=== PATIENT | male | born 1950 | race Caucasian/White ===

== ENCOUNTER 2022-10-09 02:40 | Inpatient (IN) | payer MEDICARE, SELFPAY ==
[2022-10-09] VITALS (10 sets, daily range): BP systolic 117–152; BP diastolic 63–89; PULSE 66–88; RESP 14–18; TEMP 36.7–37.7; O2SAT 91–97; BMI 29.0
--- NOTE | 2022-10-09 | ECHO_ITS ---
Patient Info Name: Andrei Amato Age: 72 years : 1950 Gender: Male Ht: 72 in Wt: 213 lbs BSA: 2.23 m2 HR: 79 bpm BP: 146 / 87 mmHg Heart Rhythm: Sinus Rhythm Technical Quality: Good Exam Date: 10/09/2022 7:55 AM Exam Location: [facility] Patient Status: Outpatient Admit Date: 10/09/2022 Staff Ordering Physician: Alvaro Rojo APRN Senior Oracle Database Administrator: Angi Austin RDCS Attending Provider: Sofia Lucia MD Referring Physician: Darrel CARLSON; Exam Type: CA echo doppler color flow Study Info Indications - pulmonary edema Complete two-dimensional, color flow and Doppler transthoracic echocardiogram is performed. Summary 1. Complete two-dimensional, color flow and Doppler transthoracic echocardiogram is performed. 2. Left ventricular chamber dimension is normal. 3. Left ventricular systolic function is normal, estimated at 60-65%. 4. There is mild concentric increased left ventricular wall thickness. 5. The left ventricular diastolic function is abnormal. 6. E/e' 13 is mildly elevated. 7. Left atrial chamber dimension is moderately enlarged. 8. Right atrial chamber dimension is moderately enlarged. 9. The mitral valve has mildly calcified annulus. 10. There is trace mitral valve regurgitation. 11. There is trace tricuspid valve regurgitation. 12. Mild pulmonary hypertension, estimated pulmonary arterial systolic pressure is 44 mmHg. 13. There is trace pulmonic regurgitation. 14. In proximal ascending aorta there appears to be a echogenic mobile mass 1.8 cm x 1.1 cm but could be artifact. Recommend CTA of aorta for further evaluation. Left Ventricle E/e' 13 is mildly elevated. Left ventricular chamber dimension is normal. Left ventricular systolic function is normal, estimated at 60-65%. There is mild concentric increased left ventricular wall thickness. The left ventricular diastolic function is abnormal. Right Ventricle Right ventricular systolic function is normal and with normal TAPSE 2.3 cm.. Right ventricular chamber dimension is normal. Left Atria Left atrial chamber dimension is moderately enlarged. Right Atria Right atrial chamber dimension is moderately enlarged. Aortic Valve The aortic valve is trileaflet. There is no aortic valve stenosis. There is no aortic valve regurgitation. Pulmonic Valve There is trace pulmonic regurgitation. Mitral Valve The mitral valve has mildly calcified annulus. There is no mitral valve stenosis. There is trace mitral valve regurgitation. Tricuspid Valve There is trace tricuspid valve regurgitation. Mild pulmonary hypertension, estimated pulmonary arterial systolic pressure is 44 mmHg. Pericardium/Pleural There is no pericardial effusion. Inferior Vena Cava Normal inferior vena cava with >50% collapse upon inspiration consistent with normal right atrial pressure, 5 mmHg. Aorta In proximal ascending aorta there appears to be a echogenic mobile mass 1.8 cm x 1.1 cm but could be artifact. Recommend CTA of aorta for further evaluation. The aortic root size at the sinus of Valsalva is normal. Left Ventricular Outflow Tract Name Value Normal LVOT 2D LVOT Diameter 2.2 cm LVOT Doppler LVOT Peak Gradient
--- NOTE | ~2022-10-09 | CT_ITS ---
Non-contrast Head CT History: Altered mental status COMPARISON: 10/08/2016 Technique: Axial non-contrast imaging of the brain was performed. Dose reduction technique was used on this scan by utilizing automated exposure control and iterative reconstruction technique. The dose -length product (DLP) was 681.00 mGy-cm. Findings: There is no evidence of intracranial hemorrhage, mass lesion, or acute infarct. Brain par enchyma appears normal. The ventricles and subarachnoid spaces are normal in size. The calvarium ap pears normal. The visualized paranasal sinuses and mastoid air cells are clear. Impression: No significant abnormality seen. Reviewed, dictated and finalized at location . Impression: No significant abnormality seen.
--- NOTE | ~2022-10-09 | CT_ITS ---
EXAMINATION: CTA chest DATE: 10/09/2022 14:48 INDICATION: Aortic mass. TECHNIQUE: Computed tomographic angiography (CTA) of the chest was performed with 100 mL Omnipaque-35 0 intravenous contrast. Automated exposure control and iterative reconstruction technique were employ ed. The dose-length product was 679.84 mGy-cm. Maximum intensity projection 3D-reconstructions of the aorta and other arteries were constructed by the technologist on a separate workstation. COMPARISON: CT abdomen and pelvis 10/09/2022, chest 2 views 10/08/16 FINDINGS: The lungs demonstrate widespread heterogeneous septal thickening and groundglass opacities. No pleural effusion. Cardiomegaly is noted. No pericardial effusion. Aortic atherosclerosis is noted . There is no pulmonary embolus. There is mild mediastinal and bilateral hilar lymphadenopathy. There is a moderate-sized sliding hiatal hernia. There are changes of anterior fusion procedure in cervica l spine. There is severe upper thoracic spondylosis. IMPRESSION: 1. Diffuse lung disease, likely a combination of pneumonia, pulmonary edema, and chronic lung disease . 2. Mild mediastinal and bilateral hilar lymphadenopathy, likely reactive. 3. Moderate-sized sliding hiatal hernia. 4. Mild aortic atherosclerosis. No abnormal aortic mass. 5. No pulmonary embolus. Reviewed, dictated and finalized at location A. IMPRESSION: 1. Diffuse lung disease, likely a combination of pneumonia, pulmonary edema, an d chronic lung disease. 2. Mild mediastinal and bilateral hilar lymphadenopathy, likely reactive. 3. Moderate-sized sliding hiatal hernia. 4. Mild aortic atherosclerosis. No abnormal aortic mass. 5. No pulmonary embolus.
--- NOTE | ~2022-10-09 | XR_ITS ---
EXAMINATION: XR chest 1V portable INDICATION: Follow-up pneumonia TECHNIQUE: Portable AP chest at 0853 hours COMPARISON: 10/09/2022 FINDINGS: Diffuse lung disease persists but has improved. No pleural effusion or pneumothorax identif ied. Cardiomegaly is noted. IMPRESSION: 1. Diffuse lung disease with interval improvement, likely pneumonia, pulmonary edema, improved chroni c lung disease. Reviewed, dictated and finalized at location B. IMPRESSION: 1. Diffuse lung disease with interval improvement, likely pneumonia, pulmonary edema, improved chronic lung disease.
--- NOTE | ~2022-10-09 | XR_ITS ---
EXAMINATION: XR chest 2V DATE: 10/14/2022 10:36 INDICATION: Pneumonia. Heart failure. TECHNIQUE: Frontal and lateral views of the chest were obtained. COMPARISON: Chest single view 10/12/2022, chest CT 10/09/2022, chest 2 views 10/08/2016 FINDINGS: The lung volumes are normal. There is a diffuse interstitial pattern in the lungs. There ar e airspace opacities in right lower lung zone and left mid and lower lung zones. No pleural effusion or pneumothorax. Cardiomegaly is noted. There is a moderate-sized hiatal hernia. IMPRESSION: 1. Diffuse lung disease with mild improvement in left midlung zone, likely pneumonia and/or pulmonary edema superimposed on chronic lung disease. 2. Moderate-sized hiatal hernia. 3. Cardiomegaly. Reviewed, dictated and finalized at location A. IMPRESSION: 1. Diffuse lung disease with mild improvement in left midlung zone, likely pneu monia and/or pulmonary edema superimposed on chronic lung disease. 2. Moderate-sized hiatal hernia. 3. Cardiomegaly.
--- NOTE | ~2022-10-09 | XR_ITS ---
Clinical Indication: Leukocytosis, cough PA and lateral views of the chest: Comparison: 10/08/2016 Findings: There is extensive groundglass opacity in the lungs. No pleural effusion or pneumothorax.. Cardiomediastinal silhouette is within normal limits. Bones and soft tissues are unremarkable. Impression: Extensive groundglass opacity in the lungs. Correlate for atypical infection versus mild pulmonary ed fei. Reviewed, dictated and finalized at location M. Impression: Extensive groundglass opacity in the lungs. Correlate for atypical infection ve rsus mild pulmonary edema.
--- NOTE | ~2022-10-09 | CT_ITS ---
CT of the Abdomen and Pelvis: Indication: Abdominal pain Technique: 2.5 mm axial scans were obtained through the abdomen and pelvis following intravenous adm inistration of 100 cc of Omnipaque 350. Dose reduction technique was used on this scan by utilizing a utomated exposure control and iterative reconstruction technique. The dose-length product (DLP) was 1 365.46 mGy-cm. Findings: Scans through the lung bases-extensive groundglass opacity throughout the visualized lung bases. Moderate hiatal hernia noted. The liver, spleen, pancreas, gallbladder, and adrenal glands are within normal limits. There is minim al fullness of the bilateral renal collecting systems and ureters. No evidence of aortic aneurysm. N o lymphadenopathy. No bowel obstruction or bowel wall thickening. There is no evidence to suggest acute appendicitis. Images through the pelvis were performed. Urinary bladder unremarkable. Prostate gland is enlarged, a nd indents the bladder base. No ascites. Impression: Extensive groundglass opacity throughout the visualized lung bases. Correlate for pulmonary edema or atypical infection. Minimal fullness of the bilateral renal collecting systems and ureters, probably related to underlyin g BPH. Moderate hiatal hernia. Reviewed, dictated and finalized at location M. Impression: Extensive groundglass opacity throughout the visualized lung bases. Correlate f or pulmonary edema or atypical infection. Minimal fullness of the bilateral renal collecting systems and ureters, probabl y related to underlying BPH. Moderate hiatal hernia.
--- NOTE | 2022-10-09 03:28 | ED.GENADULT ---
HPI - General Adult General Chief complaint: Unspecified Stated complaint: fells off Time Seen by Provider: 10/09/22 02:59 History of Present Illness HPI narrative: Patient is a 72-year-old male presenting with a sensation of feeling off. States that he is concerned that he is dehydrated because he just does not feel like himself. States that he may have felt lightheaded earlier today. He is concerned because the only thing he drinks is water. He denies headache, numbness or weakness, chest pain, shortness of breath, abdominal pain, vomiting, diarrhea, dysuria, leg swelling. Related Data Home Medications Medication Instructions Recorded Confirmed amiodarone 200 mg tablet 200 mg PO DAILY 10/09/22 10/09/22 atorvastatin 10 mg tablet 10 mg PO HS 10/09/22 10/09/22 divalproex 500 mg tablet,extended 500 mg PO DAILY 10/09/22 10/09/22 release 24 hr memantine 10 mg tablet 10 mg PO DAILY 10/09/22 10/09/22 metformin 500 mg tablet 500 mg PO DAILY 10/09/22 10/09/22 rivaroxaban 20 mg tablet (Xarelto) 20 mg PO DAILY 10/09/22 10/09/22 pantoprazole 40 mg tablet,delayed 40 mg PO DAILY 10/12/22 10/12/22 release Allergies Allergy/AdvReac Type Severity Reaction Status Date / Time Yellow Jacket Allergy Unknown Uncoded 10/08/16 09:34 Review of Systems Review of Systems: All systems reviewed & are unremarkable except as noted in HPI and below PMFSH Past Medical History Medical History (Updated 10/12/22 @ 22:13 by Delilah Friedman MD) Atherosclerosis Atrial fibrillation Atrial fibrillation status post cardioversion Borderline diabetes BPH (benign prostatic hyperplasia) Chronic anticoagulation Memory problem Surgical History Surgical History S/P ablation of atrial fibrillation Social History Social History Alcohol intake: current Drinks per week: 1 Substance use: never Substance use type: does not use Lack of Transportation: No Lack of Food: Never True Current Housing: I Have Housing Concerned About Future Housing: No Difficulty Paying Gas/Electric Bills: No Difficulty Paying for Meds: No Currently Unemployed: No Education: Master's Degree or Higher Difficulty w/ Childcare or Family Care: No Spiritual care concerns: No Exam Narrative: GENERAL: Well-appearing, well-nourished, and in no acute distress. HEAD: Normocephalic, atraumatic. EYES: PERRLA and EOMI. ENT: Nares clear, no rhinorrhea or epistaxis. Mucous membranes moist. NECK: Supple. CHEST: crackles bilaterally, no respiratory distress, intermittently tachypneic HEART: Regular rate and rhythm. Normal peripheral pulses. ABDOMEN: Soft, nontender, nondistended EXTREMITIES: Normal range of motion. No edema. SKIN: Warm, dry, no rash. NEURO: No focal deficits. Alert and oriented x3. PSYCH: Somewhat rambling speech but redirectable, normal mood and affect Course Vital Signs Vital signs: Vital Signs Temperature 99.8 F H 10/09/22 02:48 Pulse Rate 79 10/09/22 02:48 Respiratory Rate 14 10/09/22 02:48 Blood Pressure 152/70 H 10/09/22 02:48 Pulse Oximetry 94 10/09/22 02:48 Oxygen Delivery Room Air 10/09/22 02:48 Temperature 98.8 F 10/12/22 21:15 Pulse Rate 69 10/12/22 21:15 Respiratory Rate 16 10/12/22 21:15 Blood Pressure 112/78 10/12/22 21:15 Pulse Oximetry 97 10/12/22 21:15 Oxygen Delivery Room Air 10/12/22 09:31 Oxygen Flow Rate 2 10/11/22 20:00 Fraction of Inspired Oxygen 28 10/11/22 07:32 Medical Decision Making [facility] Narrative Medical decision making narrative: Patient is a 72-year-old male presenting with a sensation of feeling off. Vitals within normal limits. Patient is well-appearing and in no acute distress. Exam is remarkable for the above. Blood work with leukocytosis of 16. Chest x-ray is concerning for pulmonary edema versus atypical pneumo
[2022-10-09 03:29] LABS: Basophils Absolute Auto 0.1 K/mm3 (0.0-0.1); Basophils Percent Auto 0.3 % (0.2-1.2); Eosinophils Absolute Auto 0.1 K/mm3 (0-0.3); Eosinophils Percent Auto 0.8 % (0-4.4); Hemoglobin 12.3 g/dL (14.0-18.0); Immature Granulocyte Absolute 0.07 K/mm3 (0.00-0.031); Immature Granulocyte Percent A 0.4 % (0-0.5); Lymphocytes Absolute Auto 0.98 K/mm3 (0.9-3.2); Lymphocytes Percent Auto 6.1 % (18.3-44.2); Mean Corpuscular HGB Conc 33.2 g/dl (32-36); Mean Corpuscular Hemoglobin 32.9 pg (26-34); Mean Corpuscular Volume 98.9 fl (80-100); Mean Platelet Volume 10.5 fl (7.4-10.4); Monocytes Absolute Auto 1.5 K/mm3 (0.1-0.6); Monocytes Percent Auto 9.3 % (2.6-8.5); Neutrophils Absolute Auto 13.4 K/mm3 (1.3-6.7); Neutrophils Percent Auto 83.1 % (45.5-73.1); Platelet Count Result 198 k/mm3 (150-375); Red Blood Count 3.74 M/mm3 (4.6-6.20); Red Cell Distribution Width 14.1 % (11.5-14.5); White Blood Count 16.2 K/mm3 (4.5-10.0)
[2022-10-09] MEDS: SODIUM CHLORIDE 0.9% IV 1,000 ML 999 ML IV CONT ×2 (03:42→05:21)
[2022-10-09 03:45] LABS: Appearance Urine Clear (Clear); Bilirubin Urine Negative (Negative); Blood Urine Negative (Negative); Color Urine Yellow (Yellow); Glucose Urine UA Negative (Negative); Ketones Urine Negative (Negative); Leukocyte Esterase Ur Negative LEU/UL (Negative); Nitrate Urine Negative (Negative); Protein Urine Negative (Negative); Specific Grav Ur 1.011 (1.001-1.035)
[2022-10-09 03:46] LABS: Add Urine Microscopic? NO
[2022-10-09 04:11] LABS: Alanine Aminotransferase 24 U/L (6-50); Albumin Level 3.8 g/dL (3.5-5.1); Alkaline Phosphatase 56 U/L (38-126); Anion Gap 7 mmol/L (8-16); Aspartate Amino Transferase 42 U/L (17-59); Bilirubin,Total 1.4 mg/dL (0.2-1.3); Blood Urea Nitrogen 11 mg/dL (9-20); Calcium 8.6 mg/dL (8.4-10.2); Carbon Dioxide 23 mmol/L (22-30); Chloride 104 mmol/L (98-107); Estimated CRCL calculation 69 ml/min; Estimated Glomerular Filt Rate > 60; Glucose 119 mg/dL (65-110); Potassium 4.2 mmol/L (3.4-5.0); Sodium 134 mmol/L (137-145)
[2022-10-09] MEDS: AZITHROMYCIN 500 MG/NS 250 ML 500 MG/250 ML BAG 250 MG IVPB (05:48)
[2022-10-09 06:03] LABS: Lactic Acid Reflex 1.5 mmol/L (0.7-2.0)
[2022-10-09 06:05] LABS: Influenza A QL RT-PCR Negative (Negative); Influenza B QL RT-PCR Negative (Negative); SARS-CoV-2 RNA PCR Negative (Negative)
--- NOTE | 2022-10-09 06:45 | ADMGEN ---
This patient, Andrei Amato, was admitted to [facility] Surg Room 302-01. Patient/family oriented to hospital policies and general routines including ID bracelet, bed and alarms, visiting hours, pain management, procedures, bathroom and other care routines, personal items, smoking policy, room service/diet, and visiting hours. Information on how to activate the Rapid Response Team has been discussed. Patient/Family are encouraged to report perceived risks to care and to ask questions if they do not understand what they are told or what they should do.
--- NOTE | 2022-10-09 07:09 | ECG_ITS ---
Measurements Intervals [place] Rate: 71 P: 34 CO: 207 QRS: -28 QRSD: 96 T: 14 QT: 385 QTc: 420 Interpretive Statements SINUS RHYTHM BORDERLINE LEFT AXIS DEVIATION [QRS AXIS < -20] NO PREVIOUS ECG AVAILABLE FOR COMPARISON Electronically Signed On 10-09-2022 14:25:36 CDT by Mayi Rocha M.D.
--- NOTE | 2022-10-09 07:15 | PM.IMHP ---
H&P: HPI History of Present Illness Date/Time: 10/09/22 07:15 Chief Complaint: Dyspnea Narrative: Patient presented to the emergency department feeling off and having difficulty breathing and coughing. Patient denies any fever or chills. white blood cell count was noted to be elevated and chest x-ray showed pulmonary edema versus atypical pneumonia. Patient received 2 L normal saline, blood cultures, COVID flu testing, abdomen pelvis CT scan and was admitted to the floor after receiving IV azithromycin and Rocephin for suspected pneumonia. Patient reports that he has been having difficulty breathing for several days but he is in the process of moving from [place] back to the area and is currently residing in a motel. Last night he stated he had much worsening of his difficulty breathing with cough and he had to call 911 to bring him to the emergency department. Patient reports a past history of atrial fibrillation for which he has undergone 2 cardioversions and ablation in [address] [place] [address]. Patient is unable to remember if this happened at [facility] or at [facility]. Patient reports that he takes care of himself lives independently. He has 2 sons but does not talk with them very often. He is very adamant that his older son's does not visit because he does not like her. Patient having difficulty explaining his past medical history but knows that he is on Xarelto and another pill for preventative for his history of atrial fibrillation. Patient states I take good care of myself because I am here, aren't I? Patient denies chest pain nausea vomiting abdominal pain. He is complaining that he is urinating too often but states that is because the saline they gave him. Review of Systems Review of Systems: All systems reviewed & are unremarkable except as noted in HPI and below [facility] Past Medical History Medical History (Updated 10/09/22 @ 09:38 by Alvaro Rojo APRN) Atrial fibrillation Atrial fibrillation status post cardioversion Borderline diabetes Chronic anticoagulation Memory problem Surgical History Surgical History S/P ablation of atrial fibrillation Social History Social History Alcohol intake: current Drinks per week: 1 Substance use: never Substance use type: does not use Lack of Transportation: No Lack of Food: Never True Current Housing: I Have Housing Concerned About Future Housing: No Difficulty Paying Gas/Electric Bills: No Difficulty Paying for Meds: No Currently Unemployed: No Education: Master's Degree or Higher Difficulty w/ Childcare or Family Care: No Spiritual care concerns: No Meds Home Medications and Allergies Home Medications Medication Instructions Recorded Confirmed Type amiodarone 200 mg tablet 200 mg PO DAILY 10/09/22 10/09/22 History atorvastatin 10 mg tablet 10 mg PO HS 10/09/22 10/09/22 History divalproex 500 mg tablet,extended 500 mg PO DAILY 10/09/22 10/09/22 History release 24 hr memantine 10 mg tablet 10 mg PO DAILY 10/09/22 10/09/22 History metformin 500 mg tablet 500 mg PO DAILY 10/09/22 10/09/22 History rivaroxaban 20 mg tablet (Xarelto) 20 mg PO DAILY 10/09/22 10/09/22 History Allergies Allergy/AdvReac Type Severity Reaction Status Date / Time Yellow Jacket Allergy Unknown Uncoded 10/08/16 09:34 Vital Signs Vital Signs - 24 hr 10/09/22 02:48 10/09/22 04:00 10/09/22 04:00 Temperature 37.7 C H 37.4 C Pulse Rate 79 88 74 Respiratory Rate 14 14 Blood Pressure 152/70 H 117/75 Pulse Oximetry 94 94 Oxygen Delivery Room Air Oxygen Flow Rate 10/09/22 03:00 10/09/22 05:57 10/09/22 06:02 Temperature 36.9 C 37.2 C Pulse Rate 80 79 Respiratory Rate 14 14 Blood Pressure 141/63 H 146/87 H Pulse Oximetry 91 92 95 Oxygen Delivery Nasal Cannula Oxygen Flow Rate 2.0 Exam Narrative:
[2022-10-09 07:38] LABS: NT Pro B Type Natriuretic Pept 698 pg/mL (19.9-100); Troponin I < 0.012 ng/mL (0.000-0.034)
[2022-10-09] MEDS: MEMANTINE 10 MG TABLET PO (08:19)
[2022-10-09] MEDS: metFORMIN HCL 500 MG TABLET PO (08:19)
[2022-10-09] MEDS: DIVALPROEX SODIUM ER 500 MG TAB.24H PO (08:19)
[2022-10-09] MEDS: AMIODARONE HCL 200 MG TABLET PO (08:19)
[2022-10-09 10:29] LABS: Hemoglobin A1C 6.4 % (<5.7)
[2022-10-09] MEDS: FUROSEMIDE INJ 40 MG/4 ML VIAL IV PUSH (16:18)
[2022-10-09] MEDS: RIVAROXABAN 20 MG TABLET PO (16:55)
[2022-10-09 17:17] LABS: Glucose Point of Care 80 mg/dl (65-105)
[2022-10-09] MEDS: ATORVASTATIN 10 MG TABLET PO (20:03)
[2022-10-10] MEDS: guaiFENesin/CODEINE (*CRX) 200/20 MG 10 ML SYRUP PO (01:30)
[2022-10-10 06:00] VITALS: BP 127/71; PULSE 73; RESP 18; TEMP 36.6; O2SAT 94
[2022-10-10 06:05] LABS: Basophils Percent Auto 0.2 % (0.2-1.2); Eosinophils Absolute Auto 0.3 K/mm3 (0-0.3); Eosinophils Percent Auto 1.9 % (0-4.4); Hematocrit 36.5 % (42.0-52.0); Hemoglobin 12.1 g/dL (14.0-18.0); Immature Granulocyte Absolute 0.09 K/mm3 (0.00-0.031); Immature Granulocyte Percent A 0.6 % (0-0.5); Lymphocytes Absolute Auto 1.31 K/mm3 (0.9-3.2); Lymphocytes Percent Auto 9.1 % (18.3-44.2); Mean Corpuscular HGB Conc 33.2 g/dl (32-36); Mean Corpuscular Hemoglobin 32.4 pg (26-34); Mean Corpuscular Volume 97.9 fl (80-100); Mean Platelet Volume 10.8 fl (7.4-10.4); Monocytes Absolute Auto 1.7 K/mm3 (0.1-0.6); Monocytes Percent Auto 11.8 % (2.6-8.5); Neutrophils Percent Auto 76.4 % (45.5-73.1); Platelet Count Result 195 k/mm3 (150-375); Red Blood Count 3.73 M/mm3 (4.6-6.20); White Blood Count 14.4 K/mm3 (4.5-10.0)
[2022-10-10 06:15] LABS: Anion Gap 5 mmol/L (8-16); Blood Urea Nitrogen 16 mg/dL (9-20); Calcium 8.7 mg/dL (8.4-10.2); Carbon Dioxide 26 mmol/L (22-30); Chloride 104 mmol/L (98-107); Estimated CRCL calculation 63 ml/min; Estimated Glomerular Filt Rate > 60; Glucose 149 mg/dL (65-110); Potassium 4.2 mmol/L (3.4-5.0); Sodium 135 mmol/L (137-145)
[2022-10-10 08:00] VITALS: O2SAT 94
[2022-10-10] MEDS: AMIODARONE HCL 200 MG TABLET PO (08:59)
[2022-10-10] MEDS: DIVALPROEX SODIUM ER 500 MG TAB.24H PO (08:59)
[2022-10-10] MEDS: AZITHROMYCIN 250 MG TABLET 500 MG PO (08:59)
[2022-10-10] MEDS: FUROSEMIDE INJ 40 MG/4 ML VIAL IV PUSH ×2 (08:59→16:22)
[2022-10-10] MEDS: VANCOMYCIN 1,250 MG/NS 250 ML 1,250 MG/250 ML BAG 166.67 MG IVPB ×2 (09:00→10:21)
[2022-10-10] MEDS: cefTRIAXone 2 GM/NS 100 ML 2 GM/100 ML BAG IVPB (09:00)
[2022-10-10] MEDS: MEMANTINE 10 MG TABLET PO (09:07)
--- NOTE | 2022-10-10 10:00 | PM.IMPN ---
Progress Note: A&P Assessment and Plan (1) Pneumonia: Code(s): J18.9 - Pneumonia, unspecified organism Status: Acute Assessment and Plan: patchy ground-glass findings diffuse throughout the lung renae. Patient a Zithromax Rocephin and added vancomycin. At Legionella strep pneumoniae, AFB, mycoplasma and chlamydial of pneumonia testing (2) Memory problem: Code(s): R41.3 - Other amnesia Status: Acute Assessment and Plan: Patient is highly educated but suspects sort of dementia issue. He has good memory recall but does seem to understand the connection between 1 thing and another. He of a house in [place] and into [facility] because he wants to get out of [place] because he does not feel like he Geriatric enough to live there. I suspect he is upset that [facility] in [place] admitted him to [facility] for possible accidental overdose of sleeping medication. Patient is staying at [facility] room 218 trying to get back into his old house in [place]. (3) Diastolic congestive heart failure, NYHA class 3: Code(s): I50.30 - Unspecified diastolic (congestive) heart failure Status: Acute Assessment and Plan: Appears newly diagnoses diastolic dysfunction leading to pulmonary edema and some leg edema with mild pulmonary hypertension, negative for PE. Respiratory status improved after diuresis. Will add oral Lasix. (4) Pulmonary edema determined by examination: Code(s): J81.1 - Chronic pulmonary edema Status: Acute Assessment and Plan: See #3. 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 Patient on metformin which is on hold due to IV contrast doses this hospitalization. ACHS fingerstick glucose with low dose corrective insulin ordered. Patient may not approve of this plan and will not fight unless sugars elevate excessively. (7) BPH (benign prostatic hyperplasia): Code(s): N40.0 - Benign prostatic hyperplasia without lower urinary tract symptoms Status: Acute Assessment and Plan: Imaging diagnosed, asymptomatic (8) Atherosclerosis: Code(s): I70.90 - Unspecified atherosclerosis Status: Acute Assessment and Plan: Aortic atherosclerosis on imaging, patient on low dose atorvastatin Time Spent With Patient Time with patient: Greater than 35 minutes (Over 35 minutes spent on prolonged story after I asked patient how he was feeling today) Subjective Date/time seen: 10/10/22 10:00 Interval history: Copied from 10/09/22 H&P note: Chief Complaint: ? Dyspnea Narrative: Patient presented to the emergency department feeling off and having difficulty breathing and coughing.? Patient denies any fever or chills. white blood cell count was noted to be elevated and chest x-ray showed pulmonary edema versus atypical pneumonia.? Patient received 2 L normal saline, blood cultures, COVID flu testing, abdomen pelvis CT scan and was admitted to the floor after receiving IV azithromycin and Rocephin for suspected pneumonia.? Patient reports that he has been having difficulty breathing for several days but he is in the process of moving from [place] back to the area and is currently residing in a motel.? Last night he stated he had much worsening of his difficulty breathing with cough and he had to call 911 to bring him to the emergency department.? Patient reports a past history of atrial fibrillation for which he has undergone 2 cardioversions and ablation in 0'.? Patient is unable to remember if this happened at [place] or at [facility].? Patient reports that he takes care of himself lives independently.?
[2022-10-10 14:00] VITALS: BP 132/71; PULSE 65; RESP 14; TEMP 36.9; O2SAT 98
[2022-10-10] MEDS: ACETAMINOPHEN 325 MG TABLET 650 MG PO ×2 (16:20→20:14)
[2022-10-10] MEDS: RIVAROXABAN 20 MG TABLET PO (16:22)
[2022-10-10 17:09] LABS: Glucose Point of Care 109 mg/dl (65-105)
[2022-10-10] MEDS: ATORVASTATIN 10 MG TABLET PO (20:14)
[2022-10-10 21:33] VITALS: O2SAT 96
[2022-10-10 21:38] VITALS: BP 136/63; PULSE 64; RESP 16; TEMP 36.3; O2SAT 96
[2022-10-10 21:58] LABS: Glucose Point of Care 159 mg/dl (65-105)
[2022-10-11] VITALS (8 sets, daily range): BP systolic 125–133; BP diastolic 66–73; PULSE 61–80; RESP 16–20; TEMP 36.3–37.8; O2SAT 91–100
[2022-10-11] MEDS: ONDANSETRON INJ 4 MG/2 ML VIAL IV PUSH ×2 (03:47→20:09)
[2022-10-11] MEDS: SODIUM CHLOR 3% 15 ML NEB (RESPIRATORY THERAPY) 6 ML INHALATION (05:38)
[2022-10-11 06:58] LABS: Basophils Absolute Auto 0.1 K/mm3 (0.0-0.1); Basophils Percent Auto 0.4 % (0.2-1.2); Eosinophils Absolute Auto 0.5 K/mm3 (0-0.3); Eosinophils Percent Auto 3.6 % (0-4.4); Hematocrit 37.4 % (42.0-52.0); Hemoglobin 12.2 g/dL (14.0-18.0); Immature Granulocyte Absolute 0.08 K/mm3 (0.00-0.031); Immature Granulocyte Percent A 0.6 % (0-0.5); Lymphocytes Absolute Auto 1.41 K/mm3 (0.9-3.2); Lymphocytes Percent Auto 10.1 % (18.3-44.2); Mean Corpuscular HGB Conc 32.6 g/dl (32-36); Mean Corpuscular Hemoglobin 32.6 pg (26-34); Mean Platelet Volume 11.5 fl (7.4-10.4); Monocytes Absolute Auto 1.4 K/mm3 (0.1-0.6); Neutrophils Absolute Auto 10.5 K/mm3 (1.3-6.7); Neutrophils Percent Auto 75.3 % (45.5-73.1); Platelet Count Result 222 k/mm3 (150-375); Red Blood Count 3.74 M/mm3 (4.6-6.20); Red Cell Distribution Width 13.9 % (11.5-14.5)
[2022-10-11 07:11] LABS: Anion Gap 7 mmol/L (8-16); Blood Urea Nitrogen 18 mg/dL (9-20); Calcium 8.4 mg/dL (8.4-10.2); Carbon Dioxide 22 mmol/L (22-30); Chloride 102 mmol/L (98-107); Estimated CRCL calculation 69 ml/min; Estimated Glomerular Filt Rate > 60; Glucose 110 mg/dL (65-110); Potassium 4.1 mmol/L (3.4-5.0); Sodium 131 mmol/L (137-145)
[2022-10-11] MEDS: FUROSEMIDE INJ 40 MG/4 ML VIAL IV PUSH (08:38)
[2022-10-11] MEDS: AZITHROMYCIN 250 MG TABLET 500 MG PO (08:38)
[2022-10-11] MEDS: AMIODARONE HCL 200 MG TABLET PO (08:38)
[2022-10-11] MEDS: DIVALPROEX SODIUM ER 500 MG TAB.24H PO (08:38)
[2022-10-11] MEDS: MEMANTINE 10 MG TABLET PO (08:38)
[2022-10-11] MEDS: cefTRIAXone 2 GM/NS 100 ML 2 GM/100 ML BAG IVPB (08:40)
--- NOTE | 2022-10-11 10:04 | PM.IMPN ---
Progress Note: A&P Assessment and Plan (1) Pneumonia: Code(s): J18.9 - Pneumonia, unspecified organism Status: Acute Assessment and Plan: 10/10: patchy ground-glass findings diffuse throughout the lung renae. Patient on Zithromax Rocephin and added vancomycin. At Legionella strep pneumoniae, AFB, mycoplasma and chlamydial of pneumonia testing 10/11: Patient's lung sounds are improved and he is on room air. White count still remains elevated at 14. Sputum culture in process. Believe patient can probably discharge tomorrow if sodium remains stable and once sputum culture is resulted for proper antibiotic choice. (2) Memory problem: Code(s): R41.3 - Other amnesia Status: Acute Assessment and Plan: 10/10: Patient is highly educated but suspects sort of dementia issue. He has good memory recall but does seem to understand the connection between 1 thing and another. He of a house in [place] and into [facility] because he wants to get out of [place] because he does not feel like he Geriatric enough to live there. I suspect he is upset that [facility] in [place] admitted him to [facility] psych for possible accidental overdose of sleeping medication. Patient is staying at [facility] room 218 trying to get back into his old house in [place]. 10/11: Patient retells the same stories over and over and has been inappropriate with female staff commenting on appearance, bodily features and attractiveness. (3) Diastolic congestive heart failure, NYHA class 3: Code(s): I50.30 - Unspecified diastolic (congestive) heart failure Status: Acute Assessment and Plan: Appears newly diagnosed diastolic dysfunction leading to pulmonary edema and some leg edema with mild pulmonary hypertension, negative for PE. Respiratory status improved after diuresis. Will add oral Lasix. 10/11: Appears improved today lung sounds are more clear fewer crackles. Would discharge patient with Lasix. (4) Hyponatremia: Code(s): E87.1 - Hypo-osmolality and hyponatremia Status: Acute Assessment and Plan: 10/11: Mild hyponatremia, admitted at 134, now 131 after diuresis. Salt tabs for today/tomorrow morning and regular diet. Recheck tomorrow and consider discharge if stable. (5) Pulmonary edema determined by examination: Code(s): J81.1 - Chronic pulmonary edema Status: Acute Assessment and Plan: See #3. (6) Chronic anticoagulation: Code(s): Z79.01 - alf (current) use of anticoagulants Status: Acute Assessment and Plan: On Xarelto due to a-fib history with recent cardioversion then ablation, will continue for VTE prophylaxis (7) Borderline diabetes: Code(s): R73.03 - Prediabetes Status: Acute Assessment and Plan: Hgb A1c is 6.4. Patient on metformin which is on hold due to IV contrast doses this hospitalization. ACHS fingerstick glucose with low dose corrective insulin ordered. Patient may not approve of this plan and will not fight unless sugars elevate excessively. (8) BPH (benign prostatic hyperplasia): Code(s): N40.0 - Benign prostatic hyperplasia without lower urinary tract symptoms Status: Acute Assessment and Plan: Imaging diagnosed, asymptomatic (9) Atherosclerosis: Code(s): I70.90 - Unspecified atherosclerosis Status: Acute Assessment and Plan: Aortic atherosclerosis on imaging, patient on low dose atorvastatin Time Spent With Patient Time with patient: Greater than 35 minutes Subjective Date/time seen: 10/11/22 10:04 Interval history: Copied from 10/09/22 H&P note: Chief Complaint: ? Dyspnea Narrative: Patient presented to the emergency department feeling off and having difficulty breathing and coughing.? Patient denies any fever or chills. white blood cell count was noted to be elevated and chest x-ray showed pulmonary edema versus atypical pneumonia.? Patient received 2 L nor
[2022-10-11 11:43] LABS: Glucose Point of Care 193 mg/dl (65-105)
[2022-10-11] MEDS: RIVAROXABAN 20 MG TABLET PO (17:05)
[2022-10-11] MEDS: SODIUM CHLORIDE 1 GM TABLET PO (17:05)
[2022-10-11 17:10] LABS: Glucose Point of Care 86 mg/dl (65-105)
--- NOTE | 2022-10-11 18:46 | PC.NURSE ---
Tyrone Amato can be contacted per PT [phone]
[2022-10-11] MEDS: ATORVASTATIN 10 MG TABLET PO (20:08)
[2022-10-11 20:10] LABS: Vancomycin Trough 9.3 ug/mL (10.0-20.0)
--- NOTE | 2022-10-11 20:18 | PC.NURSE ---
reported vancomycin trough to pharmacist 9.3
[2022-10-11 20:44] LABS: Glucose Point of Care 156 mg/dl (65-105)
--- NOTE | 2022-10-11 20:45 | PC.NURSE ---
vancomycin trough was low reported to Pharmacist increased to 1750 mg from 1500 mg
[2022-10-11] MEDS: ACETAMINOPHEN 325 MG TABLET 650 MG PO (22:39)
[2022-10-11 23:12] LABS: Glucose Point of Care 160 mg/dl (65-105)
[2022-10-12] VITALS (7 sets, daily range): BP systolic 112–132; BP diastolic 58–78; PULSE 18–72; RESP 16–20; TEMP 36.3–37.1; O2SAT 90–97
[2022-10-12] MEDS: ONDANSETRON INJ 4 MG/2 ML VIAL IV PUSH (00:03)
[2022-10-12] MEDS: SODIUM CHLOR 3% 15 ML NEB (RESPIRATORY THERAPY) 6 ML INHALATION (05:26)
[2022-10-12] MEDS: CALCIUM CARBONATE (TUMS) 500 MG (200 MG ELEMENTAL) PO ×2 (05:37→17:06)
[2022-10-12 06:35] LABS: Basophils Absolute Auto 0.1 K/mm3 (0.0-0.1); Basophils Percent Auto 0.6 % (0.2-1.2); Eosinophils Absolute Auto 0.7 K/mm3 (0-0.3); Eosinophils Percent Auto 5.5 % (0-4.4); Hematocrit 39.5 % (42.0-52.0); Hemoglobin 12.7 g/dL (14.0-18.0); Immature Granulocyte Absolute 0.08 K/mm3 (0.00-0.031); Immature Granulocyte Percent A 0.7 % (0-0.5); Lymphocytes Absolute Auto 1.76 K/mm3 (0.9-3.2); Lymphocytes Percent Auto 14.7 % (18.3-44.2); Mean Corpuscular HGB Conc 32.2 g/dl (32-36); Mean Corpuscular Hemoglobin 32.7 pg (26-34); Mean Corpuscular Volume 101.8 fl (80-100); Monocytes Absolute Auto 1.3 K/mm3 (0.1-0.6); Neutrophils Absolute Auto 8.1 K/mm3 (1.3-6.7); Neutrophils Percent Auto 67.5 % (45.5-73.1); Platelet Count Result 252 k/mm3 (150-375); Red Blood Count 3.88 M/mm3 (4.6-6.20); Red Cell Distribution Width 13.8 % (11.5-14.5)
[2022-10-12 06:49] LABS: Anion Gap 5 mmol/L (8-16); Blood Urea Nitrogen 17 mg/dL (9-20); Calcium 8.8 mg/dL (8.4-10.2); Carbon Dioxide 25 mmol/L (22-30); Chloride 103 mmol/L (98-107); Estimated CRCL calculation 69 ml/min; Estimated Glomerular Filt Rate > 60; Glucose 113 mg/dL (65-110); Potassium 5.2 mmol/L (3.4-5.0); Sodium 133 mmol/L (137-145)
[2022-10-12 07:58] LABS: Glucose Point of Care 104 mg/dl (65-105)
--- NOTE | 2022-10-12 08:33 | PM.IMPN ---
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 No fever chills. WBC count elevated at 16 K. He was also noted to be hypoxic on presentation.chest x-ray with Extensive ground-glass opacity in the lungs. pulmonary edema versus atypical pneumonia. CT head was negative. CT abdomen pelvis with extensive ground-glass opacities throughout the visualized lung bases. Minimal fullness of the bilateral renal collecting systems and ureters. Probably related to underlying BPH. Moderate hiatal hernia. CTA was done on 10/09/2022 which showed diffuse lung disease likely a combination of pneumonia pulmonary edema and chronic lung disease. Mild mediastinal and bilateral hilar lymphadenopathy likely reactive. Moderate-sized sliding hiatal hernia. Mild aortic atherosclerosis. No PE. COVID flu negative. blood cultures were obtained. Started on Rocephin and azithromycin for pneumonia. Past history of atrial fibrillation for which he had underwent to cardioversion and ablation Echocardiogram with concern for mass in the aorta so CT scan was done. No such mass was evident on a CT chest. Hypoxia continues to improve since admission and has been off oxygen. WBC count improving. Mild hyponatremia stable. Underlying type 2 diabetes. A1c at 6.4. On Xarelto for anticoagulation along with amiodarone. Pneumococcal antigen pending mycoplasma and Legionella pending. Blood culture x2 negative. Respiratory culture with yeast isolated from 10/09/2022. Underlying mild cognitive dysfunction echo with EF 60-65% mild pulmonary hypertension. In proximal ascending aorta appears to be a echogenic mobile mass 1.8 cm x 1.1 cm but could be artifact. Recommended CTA diastolic dysfunction started on IV diuresis now switched to oral Lasix. BNP was 690 no prior levels available. Will repeat a chest x-ray today. Needs a walk test if chest x-ray findings are still persistent need to consider amiodarone related lung toxicity however since more of an acute problem diuresis antibiotics and repeat x-ray and outpatient basis. Subjective Date/time seen: 10/12/22 08:33 Interval history: 72-year-old male presented on 10/09/2022 with shortness of breath and coughing. No fever chills. WBC count elevated at 16 K. He was also noted to be hypoxic on presentation.chest x-ray with Extensive ground-glass opacity in the lungs. pulmonary edema versus atypical pneumonia. CT head was negative. CT abdomen pelvis with extensive ground-glass opacities throughout the visualized lung bases. Minimal fullness of the bilateral renal collecting systems and ureters. Probably related to underlying BPH. Moderate hiatal hernia. CTA was done on 10/09/2022 which showed diffuse lung disease likely a combination of pneumonia pulmonary edema and chronic lung disease. Mild mediastinal and bilateral hilar lymphadenopathy likely reactive. Moderate-sized sliding hiatal h
[2022-10-12 09:14] LABS: NT Pro B Type Natriuretic Pept 293 pg/mL (19.9-100)
[2022-10-12] MEDS: DIVALPROEX SODIUM ER 500 MG TAB.24H PO (09:17)
[2022-10-12] MEDS: AZITHROMYCIN 250 MG TABLET 500 MG PO (09:17)
[2022-10-12] MEDS: SODIUM CHLORIDE 1 GM TABLET PO (09:17)
[2022-10-12] MEDS: AMIODARONE HCL 200 MG TABLET PO (09:17)
[2022-10-12] MEDS: FUROSEMIDE 40 MG TABLET PO (09:18)
[2022-10-12] MEDS: cefTRIAXone 2 GM/NS 100 ML 2 GM/100 ML BAG IVPB (09:18)
[2022-10-12] MEDS: MEMANTINE 10 MG TABLET PO (09:18)
[2022-10-12 11:23] LABS: Glucose Point of Care 195 mg/dl (65-105)
[2022-10-12 15:05] LABS: Anion Gap 10 mmol/L (8-16); Blood Urea Nitrogen 17 mg/dL (9-20); Calcium 9.1 mg/dL (8.4-10.2); Carbon Dioxide 30 mmol/L (22-30); Chloride 97 mmol/L (98-107); Estimated CRCL calculation 69 ml/min; Estimated Glomerular Filt Rate > 60; Glucose 114 mg/dL (65-110); Potassium 4.4 mmol/L (3.4-5.0); Sodium 137 mmol/L (137-145)
[2022-10-12 16:43] LABS: Glucose Point of Care 73 mg/dl (65-105)
[2022-10-12] MEDS: RIVAROXABAN 20 MG TABLET PO (17:03)
[2022-10-12 20:03] LABS: Glucose Point of Care 208 mg/dl (65-105)
[2022-10-12] MEDS: ATORVASTATIN 10 MG TABLET PO (21:29)
[2022-10-12] MEDS: guaiFENesin/CODEINE (*CRX) 200/20 MG 10 ML SYRUP PO (23:43)
[2022-10-13] MEDS: guaiFENesin/CODEINE (*CRX) 200/20 MG 10 ML SYRUP PO (03:20)
[2022-10-13] MEDS: SODIUM CHLOR 3% 15 ML NEB (RESPIRATORY THERAPY) 6 ML INHALATION (05:02)
[2022-10-13 05:12] VITALS: BP 115/59; PULSE 61; RESP 16; TEMP 37.3; O2SAT 96
[2022-10-13 08:10] LABS: Glucose Point of Care 126 mg/dl (65-105)
[2022-10-13] MEDS: MEMANTINE 10 MG TABLET PO (09:14)
[2022-10-13] MEDS: AZITHROMYCIN 250 MG TABLET 500 MG PO (09:14)
[2022-10-13] MEDS: cefTRIAXone 2 GM/NS 100 ML 2 GM/100 ML BAG IVPB (09:14)
[2022-10-13 09:15] VITALS: PULSE 68
[2022-10-13] MEDS: metFORMIN HCL 500 MG TABLET PO (09:15)
[2022-10-13] MEDS: DIVALPROEX SODIUM ER 500 MG TAB.24H PO (09:15)
[2022-10-13] MEDS: FUROSEMIDE 40 MG TABLET PO (09:15)
[2022-10-13] MEDS: AMIODARONE HCL 200 MG TABLET PO (09:15)
[2022-10-13 09:21] LABS: Basophils Absolute Auto 0.1 K/mm3 (0.0-0.1); Basophils Percent Auto 0.4 % (0.2-1.2); Eosinophils Absolute Auto 0.5 K/mm3 (0-0.3); Eosinophils Percent Auto 4.6 % (0-4.4); Hematocrit 38.8 % (42.0-52.0); Hemoglobin 12.7 g/dL (14.0-18.0); Immature Granulocyte Absolute 0.05 K/mm3 (0.00-0.031); Immature Granulocyte Percent A 0.4 % (0-0.5); Lymphocytes Absolute Auto 1.53 K/mm3 (0.9-3.2); Lymphocytes Percent Auto 13.3 % (18.3-44.2); Mean Corpuscular HGB Conc 32.7 g/dl (32-36); Mean Corpuscular Hemoglobin 32.6 pg (26-34); Mean Corpuscular Volume 99.7 fl (80-100); Mean Platelet Volume 10.4 fl (7.4-10.4); Monocytes Absolute Auto 1.1 K/mm3 (0.1-0.6); Monocytes Percent Auto 9.9 % (2.6-8.5); Neutrophils Absolute Auto 8.2 K/mm3 (1.3-6.7); Neutrophils Percent Auto 71.4 % (45.5-73.1); Platelet Count Result 287 k/mm3 (150-375); Red Blood Count 3.89 M/mm3 (4.6-6.20); Red Cell Distribution Width 13.6 % (11.5-14.5); White Blood Count 11.5 K/mm3 (4.5-10.0)
[2022-10-13 09:37] LABS: Alanine Aminotransferase 33 U/L (6-50); Albumin Level 3.9 g/dL (3.5-5.1); Alkaline Phosphatase 68 U/L (38-126); Anion Gap 6 mmol/L (8-16); Aspartate Amino Transferase 38 U/L (17-59); Blood Urea Nitrogen 16 mg/dL (9-20); Calcium 8.9 mg/dL (8.4-10.2); Carbon Dioxide 32 mmol/L (22-30); Chloride 99 mmol/L (98-107); Estimated CRCL calculation 69 ml/min; Estimated Glomerular Filt Rate > 60; Glucose 123 mg/dL (65-110); Potassium 4.5 mmol/L (3.4-5.0); Sodium 137 mmol/L (137-145)
[2022-10-13 09:46] LABS: Vancomycin Trough 18.2 ug/mL (10.0-20.0)
[2022-10-13 11:52] LABS: Glucose Point of Care 226 mg/dl (65-105)
[2022-10-13] MEDS: INSULIN ASPART (*BKC) 100 UNITS/ML SUB-Q (12:47)
[2022-10-13 14:00] VITALS: BP 96/65; PULSE 81; RESP 20; TEMP 37.3; O2SAT 99
--- NOTE | 2022-10-13 15:47 | PM.IMPN ---
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 No fever chills. WBC count elevated at 16 K. He was also noted to be hypoxic on presentation.chest x-ray with Extensive ground-glass opacity in the lungs. pulmonary edema versus atypical pneumonia. CT head was negative. CT abdomen pelvis with extensive ground-glass opacities throughout the visualized lung bases. Minimal fullness of the bilateral renal collecting systems and ureters. Probably related to underlying BPH. Moderate hiatal hernia. CTA was done on 10/09/2022 which showed diffuse lung disease likely a combination of pneumonia pulmonary edema and chronic lung disease. Mild mediastinal and bilateral hilar lymphadenopathy likely reactive. Moderate-sized sliding hiatal hernia. Mild aortic atherosclerosis. No PE. COVID flu negative. blood cultures were obtained. Started on Rocephin and azithromycin for pneumonia. Completed azithromycin. Continue ceftriaxone as ordered Past history of atrial fibrillation for which he had underwent to cardioversion and ablation Echocardiogram with concern for mass in the aorta so CT scan was done. No such mass was evident on a CT chest. Hypoxia continues to improve since admission and has been off oxygen. WBC count improving. Mild hyponatremia stable. Underlying type 2 diabetes. A1c at 6.4. On Xarelto for anticoagulation along with amiodarone. Pneumococcal antigen pending mycoplasma and Legionella pending. Blood culture x2 negative. Respiratory culture with yeast isolated from 10/09/2022. Underlying mild cognitive dysfunction echo with EF 60-65% mild pulmonary hypertension. In proximal ascending aorta appears to be a echogenic mobile mass 1.8 cm x 1.1 cm but could be artifact. Recommended CTA diastolic dysfunction started on IV diuresis now switched to oral Lasix. BNP was 690 no prior levels available. Repeat chest x-ray with improved opacities. Continues to have some mild hemoptysis. Will recheck chest x-ray in a.m. will give a dose of Lasix today. No prior chest x-rays available to compare. If chest x-ray findings are still persistent at follow-up, need to consider amiodarone related lung toxicity however since more of an acute problem diuresis antibiotics and repeat x-ray and outpatient basis. Subjective Date/time seen: 10/13/22 15:47 Interval history: 72-year-old male presented on 10/09/2022 with shortness of breath and coughing. No fever chills. WBC count elevated at 16 K. He was also noted to be hypoxic on presentation.chest x-ray with Extensive ground-glass opacity in the lungs. pulmonary edema versus atypical pneumonia. CT head was negative. CT abdomen pelvis with extensive ground-glass opacities throughout the visualized lung bases. Minimal fullness of the bilateral renal collecting systems and ureters. Probably related to underlying BPH. Moderate hiatal hernia. CTA was done on 10/10/19
[2022-10-13 16:56] LABS: Glucose Point of Care 65 mg/dl (65-105)
[2022-10-13] MEDS: RIVAROXABAN 20 MG TABLET PO (17:13)
[2022-10-13] MEDS: ACETAMINOPHEN 325 MG TABLET 650 MG PO ×2 (17:20→22:10)
[2022-10-13 20:23] VITALS: O2SAT 96
[2022-10-13 20:44] LABS: Glucose Point of Care 182 mg/dl (65-105)
[2022-10-13 21:47] VITALS: BP 157/63; PULSE 66; RESP 18; TEMP 36.6; O2SAT 98
[2022-10-13] MEDS: FUROSEMIDE INJ 40 MG/4 ML VIAL 20 MG IV PUSH (22:09)
[2022-10-13] MEDS: ATORVASTATIN 10 MG TABLET PO (22:12)
[2022-10-14 06:00] VITALS: BP 125/65; PULSE 60; RESP 18; TEMP 36.5; O2SAT 96
[2022-10-14 06:17] LABS: Basophils Absolute Auto 0.1 K/mm3 (0.0-0.1); Basophils Percent Auto 0.7 % (0.2-1.2); Eosinophils Absolute Auto 0.7 K/mm3 (0-0.3); Eosinophils Percent Auto 7.7 % (0-4.4); Hematocrit 36.9 % (42.0-52.0); Hemoglobin 12.2 g/dL (14.0-18.0); Immature Granulocyte Absolute 0.05 K/mm3 (0.00-0.031); Immature Granulocyte Percent A 0.6 % (0-0.5); Lymphocytes Absolute Auto 1.04 K/mm3 (0.9-3.2); Lymphocytes Percent Auto 11.5 % (18.3-44.2); Mean Corpuscular HGB Conc 33.1 g/dl (32-36); Mean Corpuscular Hemoglobin 32.9 pg (26-34); Mean Corpuscular Volume 99.5 fl (80-100); Mean Platelet Volume 10.7 fl (7.4-10.4); Monocytes Absolute Auto 1.2 K/mm3 (0.1-0.6); Monocytes Percent Auto 12.9 % (2.6-8.5); Neutrophils Absolute Auto 6.1 K/mm3 (1.3-6.7); Neutrophils Percent Auto 66.6 % (45.5-73.1); Platelet Count Result 259 k/mm3 (150-375); Red Blood Count 3.71 M/mm3 (4.6-6.20); Red Cell Distribution Width 13.4 % (11.5-14.5); White Blood Count 9.1 K/mm3 (4.5-10.0)
[2022-10-14 06:40] LABS: Legionella pneumophila Ag Ur Not Detected (Not Detected)
[2022-10-14 06:45] LABS: Alanine Aminotransferase 27 U/L (6-50); Albumin Level 3.5 g/dL (3.5-5.1); Alkaline Phosphatase 61 U/L (38-126); Anion Gap 5 mmol/L (8-16); Aspartate Amino Transferase 31 U/L (17-59); Bilirubin,Total 0.6 mg/dL (0.2-1.3); Blood Urea Nitrogen 16 mg/dL (9-20); Calcium 8.3 mg/dL (8.4-10.2); Carbon Dioxide 29 mmol/L (22-30); Chloride 98 mmol/L (98-107); Estimated CRCL calculation 77 ml/min; Estimated Glomerular Filt Rate > 60; Glucose 127 mg/dL (65-110); Magnesium 1.9 mg/dL (1.6-2.3); Potassium 3.8 mmol/L (3.4-5.0); Sodium 132 mmol/L (137-145)
[2022-10-14 08:08] LABS: Glucose Point of Care 123 mg/dl (65-105)
--- NOTE | 2022-10-14 08:15 | PM.IMPN ---
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 Multifocal pneumonia no fever chills. WBC count elevated at 16 K. He was also noted to be hypoxic on presentation.chest x-ray with Extensive ground-glass opacity in the lungs. pulmonary edema versus atypical pneumonia. CT head was negative. CT abdomen pelvis with extensive ground-glass opacities throughout the visualized lung bases. Mild mediastinal and bilateral hilar lymphadenopathy likely reactive. Moderate-sized sliding hiatal hernia. Mild aortic atherosclerosis. No PE. COVID flu negative. blood cultures were obtained. Started vancomycin, azithromycin, ceftriaxone. Pneumococcal antigen pending mycoplasma and Legionella pending. Blood culture x2 negative. Respiratory culture with yeast isolated from 10/09/2022. It change to doxycycline and ceftriaxone IV Interstitial lung disease CTA chest and chest x-rays reveals pulmonary interstitial shows change bilaterally, minimal change since admission Consult doughnut machine operator for evaluation treatment Cake Decorator also considers risk of amiodarone induced interstitial changes, recommended to stop amiodarone p.o. Minimal fullness of the bilateral renal collecting systems and ureters. Probably related to underlying BPH. Moderate hiatal hernia. CTA was done on 10/09/2022 which showed diffuse lung disease likely a combination of pneumonia pulmonary edema and chronic lung disease. atrial fibrillation for which he had underwent to cardioversion and ablation Echocardiogram with concern for mass in the aorta so CT scan was done. No such mass was evident on a CT chest. On Xarelto for anticoagulation Discontinue amiodarone per pulmonary's recommendation Consult leadlighter for evaluation and replace amiodarone for rhythm control Acute risk failure with hypoxia Due to pneumonia and heart failure continues to improve since admission and has been off oxygen. WBC count improving. Mild hyponatremia stable. Underlying type 2 diabetes. A1c at 6.4. . Acute on chronic diastolic heart failure underlying mild cognitive dysfunction echo with EF 60-65% mild pulmonary hypertension. In proximal ascending aorta appears to be a echogenic mobile mass 1.8 cm x 1.1 cm but could be artifact. Recommended CTA diastolic dysfunction started on IV diuresis now switched to oral Lasix. BNP was 690 no prior levels available. Subjective Date/time seen: 10/14/22 08:15 Interval history: I saw and examined patient today. Patient still has severe cough with scanty phlegm. Patient denies chest pain, dyspnea is improving. Patient denies palpitation. Exam Narrative: GENERAL: Awake, alert male seated upright in chair. No acute distress noted. HEENT: Pupils are equally round and briskly reactive to light. Extraocular muscles are intact. Oral mucous membranes are moist without lesions. NECK: The p
[2022-10-14] MEDS: cefTRIAXone 2 GM/NS 100 ML 2 GM/100 ML BAG IVPB (09:44)
[2022-10-14 09:45] VITALS: PULSE 72
[2022-10-14] MEDS: AMIODARONE HCL 200 MG TABLET PO (09:45)
[2022-10-14] MEDS: MEMANTINE 10 MG TABLET PO (09:46)
[2022-10-14] MEDS: metFORMIN HCL 500 MG TABLET PO (09:46)
[2022-10-14] MEDS: DIVALPROEX SODIUM ER 500 MG TAB.24H PO (09:46)
[2022-10-14] MEDS: FUROSEMIDE 40 MG TABLET PO (09:49)
--- NOTE | 2022-10-14 11:20 | PCNFU ---
Nutrition Follow-Up Complete: Inadequate oral intake related to loss of appetite as evidenced by 10% intake at lunch Goal:Improve PO intake to 75% meals and supplements Maintain weight during admission Pt current nutrition is Regular, Ensure compact BID. Nutrition recommendation: continue with current plan of care Last recorded weight is 97 kg. Bowel Motility: +BM 10/13 Labs Reviewed: Hgb:12.2, HCT:36.9, NA:132, Glu:127 Meds Noted: lasix, novolog, zofran Skin: no skin issues noted Additional Notes: Pt on a regular diet, intake good at 50-100% most meals. Ensure compact in place. Follow up in 7 days for intakes, weights, labs, plan of care, supplement tolerance
[2022-10-14 11:43] LABS: Glucose Point of Care 180 mg/dl (65-105)
[2022-10-14] MEDS: CALCIUM CARBONATE (TUMS) 500 MG (200 MG ELEMENTAL) 400 MG PO (13:44)
[2022-10-14 14:00] VITALS: BP 136/65; PULSE 66; RESP 18; TEMP 36.9; O2SAT 100
--- NOTE | 2022-10-14 14:18 | PM.CNPUL ---
Assessment and Plan Assessment and plan (1) Abnormal CT scan of lung: Code(s): R91.8 - Other nonspecific abnormal finding of lung field Status: Acute Assessment and Plan: Patient presents to the hospital with shortness of breath, cough, fever, leukocytosis and a CT scan that shows diffuse ground-glass infiltrates with septal thickening and mosaic attenuation without honeycombing, bronchiectasis or pleural disease. Patient also had an elevated BNP and has an echocardiogram with normal LVEF but with diastolic dysfunction. Patient has improved with treatment for bacterial pneumonia with vancomycin, ceftriaxone and azithromycin as well as with treatment for fluid overload with Lasix. He is currently on room air. Etiology of patient's abnormal CT scan includes infection (bacterial, viral), fluid overload, amiodarone toxicity, and/or interstitial lung disease. He is former smoker 60 years ago for 1 pack year and has no occupational exposures. Regarding potential bacterial infection the patient has received 5 days of azithromycin, 6 days of ceftriaxone and 5 days of IV vancomycin. He has been switched to doxycycline 100 mg p.o. b.i.d. and I agree with continuation of this for total of 5 more days. I will send a nasal swab for extended respiratory viral pathogen. Regarding fluid overload agree with aggressive diuresis as tolerated by his cardiac and renal systems per the hospitalist team. I will check daily weights and currently the patient is puffs 3.4 L since admission. 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 The patient tells me that he was supposed to follow-up with his outpatient drill press set up operator in January of 2023 and they would decide about discontinuation of the amiodarone at that time. Regarding interstitial lung disease: In my opinion the CT scan represents a pattern most consistent with a non IPF diagnosis. The predominant mosaic attenuation suggest possible hypersensitivity pneumonitis and/or a bronchiolitis from a possible concurrent infection. I will send serologies looking for an autoimmune disease for connective tissue disease. I will send serologies. I will order a LAURA screen that includes 11 different auto antibodies, an ANCA screen, a rheumatoid factor, anti CCP antibody, hypersensitivity pneumonitis panel, a CPK, an aldolase level, and myomarker 3 plus profile. I will check an overnight oximetry on room air to determine if he requires oxygen at night. Discussed with Dr Thrasher. History of Present Illness History of Present Illness Consult date: 10/14/22 Chief complaint: Multifocal Pneumonia Narrative: 10/14/2022: This is a new pulmonary consult for interstitial lung disease. 72-year-old with a history of atrial fibrillation on Rivaroxaban and amiodarone 400 starting about 6 months and s/p ablation about 3 months ago and then amiodarone decreased to 200 Q day, diabetes presented to the emergency room on 10/09/2022 with shortness of breath, cough and not feeling well. In the emergency department the patient had a fever to 99.8, white blood cell count of 16.2, BNP of 698, creatinine 0.9, influenza and COVID RT PCR studies were negative. Chest x-ray showed diffuse infiltrates and a CT angiogram showed no pulmonary embolism with diffuse ground-glass infiltrates and septal thickening with areas of mosaic attenuation. He required 2 L nasal cannula to maintain saturations in the mid 90s. There were no pleural effusions or focal consolidations. Patient was admitted to the hospital and treated for pneumonia and fluid overload with vancomycin, ceftriaxone and azithromycin. 10/10 the patient improved. On 10/11 the breathing was much improved and he was off his oxygen. He had a fever. On 10/13 and says that he coughed up blood-tinged phlegm but shortness of breath continued to improve. 10/14/2022 I was consulted today. The patient tells me that h
[2022-10-14] MEDS: RIVAROXABAN 20 MG TABLET PO (17:49)
[2022-10-14 18:45] LABS: Glucose Point of Care 119 mg/dl (65-105)
[2022-10-14 20:00] VITALS: PULSE 66; RESP 18; O2SAT 100
[2022-10-14] MEDS: ACETAMINOPHEN 325 MG TABLET 650 MG PO (21:10)
[2022-10-14] MEDS: DOXYCYCLINE HYCLATE 100 MG TABLET PO (21:11)
[2022-10-14] MEDS: ATORVASTATIN 10 MG TABLET PO (21:11)
[2022-10-14 21:23] LABS: Glucose Point of Care 182 mg/dl (65-105)
[2022-10-14 22:00] VITALS: BP 146/72; PULSE 66; RESP 18; TEMP 36.1; O2SAT 96
[2022-10-14 22:25] VITALS: O2SAT 97
--- NOTE | 2022-10-15 00:06 | PC.NURSE ---
pt disconnected sleep apnea machine called respiratory to fix machine.
[2022-10-15] MEDS: CALCIUM CARBONATE (TUMS) 500 MG (200 MG ELEMENTAL) 400 MG PO (04:41)
--- NOTE | 2022-10-15 04:59 | PC.NURSE ---
pt continues to be mean towards staff and continue inappropriate behaviors
--- NOTE | 2022-10-15 05:05 | PC.NURSE ---
To: bizarre behavior and inappropriate statements continue, continues to have negative statement towards staff delusional thinking patterns continue
[2022-10-15 06:00] VITALS: BP 122/63; PULSE 62; RESP 16; TEMP 35.6; O2SAT 94
[2022-10-15 06:28] LABS: Basophils Absolute Auto 0.1 K/mm3 (0.0-0.1); Basophils Percent Auto 0.8 % (0.2-1.2); Eosinophils Absolute Auto 0.6 K/mm3 (0-0.3); Hematocrit 38.9 % (42.0-52.0); Hemoglobin 12.9 g/dL (14.0-18.0); Immature Granulocyte Absolute 0.08 K/mm3 (0.00-0.031); Immature Granulocyte Percent A 0.8 % (0-0.5); Lymphocytes Absolute Auto 1.27 K/mm3 (0.9-3.2); Lymphocytes Percent Auto 12.2 % (18.3-44.2); Mean Corpuscular HGB Conc 33.2 g/dl (32-36); Mean Corpuscular Hemoglobin 32.7 pg (26-34); Mean Corpuscular Volume 98.7 fl (80-100); Mean Platelet Volume 10.5 fl (7.4-10.4); Monocytes Absolute Auto 1.2 K/mm3 (0.1-0.6); Monocytes Percent Auto 11.2 % (2.6-8.5); Neutrophils Absolute Auto 7.2 K/mm3 (1.3-6.7); Platelet Count Result 296 k/mm3 (150-375); Red Blood Count 3.94 M/mm3 (4.6-6.20); Red Cell Distribution Width 13.2 % (11.5-14.5); White Blood Count 10.4 K/mm3 (4.5-10.0)
[2022-10-15 06:48] LABS: NT Pro B Type Natriuretic Pept 186 pg/mL (19.9-100)
[2022-10-15 06:50] LABS: Anion Gap 6 mmol/L (8-16); Blood Urea Nitrogen 16 mg/dL (9-20); Calcium 9.3 mg/dL (8.4-10.2); Carbon Dioxide 28 mmol/L (22-30); Chloride 99 mmol/L (98-107); Estimated CRCL calculation 69 ml/min; Estimated Glomerular Filt Rate > 60; Glucose 124 mg/dL (65-110); Potassium 4.4 mmol/L (3.4-5.0); Sodium 133 mmol/L (137-145)
[2022-10-15 07:55] LABS: Rheumatoid Factor < 12.0 IU/ML (<12)
--- NOTE | 2022-10-15 08:41 | PM.IMPN ---
Progress Note: A&P Assessment and Plan (1) Pneumonia: Code(s): J18.9 - Pneumonia, unspecified organism Status: Acute (2) Memory problem: Code(s): R41.3 - Other amnesia Status: Acute (3) Diastolic congestive heart failure, NYHA class 3: Code(s): I50.30 - Unspecified diastolic (congestive) heart failure Status: Acute (4) Hyponatremia: Code(s): E87.1 - Hypo-osmolality and hyponatremia Status: Acute (5) Pulmonary edema determined by examination: Code(s): J81.1 - Chronic pulmonary edema Status: Acute (6) Chronic anticoagulation: Code(s): Z79.01 - long term acute care registered nurse (current) use of anticoagulants Status: Acute (7) Borderline diabetes: Code(s): R73.03 - Prediabetes Status: Acute (8) BPH (benign prostatic hyperplasia): Code(s): N40.0 - Benign prostatic hyperplasia without lower urinary tract symptoms Status: Acute (9) Atherosclerosis: Code(s): I70.90 - Unspecified atherosclerosis Status: Acute Plan 72-year-old male presented on 10/09/2022 with shortness of breath and coughing. Multifocal pneumonia no fever chills. WBC count elevated at 16 K. He was also noted to be hypoxic on presentation.chest x-ray with Extensive ground-glass opacity in the lungs. pulmonary edema versus atypical pneumonia. CT head was negative. CT abdomen pelvis with extensive ground-glass opacities throughout the visualized lung bases. Mild mediastinal and bilateral hilar lymphadenopathy likely reactive. Moderate-sized sliding hiatal hernia. Mild aortic atherosclerosis. No PE. COVID flu negative. blood cultures were obtained. Started vancomycin, azithromycin, ceftriaxone. Pneumococcal antigen pending mycoplasma and Legionella pending. Blood culture x2 negative. Respiratory culture with yeast isolated from 10/09/2022. It change to doxycycline po for 5 more days Interstitial lung disease CTA chest and chest x-rays reveals pulmonary interstitial shows change bilaterally, minimal change since admission Consult exploration driller for evaluation treatment Nurse Epidemiologist also considers risk of amiodarone induced interstitial changes, recommended to stop amiodarone p.o. Minimal fullness of the bilateral renal collecting systems and ureters. Probably related to underlying BPH. Moderate hiatal hernia. CTA was done on 10/09/2022 which showed diffuse lung disease likely a combination of pneumonia pulmonary edema and chronic lung disease. atrial fibrillation for which he had underwent to cardioversion and ablation Echocardiogram with concern for mass in the aorta so CT scan was done. No such mass was evident on a CT chest. On Xarelto for anticoagulation Discontinue amiodarone per pulmonary's recommendation Consult center administrator for evaluation and replace amiodarone for rhythm control Acute risk failure with hypoxia Due to pneumonia and heart failure continues to improve since admission and has been off oxygen. WBC count improving. Mild hyponatremia stable. Underlying type 2 diabetes. A1c at 6.4. . Acute on chronic diastolic heart failure underlying mild cognitive dysfunction echo with EF 60-65% mild pulmonary hypertension. In proximal ascending aorta appears to be a echogenic mobile mass 1.8 cm x 1.1 cm but could be artifact. Recommended CTA diastolic dysfunction started on IV diuresis now switched to oral Lasix. BNP was 690 no prior levels available. Subjective Date/time seen: 10/15/22 08:41 Interval history: I saw and examined patient today. Patient denies chest pain, dyspnea is improving. Patient denies palpitation. Exam Narrative: GENERAL: Awake, alert male seated upright in chair. No acute distress noted. HEENT: Pupils are equally round and briskly reactive to light. Extraocular muscles are intact. Oral mucous membranes are moist without lesions. NECK: The patient has no noted JVD. No adenopathy is appreciate
[2022-10-15 08:45] LABS: Glucose Point of Care 123 mg/dl (65-105)
[2022-10-15] MEDS: DIVALPROEX SODIUM ER 500 MG TAB.24H PO (08:46)
[2022-10-15] MEDS: DOXYCYCLINE HYCLATE 100 MG TABLET PO (08:47)
[2022-10-15] MEDS: MEMANTINE 10 MG TABLET PO (08:47)
[2022-10-15] MEDS: FUROSEMIDE 40 MG TABLET PO (08:47)
[2022-10-15] MEDS: metFORMIN HCL 500 MG TABLET PO (08:47)
[2022-10-15] MEDS: PANTOPRAZOLE 40 MG TABLET PO (08:47)
--- NOTE | 2022-10-15 09:18 | PM.PNPUL ---
Progress Note: A&P Assessment and Plan (1) Abnormal CT scan of lung: Code(s): R91.8 - Other nonspecific abnormal finding of lung field Status: Acute Assessment and Plan: Patient presents to the hospital with shortness of breath, cough, fever, leukocytosis and a CT scan that shows diffuse ground-glass infiltrates with septal thickening and mosaic attenuation without honeycombing, bronchiectasis or pleural disease. Patient also had an elevated BNP and has an echocardiogram with normal LVEF but with diastolic dysfunction. Patient has improved with treatment for bacterial pneumonia with vancomycin, ceftriaxone and azithromycin as well as with treatment for fluid overload with Lasix. He is currently on room air. Etiology of patient's abnormal CT scan includes infection (bacterial, viral), fluid overload, amiodarone toxicity, and/or interstitial lung disease. He is former smoker 60 years ago for 1 pack year and has no occupational exposures. Regarding potential bacterial infection the patient has received 5 days of azithromycin, 6 days of ceftriaxone and 5 days of IV vancomycin. He has been switched to doxycycline 100 mg p.o. b.i.d. and I agree with continuation of this for total of 5 more days. I will send a nasal swab for extended respiratory viral pathogen. Regarding fluid overload agree with aggressive diuresis as tolerated by his cardiac and renal systems per the hospitalist team. I will check daily weights and currently the patient is puffs 3.4 L since admission. 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 The patient tells me that he was supposed to follow-up with his outpatient tool hardener in January of 2023 and they would decide about discontinuation of the amiodarone at that time. Regarding interstitial lung disease: In my opinion the CT scan represents a pattern most consistent with a non IPF diagnosis. The predominant mosaic attenuation suggest possible hypersensitivity pneumonitis and/or a bronchiolitis from a possible concurrent infection. I will send serologies looking for an autoimmune disease for connective tissue disease. I will send serologies. I will order a LAURA screen that includes 11 different auto antibodies, an ANCA screen, a rheumatoid factor, anti CCP antibody, hypersensitivity pneumonitis panel, a CPK, an aldolase level, and myomarker 3 plus profile. I will check an overnight oximetry on room air to determine if he requires oxygen at night. 10/15 patient tells me he is breathing back to normal, afebrile, minimal cough and phlegm at his baseline, no hemoptysis, no chest pain, room air saturations 95%. Weight is 98.8. BNP is 186. patient had an overnight oximetry on room air with recording time of 6 hours and 24 minutes with an average saturation of 94%. Low saturation 84%. Time with saturation less than or equal to 88% was 1 minute, oxygen desaturation index 10.6. Weight is 98.8 kg. BNP is 186. CPK is 66, BNP 186, rheumatoid factor less than 12 Plan: Etiology of patient's abnormal CT scan includes infection, fluid overload and interstitial lung disease. He is breathing back to normal and stable on room air. From a pulmonary perspective patient is ready to be discharged on these pulmonary medications: Doxycycline 100 mg p.o. b.i.d. x3 days. Oxygen at rest and with ambulation per formal home O2 assessment which I have ordered Patient requires no supplemental oxygen at night Diuretics per hospitalist and tool hardener teams to maintain euvolemia. Follow-up in the Pulmonary Clinic in 4 weeks, I gave him our business card and informed our haul driver. He will need follow-up on his interstitial lung disease serologies, outpatient PFTs and outpatient imaging to follow his abnormal CT scan. The patient will bring and imaging disc of all x-rays and any CT scans from [facility] cardiovascular at [facility] to the clinic.
[2022-10-15 10:30] VITALS: PULSE 89; O2SAT 95
[2022-10-15 10:40] VITALS: PULSE 100; O2SAT 92
[2022-10-15 10:45] VITALS: PULSE 90; O2SAT 95
[2022-10-15 11:02] LABS: Creatine Kinase 56 U/L (55-170)
--- NOTE | 2022-10-15 11:48 | HOMEO2EVAL ---
Evaluation was performed at [facility] Home Oxygen Evaluation RC: Home Oxygen (O2) Evaluation Start: 10/15/22 08:58 Freq: ONCE Status: Active Protocol: RPE Activity Type Activity Date Activity User E-sign Co-sign Detail Recorded Client Recorded Date Recorded By Document 10/15/22 10:30 ARACELY [email or web address] 10/15/22 11:48 ARACELY Document 10/15/22 10:40 ARACELY [email or web address] 10/15/22 11:48 ARACELY Document 10/15/22 10:45 ARACELY [email or web address] 10/15/22 11:48 ARACELY 10/15/22 10/15/22 10/15/22 10:30 10:40 10:45 Home O2 Evaluation [Oxygen] -Test Phase Resting Exercise Resting -Oxygen Delivery Room Air Room Air Room Air [Pulse Oximetry] -Pulse Oximetry (90-100 %) 95 92 95 [Pulse Rate] -Pulse Rate (60-100 beats/min) 89 100 90 [Exercise] -Ambulation Distance (feet) 500 -Ambulation Distance (meters) 152.39 [Comments] -Home Oxygen Evaluation Comments No home o2 needed [Charges] -Treatment Charges O2 Evaluation - Inpatient
--- NOTE | 2022-10-15 11:49 | PCRCNOTE ---
Home O2 eval done, no O2 needed at this time
[2022-10-15 11:52] LABS: Glucose Point of Care 187 mg/dl (65-105)
[2022-10-15 14:00] VITALS: BP 122/67; PULSE 66; RESP 18; TEMP 36.2; O2SAT 98
--- NOTE | 2022-10-15 14:56 | PM.CNCAR ---
Assessment and Plan Assessment and plan (1) S/P ablation of atrial fibrillation: Code(s): Z98.890 - Other specified postprocedural states; Z86.79 - Personal history of other diseases of the circulatory system Status: Acute Plan This is a 72-year-old man with a history of atrial fibrillation dating back about 10 years. Recently he has been under the care of an ict business analyst to about 6 months ago performed an ablation procedure at [facility] and has had him on amiodarone maintenance therapy since then. 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 Systemic anticoagulation with Xarelto is continuing a also which is appropriate. He at this point should not be started on alternative antiarrhythmic agent. He will still have tissue levels of amiodarone for at least 2 or 3 months and I do not believe an alternative agent should be started at this time. I will arrange for follow-up with me in the office for longitudinal management and follow-up of his atrial fib but at this point he is stable enough for discharge. I will attempt to obtain the records from his previous psych sales specialist to get more specific information as to the substrate/pathology of his atrial fib. The etiology of his atrial fib is not entirely clear to be although he does have significant biatrial dilation on echo. He is hemodynamically stable and is oxygenating well so I believe he is stable enough for discharge at this time. Christophe Pillai MD [facility] History of Present Illness History of Present Illness Consult date/time: 10/15/22 14:56 Consult reason: atrial fibrillation Reason For Visit: Multifocal Pneumonia Narrative: This is a 72-year-old man I am seeing at the request of the hospitalist with a history of atrial fibrillation. The reason for consultation is to render an opinion regarding ongoing medical antiarrhythmic therapy. Patient is unknown to me prior to this consultation he provides a reasonably good history for some of his previous management. He reports a history of atrial fibrillation dating back to approximately 8-10 years. He states that at that time he used to be under the care of 1 of my partners, Dr. Hunter. The patient states that he was on anticoagulation for atrial fib but not on any other medication at that time. He apparently came under the care of physicians at a [facility] in the intervening years. He reports to having been treated by an ict business analyst down at [facility] in [place] and recently approximately 6 months ago having had an ablation procedure done and around the same period of time placed on amiodarone treatment. I do not have any of the records of that care available to me for my review at the time of this dictation. He states that he was feeling badly having palpitations and chaotic heart rate prior to that. Following his ablation procedure which was done in April or April of this year he has not had any recurrences of atrial fib. He has been maintained on a dosage of amiodarone 200 mg daily after being on 400 mg daily for a period time shortly after the ablation. He states that his next appointment with though with that physician is in January. He was brought to this hospital last week Wednesday after he called an ambulance to his residence because he was not feeling well. He is very vague and nonspecific about his symptoms he indicated that he felt very weak he is in the process of moving from 1 residence back to a home that he lives [facility] [place] and as he was performing some of this manual activity he felt extremely weak and felt poorly enough to call an ambulance. He was seen in the emergency room and felt to have pneumonia and was admitted to the hospital. 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
--- NOTE | 2022-10-15 16:27 | PM.DS ---
DS: Admitting Diagnosis Discharge Date today Admitting Diagnosis (1) Pneumonia: ?Code(s): J18.9 - Pneumonia, unspecified organism ?Status:?Acute (2) Memory problem: ?Code(s): R41.3 - Other amnesia ?Status:?Acute (3) Diastolic congestive heart failure, NYHA class 3: ?Code(s): I50.30 - Unspecified diastolic (congestive) heart failure ?Status:?Acute (4) Hyponatremia: ?Code(s): E87.1 - Hypo-osmolality and hyponatremia ?Status:?Acute (5) Pulmonary edema determined by examination: ?Code(s): J81.1 - Chronic pulmonary edema ?Status:?Acute (6) Chronic anticoagulation: ?Code(s): Z79.01 - terminal superintendent (current) use of anticoagulants ?Status:?Acute (7) Borderline diabetes: ?Code(s): R73.03 - Prediabetes ?Status:?Acute (8) BPH (benign prostatic hyperplasia): ?Code(s): N40.0 - Benign prostatic hyperplasia without lower urinary tract symptoms ?Status:?Acute (9) Atherosclerosis: ?Code(s): I70.90 - Unspecified atherosclerosis ?Status:?Acute DS: Discharge Diagnosis Discharge Diagnosis (1) Pneumonia: Code(s): J18.9 - Pneumonia, unspecified organism Status: Acute (2) Memory problem: Code(s): R41.3 - Other amnesia Status: Acute (3) Diastolic congestive heart failure, NYHA class 3: Code(s): I50.30 - Unspecified diastolic (congestive) heart failure Status: Acute (4) Hyponatremia: Code(s): E87.1 - Hypo-osmolality and hyponatremia Status: Acute (5) Pulmonary edema determined by examination: Code(s): J81.1 - Chronic pulmonary edema Status: Acute (6) Chronic anticoagulation: Code(s): Z79.01 - senior care (current) use of anticoagulants Status: Acute (7) Borderline diabetes: Code(s): R73.03 - Prediabetes Status: Acute (8) BPH (benign prostatic hyperplasia): Code(s): N40.0 - Benign prostatic hyperplasia without lower urinary tract symptoms Status: Acute (9) Atherosclerosis: Code(s): I70.90 - Unspecified atherosclerosis Status: Acute Plan DS: Summary Hospital Course Reason for hospitalization: Short of breath and cough Hospital Course: 72-year-old male presented on 10/09/2022 with shortness of breath and coughing. The following medication have been addressed in the hospital Multifocal pneumonia no fever chills. WBC count elevated at 16 K. He was also noted to be hypoxic on presentation.chest x-ray with Extensive ground-glass opacity in the lungs. pulmonary edema versus atypical pneumonia. CT head was negative. CT abdomen pelvis with extensive ground-glass opacities throughout the visualized lung bases. Mild mediastinal and bilateral hilar lymphadenopathy likely reactive. Moderate-sized sliding hiatal hernia. Mild aortic atherosclerosis. No PE. COVID flu negative. blood cultures were obtained. Started vancomycin, azithromycin, ceftriaxone. Pneumococcal antigen pending mycoplasma and Legionella pending. Blood culture x2 negative. Respiratory culture with yeast isolated from 10/09/2022. It change to doxycycline po for 5 more days Cartridge Assembling Machine Adjuster recommend continue doxycycline p.o., and pulmonology will see patient in office at scheduled appointment Interstitial lung disease CTA chest and chest x-rays reveals pulmonary interstitial shows change bilaterally, minimal change since admission Consult senior analytic consultant for evaluation treatment Cartridge Assembling Machine Adjuster also considers risk of amiodarone induced interstitial changes, recommended to stop amiodarone p.o. CTA was done on 10/09/2022 which showed diffuse lung disease likely a combination of pneumonia pulmonary edema and chronic lung disease. atrial fibrillation for which he had underwent to cardioversion and ablation Echocardiogram with concern for mass in the aorta so CT scan was done. No such mass was evident on a CT chest. On Xarelto for anticoagulation Discontinue amio
[2022-10-15 22:35] LABS: Pneumococcal Antigen Urine Not Detected (Not Detected)
[2022-10-16 07:45] LABS: Chlamydia pneumoniae by PCR Not Detected
[2022-10-20 10:48] LABS: ANA Cascade Screen Negative (Negative)
[2022-10-20 13:20] LABS: Aldolase 3.3 U/L (<=8.1)
[2022-10-20 13:26] LABS: Anti Cyclic Citrullinated Pept <16 Units (<20)
[2022-10-22 10:58] LABS: ANCA Screen Negative (Negative)
[2022-11-06 13:44] LABS: JO-1 AB <11 SI (<11); MI-2 Alpha Ab <11 SI (<11); MI-2 Beta Ab <11 SI (<11); NXP-2 AB <11 SI (<11); TIF1 Gamma Ab <11 SI (<11)
== END 2022-10-15 17:00 | disposition home or self-care (01) | DRG 193 ==
LOC: ANHED 03:35 → ANH3MEDSUR 06:39
PROVIDERS: Internal Medicine; Internal Medicine Pulmonary Disease; Nurse Practitioner; Admitting Provider Internal Medicine; Emergency Provider Emergency Medicine; PCP Family Medicine; Visit Provider Hospitalist
DX: J18.9 Pneumonia, unspecified organism (principal); I50.33 Acute on chronic diastolic (congestive) heart failure; J96.01 Acute respiratory failure with hypoxia; E87.1 Hypo-osmolality and hyponatremia; I48.20 Chronic atrial fibrillation, unspecified; T46.2X5A Adverse effect of other antidysrhythmic drugs, initial encounter; E11.9 Type 2 diabetes mellitus without complications; N40.0 Benign prostatic hyperplasia without lower urinary tract symptoms; I70.0 Atherosclerosis of aorta; R41.3 Other amnesia; Z20.822 Contact with and (suspected) exposure to COVID-19; Z79.01 Long term (current) use of anticoagulants
CPT/HCPCS: 36415; 70450; 71045; 71046; 71275; 74177; 80048; 80053; 80202; 81003; 82085; 82550; 82948; 83036; 83605; 83735; 83880; 84182; 84484; 85025; 86036; 86038; 86200; 86331; 86430; 86606; 86609; 87015; 87040; 87070; 87081; 87116; 87205; 87206; 87449; 87486; 87581; 87636; 87899; 93005; 93306; 94618; 94640; 94762; 96361; 96365; 96366; 96375; 96376; 99285; A9270; G0378; J0456; J0696; J1815; J1940; J2405; J3370; J7030; Q9967

== ENCOUNTER 2022-12-04 09:10 | Outpatient (CLI) | payer MEDICARE, SELFPAY ==
--- NOTE | ~2022-12-04 | CT_ITS ---
CT Scan of the Chest without Contrast: Clinical Indication: Abnormal finding of lung field, follow-up exam Technique: Contiguous sections were acquired throughout the chest without intravenous contrast. Dose reduction technique was used on this scan by utilizing automated exposure control and iterative recon struction technique. The dose-length product (DLP) was 408.93 mGy-cm. COMPARISON: 10/09/2022 Findings: There is no evidence of any significant mediastinal, hilar or axillary lymphadenopathy. Moderate hiat al hernia is unchanged. No aortic aneurysm. There is no evidence of pleural or pericardial effusion. Extensive chronic interstitial disease is similar to prior exam, with extensive interstitial thickeni ng, subpleural articulations, and patchy areas of minimal ground glass opacity. The extensive degree of groundglass opacity at the lung bases is improved: Overall as compared to prior exam. Findings are probably worst at the right lung base and lingula. Images through the upper abdomen reveal no abnormalities. Impression: Extensive chronic interstitial disease. There has been improvement in groundglass opacity at the lung bases, which could reflect interval improvement in pulmonary edema or infection, or perhaps better i nspiratory effort on the current exam. Stable hiatal hernia. Reviewed, dictated and finalized at location M. Impression: Extensive chronic interstitial disease. There has been improvement in groundgla ss opacity at the lung bases, which could reflect interval improvement in pulmo nary edema or infection, or perhaps better inspiratory effort on the current ex am. Stable hiatal hernia.
--- NOTE | 2022-12-04 15:42 | WPDPFTINT ---
PFT Procedure Performed PFT Procedure Performed Spirometry with Pre/Post Bronchodilator Plethysmography (Lung Vol) Diffusing Cap (DLCO) Flow Vol Loop PFT Interpretation This is a pulmonary function test with pre and post-bronchodilator spirometry, plethysmography and diffusing capacity. The test was performed and results interpreted in accordance with the 2019 and 2005 ATS/ERS Task Force guidelines respectively using the Global Lung Function Initiative-2012 reference equations. Patient demonstrated good effort and cooperation. Reproducibility criteria were met. The quality of the pre bronchodilator spirometry maneuver was Grade A and post bronchodilator spirometry maneuver was Grade B. of note the patient had good effort but still had difficulty with testing despite good coaching with multiple attempts. Findings: Spirometry: The contour the inspiratory and expiratory flow tracing are normal. The pre bronchodilator FVC is 3.16 L, 72% predicted. The pre bronchodilator FEV1 is 2.32 L, 71% predicted. The pre bronchodilator FEV1: FVC ratio 73%. The post bronchodilator FVC is 3.23 L, representing a 2% increase. The post bronchodilator FEV1 is 2.54 L, representing a 10% increase. The post bronchodilator FEV1: FVC ratio 79%. Plethysmography: The total lung capacity is 4.83 L, 65% predicted. The functional residual capacity is 2.08 L, 52% predicted. The residual volume is 1.67 L, 63% predicted. Diffusing capacity: The diffusing capacity unadjusted for hemoglobin and carboxyhemoglobin is 11.8, 45% predicted. The diffusing capacity adjusted for alveolar volume is 3.02, 82% predicted. Impression: There is a mild restrictive ventilatory abnormality with a normal FEV1. The spirometry is normal without evidence of an obstructive abnormality. There is no significant improvement after inhaling a single dose of albuterol. The diffusing capacity unadjusted for hemoglobin and carboxyhemoglobin is moderately decreased and normalizes when adjusted for alveolar volume. There are no prior studies for comparison
== END 2022-12-04 09:11 | disposition home or self-care (01) ==
PROVIDERS: PCP Family Medicine; Visit Provider Internal Medicine Pulmonary Disease
DX: R91.8 Other nonspecific abnormal finding of lung field (principal); J84.9 Interstitial pulmonary disease, unspecified
CPT/HCPCS: 71250; 94060; 94726; 94729

== ENCOUNTER 2023-02-10 17:04 | Emergency (ER) | payer MEDICARE, SELFPAY ==
--- NOTE | ~2023-02-10 | CT_ITS ---
EXAMINATION: CT brain wo con DATE: 02/10/2023 19:03 INDICATION: ALTERED MENTAL STATUS . TECHNIQUE: Computed tomography (CT) of the head was performed without intravenous contrast. The mA wa s adjusted according to patient size. Iterative reconstruction technique was employed. The dose-lengt h product was 681.00 mGy-cm. COMPARISON: 10/09/2022. FINDINGS: No acute intracranial hemorrhage or extra-axial fluid collection. No hydrocephalus, mass, or herniation. No acute ischemic infarct. Unremarkable dural venous sinus attenuation. No acute osseous abnormality. Trace right mastoid fluid, the remaining aerated spaces are clear. Mild atrophy and chronic white matter change. Atherosclerotic intracranial calcification. Bilateral l ens replacements. Posterior fossa arachnoid cyst. IMPRESSION: No acute intracranial process. Reviewed, dictated and finalized at location K. LINE WORKER
--- NOTE | ~2023-02-10 | XR_ITS ---
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 RESULT: Lines, tubes, and devices: Partially visualized ACDF hardware. Lungs and pleura: Moderate diffuse reticular opacities, improved patchy areas of airspace disease. N o focal consolidation, pleural effusion, or pneumothorax. Cardiomediastinal silhouette: Stable. Other: No acute osseous or upper abdominal finding. IMPRESSION: No acute cardiopulmonary process. Chronic interstitial lung disease. Reviewed, dictated and finalized at location K. RO ATTENDANT
[2023-02-10 17:09] VITALS: BP 164/77; PULSE 93; RESP 16; TEMP 36.6; O2SAT 100
[2023-02-10 19:09] VITALS: BP 149/79; PULSE 79; RESP 17; TEMP 36.6; O2SAT 98
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
[2023-02-10 21:05] VITALS: BP 152/80; PULSE 69; PULSE 72; RESP 14; O2SAT 100
== END 2023-02-10 23:20 | disposition home or self-care (01) ==
PROVIDERS: Emergency Provider Emergency Medicine; PCP Family Medicine
DX: S09.90XA Unspecified injury of head, initial encounter (principal); I48.91 Unspecified atrial fibrillation; N40.0 Benign prostatic hyperplasia without lower urinary tract symptoms; R73.03 Prediabetes; I70.90 Unspecified atherosclerosis; Z87.891 Personal history of nicotine dependence; Z79.01 Long term (current) use of anticoagulants; W22.8XXA Striking against or struck by other objects, initial encounter; Z79.84 Long term (current) use of oral hypoglycemic drugs
CPT/HCPCS: 70450; 71045; 99284

== ENCOUNTER 2023-02-15 12:12 | Emergency (ER) | payer MEDICARE, SELFPAY ==
[2023-02-15] VITALS (20 sets, daily range): BP systolic 139–163; BP diastolic 67–87; PULSE 64–88; RESP 15–26; O2SAT 96–100
--- NOTE | ~2023-02-15 | CT_ITS ---
Non-contrast Head CT History: Altered mental status COMPARISON: 02/10/2023 Technique: Axial non-contrast imaging of the brain was performed. Dose reduction technique was used on this scan by utilizing automated exposure control and iterative reconstruction technique. The dose -length product (DLP) was 605.33 mGy-cm. Findings: There is no evidence of intracranial hemorrhage, mass lesion, or acute infarct. Brain par enchyma appears normal. The ventricles and subarachnoid spaces are normal in size. The calvarium ap pears normal. The visualized paranasal sinuses and mastoid air cells are clear. Impression: No significant abnormality seen. Reviewed, dictated and finalized at location . 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
--- NOTE | 2023-02-15 12:15 | ECG_ITS ---
Measurements Intervals [place] Rate: 75 P: 20 MS: 215 QRS: -30 QRSD: 93 T: 13 QT: 367 QTc: 411 Interpretive Statements SINUS RHYTHM WITH FIRST DEGREE AV BLOCK WITH OCCASIONAL VENTRICULAR PREMATURE COMPLEXES BORDERLINE LEFT AXIS DEVIATION [QRS AXIS < -20] BORDERLINE ECG COMPARED TO ECG 10/09/2022 09:19:10 FIRST DEGREE AV BLOCK NOW PRESENT Electronically Signed On 02-15-2023 17:21:42 RAIL EXPRESS CLERK by Moose Berg M.D.
[2023-02-15 12:43] LABS: Basophils Absolute Auto 0.1 K/mm3 (0.0-0.1); Basophils Percent Auto 0.5 % (0.2-1.2); Eosinophils Absolute Auto 0.2 K/mm3 (0-0.3); Eosinophils Percent Auto 2.3 % (0-4.4); Hematocrit 37.4 % (42.0-52.0); Hemoglobin 12.2 g/dL (14.0-18.0); Immature Granulocyte Absolute 0.03 K/mm3 (0.00-0.031); Immature Granulocyte Percent A 0.3 % (0-0.5); Lymphocytes Absolute Auto 0.99 K/mm3 (0.9-3.2); Lymphocytes Percent Auto 10.5 % (18.3-44.2); Mean Corpuscular HGB Conc 32.6 g/dl (32-36); Mean Corpuscular Hemoglobin 32.1 pg (26-34); Mean Corpuscular Volume 98.4 fl (80-100); Mean Platelet Volume 10.6 fl (7.4-10.4); Monocytes Absolute Auto 1.1 K/mm3 (0.1-0.6); Monocytes Percent Auto 11.3 % (2.6-8.5); Neutrophils Absolute Auto 7.1 K/mm3 (1.3-6.7); Neutrophils Percent Auto 75.1 % (45.5-73.1); Platelet Count Result 192 k/mm3 (150-375); Red Cell Distribution Width 13.8 % (11.5-14.5); White Blood Count 9.5 K/mm3 (4.5-10.0)
[2023-02-15 12:44] LABS: Appearance Urine Clear (Clear); Bilirubin Urine Negative (Negative); Blood Urine Negative (Negative); Color Urine Yellow (Yellow); Glucose Urine UA Negative (Negative); Ketones Urine Trace mg/dL (Negative); Leukocyte Esterase Ur Negative LEU/UL (Negative); Nitrate Urine Negative (Negative); Protein Urine Negative (Negative); Specific Grav Ur 1.027 (1.001-1.035)
[2023-02-15 12:46] LABS: Add Urine Microscopic? YES
--- NOTE | 2023-02-15 12:48 | PCRTNOTE ---
Arrived to draw ABG; pt. is not in the room.
[2023-02-15 12:52] LABS: Alanine Aminotransferase 23 U/L (6-50); Albumin Level 3.9 g/dL (3.5-5.1); Alkaline Phosphatase 61 U/L (38-126); Anion Gap 7 mmol/L (8-16); Aspartate Amino Transferase 43 U/L (17-59); Bilirubin,Total 0.7 mg/dL (0.2-1.3); Blood Urea Nitrogen 22 mg/dL (9-20); Calcium 9.5 mg/dL (8.4-10.2); Carbon Dioxide 23 mmol/L (22-30); Chloride 108 mmol/L (98-107); Estimated Glomerular Filt Rate > 60; Glucose 162 mg/dL (65-110); Potassium 4.2 mmol/L (3.4-5.0); Sodium 138 mmol/L (137-145)
[2023-02-15 12:53] LABS: INR 1.3; Partial Thromboplastin Time 28.6 SECONDS (22.3-36.8); Prothrombin Time 16.7 Seconds (11.1-14.7)
[2023-02-15 13:10] LABS: Alveolar/Arterial O2 Gradient 16.9 mmHg; Fractional Inspired Oxygen 21 %; HCO3 ABG 25.3 mEq/l (22.0-26.0); Oxygen Content ABG 16.8 %vol (16.0-22.0); Oxygen Saturation ABG 96.7 % (95.0-100.0); Oxyhemoglobin 94.5 % THb (90.0-100.0); PCO2 ABG 39.2 mmHg (35.0-45.0); PO2 ABG 85.9 mmHg (80.0-100.0); PO2 FiO2 Ratio Arterial Blood 4.09 %; Total Hemoglobin 12.6 g/dL (12.0-18.0); pH ABG 7.427 (7.350-7.450)
[2023-02-15] MEDS: SODIUM CHLORIDE 0.9% IV 1,000 ML 999 ML IV CONT (13:10)
[2023-02-15 13:11] LABS: Device ROOM AIR; Modified Allen's Test Pass; Site Drawn LEFT RADIAL
--- NOTE | 2023-02-15 14:02 | ED.AMS ---
HPI - Altered Mental Status General Chief Complaint: Altered Mental Status Stated Complaint: altered mental status Time Seen by Provider: 02/15/23 12:37 History of Present Illness HPI narrative: patient brought to the emergency department by EMS. Unsure who called EMS on him. He states that he lives alone. However he is acutely confused. Speech clear. When asked who he lives with he states current the frog. He states he is a statue of his girlfriend moved her arm up and down. He told the respiratory therapist that he would like to take her and all the other nurses to a chief's game. He then states that we all sound like checked lungs when we are talking. He is moving all extremities without weakness. He has a history of dementia and hyperglycemia. He is on Xarelto Related Data Home Medications Medication Instructions Recorded Confirmed atorvastatin 10 mg tablet 10 mg PO HS 10/09/22 11/04/22 divalproex 500 mg tablet,extended 500 mg PO DAILY 10/09/22 11/04/22 release 24 hr memantine 10 mg tablet 10 mg PO DAILY 10/09/22 11/04/22 metformin 500 mg tablet 500 mg PO DAILY 10/09/22 11/04/22 rivaroxaban 20 mg tablet (Xarelto) 20 mg PO DAILY 10/09/22 11/04/22 pantoprazole 40 mg tablet,delayed 40 mg PO DAILY 10/12/22 11/04/22 release Allergies Allergy/AdvReac Type Severity Reaction Status Date / Time Yellow Jacket Allergy Severe Anaphylactic Uncoded 02/15/23 15:47 Shock Review of Systems Review of Systems: negative except what is documented in the HPI [facility] Past Medical History Medical History Atherosclerosis Atrial fibrillation status post cardioversion Borderline diabetes BPH (benign prostatic hyperplasia) Chronic anticoagulation Memory problem Surgical History Surgical History S/P ablation of atrial fibrillation Social History Social History Smoking status: Former smoker (quit 1965, 1 Pack year) Alcohol intake: current Drinks per week: 1 Substance use: never Substance use type: unknown Lack of Transportation: No Lack of Food: Never True Current Housing: I Have Housing Concerned About Future Housing: No Difficulty Paying Gas/Electric Bills: No Difficulty Paying for Meds: No Currently Unemployed: No Education: Master's Degree or Higher Difficulty w/ Childcare or Family Care: No Spiritual care concerns: No Exam Narrative: GENERAL: Well-appearing, well-nourished, and in no acute distress. HEAD: Normocephalic, atraumatic. EYES: PERRLA and EOMI. ENT: Nares clear, no rhinorrhea or epistaxis. Mucous membranes moist. NECK: Supple. CHEST: Clear to auscultation. No respiratory distress. HEART: Regular rate and rhythm. ABDOMEN: Soft, nontender, nondistended. EXTREMITIES: Normal range of motion. No edema. SKIN: Warm, dry, no rash. NEURO: No focal deficits. Alert and oriented x3. PSYCH: Normal mood and affect. Course Course Emergency Course: differential diagnosis includes but not limited to infectious etiology, electrolyte abnormality, stroke, worsening of dementia labs and CT scan ordered 1406 urinalysis negative. Labs grossly unremarkable. Head CT normal. Unclear etiology of his confusion. Will discuss with family Vital Signs Vital signs: Vital Signs Pulse Oximetry 96 02/15/23 12:25 Oxygen Delivery Room Air 02/15/23 12:25 Pulse Rate 80 02/15/23 19:40 Respiratory Rate 20 02/15/23 19:40 Blood Pressure 147/69 H 02/15/23 19:40 Pulse Oximetry 98 02/15/23 19:40 Oxygen Delivery Room Air 02/15/23 12:25 MDM - Altered Mental Status MDM Narrative Medical decision making narrative: I had extensive discussion with the son. Patient has a history of bipolar. For the past 5 years he has had multiple episodes of deterioration. Her most
[2023-02-15 14:22] LABS: Lactic Acid Reflex 1.1 mmol/L (0.7-2.0)
--- NOTE | 2023-02-15 14:37 | PC.NURSE ---
Pt found walking towards nurses station mumbling phrases. Pt escorted back into bed, placed back on the monitor. Educated to use the call light if he needs anything. Pt disoriented to time, location, self.
[2023-02-15 14:47] LABS: Influenza A QL RT-PCR Negative (Negative); Influenza B QL RT-PCR Negative (Negative); RSV RNA, RT-PCR Negative (Negative); SARS-CoV-2 RNA PCR Negative (Negative)
[2023-02-15 15:41] LABS: Amphetamine Screen Urine Negative (Negative); Barbiturate Screen Urine Negative (Negative); Benzodiazepines Screen Urine Negative (Negative); Cannabinoid Screen Urine Positive (Negative); Cocaine Screen Urine Negative (Negative); Methadone Screen Urine Negative (Negative); Opiate Screen Urine Negative (Negative); Phencyclidine Screen Urine Negative (Negative)
[2023-02-15 15:42] LABS: Ethanol < 10 mg/dL (<10)
[2023-02-15 15:55] LABS: Troponin I < 0.012 ng/mL (0.000-0.034)
--- NOTE | 2023-02-15 16:05 | ECG_ITS ---
Measurements Intervals [place] Rate: 75 P: 37 ND: 225 QRS: -30 QRSD: 93 T: 18 QT: 397 QTc: 444 Interpretive Statements SINUS RHYTHM WITH FIRST DEGREE AV BLOCK POOR R-WAVE PROGRESSION BORDERLINE ECG COMPARED TO ECG 02/15/2023 12:42:10 NO SIGNIFICANT CHANGE Electronically Signed On 02-15-2023 17:29:13 FARMWORK[employer] by Moose Berg M.D.
--- NOTE | 2023-02-15 16:07 | PC.NURSE ---
Pt belongings including clothes, cell phone, and hearing aid locked away. This RN offered hearing aid to pt and he refused to put it in. Son Fernando requested to be called with any updates
[2023-02-15 16:20] LABS: Acetaminophen < 10 ug/mL (10-30); Salicylate < 1.0 mg/dL (2-20)
[2023-02-15 16:42] LABS: Troponin I < 0.012 ng/mL (0.000-0.034)
--- NOTE | 2023-02-15 16:46 | PC.NURSE ---
Food order placed for pt
[2023-02-15 16:51] LABS: Thyroid Stimulating Hormone < 0.015 uIU/mL (0.465-4.680)
--- NOTE | 2023-02-15 18:10 | PC.NURSE ---
Pt put his hearing aid in
--- NOTE | 2023-02-15 19:16 | PC.NURSE ---
Report given to Sofi CORADO, all questions answered
--- NOTE | 2023-02-15 21:30 | PC.NURSE ---
Faxed over EKG from today and 10/09/22 for comparison to Karla at [facility].
[2023-02-15] MEDS: LORazepam INJ (*CRX) 2 MG/ML VIAL IM (22:03)
[2023-02-15] MEDS: HALOPERIDOL LACTATE 5 MG/ML VIAL IM (22:03)
--- NOTE | 2023-02-15 22:53 | PC.NURSE ---
Spoke with Karla from [facility]. She stated pt will not be accepted to their facility.
--- NOTE | 2023-02-15 23:58 | PC.NURSE ---
[facility] unable to accept pt due to Acquity.
[2023-02-16 07:00] VITALS: BP 145/65; PULSE 80; RESP 20; TEMP 36.6; O2SAT 98
--- NOTE | 2023-02-16 07:20 | PC.NURSE ---
Breakfast tray ordered for pt
--- NOTE | 2023-02-16 10:54 | PC.NURSE ---
Yasmin from [facility] stated the pt was going to be accepted and she would be calling back with more information shortly.
[2023-02-16 11:45] VITALS: BP 141/82; PULSE 79; RESP 19; TEMP 36.7; O2SAT 100
== END 2023-02-16 13:10 ==
PROVIDERS: Emergency Medicine; Emergency Provider Emergency Medicine; PCP Family Medicine
DX: R41.82 Altered mental status, unspecified (principal); F31.9 Bipolar disorder, unspecified; Z87.891 Personal history of nicotine dependence; Z20.822 Contact with and (suspected) exposure to COVID-19; Z79.01 Long term (current) use of anticoagulants; F03.90 Unspecified dementia, unspecified severity, without behavioral disturbance, psychotic disturbance, mood disturbance, and anxiety; I48.91 Unspecified atrial fibrillation
CPT/HCPCS: 36415; 36600; 70450; 80053; 80307; 81001; 82805; 83605; 84443; 84484; 85025; 85610; 85730; 87637; 93005; 96360; 96372; 99285; J1630; J2060; J7030

== ENCOUNTER 2023-07-09 09:46 | Outpatient (CLI) | payer MEDICARE, SELFPAY ==
[2023-07-09 10:24] LABS: Anion Gap 8 mmol/L (4-12); Blood Urea Nitrogen 15 mg/dL (9-20); Carbon Dioxide 26 mmol/L (22-30); Chloride 105 mmol/L (98-107); Estimated Glomerular Filt Rate > 60; Glucose 296 mg/dL (65-110); Potassium 4.4 mmol/L (3.4-5.0); Sodium 139 mmol/L (137-145)
[2023-07-09 10:46] LABS: Valproic Acid 40.9 ug/mL (50-120)
== END 2023-07-09 09:47 | disposition home or self-care (01) ==
LOC: ANHSURGERY 09:51
PROVIDERS: Anesthesiology; PCP Family Medicine; Visit Provider Plastic Surgery
DX: Z01.818 Encounter for other preprocedural examination (principal); E11.9 Type 2 diabetes mellitus without complications; Z79.899 Other long term (current) drug therapy
CPT/HCPCS: 36415; 80048; 80164

== ENCOUNTER 2023-07-16 00:17 | Day surgery (SDC) | payer MEDICARE, SELFPAY ==
[2023-07-06 14:24] VITALS: BMI 27.1
--- NOTE | 2023-07-06 14:32 | PC.NURSE ---
PRE-OP INSTRUCTIONS, PLEASE READ CAREFULLY Report to the Outpatient Waiting Room, entrance under the green pavilion located off [facility], at time _0700_ on date _07/16/23_. Planned Procedure Time: _0900_. Time changes happen often and if your time is changed the preop area will call you the afternoon before. - You and your visitor will be asked to self-screen and do not enter if you have any COVID symptoms. - A mask is optional within the hospital at this time. Patients may have clear liquids (water, carbonated beverages, clear teas, apple juice) until 3 hours prior to surgery (0600 AM) with a maximum of 20 ounces. - No food from midnight until time of surgery Take the following medications with a SIP of water the morning of surgery: _DIVALPROEX (DEPAKOTE), MEMANTINE_ DO NOT STOP ANY OF YOUR OTHER PRESCRIPTION MEDICATIONS PRIOR TO SURGERY ?EXCEPT THE FOLLOWING Medications to discontinue - _XARELTO INSTRUCTED BY DR. DODD, Date to take last dose_CALL DR. DODD'S OFFICE IF NEEDED =[phone]_ Please no make-up, nail turkish, hairspray, perfume, deodorant, or body powder the day of surgery. No jewelry (including any body piercings) or valuables the day of surgery, leave them at home. Please take a shower or bath the night before, or the morning of, surgery with an antibacterial soap. Wear comfortable, loose fitting clothing. - Jewelry must be removed prior to entering the operating room. Rings and piercings that are not removed may be cut off. - The hospital will not accept responsibility for valuables. - Please leave all valuables, including medications, at home the day of surgery. If you are going home after surgery, a licensed tow motor driver must drive you home. - NO public transportation without another adult if you receive anesthesia. - We recommend that an adult stay with you for 24 hours following discharge. - We also recommend that you do not drive, make important decision, drink alcoholic beverages, or take any drugs that were not prescribed by your health care provider for at least 24 hours after your discharge time. Follow any additional instructions given to you from your surgeon. If you or anyone in your household have experienced Covid symptoms in the past week, please notify your surgeon or the nurse liaison at the phone number below for possible testing. Telephone instructions given to _PATIENT_and asked if any additional questions and then verbalized understanding. Patient advised to call surgeon office or pre surgery nurse liaison [phone] if any additional questions.
[2023-07-16 07:34] LABS: Glucose Point of Care 178 mg/dl (65-105)
[2023-07-16 07:52] VITALS: BP 121/50; PULSE 69; RESP 14; TEMP 36.2; O2SAT 94
[2023-07-16] MEDS: LACTATED RINGERS 1,000 ML 30 ML IV CONT (08:00)
--- NOTE | 2023-07-16 08:30 | WPDANESEPPF ---
Anes - Initial Pre Proc Eval Procedure: Operation Date: 07/16/23 09:00 Proposed Procedures p Excision Neoplasm Unspecified Behavior of Right Nasal Ala with Frozen Section, Full Thickness Skin Graft, Excision Neoplasm Unspecified Behavior of Right Cheek, Possible Frozen Section - Alejandro Lundy MD Date/Time: 07/16/23 08:30 Surgeon: Alejandro Lundy MD Pre Op Diagnosis: neoplasm unspecified behavior right nasal Patient Data Age: 72 Gender: M Height: 1.83 m Weight: 105.2 kg Last Vital Signs Temp 97.1 F L 07/16/23 07:52 Pulse 69 07/16/23 07:52 Resp 14 07/16/23 07:52 BP 121/50 L 07/16/23 07:52 Pulse Ox 94 07/16/23 07:52 O2 Del Method Room Air 07/16/23 07:52 Allergies Allergy/AdvReac Type Severity Reaction Status Date / Time Yellow Jacket Allergy Severe Anaphylactic Uncoded 07/16/23 07:55 Shock Home Medications Medication Instructions Recorded Confirmed Type atorvastatin 10 mg tablet 10 mg PO HS 10/09/22 07/06/23 History divalproex 500 mg tablet,extended 1,000 mg PO BID 10/09/22 07/06/23 History release 24 hr memantine 10 mg tablet 10 mg PO BID 10/09/22 07/06/23 History metformin 500 mg tablet 500 mg PO DAILY 10/09/22 07/06/23 History rivaroxaban 20 mg tablet (Xarelto) 20 mg PO DAILY 10/09/22 07/06/23 History pantoprazole 40 mg tablet,delayed 40 mg PO DAILY 10/12/22 07/06/23 History release furosemide 40 mg tablet 40 mg PO DAILY #30 tabs 10/15/22 07/06/23 Rx Laboratory Tests 07/16/23 07:31 POC Capillary Glucose 178 H mg/dl (65-105) Patient hx anesthesia problems: none Family hx anesthesia problems: none Results Review: All pre-operative results and documents have been reviewed as part of the pre-operative evaluation. [facility] Past Medical History Medical History Atherosclerosis Atrial fibrillation status post cardioversion Borderline diabetes BPH (benign prostatic hyperplasia) Chronic anticoagulation Memory problem Surgical History Surgical History S/P ablation of atrial fibrillation Social History Social History Smoking status: Never smoker Second hand tobacco smoke exposure: No Alcohol intake: current Drinks per week: 1 Substance use: never Substance use type: does not use Lack of Transportation: No Lack of Food: Never True Current Housing: I Have Housing Concerned About Future Housing: No Difficulty Paying Gas/Electric Bills: No Difficulty Paying for Meds: No Currently Unemployed: No Education: Master's Degree or Higher Difficulty w/ Childcare or Family Care: No Living arrangements: alone Spiritual care concerns: No Anes - Eval Final PreProcedure Day of Procedure 07/16/23 08:30 Patient weight: obese Heart: regular rate and rhythm Lungs: clear to auscultation Airway: Mallampati scale class III Neurological: alert and oriented Last oral intake: >/= 8 hours ASA classification: III Emergent: no Anesthetic plan: proceed Anesthesia type and monitoring: general GIVS (may use LMA) and standard monitoring Results Review: All pre-operative results and documents have been reviewed as part of the pre-operative evaluation. Informed Consent: The patient's anesthetic plan and its attendant risks and benefits were discussed with the patient/family/POA. Questions were solicited and answers provided to the satisfaction of the patient/family/POA.
--- NOTE | 2023-07-16 09:01 | WPDHPUPDATE1 ---
History and Physical Update Update Date/Time: 07/16/23 09:01 History and Physical has been reviewed, including an updated exam of the patient. There are NO changes in the patient's condition. Risks, benefits, and alternatives have been discussed and questions answered. Patient agrees to proceed with procedure.
--- NOTE | 2023-07-16 10:30 | SUR.OPER ---
Excision of Neoplasm Unspecified Behavior of Right Nasal Ala with Frozen Section Specimen sent to lab at 1008 per PCT Lety from Pathology called at [phone] stating she received the specimen Pathology called at [phone]- stating Basal Cell Margins are clear.
[2023-07-16] MEDS: LIDO 1%/EPINEPHRINE 1:100,000 20 ML VIAL 25 ML INFILTRATE (10:38)
[2023-07-16 11:05] VITALS: BP 112/47; PULSE 63; RESP 14; O2SAT 93
[2023-07-16 11:35] VITALS: BP 113/48; PULSE 59; RESP 16; O2SAT 95
--- NOTE | 2023-07-16 11:37 | W.PM.PROC2 ---
Procedure Note - Detailed Date of Procedure 07/16/23 Pre-op Diagnosis neoplasm unspecified behavior right nasal Post-op Diagnosis Other (Basal cell carcinoma of the right nasal ala rim. Neoplasm unspecified behavior of the right cheek) Procedure Performed 1 cm excision of basal cell carcinoma of the right nasal ala with frozen section and full-thickness skin graft from the upper forehead 0.5 sq cm 1.3 cm excision of neoplasm of unspecified behavior of the right cheek with permanent section and intermediate repair 3.5 cm Surgeon Alejandro Lundy MD Anesthesia MAC Description of Procedure The site on the right nasal ala in the right cheek were marked on the patient with his consent in the holding area. He was taken to the operating room was placed supine on the operating table he was given sedation anesthesia with LMA. The face and neck were prepped and draped usual fashion. Time-out was held and confirmed. The 2 tumor sites were carefully identified and marked for excision and each infiltrated with 1% lidocaine with epinephrine. Adequate anesthesia was obtained The lesion from the right nasal ala rim was taken off with a 15. C blade through full-thickness of skin and sent to pathology. The most superior aspect was marked with a suture designating 12 o'clock. The pathologist revealed basal cell carcinoma confirmed completely removed. In the meantime the lesion was taken from the right cheek this is area with ample skin for closure. The mass was keratotic and appeared to be a proximally 5 mm diameter. We elected not to send this tissue to frozen section. It was not marked for orientation. The skin margins were undermined several mm in all directions to allow coaptation of the skin using intradermal 5 0 Vicryl and a running 5 0 nylon. Standing cones approximately between 1/2 and 1 cm were removed both ends. The nasal defect was repaired with a full-thickness skin graft from the upper forehead. This had been anesthetized with 1% lidocaine with epinephrine. A small elliptical excision was carried out and specimen was lightly and tailored and inset with interrupted 5 0 nylon suture and 5 0 chromic. The donor site was undermined and closed with intradermal 4-0 Vicryl sutures to approximate the margins and a running 5 0 nylon to close the skin. On sites were cleaned up no dressings were applied. The patient discharged with instructions in wound care and follow-up there is also a prescription for doxycycline 100 mg to be taken twice a day for 7 days. The script for hydrocodone 5/325 3. Was also sent. Estimated Blood Loss 3 Drains No Packing No Pathology Yes Complications No immediate complications Condition Stable Disposition PACU
[2023-07-16 12:05] VITALS: BP 109/52; PULSE 62; RESP 16
[2023-07-16 12:35] VITALS: BP 114/51; PULSE 57; RESP 16
[2023-07-16 12:45] VITALS: BP 115/75; PULSE 60; RESP 16
== END 2023-07-16 13:00 | disposition home or self-care (01) ==
PROVIDERS: PCP Family Medicine; Visit Provider Plastic Surgery
PROC: (CPT 11641; principal; 2023-07-16 09:00)
DX: C44.311 Basal cell carcinoma of skin of nose (principal); D04.39 Carcinoma in situ of skin of other parts of face; N40.0 Benign prostatic hyperplasia without lower urinary tract symptoms; R73.03 Prediabetes; E66.9 Obesity, unspecified; Z68.31 Body mass index [BMI] 31.0-31.9, adult; Z79.01 Long term (current) use of anticoagulants; Z79.84 Long term (current) use of oral hypoglycemic drugs
CPT/HCPCS: 11641; 15260; 11642; 12052; 36415; 80048; 80164; 82948; 88305; 88331; A9270; J1100; J2405; J2704; J3010; J7120

== ENCOUNTER 2024-11-30 08:42 | Inpatient (IN) | payer MEDICARE, SELFPAY ==
--- OUTSIDE RECORDS SUMMARY | 2024-11-29 07:25 | XMS_ITS ---
Author Organization [facility] Address [address] [id number] Care Team Providers Care Ballistics Expert Name Role Phone FERNANDO NUÑEZ Primary Care Provider Allergies Allergen (clinical drug ingredient) Drug/Non Drug Allergy documented on EMR Reaction Allergy Type Onset Date Status Latrodectus mactans antivenin Antivenin Latrodectus Mactans Unknown Drug Allergy Active diltiazem dilTIAZem HCl Unknown Drug Allergy Act natalia Iodine Unknown Drug Allergy Active Hymenoptera Venom -Bee, Wasp, Yellow Jacket Stings Unknown Allergy Active REASON FOR VISIT CHART PREP Medications Medication SIG (Take, Route, Frequency, Duration) Notes Start Date End Date Status Tamsulosin HCl 0.4 MG Capsule 2 capsules Orally Once a day Active Pantoprazole Sodium 40 MG Tablet Delayed Release 1 tablet Orally Once a day Active Rivaroxaban 20 MG Tablet 1 tablet with f ood Orally Once a day Active Ipratropium-Albuterol 0.5-2.5 (3) MG/3ML Solution 3 mL as needed Inhalation 4 times a day Active Benzonatate 200 MG Capsule 1 capsule as needed Orally Three times a day 11/01/2024 Active Divalproex Sodium 500 MG Tablet Delayed Release 1 tablet Orally once a day Active Acetaminophen 500 MG Tablet 1 tablet as needed Orally every 6 hrs As needed Active Amiodarone HCl 200 MG Tablet 1 tablet Or ally twice a day Active Albuterol Sulfate 108 (90 Base) MCG/ACT Aerosol Powder Breath Activated 2 puffs Inhalation every 6 hours As needed Active Atorvastatin Calcium 10 MG Tablet 1 tablet Orally Once a day Active Memantine HCl 10 MG Tablet 1 tablet Oral ly twice a day Active Fluticasone Propionate 50 MCG/ACT Suspension 2 sprays each nostrils as needed Nasally Active EPINEPHrine 0.15 MG/0.15ML Solution Auto-injector 0.15 ml Injection once a day Active Methocarbamol 750 MG Tablet 1 tablet Orally every 4 hrs As needed Active metFORMIN HCl 500 MG Tablet 1 tablet wit h a meal Orally Once a day Active Social History Tobacco Use: Social History Observation Description Date Details (start date - stop date) Never Smoker NA - NA Social History Tobacco Use: Social Info Question Answer Notes Tobacco Control (Standard) Tobacco use: Nonsmoker Encounters Encounter Location Date Provider Diagnosis [facility] [address] [place] [id number] 11/29/2024 FERNANDO NUÑEZ Plan Of Treatment No Information Progress Notes * Andrei AMATODOB:1950 ( 74 yo M)Acc No.[id number]:11/29/2024 Patient: Andrei CHOUDHURY :1950 A ge:74 Y S ex:Male Address:[address] [place], [place] [id number] Subjective: * Chief Complaints: * C ALVARADO PREP * Medical History: Non-ST elevation (NSTEMI) myocardial infarction Atherosclerosis of [place] coronary artery of [place] heart without angina pectoris Type 2 diabetes mellitus without complications Heart failure, unspecified Muscle weakness (generalized) Repeated falls Benign prostatic hyperplasia without lower urinary tract symptoms Essential (primary) hypertension Hyperlipidemia, unspecified Bipolar disorder, unspecified Presence of cardiac pacemaker Sick sinus syndrome Permanent atrial fibrillation Repeated falls Dementia in other diseases classified elsewhere, mild, without behavioral disturbance, psychotic disturbance, mood disturbance, and anxiety Gastro-esophageal reflux disease without esophagitis Pain, unspecified Allergic rhinitis, unspecified Wheezing Personal history of anaphylaxis Unspecified abnormalities of gait and mobility Pain in right hand * Surgical History: back surgery refractive surgery Surgical History verified. * Family History: F amily History Verified.. UNKNOWN. * Social History: T obacco Use: T obacco Control (Standard) T obacco use: N onsmoker. Social History Verified. * Medications: T akingIpratropium-Albuterol 0.5-2.5 (3) MG/3ML Solution 3 mL as needed Inhalation 4 times a day Benzonatate 200 MG Capsule 1 capsule as needed Orally Three times a day Rivaroxaban 20 MG Tablet 1 tablet with food Orally Once a day Tamsulosin HCl 0.4 MG Capsule 2 capsules Orally Once a day Pantoprazole Sodium 40 MG Tablet Delayed Release 1 tablet Orally Once a day Methocarbamol 750 MG Tablet 1 tablet Orally every 4 hrs As neededmetFORMIN HCl 500 MG Tablet 1 tablet with a meal Orally Once a day Memantine HCl 10 MG Tablet 1 tablet Orally twice a day Fluticasone Propionate 50 MCG/ACT Suspension 2 sprays each nostrils as needed Nasally EPINEPHrine 0.15 MG/0.15ML Solution Auto-injector 0.15 ml Injection once a day Divalproex Sodium 500 MG Tablet Delayed Release 1 tablet Orally once a day Atorvastatin Calcium 10 MG Tablet 1 tablet Orally Once a day Amiodarone HCl 200 MG Tablet 1 tablet Orally twice a day Albuterol Sulfate 108 (90 Base) MCG/ACT Aerosol Powder Breath Activated 2 puffs Inhalation every 6 hours As neededAcetaminophen 500 MG Tablet 1 tablet as needed Orally every 6 hrs As neededTaking Ipratropium-Albuterol 0.5-2.5 (3) MG/3ML Solution 3 mL as needed Inhalation 4 times a day Taking Benzonatate 200 MG Capsule 1 capsule as needed Orally Three times a day Taking Rivaroxaban 20 MG Tablet 1 tablet with food Orally Once a day Taking Tamsulosin HCl 0.4 MG Capsule 2 capsules Orally Once a day Taking Pantoprazole Sodium 40 MG Tablet Delayed Release 1 tablet Orally Once a day Taking Methocarbamol 750 MG Tablet 1 tablet Orally every 4 hrs As neededTaking metFORMIN HCl 500 MG Tablet 1 tablet with a meal Orally Once a day Taking Memantine HCl 10 MG Tablet 1 tablet Orally twice a day Taking Fluticasone Propionate 50 MCG/ACT Suspension 2 sprays each nostrils as needed Nasally Taking EPINEPHrine 0.15 MG/0.15ML Solution Auto-injector 0.15 ml Injection once a day Taking Divalproex Sodium 500 MG Tablet Delayed Release 1 tablet Orally once a day Taking Atorvastatin Calcium 10 MG Tablet 1 tablet Orally Once a day Taking Amiodarone HCl 200 MG Tablet 1 tablet Orally twice a day Taking Albuterol Sulfate 108 (90 Base) MCG/ACT Aerosol Powder Breath Activated 2 puffs Inhalation every 6 hours As neededTaking Acetaminophen 500 MG Tablet 1 tablet as needed Orally every 6 hrs As needed * Allergies: A ntivenin Latrodectus MactansdilTIAZem HClIodineHymenoptera Venom -Bee, Wasp, Yellow Jacket StingsyesAllergies Verified. * true * Date: Generated for Bharti smith/Nadege/Rogelio on: 09:17 AM CDT
[2024-11-30] VITALS (39 sets, daily range): BP systolic 101–137; BP diastolic 50–81; PULSE 84–125; RESP 18–42; TEMP 36.4–37; O2SAT 84–100; BMI 25.7
--- NOTE | ~2024-11-30 | XR_ITS ---
EXAMINATION: XR chest 1V portable COMPARISON: No comparisons available. HISTORY: shortness of breath FINDINGS: Diffuse bilateral infiltrates. No pneumothorax. Moderate cardiomegaly. Mediastinal and hilar contours are within normal limits. Bony thorax no acute abnormality. Miscellaneous: Left pacemaker. Impression: Bilateral pneumonia Reviewed, dictated and finalized at location P. Impression: Bilateral pneumonia
--- NOTE | ~2024-11-30 | XR_ITS ---
Examination: XR chest 1V portable Clinical History: Shortness of breath Comparison: 1 day prior Technique: Portable AP Findings: Left pacemaker. Cardiomegaly. Persistent diffuse bilateral basilar predominant interstitial disease. Relative sparing left apex. Background interstitial lung disease. No pneumothorax. No acute bony abnormality. IMPRESSION: 1. No significant change from one day prior. 2. Pulmonary edema, pneumonitis, and/or airspace disease. 3. Background interstitial lung disease. Reviewed, dictated and finalized at location R.
--- NOTE | ~2024-11-30 | XR_ITS ---
XR chest 1V portable 12/01/2024 06:10 Indication: CHF. Pneumonia. Procedure: AP portable chest Comparison: Comparison to multiple prior studies sequentially, with oldest reviewed study dated 10/12/2022. Findings: Persistent bilateral airspace disease, most likely pneumonia. There is relative slightly sparing of the upper lobes. Pacemaker lead is stable, tip in the right ventricle. Stable mediastinal silhouette. No pneumothorax. No acute osseous abnormality. Impression: 1: Bilateral airspace disease with sparing of the upper lobes, compatible with pneumonia. Reviewed, dictated and finalized at location B. Impression: 1: Bilateral airspace disease with sparing of the upper lobes, compatible with pneumonia.
--- NOTE | ~2024-11-30 | XR_ITS ---
Examination: XR chest 1V portable Clinical History: SOB Comparison: 02/10/2023 Technique: Portable AP Findings: Left pacemaker. Cardiomegaly. Worsening bibasilar predominant interstitial markings. No sizable effusion or pneumothorax. No acute bony abnormality. IMPRESSION: 1. Interval worsening of chronic interstitial lung disease. 2. However bibasilar edema and/or pneumonitis or airspace disease not excluded. Reviewed, dictated and finalized at location R. IMPRESSION: 1. Interval worsening of chronic interstitial lung disease. 2. However bibasilar edema and/or pneumonitis or airspace disease not excluded .
--- NOTE | ~2024-11-30 | XR_ITS ---
EXAMINATION: XR chest 1V portable DATE: 12/04/2024 05:36 INDICATION: Congestive heart failure, pneumonia and interstitial lung disease. TECHNIQUE: frontal view of the chest was obtained. COMPARISON: Chest radiograph dated 12/03/2024 FINDINGS: Again seen are diffuse interstitial and airspace opacities throughout both lungs with mild progression on the right. No pneumothorax or definitive pleural effusion. Heart size is normal. Single lead cardiac pacemaker with lead tip projecting over the region of the right ventricular outflow tract. IMPRESSION: 1. Slight interval progression in diffuse bilateral interstitial and airspace opacities which could represent moderate pulmonary edema, pneumonia, chronic interstitial lung disease or some combination thereof. Reviewed, dictated and finalized at location A. IMPRESSION: 1. Slight interval progression in diffuse bilateral interstitial and airspace o pacities which could represent moderate pulmonary edema, pneumonia, chronic int erstitial lung disease or some combination thereof.
--- NOTE | ~2024-11-30 | CT_ITS ---
EXAMINATION: CT diagnostic chest w con, 11/30/2024 14:00 CDT HISTORY: sob COMPARISON: No comparisons available. TECHNIQUE: CT scan of the chest was performed with contrast. Isovue 300, 92cc injected IV. One or more of the following dose reduction techniques were used: automated exposure control, adjustment of the mA and/or kV according to patient size, use of iterative reconstruction technique. FINDINGS: No significant coronary calcification is present ([id number]) LUNGS: No tracheomalacia. Basilar bronchiectasis, no mucous plugging. Moderate emphysematous changes. No bullous formation. Moderate pulmonary fibrotic changes with early honeycombing. There are multifocal scattered areas of groundglass attenuation with small simple appearing left pleural effusion. There is a small simple appearing right pleural effusion. There are micronodules which are too small to characterize. HEART AND PERICARDIUM: Mild cardiomegaly. Trace pericardial effusion. AORTA: Normal caliber aorta. ADENOPATHY/MEDIASTINUM: There are enlarged lymph nodes within the mediastinum the largest in the left anterior superior mediastinum 1.8 x 1.6 cm. There are prominent subcarinal and hilar lymph nodes also noted. LIMITED VIEWS OF THE ABDOMEN: Moderate hiatal hernia. OSSEOUS STRUCTURES: No sclerotic or lytic lesions. No acute rib fractures. OVERLYING SOFT TISSUES: Left pacemaker. THYROID: The thyroid is unremarkable. IMPRESSION: 1. Bilateral severe bronchopneumonia superimposed on chronic lung disease with probable reactive mediastinal lymphadenopathy. Follow-up recommended to assess resolution Reviewed, dictated and finalized at location P.
--- NOTE | ~2024-11-30 | XR_ITS ---
EXAMINATION: XR chest 1V portable COMPARISON: No comparisons available. HISTORY: elevated WBC FINDINGS: Large bilateral infiltrates. No pneumothorax. Mild cardiomegaly. Mediastinal and hilar contours are within normal limits. Bony thorax no acute abnormality. Miscellaneous: Left pacemaker. Impression: Bilateral pneumonia Reviewed, dictated and finalized at location P. Impression: Bilateral pneumonia
--- NOTE | ~2024-11-30 | XR_ITS ---
Examination: XR chest 1V portable Clinical History: resp failure Comparison: Respiratory failure Technique: Portable AP Findings: Left pacemaker. Cardiomegaly. Persistent large bilateral airspace disease, left lung worse. Small effusions not excluded. No pneumothorax. No acute bony abnormality. IMPRESSION: 1. No significant change 2. Bilateral airspace disease, left lung worse. Reviewed, dictated and finalized at location R.
--- NOTE | ~2024-11-30 | XR_ITS ---
Examination: XR chest 1V portable Clinical History: Shortness of breath Comparison: 12/02/2024 Technique: Portable AP Findings: Left pacemaker. Cardiomegaly. Persistent diffuse bilateral interstitial disease. No pneumothorax. No acute bony abnormality. IMPRESSION: 1. No significant change 2. Probable pulmonary edema, pneumonitis, and/or airspace disease superimposed upon interstitial lung disease. Reviewed, dictated and finalized at location R.
--- NOTE | ~2024-11-30 | XR_ITS ---
MODIFIED ESOPHAGRAM HISTORY: Dysphagia with choking on coffee and food TECHNIQUE: Modified barium esophagram was performed on 12/07/2024. I administered fluoroscopy and performed the exam with speech pathologist. Patient was seated for lateral fluoroscopic imaging for ingestion of thin liquids, pudding, solids and quantified amounts, followed by thin liquids in uncontrolled amounts. This was recorded on tape. A single fluoroscopic spot image was also recorded. The DAP for this procedure was 1.045 Gycm2. The amount of fluoroscopy time used during this procedure was 1.4 minutes. FINDINGS: Oral stage: Adequate function. Pharyngeal stage: Reduced laryngeal elevation and tongue base retraction. There is vallecular residue. Flash laryngeal penetration without aspiration with thin liquids. Cervical/esophageal stage: Adequate function. IMPRESSION: Mild pharyngeal dysphagia with flash laryngeal penetration without aspiration. Please correlate with speech pathologist findings and specific feeding recommendations. Reviewed, dictated and finalized at location A. IMPRESSION: Mild pharyngeal dysphagia with flash laryngeal penetration without aspiration. Please correlate with speech pathologist findings and specific fee ding recommendations.
--- NOTE | 2024-11-30 08:53 | ECG_ITS ---
Test Date: 2024-11-30 08:53:38 Measurements Intervals [place] Rate: 98 P: 0 NM: 0 QRS: -40 QRSD: 97 T: 161 QT: 335 QTc: 428 Interpretive Statements ATRIAL FIBRILLATION WITH ELECTRONIC VENTRICULAR PACEMAKER COMPLEX LEFT AXIS DEVIATION LOW QRS VOLTAGE IN PRECORDIAL LEADS CONSIDER ANTERIOR INFARCT, AGE INDETERMINATE ST-T WAVE ABNORMALITY IN HIGH LATERAL LEADS- CONSIDER ISCHEMIA BASELINE ARTIFACT- I, II, III, AVR, AVL, AVF, V1-V6 ABNORMAL ECG No previous ECG available for comparison Electronically Signed On 11-30-2024 14:54:12 CDT by Guanaco Up D.O.
--- NOTE | 2024-11-30 09:17 | ED.GENADULT ---
HPI - General Adult General Chief complaint: Weakness Stated complaint: SOB Time Seen by Provider: 11/30/24 08:46 History of Present Illness HPI narrative: 74-year-old male presents to the emergency department for evaluation for worsening generalized weakness and shortness of breath. Patient is not normally have oxygen requirement. Patient states he woke up this morning and is they attempted to get him out of bed he felt increasingly weak. Patient does arrive the emergency department saturating at 93-96% on 4 L of oxygen. Does have tachypnea and increased work of breathing. Patient does have lower extremity edema. Patient does have a prior history of congestive heart failure and AFib. Patient is on Xarelto and amiodarone. Related Data Home Medications ?Medication ?Instructions ?Recorded ?Confirmed ?Last Taken ?Type atorvastatin 10 mg tablet 10 mg PO HS 10/09/22 11/30/24 11/29/24 21:00 History divalproex 500 mg tablet,extended 1,000 mg PO BID 10/09/22 11/30/24 11/30/24 09:00 History release 24 hr memantine 10 mg tablet 10 mg PO BID 10/09/22 11/30/24 11/30/24 09:00 History metformin 500 mg tablet 500 mg PO DAILY 10/09/22 11/30/24 11/30/24 09:00 History rivaroxaban 20 mg tablet (Xarelto) 20 mg PO DAILY 10/09/22 11/30/24 11/29/24 19:00 History pantoprazole 40 mg tablet,delayed 40 mg PO DAILY 10/12/22 11/30/24 11/30/24 09:00 History release albuterol sulfate 90 mcg/actuation 2 puff inhalation Q6H PRN 11/30/24 11/30/24 Unknown History aerosol inhaler shortness of breath or wheezing cholecalciferol (vitamin D3) 125 125 mcg PO DAILY 11/30/24 11/30/24 11/30/24 09:00 History mcg (5,000 unit) capsule fludrocortisone 0.1 mg tablet 0.1 mg PO ONCE 11/30/24 11/30/24 11/30/24 09:00 History insulin glargine 100 unit/mL (3 10 unit subcut QPM 11/30/24 11/30/24 11/29/24 History mL) subcutaneous pen (Lantus Solostar U-100 Insulin) ipratropium 0.5 mg-albuterol 3 mg 3 ml inhalation QID PRN shortness 11/30/24 11/30/24 Unknown History (2.5 mg base)/3 mL nebulization of breath or wheezing soln methocarbamol 750 mg tablet 750 mg PO BID PRN unknown 11/30/24 11/30/24 Unknown History midodrine 10 mg tablet 10 mg PO TID 11/30/24 11/30/24 11/30/24 09:00 History prednisone 10 mg tablet 10 mg PO DAILY 11/30/24 11/30/24 11/30/24 09:00 History tamsulosin 0.4 mg capsule 0.8 mg PO DAILY 11/30/24 11/30/24 11/29/24 21:00 History Allergies Allergy/AdvReac Type Severity Reaction Status Date / Time iodine Allergy Mild Hives Verified 11/30/24 14:56 diltiazem Allergy Unknown shortness Verified 11/30/24 14:56 of breath antivenin latrodectus mactans Allergy Severe Anaphylaxis Uncoded 11/30/24 14:56 [place] Allergy Severe Anaphylactic Uncoded 07/16/23 07:55 Shock Review of Systems Review of Systems: All systems reviewed & are unremarkable except as noted in HPI and below PMFSH Past Medical History Medical History (Updated 11/30/24 @ 15:55 by Adri Lott APRN) Chronic hypotension History of skin cancer GERD (gastroesophageal reflux disease) TIA (transient ischemic attack) Dementia DM2 (diabetes mellitus, type 2) Atherosclerosis HLD (hyperlipidemia) Atrial fibrillation s/p cardioversion and ablation BPH (benign prostatic hyperplasia) Chronic anticoagulation Memory problem Surgical History Surgical History History of local excision of skin lesion neoplasm right nasal, left eyebrow History of cataract extraction S/P ablation of atrial fibrillation Social History Social History Smoking status: Never smoker Second hand tobacco smoke exposure: No Alcohol intake: current Drinks per week: 1 Substance use: never Substance use type: does not use Lack of Transportation: No Lack of Food: Never True Current Housing: I Have Housing Concerned About Future Housing: No Difficulty Paying Gas/Electric Bills: No Difficulty Paying for Meds: No Currently Unemployed: No Education: Decline to Answer Difficulty w/ Childcare or Family Care: No Living arrangements: alone Spiritual care concerns: No Exam Narrative: APPEARANCE: Ill-appearing HEAD: normocephalic, atraumatic. EYES: PERRLA/EOMI, conjunctivae clear. NOSE: Normal no drainage EARS:TMS clear with good light reflex. THROAT: Pharynx clear, no exudate. NECK: Supple. No adenopathy, no masses. RESPIRATORY: Consult sounds bilaterally, tachypneic increased work of breathing CARDIOVASCULAR: Tachycardia ABDOMINAL: Soft, nontender, nondistended, normal bowel sounds MUSCULOSKELETAL: Moves all extremities. Strength/ROM intact, No edema, No calf tenderness. NEURO: Alert. Cranial nerves II through XII intact. Good gait. Good coordination SKIN: Warm, dry. Normal Color Course Vital Signs Vital signs: Vital Signs Temperature 97.6 F 11/30/24 08:46 Pulse Rate 107 H 11/30/24 08:46 Respiratory Rate 30 H 11/30/24 08:46 Blood Pressure 128/73 11/30/24 08:46 Pulse Oximetry 96 11/30/24 08:46 Oxygen Delivery Room Air 11/30/24 08:46 Temperature 98.6 F 11/30/24 16:13 Pulse Rate 89 11/30/24 17:12 Respiratory Rate 31 H 11/30/24 16:13 Blood Pressure 107/55 L 11/30/24 16:13 Pulse Oximetry 100 11/30/24 16:26 Oxygen Delivery BiPAP 11/30/24 16:26 Oxygen Flow Rate 4 11/30/24 09:05 Medical Decision Making [facility] Narrative Medical decision making narrative: 74-year-old male presents to the emergency department for evaluation for increased workup breathing. Patient arrived by EMS on 4 L of oxygen patient does not usually have an oxygen requirement. Patient was afebrile but does have a leukocytosis of 18.3 hemoglobin of 11.3. INR of 2.2. Patient does have an elevated lactic acid of 3.6 and elevated Pro BNP of 3540. Patient does have lower extremity edema and congested lung sounds. Patient is negative for influenza RSV and for COVID. Chest x-ray does show bilateral basal or edema versus pneumonia. With the leukocytosis patient is started on antibiotics, he was started Rocephin azithromycin with blood cultures ordered. Due to his work of breathing patient was placed on BiPAP and this did help with his oxygenation. Discussed case with Dr. Mckeon and he did not want to start the patient on steroids at this point. He did recommend ordering an MRSA swab and ordering as CT of the chest for better loose sedation of whether this is fluid overload versus an infectious etiology. Case was discussed with hospitalist patient was accepted for admission. Patient was updated the results of his workup and plan for admission. All questions concerns were addressed patient was well-appearing at time of admission. Differential Diagnosis Differential Diagnosis: Pneumonia, fluid overload interstitial disease, pulmonary edema, pulmonary embolism Vital Signs Vital Signs: Vital Signs Temperature 97.6 F 11/30/24 08:46 Pulse Rate 107 H 11/30/24 08:46 Respiratory Rate 30 H 11/30/24 08:46 Blood Pressure 128/73 11/30/24 08:46 Pulse Oximetry 96 11/30/24 08:46 Oxygen Delivery Room Air 11/30/24 08:46 Temperature 98.6 F 11/30/24 16:13 Pulse Rate 89 11/30/24 17:12 Respiratory Rate 31 H 11/30/24 16:13 Blood Pressure 107/55 L 11/30/24 16:13 Pulse Oximetry 100 11/30/24 16:26 Oxygen Delivery BiPAP 11/30/24 16:26 Oxygen Flow Rate 4 11/30/24 09:05 Lab Data Lab results reviewed: Yes I reviewed the patient's lab results. 11/30/24 09:19 11/30/24 09:19 Labs: Lab Results 11/30/24 11/30/24 11/30/24 Range/Units 09:14 09:19 10:11 WBC 18.3 H (4.5-10.0) K/mm3 RBC 3.34 L (4.6-6.20) M/mm3 Hgb 11.3 L (14.0-18.0) g/dL Hct 35.8 L (42.0-52.0) % MCV 107.2 H (80-100) fl MCH 33.8 (26-34) pg MCHC 31.6 L (32-36) g/dl RDW 16.7 H (11.5-14.5) % Plt Count 182 (150-375) k/mm3 MPV 10.6 H (7.4-10.4) fl Immature Gran % (Auto) 2.5 H (0-0.5) % Neut % (Auto) 80.8 H (45.5-73.1) % Lymph % (Auto) 7.8 L (18.3-44.2) % [place] % (Auto) 8.2 (2.6-8.5) % Eos % (Auto) 0.5 (0-4.4) % Baso % (Auto) 0.2 (0.2-1.2) % Lymph # (Auto) 1.42 (0.9-3.2) K/mm3 [place] # (Auto) 1.5 H (0.1-0.6) K/mm3 Eos # (Auto) 0.1 (0-0.3) K/mm3 Baso # (Auto) 0.0 (0.0-0.1) K/mm3 Abs Immat Gran (auto) 0.45 H (0.00-0.031) K/mm3 Absolute Neuts (auto) 14.8 H (1.3-6.7) K/mm3 Absolute Nucleated RBC 0.080 H (0.0-0.012) K/mm3 Band Neutrophils % Not Reportable Nucleated RBC % 0.4 H (0.0-0.2) % Platelet Estimate Adequate (Adequate) Macrocytosis 1+ (NORMAL) [place] Cells 1+ Schistocytes None seen PT 23.7 H (11.1-14.7) Seconds INR 2.2 APTT 25.3 (22.3-36.8) Seconds Methemoglobin 0.3 (0-1.5) %THb Expiratory Pressure 7 CMH2O Inspiratory Pressure 14 CMH2O Sodium 134 L (137-145) mmol/L Potassium 4.8 (3.4-5.0) mmol/L Chloride 101 (98-107) mmol/L Carbon Dioxide 28 (22-30) mmol/L Anion Gap 5 (4-12) mmol/L BUN 20 (9-20) mg/dL Creatinine 0.78 (0.7-1.3) mg/dL Estim Creat Clear Calc 79 ml/min Estimated GFR > 60 (59 - ) Glucose 189 H (65-110) mg/dL Lactic Acid 3.6 H (0.7-2.0) mmol/L Calcium 8.0 L (8.4-10.2) mg/dL Total Bilirubin 1.1 (0.2-1.3) mg/dL AST 41 (17-59) U/L ALT 18 (6-50) U/L Alkaline Phosphatase 60 (38-126) U/L C-Reactive Protein 4.9 H (<1.0) mg/dL NT-Pro-B Natriuret Pep 3540 H (19.9-100) pg/mL Total Protein 6.4 (6.3-8.2) g/dL Albumin 3.0 L (3.5-5.1) g/dL Procalcitonin 0.1 ng/mL Urine Color Yellow (Yellow) Urine Appearance Clear (Clear) Urine pH 6.5 (5.0-9.0) Ur Specific [place] 1.026 (1.001-1.035) Urine Protein Trace (Negative) mg/dL Urine Glucose (UA) Trace H (Negative) mg/dL Urine Ketones Trace H (Negative) mg/dL Ur Blood (Man) 1+ H (Negative) Urine Nitrate Negative (Negative) Urine Bilirubin Negative (Negative) Urine Urobilinogen 1.0 (<2.0) mg/dL Leukocyte Esterase Rfl Trace H (Negative) RADHA/UL Urine RBC 6-10 H (0-2) /hpf Urine WBC 0-5 (0-3) /hpf Ur Squamous Epith Cells None seen (Few) /hpf Urine Bacteria None seen /hpf Urine Casts 0-2 Influenza A (RT-PCR) Negative (Negative) Influenza B (RT-PCR) Negative (Negative) RSV (RT-PCR) Negative (Negative) SARS-CoV-2 RNA (RT-PCR) Negative (Negative) 11/30/24 Range/Units 11:57 WBC (4.5-10.0) K/mm3 RBC (4.6-6.20) M/mm3 Hgb (14.0-18.0) g/dL Hct (42.0-52.0) % MCV (80-100) fl MCH (26-34) pg MCHC (32-36) g/dl RDW (11.5-14.5) % Plt Count (150-375) k/mm3 MPV (7.4-10.4) fl Immature Gran % (Auto) (0-0.5) % Neut % (Auto) (45.5-73.1) % Lymph % (Auto) (18.3-44.2) % [place] % (Auto) (2.6-8.5) % Eos % (Auto) (0-4.4) % Baso % (Auto) (0.2-1.2) % Lymph # (Auto) (0.9-3.2) K/mm3 [place] # (Auto) (0.1-0.6) K/mm3 Eos # (Auto) (0-0.3) K/mm3 Baso # (Auto) (0.0-0.1) K/mm3 Abs Immat Gran (auto) (0.00-0.031) K/mm3 Absolute Neuts (auto) (1.3-6.7) K/mm3 Absolute Nucleated RBC (0.0-0.012) K/mm3 Band Neutrophils % Nucleated RBC % (0.0-0.2) % Platelet Estimate (Adequate) Macrocytosis (NORMAL) [place] Cells Schistocytes PT (11.1-14.7) Seconds INR APTT (22.3-36.8) Seconds Methemoglobin (0-1.5) %THb Expiratory Pressure CMH2O Inspiratory Pressure CMH2O Sodium (137-145) mmol/L Potassium (3.4-5.0) mmol/L Chloride (98-107) mmol/L Carbon Dioxide (22-30) mmol/L Anion Gap (4-12) mmol/L BUN (9-20) mg/dL Creatinine (0.7-1.3) mg/dL Estim Creat Clear Calc ml/min Estimated GFR (59 - ) Glucose (65-110) mg/dL Lactic Acid 3.4 H (0.7-2.0) mmol/L Calcium (8.4-10.2) mg/dL Total Bilirubin (0.2-1.3) mg/dL AST (17-59) U/L ALT (6-50) U/L Alkaline Phosphatase (38-126) U/L C-Reactive Protein (<1.0) mg/dL NT-Pro-B Natriuret Pep (19.9-100) pg/mL Total Protein (6.3-8.2) g/dL Albumin (3.5-5.1) g/dL Procalcitonin ng/mL Urine Color (Yellow) Urine Appearance (Clear) Urine pH (5.0-9.0) Ur Specific [place] (1.001-1.035) Urine Protein (Negative) mg/dL Urine Glucose (UA) (Negative) mg/dL Urine Ketones (Negative) mg/dL Ur Blood (Man) (Negative) Urine Nitrate (Negative) Urine Bilirubin (Negative) Urine Urobilinogen (<2.0) mg/dL Leukocyte Esterase Rfl (Negative) RADHA/UL Urine RBC (0-2) /hpf Urine WBC (0-3) /hpf Ur Squamous Epith Cells (Few) /hpf Urine Bacteria /hpf Urine Casts Influenza A (RT-PCR) (Negative) Influenza B (RT-PCR) (Negative) RSV (RT-PCR) (Negative) SARS-CoV-2 RNA (RT-PCR) (Negative) ABG Data ABG results: 11/30/24 09:14 Puncture Site Right radial ABG pH 7.422 ABG pCO2 40.3 ABG pO2 69.3 L ABG PO2/FiO2 Ratio 1.39 ABG HCO3 25.7 ABG O2 Saturation 94.3 L ABG O2 Content 14.9 L ABG Base Excess 1.2 A-a Gradient 324.4 Oxyhemoglobin 91.0 Carboxyhemoglobin 1.0 Reduced Hemoglobin 7.7 H Total Hemoglobin 11.6 L O2 Delivery Device Non-invasive vent O2 Liters/Min 0.0 Vent Rate 16 FiO2 50 Imaging Data Radiologist's impression: Impressions Chest X-Ray 11/30/24 11:05 IMPRESSION: 1. Interval worsening of chronic interstitial lung disease. 2. However bibasilar edema and/or pneumonitis or airspace disease not excluded. Discharge Plan Discharge Clinical Impression: Acute respiratory distress Pneumonia Qualifiers: Pneumonia type: due to unspecified organism Laterality: bilateral Lung location: unspecified part of lung Qualified Code(s): J18.9 - Pneumonia, unspecified organism Patient Disposition: Still a Patient Condition: Serious
--- OUTSIDE RECORDS SUMMARY | 2024-11-30 09:17 | XMS_ITS | Patient Health Record ---
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 Role Phone FERNANDO NUÑEZ Primary Care Provider [phone] Frida Vicente Unavailable [phone] Allergies Allergen (clinical drug ingredient) Drug/Non Drug Allergy documented on EMR Reaction Allergy Type Onset Date Status Latrodectus mactans antivenin Antivenin Latrodectus Mactans Unknown Drug Allergy Active diltiazem dilTIAZem HCl Unknown Drug Allergy Act natalia Iodine Unknown Drug Allergy Active Hymenoptera Venom -Bee, Wasp, Yellow Jacket Stings Unknown Allergy Active Reason For Referral Reason SOB and decreased O2 with activity Diagnosis 1 Shortness of breath (R06.02) Referral Organization [facility] Referring Provider First Name FERNANDO Referring Provider Last Name JOAQUIN Referring Provider Speciality Internal M edicine Referred Provider Specialty Pulmonology Referral Priority Routine Medications Medication SIG (Take, Route, Frequency, Duration) Notes Start Date End Date Status Ipratropium-Albuterol 0.5-2.5 (3) MG/3ML Solution 3 mL as needed Inhalation 4 times a day Active Atorvastatin Calcium 10 MG Tablet 1 tablet Orally Once a day Active Benzonatate 200 MG Capsule 1 capsule as needed Orally Three times a day 11/01/2024 Active Memantine HCl 10 MG Tablet 1 tablet Oral ly twice a day Active Fluticasone Propionate 50 MCG/ACT Suspension 2 sprays each nostrils as needed Nasally Active EPINEPHrine 0.15 MG/0.15ML Solution Auto-injector 0.15 ml Injection once a day Active Divalproex Sodium 500 MG Tablet Delayed Release 1 tablet Orally once a day Active Tamsulosin HCl 0.4 MG Capsule 2 capsules Orally Once a day Active Acetaminophen 500 MG Tablet 1 tablet as needed Orally every 6 hrs As needed Active Pantoprazole Sodium 40 MG Tablet Delayed Release 1 tablet Orally Once a day Active Methocarbamol 750 MG Tablet 1 tablet Orally every 4 hrs As needed Active metFORMIN HCl 500 MG Tablet 1 tablet wit h a meal Orally Once a day Active Amiodarone HCl 200 MG Tablet 1 tablet Or ally twice a day Active Rivaroxaban 20 MG Tablet 1 tablet with f ood Orally Once a day Active Albuterol Sulfate 108 (90 Base) MCG/ACT Aerosol Powder Breath Activated 2 puffs Inhalation every 6 hours As needed Active Social History Tobacco Use: Social History Observation Description Date Details (start date - stop date) Never Smoker NA - NA Social History Drug/Alcohol: Social Info Question Answer Notes Drugs Have you used drugs other than those for medical reasons in the past 12 months? No AUDIT-C (Standard) Did you have a drink containing alcohol in the past year? No Points 0 Interpretation Negative Tobacco Use: Social Info Question Answer Notes Tobacco Control (Standard) Tobacco use: Nonsmoker Problems Problem Type SNOMED Code ICD Code Onset Dates Problem Status W/U Status Risk Notes Problem Type II diabetes mellitus without complication (013261826) Type 2 diabetes mellitus without complications (E11.9) Active confirmed Problem Hyperlipidemia (96933221) Hyperlipidemia, unspecified (E78.5) Active confirmed Problem Bipolar disorder (02871636) Bipolar disorder, unspecified (F31.9) Active confirmed Problem Essential hypertension (75228727) Essential (primary) hypertension (I10) Active confirmed Problem Acute non-ST segment elevation myocardial infarction (841937596) Non-ST elevation (NSTEMI) myocardial infarction (I21.4) Active confirmed Problem Sick sinus syndrome (70173512) Sick sinus syndrome (I49.5) Active confirmed Problem Heart failure (74221493) Heart failure, unspecified (I50.9) Active confirmed Problem Allergic rhinitis (30550245) Allergic rhinitis, unspecified (J30.9) Active confirmed Problem Gastro-esophageal reflux disease without esophagitis (231922253) Gastro-esophageal reflux disease without esophagitis (K21.9) Active confirmed Problem Abnormal gait (92917256) Unspecified abnormalities of gait and mobility (R26.9) Active confirmed Problem Recurrent falls (865703025) Repeated falls (R29.6) Active confirmed Problem Cardiac pacemaker in situ (080247347) Presence of cardiac pacemaker (Z95.0) Active confirmed Problem Benign prostatic hypertrophy without outflow obstruction (310811234) Benign prostatic hyperplasia without lower urinary tract symptoms (N40.0) Active confirmed Problem Permanent atrial fibrillation (847972550) Permanent atrial fibrillation (I48.21) Active confirmed Problem 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, mild, without behavioral disturbance, psychotic disturbance, mood disturbance, and anxiety (F02.A0) Active confirmed Problem Atherosclerosis of coronary artery without angina pectoris (837787625212349) Atherosclerosis of [place] coronary artery of [place] heart without angina pectoris (I25.10) Active confirmed Vital Signs Heart Rate 84 /min 11/07/2024 SPO2 95% on 2 l iters Temperature 97.9 degrees Fahrenheit 11/07/2024 SPO2 95% on 2 liters Respiratory Rate 18 /min 11/07/2024 SPO2 95% on 2 liters Oximetry 95 % 11/07/2024 SPO2 95% on 2 l iters Blood pressure diastolic 72 mm Hg 11/07/2024 SPO 2 95% on 2 liters Weight-kg 89.9 kg 10/27/2024 Blood pressure systolic 121 mm Hg 11/07/2024 SPO2 95% on 2 liters Weight 198.2 lbs 10/27/2024 Encounters Encounter Location Date Provider Diagnosis [facility] [address] [place] [address] 10/27/2024 FERNANDO NUÑEZ [facility] [address] [place] [address] 11/01/2024 Frida Vicente Physical decondition ing R53.81 ; Non-ST elevation (NSTEMI) myocardial infarction I21.4 ; Essential (primary) hypertension I10 ; Permanent atrial fibrillation I48.21 ; Dementia in other diseases classified elsewhere, mild, without behavioral disturbance, psychotic disturbance, mood disturbance, and anxiety F02.A0 ; Dizziness R42 and Acute pneumonia J18.9 [facility] [address] [facility] [address] [place] [address] 11/03/2024 Frida Vicente Physical decondition ing R53.81 ; Non-ST elevation (NSTEMI) myocardial infarction I21.4 ; Essential (primary) hypertension I10 ; Permanent atrial fibrillation I48.21 ; Dementia in other diseases classified elsewhere, mild, without behavioral disturbance, psychotic disturbance, mood disturbance, and anxiety F02.A0 ; Dizziness R42 and Acute pneumonia J18.9 [place] [address] [place] [address] 11/07/2024 Frida Jules Physical decondition ing R53.81 ; Non-ST elevation (NSTEMI) myocardial infarction I21.4 ; Essential (primary) hypertension I10 ; Permanent atrial fibrillation I48.21 ; Dementia in other diseases classified elsewhere, mild, without behavioral disturbance, psychotic disturbance, mood disturbance, and anxiety F02.A0 ; Dizziness R42 and Acute pneumonia J18.9 [place] [address] [place] [address] 10/23/[address] [address] 10/24/2024 FERNANDO NUÑEZ [address] [address] 11/01/2024 FERNANDO NUÑEZ [address] [address] 11/02/2024 FERNANDO NUÑEZ [address] [address] 11/06/2024 FERNANDO NUÑEZ [address] [address] 11/08/[address] [address] 11/09/2024 FERNANDO NUÑEZ [address] [address] 11/14/2024 FERNANDO NUÑEZ [address] [address] 11/14/[address] [address] 11/20/2024 FERNANDO NUÑEZ [address] [address] 11/29/2024 FERNANDO NUÑEZ [address] [address] 11/30/2024 FERNANDO NUÑEZ Assessments Encounter Date Diagnosis (ICD Code) Assessment Notes Treatment Notes Treatment Clinical Notes Section Notes 11/07/2024 Physical deconditioning (ICD-10 - R53.81) Patient is working with PT and OT for strengthening and mobility. He reports the therapy is going okay. He utilizes a wheelchair for ambulation. 11/01/2024 Non-ST elevation (NSTEMI) myocardial infarction (ICD-10 - I21.4) Patient was diagnosed with a non-STEMI in the hospital and had a pacemaker placed on 10/12/2024. Orders were given related to the pacemaker that for the next six weeks, do not lift his left upper arm above shoulder level. Do not put left upper arm behind his back. No lifting more than 10 pounds. Can push self up, but no lifting or pulling with the left arm and use a sling. 11/03/2024 Physical deconditioning (ICD-10 - R53.81) Patient is working with PT and OT for strengthening and mobility. He reports the therapy is going okay. He utilizes a wheelchair for ambulation. 11/01/2024 Physical deconditioning (ICD-10 - R53.81) Patient is working with PT and OT for strengthening and mobility. He reports the therapy is going okay. He utilizes a wheelchair for ambulation. 11/01/2024 Essential (primary) hypertension (ICD-10 - I10) Blood pressure is stable. Managed while on current medications. Continue current treatment plan and monitoring. 11/03/2024 Non-ST elevation (NSTEMI) myocardial infarction (ICD-10 - I21.4) Patient was diagnosed with a non-STEMI in the hospital and had a pacemaker placed on 10/12/2024. Orders were given related to the pacemaker that for the next six weeks, do not lift his left upper arm above shoulder level. Do not put left upper arm behind his back. No lifting more than 10 pounds. Can push self up, but no lifting or pulling with the left arm and use a sling. 11/07/2024 Non-ST elevation (NSTEMI) myocardial infarction (ICD-10 - I21.4) Patient was diagnosed with a non-STEMI in the hospital and had a pacemaker placed on 10/12/2024. Orders were given related to the pacemaker that for the next six weeks, do not lift his left upper arm above shoulder level. Do not put left upper arm behind his back. No lifting more than 10 pounds. Can push self up, but no lifting or pulling with the left arm and use a sling. 11/07/2024 Essential (primary) hypertension (ICD-10 - I10) Blood pressure is stable. Managed while on current medications. Continue current treatment plan and monitoring. 11/03/2024 Essential (primary) hypertension (ICD-10 - I10) Blood pressure is stable. Managed while on current medications. Continue current treatment plan and monitoring. 11/01/2024 Permanent atrial fibrillation (ICD-10 - I48.21) Rate is controlled. Managed while on current medications. Continue current treatment plan and monitoring. 11/01/2024 Dementia in other diseases classified elsewhere, mild, without behavioral disturbance, psychotic disturbance, mood disturbance, and anxiety (ICD-10 - F02.A0) Alert and oriented x2, able to make needs known. No outbursts or behaviors reported by staff. Not currently on any dementia medications, but he is on Depakote for behaviors. Continue to monitor and update with any changes. 11/03/2024 Permanent atrial fibrillation (ICD-10 - I48.21) Rate is controlled. Managed while on current medications. Continue current treatment plan and monitoring. 11/07/2024 Permanent atrial fibrillation (ICD-10 - I48.21) Rate is controlled. Managed while on current medications. Continue current treatment plan and monitoring. 11/07/2024 Dementia in other diseases classified elsewhere, mild, without behavioral disturbance, psychotic disturbance, mood disturbance, and anxiety (ICD-10 - F02.A0) Alert and oriented x2, able to make needs known. No outbursts or behaviors reported by staff. Not currently on any dementia medications, but he is on Depakote for behaviors. Continue to monitor and update with any changes. 11/03/2024 Dementia in other diseases classified elsewhere, mild, without behavioral disturbance, psychotic disturbance, mood disturbance, and anxiety (ICD-10 - F02.A0) Alert and oriented x2, able to make needs known. No outbursts or behaviors reported by staff. Not currently on any dementia medications, but he is on Depakote for behaviors. Continue to monitor and update with any changes. 11/01/2024 Dizziness (ICD-10 - R42) Patient reports having dizziness when standing up. No other symptoms. They have tried getting orthostatic blood pressures but have not reported those to provider at this time. Awaiting callback from cardiology. 11/03/2024 Dizziness (ICD-10 - R42) Patient reports having dizziness when standing up. No other symptoms. They have tried getting orthostatic blood pressures but have not reported those to provider at this time. Cardiology suggested that patient sees director of acquisitions due to dizziness and pneumonia. Awaiting appointment for director of acquisitions. 11/07/2024 Dizziness (ICD-10 - R42) Patient reports having dizziness when standing up. No other symptoms. They have tried getting orthostatic blood pressures but have not reported those to provider at this time. Cardiology suggested that patient sees director of acquisitions due to dizziness and pneumonia. Awaiting appointment for director of acquisitions. 11/01/2024 Acute pneumonia (ICD-10 - J18.9) Chest x-ray on 10/27/2024 shows infiltrate secondary to infection. Order was given on 10/28/2024 to start doxycycline for 10 days. Patient denies having any cough at this time. Utilizing O2 at 3 liters. 11/03/2024 Acute pneumonia (ICD-10 - J18.9) Chest x-ray on 10/27/2024 shows infiltrate secondary to infection. Order was given on 10/28/2024 to start doxycycline for 10 days. Patient denies having any cough at this time. Utilizing O2 at 3 liters. We awaiting on director of acquisitions appointment due to the dropping of the O2 sats when patient stands up. 11/07/2024 Acute pneumonia (ICD-10 - J18.9) Chest x-ray on 10/27/2024 shows infiltrate secondary to infection. Order was given on 10/28/2024 to start doxycycline for 10 days. Patient and staff reports having a cough at this time. Utilizing O2 at 2 liters with rest, 3 liters with activity. We awaiting on director of acquisitions appointment due to the dropping of the O2 sats when patient stands up. Order given today to change benzonatate to scheduled t.i.d. x5 days and then back to p.r.n. 11/01/2024 Other Continue curren t treatment plan.Staff to continue to monitor and report any changes.Patient education provided and questions/concern s addressed.Follow up in one week unless necessary sooner. 11/03/2024 Other Continue curren t treatment plan.Staff to continue to monitor and report any changes.Patient education provided and questions/concern s addressed.Follow up in one week unless necessary sooner. 11/07/2024 Other Continue curren t treatment plan.Staff to continue to monitor and report any changes.Patient education provided and questions/concern s addressed.Follow up in one week unless necessary sooner. Plan Of Treatment No Information Insurance Providers Payer Name Payer Address Payer Phone Subscriber Number Group Number Insured Name Patient Relationship to Insured Coverage Start Date Coverage End Date Neelam GRIGGS [address] [place] [phone] [id number] Andrei Amato Self - patient is the insured Medical (General) History Medical History History ICD Code Non-ST elevation (NSTEMI) myocardial inf arction I21.4 Atherosclerosis of [place] co ronary artery of [place] heart without angina pectoris I25.10 Type 2 diabetes mellitus without complic ations E11.9 Heart failure, unspecified I50.9 Muscle weakness (generalized) M62.81 Repeated falls R29.6 Benign prostatic hyperplasia without low er urinary tract symptoms N40.0 Essential (primary) hypertension I10 Hyperlipidemia, unspecified E78.5 Bipolar disorder, unspecified F31.9 Presence of cardiac pacemaker Z95.0 Sick sinus syndrome I49.5 Permanent atrial fibrillation I48.21 Repeated falls R29.6 Dementia in other diseases c lassified elsewhere, mild, without behavioral disturbance, psychotic disturbance, mood disturbance, and anxiety F02.A0 Gastro-esophageal reflux disease without esophagitis K21.9 Pain, unspecified R52 Allergic rhinitis, unspecified J30.9 Wheezing R06.2 Personal history of anaphylaxis Z87.892 Unspecified abnormalities of gait and mo bility R26.9 Pain in right hand M79.641 Surgical History Surgery Date(Month/Year) back surgery refractive surgery
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
--- OUTSIDE RECORDS SUMMARY | 2024-11-30 09:17 | XMS_ITS | Clinical Summary ---
Author Organization [facility] Address [address] [place] [address] Care Team Providers Care Plate Maker Name Role Phone Alejandro Martinez MD Primary Care Provider [phone] Source Comments [facility],non-owned Affiliates and Associated Physician Practices is amultiple site organization consisting of ambulatory clinics and hospital sitesin [place], [place] and [place]. This disclosure is being madepursuant to the Care Everywhere program and may not contain all information available regarding this patient. Last updated 17.[facility] Allergies Active Allergy Reactions Criticality Noted Date Comments Antivenin Latrodectus Mactans Anaphylaxis High 01/06 Bee Venom Swelling 09/21/2022 Diltiazem Shortness of Breath High 09/21/2022 Iodine Anaphylaxis High 09/29/2022 Contrast-Iodinated Agents Fo r Ct/Other Itching 09/21/2022 Medications * This document contains information received from the source organization and may not represent a complete record from that organization. * Be aware that medications may not be up to date on this document. Alwaysverify current medications with the patient. albuterol HFA (Proventil; Ventolin; Proair) 108 (90 Base) MCG/ACT inhalerIndications: Asthma Inhale 2 (two) puffs by mouth every 6 hours as needed for Shortness of Breath or Wheezing Active amiodarone (Pacerone) 100 MG tabletIndications:A trial Fibrillation Take 1 (one) tablet by mouth once daily Reasons: Atrial Fibrillation Active atorvastatin (Lipitor) 10 MG tabletIndications:H yperlipidemia Take 1 (one) tablet by mouth at bedtime Activ e EPINEPHrine (Epi Pen Jr) 0.15 MG/0.3ML auto-injector penIndications:Anap hylaxis Inject 0.15 mg into muscle as needed for Anaphylaxis Reasons: Life-Threatening Hypersensitivity Reaction Active fluticasone propionate (Flonase) 50 MCG/ACT nasal sprayIndications:Al lergic Rhinitis [place] 2 (two) sprays into each nostril once daily as needed (allergy) Reasons: Allergic Rhinitis Active metFORMIN (Glucophage) 500 MG tabletIndications:T ype 2 Diabetes Mellitus Take 1 (one) tablet by mouth 2 times daily with morning and evening meal Active pantoprazole EC (Protonix) 40 MG tabletIndications:G astroesophageal Reflux Disease Take 1 (one) tablet by mouth once daily Reasons: Gastroesophageal Reflux Disease Active rivaroxaban (Xarelto) 20 MG tabletIndications:C oronary Arteriosclerosis Take 1 (one) tablet by mouth daily with dinner Active tamsulosin (Flomax) 0.4 MG capsuleIndications: Bladder Dysfunction Take 2 (two) capsules by mouth at bedtime At the same time every day after a meal. Active divalproex ER 24hr (Depakote ER) 500 MG tabletIndications:M ixed Bipolar Affective Disorder Take 2 (two) tablets by mouth once daily Reasons: MIXED BIPOLAR AFFECTIVE DISORDER 60 tablet 023 Active QUEtiapine (SEROquel) 50 MG tabletIndications:B ipolar Mood Disorder Take 1 (one) tablet by mouth at bedtime Reasons: Manic-Depression 30 tablet 023 Active Active Problems Problem Noted Date Diagnosed Date Delusional disorder 09/21/2022 Acute psychosis 09/21/2022 Social History Tobacco Use Types Packs/Day Years Used Date Smoking Tobacco: Never Smokeless Tobacco: Never Tobacco Cessation:Counseling Given: Not Answered Alcohol Use Standard Drinks/Week Comments Not Currently 0 (1 standard drink = 0.6 oz pur e alcohol) AUDIT-C Answer Date Recorded Q1: How often do you have a drink containing alcohol? Never 09/21/2022 Q2: How many drinks containi ng alcohol do you have on a typical day when you are drinking? Patient does not drink Q3: How often do you have si x or more drinks on one occasion? Never 09/21/2022 Overall Financial Resource Strain (CARDIA) Answe r Date Recorded How hard is it for you to pa y for the very basics like food, housing, medical care, and heating? Patient declined 09/21/2022 [facility] - Occupational Stress Questionnaire Answer Date Recorded Do you feel stress - tense, restless, nervous, or anxious, or unable to sleep at night because your mind is troubled all the time - these days? Patient declined 09/21/2022 Hunger Vital Sign Answer Date Recorded Within the past 12 months, y ou worried that your food would run out before you got the money to buy more. Patient declined Within the past 12 months, t he food you bought just didn't last and you didn't have money to get more. Patient declined PRAPARE - Transportation Answer Date Re corded In the past 12 months, has l ack of transportation kept you from medical appointments or from getting medications? Patient declined 09/21/2022 In the past 12 months, has l ack of transportation kept you from meetings, work, or from getting things needed for daily living? Patient declined 09/21/2022 Housing Stability Vital Sign Answer Chemo e Recorded In the last 12 months, was t here a time when you were not able to pay the mortgage or rent on time? Patient refused 09/22/19 23 In the last 12 months, how many places have you lived? 1 09/21/2022 In the last 12 months, was t here a time when you did not have a steady place to sleep or slept in a usp (including now)? Patient refused 09/21/2022 Sex and Gender Information Value Date Recorded Sex Assigned at Not on file Legal Sex Male 1:44 AM CDT Gender Identity Not on file Sexual Orientation Not on file Last Filed Vital Signs Vital Sign Reading Time Taken Comments Blood Pressure 125/68 10/02/2022 7:42 AM CDT Pulse 66 10/02/2022 7:42 AM CDT Temperature 36.5 C (97.7 F) 10/02/2022 7:42 AM CDT Respiratory Rate 16 10/02/2022 7:42 AM CDT Oxygen Saturation 96% 10/02/2022 7:42 AM CDT Inhaled Oxygen Concentration - - Weight 97.5 kg (214 lb 15.2 oz) 023 10:55 AM CDT Height 190 cm (6' 2.8) 09/21/2022 10:5 5 AM CDT Body Mass Index 27.01 09/21/2022 10:55 AM CDT Plan of Treatment Health Maintenance Due Date Last Done Comments HEPATITIS C SCREENING 10/05/1966 DTAP/TDAP/TD VACCINES (1 - Tdap) 10/10/1967 PNEUMOCOCCAL VACCINE 50+ (1 of 1 - PCV) 1998 ZOSTER VACCINE (1 of 2) 1998 Respiratory Syncytial Virus (RSV) Vaccine Pt: or over 60 yrs (1 - 1-dose 75+ series) 10/10/2023 DEPRESSION SCREENING 03/01/2024 MEDICARE AWV CALENDAR YEAR 2024 COVID-19 VACCINE (4 - 2024-2 6 season) 2024 07/16/2021, 07/17/2020, 06/19/2020 INFLUENZA VACCINE (#1) 2024 9, 03/04/2018 HEPATITIS B VACCINE Aged Out No longe r eligible based on patient's age to complete this topic HIB VACCINE Aged Out No longer eligi ble based on patient's age to complete this topic HPV VACCINE Aged Out No longer eligi ble based on patient's age to complete this topic MENINGOCOCCAL (Group B) VACCINE SHARED DECISION-MAKING Aged Out No longer eligible based on patient's age to complete this topic MENINGOCOCCAL GROUPS A/C/Y/W VACCINE Aged Out No longer eligible b ased on patient's age to complete this topic Insurance * Guarantor: SAE AMATO Account Type Relation to Patient Date of Phone Billing Address Personal/Family [address] [place] [id number] [employer] SEL[employer] PAY NO INSURANCE Member Subscriber Plan / Payer (Ef fective for All Dates) Name:Lima Sae Member ID:Not on file Relation to Subscriber:Not on file Name:LIMASAE Subscriber ID:Not on file Address: [address] [place] [address] Payer ID:Not on file Group ID:Not on file Type:Self Pay Address: [place], [place] * Guarantor: SAE AMATO Account Type Relation to Patient Date of Phone Billing Address Personal/Family [address] [place] [address] [employer] SELF PA[employer] NO INSURANCE Member Subscriber Plan / Payer (Ef fective for All Dates) Name:Sae Amato Member ID:Not on file Relation to Subscriber:Not on file Name:SAE AMATO Subscriber ID:Not on file Address: [address] [place] [address] Payer ID:Not on file Group ID:Not on file Type:Self Pay Address: [place], [place] * Guarantor: SAE AMATO Account Type Relation to Patient Date of Phone Billing Address Personal/Family [address] [place] [address] [employer] PA[employer] NO INSURANCE Member Subscriber Plan / Payer (Ef fective for All Dates) Name:Sae Amato Member ID:Not on file Relation to Subscriber:Not on file Name:SAE AMATO Subscriber ID:Not on file Address: [address] [place] [address] Payer ID:Not on file Group ID:Not on file Type:Self Pay Address: [place], [place] MEDICARE A[employer] MEDICARE ADV Advance Directives * Full Code (Latest Code Status on File) Date Activated Date Inactivated Comments 09/21/2022 12:29 PM 10/02/2022 12:50 PM * Full Code Date Activated Date Inactivated Comments 09/21/2022 4:19 AM 09/21/2022 4:20 AM Care Teams Plate Maker Relationship Specialty Start [place] [address] [place] [address] PCP - General Family Medicine 09/21/22
[2024-11-30 09:26] LABS: Hematocrit 35.8 % (42.0-52.0); Hemoglobin 11.3 g/dL (14.0-18.0); Immature Granulocyte Percent A 2.5 % (0-0.5); Lymphocytes Absolute Auto 1.42 K/mm3 (0.9-3.2); Mean Corpuscular HGB Conc 31.6 g/dl (32-36); Mean Corpuscular Hemoglobin 33.8 pg (26-34); Mean Corpuscular Volume 107.2 fl (80-100); Nucleated Red Blood Cells Absolute Auto 0.080 K/mm3 (0.0-0.012); Nucleated Red Blood Cells Perc 0.4 % (0.0-0.2); Platelet Count Result 182 k/mm3 (150-375); Red Blood Count 3.34 M/mm3 (4.6-6.20); White Blood Count 18.3 K/mm3 (4.5-10.0)
[2024-11-30] MEDS: ALBUTEROL SULFATE NEB 2.5 MG/3 ML INH INHALATION (09:28)
[2024-11-30 09:39] LABS: INR 2.2; Partial Thromboplastin Time 25.3 Seconds (22.3-36.8); Prothrombin Time 23.7 Seconds (11.1-14.7)
[2024-11-30 09:44] LABS: Alveolar/Arterial O2 Gradient 324.4 mmHg; Carboxyhemoglobin 1.0 % THb (0-2.0); Fractional Inspired Oxygen 50 %; HCO3 ABG 25.7 mEq/l (22.0-26.0); Liters per Minute 0.0 LPM; Methemoglobin ABG 0.3 %THb (0-1.5); Modified Allen's Test Pass; Oxygen Content ABG 14.9 %vol (16.0-22.0); Oxygen Saturation ABG 94.3 % (95.0-100.0); PCO2 ABG 40.3 mmHg (35.0-45.0); PO2 ABG 69.3 mmHg (80.0-100.0); PO2 FiO2 Ratio Arterial Blood 1.39 %; Reduced Hemoglobin 7.7 %THb (0-5.0); Site Drawn RIGHT RADIAL
[2024-11-30 09:46] LABS: Non-Invasive Expiratory Pressure 7 CMH2O; Non-Invasive Inspiratory Pressure 14 CMH2O; Non-Invasive Vent Rate 16 /MIN
[2024-11-30 09:51] LABS: Burr Cells 1+; Macrocytosis 1+ (NORMAL); Schistocytes None Seen
[2024-11-30] MEDS: FUROSEMIDE INJ 40 MG/4 ML VIAL IV PUSH (09:54)
[2024-11-30 09:55] LABS: Alanine Aminotransferase 18 U/L (6-50); Anion Gap 5 mmol/L (4-12); Bilirubin,Total 1.1 mg/dL (0.2-1.3); Blood Urea Nitrogen 20 mg/dL (9-20); Calcium 8.0 mg/dL (8.4-10.2); Carbon Dioxide 28 mmol/L (22-30); Chloride 101 mmol/L (98-107); Estimated CRCL calculation 79 ml/min; Estimated Glomerular Filt Rate > 60; Glucose 189 mg/dL (65-110); Sodium 134 mmol/L (137-145)
[2024-11-30 10:03] LABS: Albumin Level 3.0 g/dL (3.5-5.1); Alkaline Phosphatase 60 U/L (38-126); Aspartate Amino Transferase 41 U/L (17-59); Influenza A QL RT-PCR Negative (Negative); Influenza B QL RT-PCR Negative (Negative); Potassium 4.8 mmol/L (3.4-5.0); RSV RNA, RT-PCR Negative (Negative); SARS-CoV-2 RNA PCR Negative (Negative); Total Protein 6.4 g/dL (6.3-8.2)
[2024-11-30 10:23] LABS: Add Urine Microscopic? YES; Appearance Urine Clear (Clear); Glucose Urine UA Trace mg/dL (Negative); Leukocyte Esterase Ur Trace LEU/UL (Negative); Nitrate Urine Negative (Negative); Non Pathogenic Casts 0-2; Specific Grav Ur 1.026 (1.001-1.035)
[2024-11-30 11:00] LABS: NT Pro B Type Natriuretic Pept 3540 pg/mL (19.9-100)
[2024-11-30] MEDS: cefTRIAXone 1 GM in SODIUM CHLORIDE 0.9% IV 50 ML 100 ML IVPB (12:10)
[2024-11-30] MEDS: AZITHROMYCIN IV 500 MG in SODIUM CHLORIDE 0.9% IV 250 ML IVPB (12:50)
[2024-11-30 13:02] LABS: Procalcitonin 0.1 ng/mL
[2024-11-30 13:30] LABS: CRP 4.9 mg/dL (<1.0)
--- NOTE | 2024-11-30 13:45 | PC.NURSE ---
Pt cleaned up, clean depends and sheets applied to bed. Pt to go to CT scan prior to going to admission room, RT to assist.
[2024-11-30 13:54] LABS: MRSA (PCR) NOT DETECTED (NOT DETECTE)
[2024-11-30 14:24] LABS: MRSA (PCR) NOT DETECTED (NOT DETECTE)
--- NOTE | 2024-11-30 14:38 | ADMGEN ---
This patient, Andrei Amato, was admitted to IMU Room 201-01. Patient/family oriented to hospital policies and general routines including ID bracelet, bed and alarms, visiting hours, pain management, procedures, bathroom and other care routines, personal items, smoking policy, room service/diet, and visiting hours. Information on how to activate the Rapid Response Team has been discussed. Patient/Family are encouraged to report perceived risks to care and to ask questions if they do not understand what they are told or what they should do.
--- NOTE | 2024-11-30 14:57 | PM.IMHP ---
H&P: HPI History of Present Illness Date/Time: 11/30/24 18:30 Chief Complaint: Weakness, Hypoxia Narrative: 74 y/o M with PMH of Afib s/p cardioversion and ablation, BPH, interstitial lung disease, HTN, HLD, DM, skin cancer s/p excision presents here with weakness and hypoxia. The patient presents here from [facility] on 11/30 via EMS for further evaluation of generalized weakness and hypoxia. Per EMS report, the patient was found to be hypoxic in the 70s on room air. He does not normally have a supplemental O2 requirement. He reports this morning he woke up and felt generally weak, was unable to get out of bed. He reports dry cough, nausea without vomiting (brief this morning), shortness of breath. Denies fever, chills, body aches, diarrhea, chest pain, abdominal pain. He additionally reports a recent admission at [facility] for pneumonia and underwent a heart work-up at that time. He was discharged back to [facility] yesterday, 11/29, with antibiotics (unsure what). Was placed on BiPAP in the ED, currently reporting mild improvement. Initial VS at presentation: 97.6%, HR 107, R 30, 128/73, and 96% on RA. Dropped to 84% on room air. Now on BiPAP. ED workup showed: WBC 18.3, hemoglobin 11.3, INR 2.2, initial ABG showed an O2 sat of 94.3% on BiPAP, lactic 3.6, glucose 189, CRP 4.9, BNP 3540, procalcitonin 0.1. UA showed trace glucose, trace ketones, 1+ blood, trace leuk esterase, 6-10 RBC. MRSA negative and viral PCR negative. CXR showed interval worsening of chronic interstitial lung disease and bibasilar edema and/or pneumonitis or airspace disease not excluded. Chest CT showed bilateral severe bronchopneumonia superimposed on chronic lung disease with probable reactive mediastinal lymphadenopathy. Review of Systems Review of Systems: All systems reviewed & are unremarkable except as noted in HPI and below FOR[facility]LY [facility] Past Medical History Medical History (Updated 11/30/24 @ 15:55 by Adri Lott, [employer]) Chronic hypotension History of skin cancer GERD (gastroesophageal reflux disease) TIA (transient ischemic attack) Dementia DM2 (diabetes mellitus, type 2) Atherosclerosis HLD (hyperlipidemia) Atrial fibrillation s/p cardioversion and ablation BPH (benign prostatic hyperplasia) Chronic anticoagulation Memory problem Surgical History Surgical History History of local excision of skin lesion neoplasm right nasal, left eyebrow History of cataract extraction S/P ablation of atrial fibrillation Social History Social History Smoking status: Never smoker Second hand tobacco smoke exposure: No Alcohol intake: current Drinks per week: 1 Substance use: never Substance use type: does not use Lack of Transportation: No Lack of Food: Never True Current Housing: I Have Housing Concerned About Future Housing: No Difficulty Paying Gas/Electric Bills: No Difficulty Paying for Meds: No Currently Unemployed: No Education: Decline to Answer Difficulty w/ Childcare or Family Care: No Living arrangements: alone Spiritual care concerns: No Meds Home Medications and Allergies Home Medications ?Medication ?Instructions ?Recorded ?Confirmed ?Type atorvastatin 10 mg tablet 10 mg PO HS 10/09/22 11/30/24 History divalproex 500 mg tablet,extended 1,000 mg PO BID 10/09/22 11/30/24 History release 24 hr memantine 10 mg tablet 10 mg PO BID 10/09/22 11/30/24 History metformin 500 mg tablet 500 mg PO DAILY 10/09/22 11/30/24 History rivaroxaban 20 mg tablet (Xarelto) 20 mg PO DAILY 10/09/22 11/30/24 History pantoprazole 40 mg tablet,delayed 40 mg PO DAILY 10/12/22 11/30/24 History release albuterol sulfate 90 mcg/actuation 2 puff inhalation Q6H PRN 11/30/24 11/30/24 History aerosol inhaler shortness of breath or wheezing cholecalciferol (vitamin D3) 125 125 mcg PO DAILY 11/30/24 11/30/24 History mcg (5,000 unit) capsule fludrocortisone 0.1 mg tablet 0.1 mg PO ONCE 11/30/24 11/30/24 History insulin glargine 100 unit/mL (3 10 unit subcut QPM 11/30/24 11/30/24 History mL) subcutaneous pen (Lantus Solostar U-100 Insulin) ipratropium 0.5 mg-albuterol 3 mg 3 ml inhalation QID PRN shortness 11/30/24 11/30/24 History (2.5 mg base)/3 mL nebulization of breath or wheezing soln methocarbamol 750 mg tablet 750 mg PO BID PRN unknown 11/30/24 11/30/24 History midodrine 10 mg tablet 10 mg PO TID 11/30/24 11/30/24 History prednisone 10 mg tablet 10 mg PO DAILY 11/30/24 11/30/24 History tamsulosin 0.4 mg capsule 0.8 mg PO DAILY 11/30/24 11/30/24 History Allergies Allergy/AdvReac Type Severity Reaction Status Date / Time iodine Allergy Mild Hives Verified 11/30/24 14:56 diltiazem Allergy Unknown shortness Verified 11/30/24 14:56 of breath antivenin latrodectus mactans Allergy Severe Anaphylaxis Uncoded 11/30/24 14:56 [place] Allergy Severe Anaphylactic Uncoded 07/16/23 07:55 Shock Vital Signs Vital Signs - 24 hr 11/30/24 08:46 11/30/24 08:50 11/30/24 09:04 Temperature 97.6 F Pulse Rate 107 H 101 H Respiratory Rate 30 H 26 H Blood Pressure 128/73 Pulse Oximetry 96 93 84 L Oxygen Delivery Room Air Room Air Oxygen Flow Rate 11/30/24 09:05 11/30/24 09:24 11/30/24 09:29 Temperature Pulse Rate 106 H 104 H Respiratory Rate 27 H 42 H Blood Pressure Pulse Oximetry 93 100 Oxygen Delivery Nasal Cannula BiPAP Oxygen Flow Rate 4 11/30/24 09:44 11/30/24 09:45 11/30/24 10:00 Temperature Pulse Rate 114 H 125 H 111 H Respiratory Rate 40 H 32 H 30 H Blood Pressure 130/79 Pulse Oximetry 95 95 97 Oxygen Delivery Oxygen Flow Rate 11/30/24 10:01 11/30/24 10:15 11/30/24 10:35 Temperature Pulse Rate 114 H 123 H 114 H Respiratory Rate 36 H 32 H 33 H Blood Pressure Pulse Oximetry 97 92 97 Oxygen Delivery Oxygen Flow Rate 11/30/24 10:45 11/30/24 11:00 11/30/24 11:01 Temperature Pulse Rate 115 H 113 H 104 H Respiratory Rate 34 H 35 H 32 H Blood Pressure 111/67 Pulse Oximetry Oxygen Delivery Oxygen Flow Rate 11/30/24 11:15 11/30/24 11:40 11/30/24 11:48 Temperature Pulse Rate 117 H 111 H 112 H Respiratory Rate 28 H 24 H 35 H Blood Pressure Pulse Oximetry Oxygen Delivery Oxygen Flow Rate 11/30/24 12:00 11/30/24 12:00 11/30/24 12:01 Temperature Pulse Rate 115 H 115 H 105 H Respiratory Rate 32 H 31 H 28 H Blood Pressure 137/71 Pulse Oximetry 91 Oxygen Delivery BiPAP Oxygen Flow Rate 11/30/24 12:22 11/30/24 12:32 11/30/24 12:46 Temperature Pulse Rate 115 H 102 H 90 Respiratory Rate 37 H 31 H 32 H Blood Pressure Pulse Oximetry 98 99 99 Oxygen Delivery Oxygen Flow Rate 11/30/24 13:00 11/30/24 13:01 11/30/24 13:20 Temperature Pulse Rate 97 96 89 Respiratory Rate 34 H 32 H 32 H Blood Pressure 101/81 Pulse Oximetry 99 Oxygen Delivery Oxygen Flow Rate 11/30/24 13:31 11/30/24 14:40 Temperature 98.1 F Pulse Rate 92 86 Respiratory Rate 26 H 39 H Blood Pressure 116/50 L Pulse Oximetry 100 Oxygen Delivery Oxygen Flow Rate Exam Const: General: comfortable Other: , male, elderly, ill-appearing, mild respiratory distress HENMT: Face/Nose/Sinus: Normal nares present Mouth: Yes dry mucous membranes (on BiPAP) Eyes: General: appearance normal, both eyes and all related structures Sclera: sclerae normal Pupils: Equal, round and reactive pupils present EOM: EOMs intact bilaterally Resp: Other: Tachypneic without accessory muscle use, bibasilar crackles, no wheezing. Cardio: Rate: regular rate Rhythm: regular rhythm Other: S1-S2 present without murmur, rub, ectopy GI: Other: Abdomen soft, nondistended, nontender. Normoactive bowel sounds in all quadrants. Skin: General skin exam: normal color and no rashes or lesions noted Wounds: no wounds Neuro: Speech: normal speech Motor exam (neuro): 5/5 motor strength present throughout Sensory Exam: normal sensation Other: A/Ox4 Extrem: Other: Trace pitting edema to bilateral ankles, symmetric Psych: Mental Status: mental status grossly normal Affect: normal affect Other: Good insight and judgment, pleasant H&P: Results Labs Labs: Short CBC 11/30/24 Range/Units 09:19 WBC 18.3 H (4.5-10.0) K/mm3 Hgb 11.3 L (14.0-18.0) g/dL Hct 35.8 L (42.0-52.0) % Plt Count 182 (150-375) k/mm3 BMP 11/30/24 09:19 Sodium 134 L Potassium 4.8 Chloride 101 Carbon Dioxide 28 BUN 20 Creatinine 0.78 Glucose 189 H Calcium 8.0 L Liver Function 11/30/24 Range/Units 09:19 Total Bilirubin 1.1 (0.2-1.3) mg/dL AST 41 (17-59) U/L ALT 18 (6-50) U/L Alkaline Phosphatase 60 (38-126) U/L Albumin 3.0 L (3.5-5.1) g/dL Urine 11/30/24 Range/Units 10:11 Urine Color Yellow (Yellow) Urine Appearance Clear (Clear) Urine pH 6.5 (5.0-9.0) Ur Specific [place] 1.026 (1.001-1.035) Urine Protein Trace (Negative) mg/dL Urine Glucose (UA) Trace H (Negative) mg/dL Assessment and Plan Assessment and plan (1) Acute hypoxic respiratory failure: Code(s): J96.01 - Acute respiratory failure with hypoxia Status: Acute Assessment and Plan: Patient arrived to the emergency department 96% on room air. Initial concern patient was hypoxic in the 70s prior to arrival. Patient did become hypoxic in the emergency department on 11/30, dropped to 84% on room air. Subsequently placed on BiPAP. Imaging showed bilateral severe bronchopneumonia superimposed on chronic lung disease. Initial ABG showed no significant hypoxia, hypercapnia, acidosis, or alkalosis on BiPAP. - continue BiPAP for work of breathing/respiratory distress - started on hospital-acquired pneumonia treatment as he was recently admitted to [facility], patient additionally met criteria for sepsis and lactic was elevated - pulmonology consulted Will treat patient aggressively for fluid overload with Lasix IV as tolerated by his cardiac and renal system.and infection and follow him clinically and radiographically to determine if he response to this treatment. I will send respiratory pathogen panel, sputum for Gram stain and culture, urine for Legionella, urine for pneumococcal and serum for mycoplasma IgM. I will send repeat serologies compare them to previous values on 10/15/2022. I will order a LAURA screen that includes 11 different auto antibodies, an ANCA screen, a rheumatoid factor, anti CCP antibody, hypersensitivity pneumonitis panel, a CPK, an aldolase level, and myomarker 3 plus profile. I repeat a chest x-ray on 12/01/2024. I will follow his procalcitonin. - BNP was elevated, however no evidence of hypervolemia. Most recent echo in 2022 which showed diastolic dysfunction and mild pulmonary hypertension, will update. (2) Sepsis: Qualifiers: Acute respiratory failure type: with hypoxia Sepsis acute organ dysfunction status: with acute organ dysfunction Sepsis type: sepsis due to unspecified organism Severe sepsis acute organ dysfunction type: acute respiratory failure Severe sepsis shock status: without septic shock Qualified Code(s): A41.9 - Sepsis, unspecified organism; R65.20 - Severe sepsis without septic shock; J96.01 - Acute respiratory failure with hypoxia Code(s): A41.9 - Sepsis, unspecified organism Status: Acute Assessment and Plan: Patient met SIRS criteria: HR greater than 100, RR greater than 20, WBC greater than 12. +hypoxia, -hypotension. Initial lactic 3.6 -> 3.4. CRP 4.98 and procalcitonin 0.1. - blood cultures obtained on 11/30, follow. - trend lactic down - 30 mL/kg = 2.5, will give 2L at 200 mL/hr due to elevation in BNP/hx of diastolic dysfunction. monitor toleration. - suspected source: HAP - started on ceftriaxone and azithromycin, exchanged to cefepime and azithromycin on 11/30 - monitor I&Os - admit to IMU for close monitoring (3) Pneumonia: Qualifiers: Laterality: bilateral Lung location: unspecified part of lung Pneumonia type: due to unspecified organism Qualified Code(s): J18.9 - Pneumonia, unspecified organism Code(s): J18.9 - Pneumonia, unspecified organism Status: Acute Assessment and Plan: - CXR: 1. Interval worsening of chronic interstitial lung disease. 2. However bibasilar edema and/or pneumonitis or airspace disease not excluded. - Chest CT: Bilateral severe bronchopneumonia superimposed on chronic lung disease with probable reactive mediastinal lymphadenopathy. Follow-up recommended to assess resolution - risk/complicating factors: acute respiratory failure, interstitial lung disease, recent hospitalization - started on ceftriaxone and azithromycin in the ED, exchanged to cefepime and azithromycin on 11/30. No current indication for vancomycin as the patient's MRSA PCR was negative upon admission. - supportive care: Mucinex, Tylenol, DuoNebs, Tessalon Perles - sputum culture - currently requiring BiPAP for WOB, +hypoxia (4) ILD (interstitial lung disease): Code(s): J84.9 - Interstitial pulmonary disease, unspecified Status: Chronic Assessment and Plan: - worsening on imaging - pulmonology consulted, see recs above (5) Diastolic congestive heart failure, NYHA class 3: Qualifiers: Congestive heart failure chronicity: unspecified Qualified Code(s): I50.30 - Unspecified diastolic (congestive) heart failure Code(s): I50.30 - Unspecified diastolic (congestive) heart failure Status: Chronic Assessment and Plan: BNP elevated at 3540. No evidence of pulmonary edema on CXR. Reviewed chart, most recent echo in 2022 showed diastolic dysfunction, normal systolic function with an estimated EF of 60 65%, valvular disease, and mild pulmonary hypertension. - update echo - receiving IV fluids due to sepsis at slower rate, monitor toleration - monitor I&Os - daily weights (6) DM2 (diabetes mellitus, type 2): Qualifiers: Diabetes mellitus complication status: without complication Diabetes mellitus mcc insulin use: with mcc use Qualified Code(s): E11.9 - Type 2 diabetes mellitus without complications; Z79.4 - exterminator termite (current) use of insulin Code(s): E11.9 - Type 2 diabetes mellitus without complications Status: Chronic Assessment and Plan: - hypoglycemia protocol - POC blood glucose ACHS - home medication: Hold metformin in case of need for contrast. Continue Lantus 10 units HS. - correct regimen ordered - low dose TIDWM and HS, based off BMI - A1C 6.4% in 2022, update (7) Chronic anticoagulation: Code(s): Z79.01 - assisted (current) use of anticoagulants Status: Chronic Assessment and Plan: - continue Xarelto (8) Chronic hypotension: Code(s): I95.89 - Other hypotension Status: Acute Assessment and Plan: - chronic, currently 116/50, stable. - continue home medications: Midodrine - monitor Plan Diet: Heart healthy GI Prophylaxis: N/a DVT Prophylaxis: Xarelto IV fluids: 200 mL/hour x2 L Lines/Tubes: Peripheral IV Code Status: Full code Quality VTE Prophylaxis VTE prophylaxis: pharmacologic ordered Hospitalist MIPS Advance Care Plan I have confirmed that the patient's Advanced Care Plan is present, code status is documented, or surrogate decision maker is listed in patient medical record.: Yes Medication Reconciliation I have utilized all available resources to obtain, update and review the patients current medications (includes all prescriptions, OTC, herbals, cannabis, and nutritional supplements).: Yes
--- NOTE | 2024-11-30 15:38 | PM.CNPUL ---
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 Oxygen Flow Rate 11/30/24 13:31 11/30/24 14:40 11/30/24 15:14 Temperature 36.7 C Pulse Rate 92 86 Respiratory Rate 26 H 39 H Blood Pressure 116/50 L Pulse Oximetry 100 Oxygen Delivery BiPAP Oxygen Flow Rate 11/30/24 15:30 Temperature Pulse Rate Respiratory Rate 26 H Blood Pressure Pulse Oximetry 98 Oxygen Delivery BiPAP Oxygen Flow Rate Exam Narrative: on BiPAP and difficult to take a history. Const: General: cooperative, healthy appearing and comfortable HENMT: Head: normal to inspection Ears: hearing grossly normal bilaterally Eyes: General: appearance normal, both eyes and all related structures Neck: Neck: normal visual inspection Chest: Chest palpation & inspection: normal inspection of the chest Resp: Effort & Inspection: normal respiratory effort and able to speak in complete sentences Auscultation: crackles, no rales, no rhonchi, no wheezes and lung sounds not diminished Other: Diffuse inspiratory expiratory crackles worse at the bases. No wheezing. Cardio: Jugular venous distension: no JVD Other: AFib. GI: Inspection: normal to inspection GI Palp: No abdominal tenderness Skin: General skin exam: normal color Neuro: General: oriented to person, oriented to place and oriented to time Extrem: General: normal to inspection Other: Bilateral lower extremity edema. Psych: Appearance: grossly normal Results Laboratory Findings 11/30/24 09:19 11/30/24 09:19 ABG, PT/INR, D-dimer: ABG ABG pH 7.422 (7.350-7.450) 11/30/24 09:14 ABG pCO2 40.3 mmHg (35.0-45.0) 11/30/24 09:14 ABG pO2 69.3 mmHg (80.0-100.0) L 11/30/24 09:14 ABG O2 Saturation 94.3 % (95.0-100.0) L 11/30/24 09:14 PT/INR, D-dimer PT 23.7 Seconds (11.1-14.7) H 11/30/24 09:19 INR 2.2 11/30/24 09:19 Abnormal lab findings: Abnormal Labs 11/30/24 11/30/24 11/30/24 09:14 09:19 10:11 WBC 18.3 H RBC 3.34 L Hgb 11.3 L Hct 35.8 L MCV 107.2 H MCHC 31.6 L RDW 16.7 H MPV 10.6 H Immature Gran % (Auto) 2.5 H Neut % (Auto) 80.8 H Lymph % (Auto) 7.8 L [place] # (Auto) 1.5 H Abs Immat Gran (auto) 0.45 H Absolute Neuts (auto) 14.8 H Absolute Nucleated RBC 0.080 H Nucleated RBC % 0.4 H PT 23.7 H ABG pO2 69.3 L ABG O2 Saturation 94.3 L ABG O2 Content 14.9 L Reduced Hemoglobin 7.7 H Total Hemoglobin 11.6 L Sodium 134 L Glucose 189 H Lactic Acid 3.6 H Calcium 8.0 L C-Reactive Protein 4.9 H NT-Pro-B Natriuret Pep 3540 H Albumin 3.0 L Urine Glucose (UA) Trace H Urine Ketones Trace H Ur Blood (Man) 1+ H Leukocyte Esterase Rfl Trace H Urine RBC 6-10 H 11/30/24 11:57 WBC RBC Hgb Hct MCV MCHC RDW MPV Immature Gran % (Auto) Neut % (Auto) Lymph % (Auto) [place] # (Auto) Abs Immat Gran (auto) Absolute Neuts (auto) Absolute Nucleated RBC Nucleated RBC % PT ABG pO2 ABG O2 Saturation ABG O2 Content Reduced Hemoglobin Total Hemoglobin Sodium Glucose Lactic Acid 3.4 H Calcium C-Reactive Protein NT-Pro-B Natriuret Pep Albumin Urine Glucose (UA) Urine Ketones Ur Blood (Man) Leukocyte Esterase Rfl Urine RBC Diagnostic Findings Additional studies: ITS Impressions Chest X-Ray 11/30/24 11:05 IMPRESSION: 1. Interval worsening of chronic interstitial lung disease. 2. However bibasilar edema and/or pneumonitis or airspace disease not excluded. Chest CT 11/30/24 14:20
[2024-11-30] MEDS: MIDODRINE HCL 10 MG TABLET PO (16:57)
[2024-11-30] MEDS: LACTATED RINGERS 1,000 ML 200 ML IV CONT ×2 (16:57→21:19)
[2024-11-30] MEDS: MEMANTINE 10 MG TABLET PO (16:57)
[2024-11-30] MEDS: IPRATROPIUM 0.5 MG/ALBUTEROL SULFATE 2.5 MG (BASE) AMPUL.NEB 3 ML INHALATION (20:28)
[2024-11-30] MEDS: INSULIN GLARGINE (*BKC) 100 UNITS/ML 10 UNITS SUB-Q (21:17)
[2024-11-30] MEDS: DIVALPROEX SODIUM ER 500 MG TAB.24H PO (21:18)
[2024-11-30] MEDS: CEFEPIME 2 GM in SODIUM CHLORIDE 0.9% IV 50 ML 100 ML IVPB (21:18)
[2024-11-30] MEDS: ATORVASTATIN 10 MG TABLET PO (21:18)
[2024-12-01] VITALS (28 sets, daily range): BP systolic 109–139; BP diastolic 52–89; PULSE 84–117; RESP 20–35; TEMP 36.4–37.2; O2SAT 89–100; BMI 25.9; BMI 10.0
--- NOTE | 2024-12-01 | ECHO_ITS ---
Patient Info Name: Andrei Amato Age: 74 years : 1950 Gender: Male Ht: 73 in Wt: 196 lbs BSA: 2.15 m2 HR: 91 bpm BP: 131 / 73 mmHg Technical Quality: Good Exam Date: 12/01/2024 1:07 PM Patient Status: I Admit Date: 12/01/2024 Exam Type: CA echo doppler color flow Complete two-dimensional, color flow and Doppler transthoracic echocardiogram is performed. Staff Referring Physician: Christophe Virk Apparatus Operator: Alvaro Farr III Attending Provider: Maria Luisa Gonzalez Summary 1. Complete two-dimensional, color flow and Doppler transthoracic echocardiogram is performed. 2. Left ventricular chamber dimension is normal. 3. Left ventricular systolic function is normal, estimated at 60-65. 4. The left ventricular diastolic function is abnormal. 5. E/e' 14 is mildly elevated. 6. Left atrial chamber dimension is moderately enlarged. 7. Right atrial chamber dimension is severely enlarged. 8. The mitral valve has a mildly calcified annulus. 9. There is moderate mitral valve regurgitation. 10. There is moderate tricuspid valve regurgitation. 11. Severe pulmonary hypertension, estimated pulmonary arterial systolic pressure is 71 mmHg. Left Ventricle E/e' 14 is mildly elevated. Left ventricular chamber dimension is normal. Left ventricular systolic function is normal, estimated at 60-65. The left ventricular diastolic function is abnormal. Right Ventricle Right ventricular chamber dimension is normal. Right ventricular systolic function is normal and with normal TAPSE 1.9 cm. Left Atria Left atrial chamber dimension is moderately enlarged. Right Atria Right atrial chamber dimension is severely enlarged. Aortic Valve The aortic valve is trileaflet. There is no aortic valve stenosis. There is no aortic valve regurgitation. Pulmonic Valve There is no pulmonic regurgitation. Mitral Valve The mitral valve has a mildly calcified annulus. There is no mitral valve stenosis. There is moderate mitral valve regurgitation. Tricuspid Valve There is moderate tricuspid valve regurgitation. Severe pulmonary hypertension, estimated pulmonary arterial systolic pressure is 71 mmHg. Pericardium/Pleural There is no pericardial effusion. Inferior Vena Cava Normal inferior vena cava with >50% collapse upon inspiration consistent with normal right atrial pressure, 5 mmHg. Aorta The aortic root size at the sinus of Valsalva is normal. Left Ventricular Outflow Tract Name Value Normal LVOT 2D LVOT Diameter 2.5 cm LVOT Doppler LVOT Peak Velocity 89 cm/s LVOT Peak Gradient 3 mmHg LVOT Mean Gradient 2 mmHg LVOT VTI 14 cm LVOT VTI/AV VTI Ratio 0.9 LVOT Stroke Volume 67 ml LVOT CO 8.0 l/min LVOT CI 3.7 l/min/m2 Pulmonic Valve Name Value Normal PV Doppler PV Peak Velocity 111 cm/s PV Peak Gradient 5 mmHg PV Mean Gradient 2 mmHg Mitral Valve Name Value Normal MV Doppler MV Peak Gradient 18 mmHg MV Mean Gradient 10 mmHg MV Area (Cont Eq VTI) 3.1 cm2 MV Regurgitation Doppler MR Peak Gradient 100 mmHg MV Diastolic Function MV E Peak Velocity 154 cm/s MV Decel Time (PW) 142 ms MV Annular TDI MV E/e' (Septal) 16.5 MV E/e' (Lateral) 12.4 MV E/e' (Average) 14.5 Tricuspid Valve Name Value Normal TV Regurgitation Doppler TR Peak Velocity 407 cm/s TR Peak Gradient 42 mmHg Estimated PAP/RSVP RA Pressure 5 mmHg <=5 PA Systolic Pressure 71 mmHg <36 RV Systolic Pressure 71 mmHg <36 TV Annular TDI TV Lateral Sarah Beth s' Velocity 15.3 cm/s >=9.5 Aortic Valve Name Value Normal AV Doppler AV Peak Velocity 107 cm/s AV Peak Gradient 5 mmHg AV Mean Gradient 3 mmHg AV VTI 15 cm AV Area (Cont Eq VTI) 4.5 cm2 >=3.0 AV Area (Cont Eq [place]) 4.1 cm2 AV DI ([place]) 0.83 AV Regurgitation 2D LVOT Area 4.9 cm2 Ventricles Name Value Normal LV Dimensions 2D/MM IVS Diastolic Thickness (2D) 0.9 cm 0.6-1.0 LVID Diastole (2D) 4.3 cm 4.2-5.8 LVIW Diastolic Thickness (2D) 0.8 cm 0.6-1.0 LVID Systole (2D) 2.7 cm 2.5-4.0 LVOT Diameter 2.5 cm LV Mass (2D Cubed) 111.33 g 88.00-224.00 LV Mass Index (2D Cubed) 52 g/m2 49-115 Relative Wall Thickness (2D) 0.35 <=0.42 LV Fractional Shortening/Ejection Fraction 2D/MM LV Fractional Shortening (2D) 37 % 25-43 LV EF (2D Te[place]z) 68 % LV Diastolic Volume (4C MOD) 73 ml LV EF (4C MOD) 56 % LV Diastolic Volume (2C MOD) 89 ml LV EF (2C MOD) 66 % LV Diastolic Volume (BP MOD) 81 ml 62-150 LV Diastolic Volume Index (BP MOD) 38 ml/m2 34-74 LV Systolic Volume (BP MOD) 32 ml 21-61 LV Systolic Volume Index (BP MOD) 15 ml/m2 11-31 LV EF (BP MOD) 61 % 52-72 LV Diastolic Length (4C) 7.1 cm LV Systolic Length (4C) 6.1 cm LV Stroke Volume (4C MOD) 40 ml Atria Name Value Normal LA Dimensions LA Volume (4C A-L) 110 ml LA Volume (BP A-L) 96 ml RA Dimensions RA Systolic Major [place] Length (4C) 8.6 cm 2.1-2.7 RA Area (4C) 43.2 cm2 <=18.0 Report Signatures
[2024-12-01] MEDS: IPRATROPIUM 0.5 MG/ALBUTEROL SULFATE 2.5 MG (BASE) AMPUL.NEB 3 ML INHALATION ×4 (02:03→20:08)
[2024-12-01] MEDS: CEFEPIME 2 GM in SODIUM CHLORIDE 0.9% IV 50 ML 100 ML IVPB ×3 (05:02→21:19)
[2024-12-01 05:04] LABS: Alveolar/Arterial O2 Gradient 160.4 mmHg; Fractional Inspired Oxygen 40 %; HCO3 ABG 29.2 mEq/l (22.0-26.0); Oxygen Content ABG 14.2 %vol (16.0-22.0); Oxygen Saturation ABG 96.4 % (95.0-100.0); PCO2 ABG 40.1 mmHg (35.0-45.0); PO2 ABG 78.7 mmHg (80.0-100.0); PO2 FiO2 Ratio Arterial Blood 1.97 %
[2024-12-01 05:07] LABS: Modified Allen's Test Pass; Site Drawn RIGHT RADIAL
[2024-12-01 06:16] LABS: Hematocrit 30.4 % (42.0-52.0); Hemoglobin 9.6 g/dL (14.0-18.0); Immature Granulocyte Percent A 0.9 % (0-0.5); Lymphocytes Absolute Auto 1.10 K/mm3 (0.9-3.2); Mean Corpuscular HGB Conc 31.6 g/dl (32-36); Mean Corpuscular Hemoglobin 33.7 pg (26-34); Mean Corpuscular Volume 106.7 fl (80-100); Nucleated Red Blood Cells Absolute Auto 0.000 K/mm3 (0.0-0.012); Nucleated Red Blood Cells Perc 0.0 % (0.0-0.2); Platelet Count Result 159 k/mm3 (150-375); Red Blood Count 2.85 M/mm3 (4.6-6.20); White Blood Count 16.3 K/mm3 (4.5-10.0)
[2024-12-01 06:37] LABS: Hemoglobin A1C 5.5 % (<5.7)
[2024-12-01 07:03] LABS: Anisocytosis 1+; Hypochromasia 1+; Ovalocytes Occasional; Schistocytes None Seen; Target Cells Occasional
[2024-12-01 07:40] LABS: NT Pro B Type Natriuretic Pept 1930 pg/mL (19.9-100)
[2024-12-01 07:44] LABS: Alanine Aminotransferase 16 U/L (6-50); Albumin Level 2.5 g/dL (3.5-5.1); Alkaline Phosphatase 62 U/L (38-126); Anion Gap 3 mmol/L (4-12); Aspartate Amino Transferase 44 U/L (17-59); Bilirubin,Total 0.7 mg/dL (0.2-1.3); Blood Urea Nitrogen 17 mg/dL (9-20); CRP 8.5 mg/dL (<1.0); Calcium 7.9 mg/dL (8.4-10.2); Carbon Dioxide 32 mmol/L (22-30); Chloride 102 mmol/L (98-107); Creatine Kinase 362 U/L (55-170); Estimated CRCL calculation 80 ml/min; Estimated Glomerular Filt Rate > 60; Glucose 121 mg/dL (65-110); Potassium 4.0 mmol/L (3.4-5.0); Sodium 137 mmol/L (137-145); Total Protein 5.7 g/dL (6.3-8.2)
[2024-12-01 08:52] LABS: Procalcitonin 0.2 ng/mL
[2024-12-01] MEDS: AZITHROMYCIN IV 500 MG in SODIUM CHLORIDE 0.9% IV 250 ML IVPB (10:17)
[2024-12-01] MEDS: PANTOPRAZOLE 40 MG TABLET PO (10:17)
[2024-12-01] MEDS: CHOLECALCIFEROL (VITAMIN D3) 125 MCG (5,000 UNITS) TABLET PO (10:18)
[2024-12-01] MEDS: MEMANTINE 10 MG TABLET PO ×2 (10:18→17:54)
[2024-12-01] MEDS: TAMSULOSIN HCL 0.4 MG CAPSULE 0.8 MG PO (10:18)
[2024-12-01] MEDS: MIDODRINE HCL 10 MG TABLET PO ×3 (10:18→17:54)
[2024-12-01] MEDS: RIVAROXABAN 20 MG TABLET PO (10:19)
[2024-12-01] MEDS: DIVALPROEX SODIUM ER 500 MG TAB.24H 1000 MG PO (10:21)
--- NOTE | 2024-12-01 10:45 | P.PNPL_ITS ---
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 there appears to be a echogenic mobile mass ??1.8 cm x 1.1 cm but could be artifact. Recommend CTA of aorta for further ??evaluation. ??Right Ventricle ??? Right ventricular systolic function is normal and with normal TAPSE 2.3 cm.. ??? Right ventricular chamber dimension is normal. ??Right Atria ??? Right atrial chamber dimension is moderately enlarged. 10/08/2016: EXAMINATION: CHEST-TWO VIEW INDICATION: Cough and weakness. TECHNIQUE: Frontal and lateral views of the chest were obtained. COMPARISON: None. FINDINGS: There is mild scarring at left lung apex. No pleural effusion or pneumothorax. Cardiomegaly is noted. There is mild thoracic spondylosis. There are changes of anterior fusion procedure in cervical spine. IMPRESSION: 1. Mild scarring at left lung apex. 2. Cardiomegaly. Review of Systems Constitutional: Constitutional: Reports no additional constitutional complaints Eyes: Eyes: Reports no additional eye complaints ENT: Reports system reviewed and no additional complaints, except as documented Cardiovascular: Cardiovascular: Reports no additional cardiovascular complaints Respiratory: Respiratory: Reports no additional respiratory complaints Gastrointestinal: Gastrointestinal: Reports no additional gastrointestinal complaints Musculoskeletal: Musculoskeletal: Reports no additional musculoskeletal complaints Neurologic: Reports system reviewed and no additional complaints, except as documented Psychiatric: Psychiatric: Reports no additional psychiatric complaints Endocrine: Endocrine: Reports no additional endocrine complaints Hematologic/Lymphatic: Hematologic/Lymphatic: Reports no additional hematologic/lymphatic complaints Allergic/Immunologic: Allergic/Immunologic: Reports no additional allergic/immunologic complaints Exam Const: General: cooperative, healthy appearing and comfortable Orientation/consciousness: oriented to person, oriented to place and oriented to time HENMT: Head: normal to inspection Ears: hearing grossly normal bilaterally Eyes: General: appearance normal, both eyes and all related structures Neck: Neck: normal visual inspection Chest: Chest palpation & inspection: normal inspection of the chest Resp: Effort & Inspection: normal respiratory effort and able to speak in complete sentences Auscultation: crackles, no rales, no rhonchi, no wheezes and lung sounds not diminished Other: Diffuse inspiratory expiratory crackles worse at the bases. No wheezing. Cardio: Jugular venous distension: no JVD Other: AFib. GI: Inspection: normal to inspection Skin: General skin exam: normal color Neuro: General: oriented to person, oriented to place and oriented to time Extrem: General: normal to inspection Other: Bilateral lower extremity edema. Psych: Appearance: grossly normal Objective Data Vital Signs Vital Signs: Vital Signs - 24 hr 11/30/24 11:00 11/30/24 11:01 11/30/24 11:15 Temperature Pulse Rate 113 H 104 H 117 H Respiratory Rate 35 H 32 H 28 H Blood Pressure 111/67 Pulse Oximetry Oxygen Delivery Oxygen Flow Rate 11/30/24 11:40 11/30/24 11:48 11/30/24 12:00 Temperature Pulse Rate 111 H 112 H 115 H Respiratory Rate 24 H 35 H 32 H Blood Pressure Pulse Oximetry 91 Oxygen Delivery BiPAP Oxygen Flow Rate 11/30/24 12:00 11/30/24 12:01 11/30/24 12:22 Temperature Pulse Rate 115 H 105 H 115 H Respiratory Rate 31 H 28 H 37 H Blood Pressure 137/71 Pulse Oximetry 98 Oxygen Delivery Oxygen Flow Rate 11/30/24 12:32 11/30/24 12:46 11/30/24 13:00 Temperature Pulse Rate 102 H 90 97 Respiratory Rate 31 H 32 H 34 H Blood Pressure 101/81 Pulse Oximetry 99 99 99 Oxygen Delivery Oxygen Flow Rate 11/30/24 13:01 11/30/24 13:20 11/30/24 13:31 Temperature Pulse Rate 96 89 92 Respiratory Rate 32 H 32 H 26 H Blood Pressure Pulse Oximetry Oxygen Delivery Oxygen Flow Rate 11/30/24 14:40 11/30/24 15:14 11/30/24 15:30 Temperature 36.7 C Pulse Rate 86 Respiratory Rate 39 H 26 H Blood Pressure 116/50 L Pulse Oximetry 100 98 Oxygen Delivery BiPAP BiPAP Oxygen Flow Rate 11/30/24 16:00 11/30/24 16:13 11/30/24 16:26 Temperature 37.0 C Pulse Rate 93 87 93 Respiratory Rate 31 H Blood Pressure 107/55 L Pulse Oximetry 100 100 Oxygen Delivery BiPAP Oxygen Flow Rate 11/30/24 17:12 11/30/24 19:54 11/30/24 20:00 Temperature 36.7 C Pulse Rate 89 85 93 Respiratory Rate 28 H Blood Pressure 135/60 Pulse Oximetry 100 Oxygen Delivery Oxygen Flow Rate 11/30/24 20:28 11/30/24 20:28 11/30/24 22:00 Temperature Pulse Rate 84 84 95 Respiratory Rate 24 H 24 H Blood Pressure Pulse Oximetry 97 Oxygen Delivery BiPAP Oxygen Flow Rate 11/30/24 22:25 11/30/24 23:00 12/01/24 00:00 Temperature 37.0 C Pulse Rate 95 106 H 95 Respiratory Rate 18 22 H Blood Pressure 134/62 Pulse Oximetry 98 90 Oxygen Delivery BiPAP Oxygen Flow Rate 12/01/24 02:00 12/01/24 02:03 12/01/24 02:03 Temperature Pulse Rate 91 92 84 Respiratory Rate 23 H 23 H Blood Pressure Pulse Oximetry 97 Oxygen Delivery BiPAP Oxygen Flow Rate 12/01/24 04:00 12/01/24 04:47 12/01/24 05:08 Temperature 36.8 C Pulse Rate 98 93 95 Respiratory Rate 22 H 35 H Blood Pressure 131/73 Pulse Oximetry 98 97 Oxygen Delivery BiPAP Oxygen Flow Rate 12/01/24 06:00 12/01/24 07:20 12/01/24 07:21 Temperature Pulse Rate 91 94 Respiratory Rate 21 H Blood Pressure Pulse Oximetry 94 Oxygen Delivery Nasal Cannula Oxygen Flow Rate 3 12/01/24 07:26 12/01/24 08:13 12/01/24 08:28 Temperature 36.4 C Pulse Rate 93 111 H Respiratory Rate 20 20 Blood Pressure 109/89 Pulse Oximetry 95 93 Oxygen Delivery High Flow Nasal Cannula Oxygen Flow Rate 6 Intake/Output Intake/Output: Intake & Output 11/28/24 11/29/24 11/30/24 12/01/24 23:59 23:59 23:59 23:59 Intake Total 973.3 790 Output Total 1100 300 Balance -126.7 490 Meds/Results Medications: Active Medications Generic Name Dose Route Start Last Admin Trade Name Freq PRN Reason Stop Dose Admin Acetaminophen 650 mg 11/30/24 15:47 Acetaminophen 325 Mg Tablet PO Q6H PRN Mild Pain (1-3) or Fever Albuterol/Ipratropium 3 ml 11/30/24 20:00 12/01/24 07:18 Ipratropium 0.5 Mg/Albuterol Sulfate 2.5 Mg (Base) Ampul.Neb 3 Ml INHALATION 3 ml Q6HRT SPEEDY Administration Atorvastatin Calcium 10 mg 11/30/24 21:00 11/30/24 21:18 Atorvastatin 10 Mg Tablet PO 10 mg HS SPEEDY Administration Benzonatate 100 mg 11/30/24 15:44 Benzonatate 100 Mg Capsule PO TID PRN Cough Dextrose 12.5 gm 11/30/24 15:49 Dextrose 50% 25 Gm/50 Ml Syringe IV PUSH PRN PRN Hypoglycemia Protocol Divalproex Sodium 1,000 mg 12/01/24 08:00 12/01/24 10:21 Divalproex Sodium Er 500 Mg Tab.24h PO 1,000 mg DAILY@0800 SPEEDY Administration Divalproex Sodium 500 mg 11/30/24 21:00 11/30/24 21:18 Divalproex Sodium Er 500 Mg Tab.24h PO 500 mg HS SPEEDY Administration Glucagon 1 mg 11/30/24 15:49 Glucagon For Inj 1 Mg Vial IM PRN PRN Hypoglycemia Protocol Glucose 15 gm 11/30/24 15:49 Glucose Oral Gel 15 Gm Of Glucse In 37.5 Gm Tube PO PRN PRN Hypoglycemia Protocol Guaifenesin 12 mg 11/30/24 21:00 11/30/24 21:31 Guaifenesin 12 Hr 600 Mg Tabcr PO Not Given Q12HR SPEEDY Azithromycin 500 mg/ Sodium 250 mls @ 250 mls/hr 12/01/24 09:00 12/01/24 10:17 Chloride IVPB 12/04/24 09:59 250 mls/hr Q24H SPEEDY Administration Cefepime HCl 2 gm/ Sodium 50 mls @ 100 mls/hr 11/30/24 22:00 12/01/24 05:02 Chloride IVPB 100 mls/hr Q8HR SPEEDY Administration Dextrose 1,000 mls @ 100 mls/hr 11/30/24 15:49 Dextrose 5% 1,000 Ml IVPB PRN PRN Hypoglycemia Protocol Insulin Aspart 2 - 5 units 11/30/24 17:00 12/01/24 10:19 Insulin Aspart (*Bkc) 100 Units/Ml SUB-Q Not Given TIDWM SPEEDY Protocol Insulin Aspart 1 - 2 units 11/30/24 21:00 11/30/24 21:12 Insulin Aspart (*Bkc) 100 Units/Ml SUB-Q Not Given HS SPEEDY Protocol Insulin Glargine 10 units 11/30/24 21:00 11/30/24 21:17 Insulin Glargine (*Bkc) 100 Units/Ml SUB-Q 10 units HS SPEEDY Administration Memantine 10 mg 11/30/24 17:00 12/01/24 10:18 Memantine 10 Mg Tablet PO 10 mg BID SPEEDY Administration Methocarbamol 750 mg 11/30/24 15:51 Methocarbamol 750 Mg Tablet PO BID PRN unknown Midodrine 10 mg 11/30/24 17:00 12/01/24 10:18 Midodrine Hcl 10 Mg Tablet PO 10 mg TID SPEEDY Administration Miscellaneous Information 0 each 11/30/24 00:01 12/01/24 10:20 Divalproex Clarify Dosing External Med Record Shows Pt Takes 2qam 1qpm XX 12/30/24 00:00 Not Given CLARIFY SPEEDY Miscellaneous Information 0 each 11/30/24 00:01 Methocarbamol Need Prn Indication XX 12/30/24 00:00 CLARIFY SPEEDY Pantoprazole Sodium 40 mg 12/01/24 09:00 12/01/24 10:17 Pantoprazole 40 Mg Tablet PO 40 mg DAILY SPEEDY Administration Perflutren Lipid Microsphere 0 ml 11/30/24 15:41 Perflutren Lipid Microspheres 1.5 Ml Vial Diluted To 10 Ml Total Volume IV PUSH 12/03/24 15:41 ONCE PRN adequate visualization Protocol Rivaroxaban 20 mg 12/01/24 09:00 12/01/24 10:19 Rivaroxaban 20 Mg Tablet PO 20 mg DAILY SPEEDY Administration Tamsulosin HCl 0.8 mg 12/01/24 09:00 12/01/24 10:18 Tamsulosin Hcl 0.4 Mg Capsule PO 0.8 mg DAILY SPEEDY Administration Vitamin D 125 mcg 12/01/24 09:00 12/01/24 10:18 Cholecalciferol (Vitamin D3) 125 Mcg (5,000 Units) Tablet PO 125 mcg DAILY SPEEDY Administration Radiology Results: ITS Impressions Chest CT 11/30/24 14:20 IMPRESSION: 1. Bilateral severe bronchopneumonia superimposed on chronic lung disease with probable reactive mediastinal lymphadenopathy. Follow-up recommended to assess resolution Chest X-Ray 12/01/24 07:31 Impression: 1: Bilateral airspace disease with sparing of the upper lobes, compatible with pneumonia. Labs Labs: Laboratory Results - last 24 hr 11/30/24 11/30/24 11/30/24 09:19 11:57 12:40 WBC RBC Hgb Hct MCV MCH MCHC RDW Plt Count MPV Immature Gran % (Auto) Neut % (Auto) Lymph % (Auto) [place] % (Auto) Eos % (Auto) Baso % (Auto) Lymph # (Auto) [place] # (Auto) Eos # (Auto) Baso # (Auto) Abs Immat Gran (auto) Absolute Neuts (auto) Absolute Nucleated RBC Band Neutrophils % Nucleated RBC % Platelet Estimate Hypochromasia Anisocytosis Target Cells Ovalocytes Schistocytes Puncture Site ABG pH ABG pCO2 ABG pO2 ABG PO2/FiO2 Ratio ABG HCO3 ABG O2 Saturation ABG O2 Content ABG Base Excess A-a Gradient Oxyhemoglobin Total Hemoglobin O2 Delivery Device O2 Liters/Min FiO2 Sodium Potassium Chloride Carbon Dioxide Anion Gap BUN Creatinine Estim Creat Clear Calc Estimated GFR Glucose POC Capillary Glucose Hemoglobin A1c Lactic Acid 3.4 H Calcium Total Bilirubin AST ALT Alkaline Phosphatase Total Creatine Kinase C-Reactive Protein 4.9 H NT-Pro-B Natriuret Pep 3540 H Total Protein Albumin Procalcitonin 0.1 Nasal MRSA (PCR) Not detected Rheumatoid Factor Rheumatoid Factor Scrn Rheumatoid Factor Titer Anti-Cycl Citrul Peptide Anti-Proteinase 3 FEIA c/o 1.9 Anti-Myeloperoxidase 11/30/24 11/30/24 11/30/24 13:09 16:54 17:23 WBC RBC Hgb Hct MCV MCH MCHC RDW Plt Count MPV Immature Gran % (Auto) Neut % (Auto) Lymph % (Auto) [place] % (Auto) Eos % (Auto) Baso % (Auto) Lymph # (Auto) [place] # (Auto) Eos # (Auto) Baso # (Auto) Abs Immat Gran (auto) Absolute Neuts (auto) Absolute Nucleated RBC Band Neutrophils % Nucleated RBC % Platelet Estimate Hypochromasia Anisocytosis Target Cells Ovalocytes Schistocytes Puncture Site ABG pH ABG pCO2 ABG pO2 ABG PO2/FiO2 Ratio ABG HCO3 ABG O2 Saturation ABG O2 Content ABG Base Excess A-a Gradient Oxyhemoglobin Total Hemoglobin O2 Delivery Device O2 Liters/Min FiO2 Sodium Potassium Chloride Carbon Dioxide Anion Gap BUN Creatinine Estim Creat Clear Calc Estimated GFR Glucose POC Capillary Glucose 151 H 167 H Hemoglobin A1c Lactic Acid Calcium Total Bilirubin AST ALT Alkaline Phosphatase Total Creatine Kinase C-Reactive Protein NT-Pro-B Natriuret Pep Total Protein Albumin Procalcitonin Nasal MRSA (PCR) Not detected Rheumatoid Factor Rheumatoid Factor Scrn Rheumatoid Factor Titer Anti-Cycl Citrul Peptide Anti-Proteinase 3 FEIA c/o 1.9 Anti-Myeloperoxidase 11/30/24 12/01/24 12/01/24 21:09 05:00 06:03 WBC 16.3 H RBC 2.85 L Hgb 9.6 L Hct 30.4 L MCV 106.7 H MCH 33.7 MCHC 31.6 L RDW 17.2 H Plt Count 159 MPV 10.9 H Immature Gran % (Auto) 0.9 H Neut % (Auto) 78.3 H Lymph % (Auto) 6.8 L Hodgeman % (Auto) 9.6 H Eos % (Auto) 4.3 Baso % (Auto) 0.1 L Lymph # (Auto) 1.10 Hodgeman # (Auto) 1.6 H Eos # (Auto) 0.7 H Baso # (Auto) 0.0 Abs Immat Gran (auto) 0.14 H Absolute Neuts (auto) 12.8 H Absolute Nucleated RBC 0.000 Band Neutrophils % Not Reportable Nucleated RBC % 0.0 Platelet Estimate Adequate Hypochromasia 1+ Anisocytosis 1+ Target Cells Occasional Ovalocytes Occasional Schistocytes None seen Puncture Site Right radial ABG pH 7.480 H ABG pCO2 40.1 ABG pO2 78.7 L ABG PO2/FiO2 Ratio 1.97 ABG HCO3 29.2 H ABG O2 Saturation 96.4 ABG O2 Content 14.2 L ABG Base Excess 5.3 A-a Gradient 160.4 Oxyhemoglobin 94.6 Total Hemoglobin 10.6 L O2 Delivery Device Other device O2 Liters/Min FiO2 40 Sodium 137 Potassium 4.0 Chloride 102 Carbon Dioxide 32 H Anion Gap 3 L BUN 17 Creatinine 0.77 Estim Creat Clear Calc 80 Estimated GFR > 60 Glucose 121 H POC Capillary Glucose 129 H Hemoglobin A1c 5.5 Lactic Acid 1.2 Calcium 7.9 L Total Bilirubin 0.7 AST 44 ALT 16 Alkaline Phosphatase 62 Total Creatine Kinase 362 H C-Reactive Protein 8.5 H NT-Pro-B Natriuret Pep 1930 H Total Protein 5.7 L Albumin 2.5 L Procalcitonin 0.2 Nasal MRSA (PCR) Rheumatoid Factor < 12.0 Rheumatoid Factor Scrn Cancelled Rheumatoid Factor Titer Cancelled Anti-Cycl Citrul Peptide Cancelled Anti-Proteinase 3 FEIA c/o 1.9 Cancelled Anti-Myeloperoxidase Cancelled 12/01/24 07:40 WBC RBC Hgb Hct MCV MCH MCHC RDW Plt Count MPV Immature Gran % (Auto) Neut % (Auto) Lymph % (Auto) [place] % (Auto) Eos % (Auto) Baso % (Auto) Lymph # (Auto) [place] # (Auto) Eos # (Auto) Baso # (Auto) Abs Immat Gran (auto) Absolute Neuts (auto) Absolute Nucleated RBC Band Neutrophils % Nucleated RBC % Platelet Estimate Hypochromasia Anisocytosis Target Cells Ovalocytes Schistocytes Puncture Site ABG pH ABG pCO2 ABG pO2 ABG PO2/FiO2 Ratio ABG HCO3 ABG O2 Saturation ABG O2 Content ABG Base Excess A-a Gradient Oxyhemoglobin Total Hemoglobin O2 Delivery Device O2 Liters/Min FiO2 Sodium Potassium Chloride Carbon Dioxide Anion Gap BUN Creatinine Estim Creat Clear Calc Estimated GFR Glucose POC Capillary Glucose 109 H Hemoglobin A1c Lactic Acid Calcium Total Bilirubin AST ALT Alkaline Phosphatase Total Creatine Kinase C-Reactive Protein NT-Pro-B Natriuret Pep Total Protein Albumin Procalcitonin Nasal MRSA (PCR) Rheumatoid Factor Rheumatoid Factor Scrn Rheumatoid Factor Titer Anti-Cycl Citrul Peptide Anti-Proteinase 3 FEIA c/o 1.9 Anti-Myeloperoxidase
--- NOTE | 2024-12-01 12:40 | PC.NURSE ---
This RN called the Lab and requested a Respiratory Pathogen Panel to be sent for this patient per physician orders. Lab states that they will send it up to me.
--- NOTE | 2024-12-01 13:29 | P.PNIM_ITS ---
Progress Note: A&P Assessment and Plan (1) Acute hypoxic respiratory failure: Code(s): J96.01 - Acute respiratory failure with hypoxia Status: Acute Assessment and Plan: Patient arrived to the emergency department 96% on room air. Initial concern patient was hypoxic in the 70s prior to arrival. Patient did become hypoxic in the emergency department on 11/30, dropped to 84% on room air. Subsequently placed on BiPAP. Imaging showed bilateral severe bronchopneumonia superimposed on chronic lung disease. Initial ABG showed no significant hypoxia, hypercapnia, acidosis, or alkalosis on BiPAP. - continue BiPAP for work of breathing/respiratory distress p.r.n. - started on hospital-acquired pneumonia treatment as he was recently admitted to [facility], [place], patient additionally met criteria for sepsis and lactic was elevated - pulmonology consulted Gentle diuresis as BNP elevated Respiratory pathogen panel Urine antigens I LD workup as ordered by Pulmonary (2) Sepsis: Qualifiers: Sepsis type: sepsis due to unspecified organism Sepsis acute organ dysfunction status: with acute organ dysfunction Severe sepsis acute organ dysfunction type: acute respiratory failure Acute respiratory failure type: with hypoxia Severe sepsis shock status: without septic shock Qualified Code(s): A41.9 - Sepsis, unspecified organism; R65.20 - Severe sepsis without septic shock; J96.01 - Acute respiratory failure with hypoxia Code(s): A41.9 - Sepsis, unspecified organism Status: Acute Assessment and Plan: Patient met SIRS criteria: HR greater than 100, RR greater than 20, WBC greater than 12. +hypoxia, -hypotension. Initial lactic 3.6 -> 3.4. CRP 4.98 and procalcitonin 0.1. - blood cultures obtained on 11/30, follow. - trend lactic down - 30 mL/kg = 2.5, will give 2L at 200 mL/hr due to elevation in BNP/hx of diastolic dysfunction. monitor toleration. - suspected source: HAP - started on ceftriaxone and azithromycin, exchanged to cefepime and azithromycin on 11/30 - monitor I&Os (3) Pneumonia: Qualifiers: Laterality: bilateral Lung location: unspecified part of lung Pneumoni a type: due to unspecified organism Qualified Code(s): J18.9 - Pneumonia, unspecified organism Code(s): J18.9 - Pneumonia, unspecified organism Status: Acute Assessment and Plan: - CXR: 1. Interval worsening of chronic interstitial lung disease. 2. However bibasilar edema and/or pneumonitis or airspace disease not excluded. - Chest CT: Bilateral severe bronchopneumonia superimposed on chronic lung disease with probable reactive mediastinal lymphadenopathy. Follow-up recommended to assess resolution - risk/complicating factors: acute respiratory failure, interstitial lung disease, recent hospitalization - started on ceftriaxone and azithromycin in the ED, exchanged to cefepime and azithromycin on 11/30. No current indication for vancomycin as the patient's MRSA PCR was negative upon admission. - supportive care: Mucinex, Tylenol, DuoNebs, Tessalon Perles - sputum culture - currently requiring BiPAP for WOB, +hypoxia (4) ILD (interstitial lung disease): Code(s): J84.9 - Interstitial pulmonary disease, unspecified Status: Chronic Assessment and Plan: - worsening on imaging - pulmonology consulted, see recs above (5) Diastolic congestive heart failure, NYHA class 3: Qualifiers: Congestive heart failure chronicity: unspecified Qualified Code(s): I50.30 - Unspecified diastolic (congestive) heart failure Code(s): I50.30 - Unspecified diastolic (congestive) heart failure Status: Chronic Assessment and Plan: BNP elevated at 3540. No evidence of pulmonary edema on CXR. Reviewed chart, most recent echo in 2022 showed diastolic dysfunction, normal systolic function with an estimated EF of 60 65%, valvular disease, and mild pulmonary hypertension. - update echo - receiving IV fluids due to sepsis at slower rate, monitor toleration which will be stopped and start diuresis as tolerated - monitor I&Os - daily weights Received a dose of Lasix 40 mg x 1 11/30 Will start diuresis 40 mg IV b.i.d.. (6) DM2 (diabetes mellitus, type 2): Code(s): E11.9 - Type 2 diabetes mellitus without complications Status: Chronic Assessment and Plan: - hypoglycemia protocol - POC blood glucose ACHS - home medication: Hold metformin in case of need for contrast. Continue Lantus 10 units HS. - correct regimen ordered - low dose TIDWM and HS, based off BMI - A1C 6.4% in 2022, update (7) Chronic anticoagulation: Code(s): Z79.01 - halfway (current) use of anticoagulants Status: Chronic Assessment and Plan: - continue Xarelto (8) Chronic hypotension: Code(s): I95.89 - Other hypotension Status: Acute Assessment and Plan: - continue home medications: Midodrine - monitor Plan Diet: Heart healthy GI Prophylaxis: N/a DVT Prophylaxis: Xarelto Lines/Tubes: Peripheral IV Code Status: Full code Subjective Date/time seen: 12/01/24 13:29 Interval history: No overnight events. Feels a little better today. Minimal cough. Shortness of breath with exertion. Generalized weakness. Review of Systems Review of Systems: All systems reviewed & are unremarkable except as noted in HPI and below Exam Narrative: APPEARANCE: Ill-appearing not in acute distress HEAD: normocephalic, atraumatic. EYES: PERRLA/EOMI, conjunctivae clear. NECK: Supple. No adenopathy, no masses. RESPIRATORY: Coarse breath sounds bilaterally, mildly tachypneic CARDIOVASCULAR: Mildly tachycardic S1-S2 ABDOMINAL: Soft, nontender, nondistended, normal bowel sounds MUSCULOSKELETAL: Moves all extremities. Strength/ROM intact, trace edema, No calf tenderness. NEURO: Alert. Cranial nerves II through XII intact. SKIN: Warm, dry. Normal Color Objective Data Vital Signs Vital Signs: Vital Signs - 24 hr 11/30/24 13:31 11/30/24 14:40 11/30/24 15:14 Temperature 98.1 F Pulse Rate 92 86 Respiratory Rate 26 H 39 H Blood Pressure 116/50 L Pulse Oximetry 100 Oxygen Delivery BiPAP Oxygen Flow Rate 11/30/24 15:30 11/30/24 16:00 11/30/24 16:13 Temperature 98.6 F Pulse Rate 93 87 Respiratory Rate 26 H 31 H Blood Pressure 107/55 L Pulse Oximetry 98 100 Oxygen Delivery BiPAP Oxygen Flow Rate 11/30/24 16:26 11/30/24 17:12 11/30/24 19:54 Temperature 98.1 F Pulse Rate 93 89 85 Respiratory Rate 28 H Blood Pressure 135/60 Pulse Oximetry 100 100 Oxygen Delivery BiPAP Oxygen Flow Rate 11/30/24 20:00 11/30/24 20:28 11/30/24 20:28 Temperature Pulse Rate 93 84 84 Respiratory Rate 24 H 24 H Blood Pressure Pulse Oximetry 97 Oxygen Delivery BiPAP Oxygen Flow Rate 11/30/24 22:00 11/30/24 22:25 11/30/24 23:00 Temperature 98.6 F Pulse Rate 95 95 106 H Respiratory Rate 18 22 H Blood Pressure 134/62 Pulse Oximetry 98 90 Oxygen Delivery BiPAP Oxygen Flow Rate 12/01/24 00:00 12/01/24 02:00 12/01/24 02:03 Temperature Pulse Rate 95 91 92 Respiratory Rate 23 H Blood Pressure Pulse Oximetry 97 Oxygen Delivery BiPAP Oxygen Flow Rate 12/01/24 02:03 12/01/24 04:00 12/01/24 04:47 Temperature Pulse Rate 84 98 93 Respiratory Rate 23 H 22 H Blood Pressure Pulse Oximetry 98 Oxygen Delivery BiPAP Oxygen Flow Rate 12/01/24 05:08 12/01/24 06:00 12/01/24 07:20 Temperature 98.3 F Pulse Rate 95 91 94 Respiratory Rate 35 H 21 H Blood Pressure 131/73 Pulse Oximetry 97 Oxygen Delivery Oxygen Flow Rate 12/01/24 07:21 12/01/24 07:26 12/01/24 08:00 Temperature Pulse Rate 93 112 H Respiratory Rate 20 20 Blood Pressure Pulse Oximetry 94 93 Oxygen Delivery Nasal Cannula Nasal Cannula Oxygen Flow Rate 3 4 12/01/24 08:00 12/01/24 08:13 12/01/24 08:28 Temperature 97.6 F Pulse Rate 112 H 111 H Respiratory Rate 20 Blood Pressure 109/89 Pulse Oximetry 95 93 Oxygen Delivery High Flow Nasal Cannula Oxygen Flow Rate 6 12/01/24 10:00 12/01/24 11:48 12/01/24 12:00 Temperature 97.6 F Pulse Rate 101 H 102 H 110 H Respiratory Rate 20 20 Blood Pressure 116/71 Pulse Oximetry 91 91 Oxygen Delivery High Flow Nasal Cannula Oxygen Flow Rate 4 12/01/24 12:00 Temperature Pulse Rate 110 H Respiratory Rate Blood Pressure Pulse Oximetry Oxygen Delivery Oxygen Flow Rate Intake/Output Intake/Output: Intake & Output 11/28/24 11/29/24 11/30/24 12/01/24 23:59 23:59 23:59 23:59 Intake Total 973.3 1030 Output Total 1100 300 Balance -126.7 730 Meds/Results Medications: Active Medications Generic Name Dose Route Start Last Admin Trade Name Freq PRN Reason Stop Dose Admin Acetaminophen 650 mg 11/30/24 15:47 Acetaminophen 325 Mg Tablet PO Q6H PRN Mild Pain (1-3) or Fever Albuterol/Ipratropium 3 ml 11/30/24 20:00 12/01/24 07:18 Ipratropium 0.5 Mg/Albuterol Sulfate 2.5 Mg (Base) Ampul.Neb 3 Ml INHALATION 3 ml Q6HRT SPEEDY Administration Atorvastatin Calcium 10 mg 11/30/24 21:00 11/30/24 21:18 Atorvastatin 10 Mg Tablet PO 10 mg HS SPEEDY Administration Benzonatate 100 mg 11/30/24 15:44 Benzonatate 100 Mg Capsule PO TID PRN Cough Dextrose 12.5 gm 11/30/24 15:49 Dextrose 50% 25 Gm/50 Ml Syringe IV PUSH PRN PRN Hypoglycemia Protocol Divalproex Sodium 1,000 mg 12/01/24 08:00 12/01/24 10:21 Divalproex Sodium Er 500 Mg Tab.24h PO 1,000 mg DAILY@0800 SPEEDY Administration Divalproex Sodium 500 mg 11/30/24 21:00 11/30/24 21:18 Divalproex Sodium Er 500 Mg Tab.24h PO 500 mg HS SPEEDY Administration Glucagon 1 mg 11/30/24 15:49 Glucagon For Inj 1 Mg Vial IM PRN PRN Hypoglycemia Protocol Glucose 15 gm 11/30/24 15:49 Glucose Oral Gel 15 Gm Of Glucse In 37.5 Gm Tube PO PRN PRN Hypoglycemia Protocol Guaifenesin 12 mg 11/30/24 21:00 11/30/24 21:31 Guaifenesin 12 Hr 600 Mg Tabcr PO Not Given Q12HR SPEEDY Azithromycin 500 mg/ Sodium 250 mls @ 250 mls/hr 12/01/24 09:00 12/01/24 10:17 Chloride IVPB 12/04/24 09:59 250 mls/hr Q24H SPEEDY Administration Cefepime HCl 2 gm/ Sodium 50 mls @ 100 mls/hr 11/30/24 22:00 12/01/24 05:02 Chloride IVPB 100 mls/hr Q8HR SPEEDY Administration Dextrose 1,000 mls @ 100 mls/hr 11/30/24 15:49 Dextrose 5% 1,000 Ml IVPB PRN PRN Hypoglycemia Protocol Insulin Aspart 2 - 5 units 11/30/24 17:00 12/01/24 10:19 Insulin Aspart (*Bkc) 100 Units/Ml SUB-Q Not Given TIDWM SPEEDY Protocol Insulin Aspart 1 - 2 units 11/30/24 21:00 11/30/24 21:12 Insulin Aspart (*Bkc) 100 Units/Ml SUB-Q Not Given HS [facility] Protocol Insulin Glargine 10 units 11/30/24 21:00 11/30/24 21:17 Insulin Glargine (*Bkc) 100 Units/Ml SUB-Q 10 units HS SPEEDY Administration Memantine 10 mg 11/30/24 17:00 12/01/24 10:18 Memantine 10 Mg Tablet PO 10 mg BID SPEEDY Administration Methocarbamol 750 mg 11/30/24 15:51 Methocarbamol 750 Mg Tablet PO BID PRN unknown Midodrine 10 mg 11/30/24 17:00 12/01/24 10:18 Midodrine Hcl 10 Mg Tablet PO 10 mg TID SPEEDY Administration Miscellaneous Information 0 each 11/30/24 00:01 12/01/24 10:20 Divalproex Clarify Dosing External Med Record Shows Pt Takes 2qam 1qpm XX 12/30/24 00:00 Not Given CLARIFY [facility] Miscellaneous Information 0 each 11/30/24 00:01 Methocarbamol Need Prn Indication XX 12/30/24 00:00 CLARIFY SPEEDY Pantoprazole Sodium 40 mg 12/01/24 09:00 12/01/24 10:17 Pantoprazole 40 Mg Tablet PO 40 mg DAILY SPEEDY Administration Perflutren Lipid Microsphere 0 ml 11/30/24 15:41 Perflutren Lipid Microspheres 1.5 Ml Vial Diluted To 10 Ml Total Volume IV PUSH 12/03/24 15:41 ONCE PRN adequate visualization Protocol Rivaroxaban 20 mg 12/01/24 09:00 12/01/24 10:19 Rivaroxaban 20 Mg Tablet PO 20 mg DAILY SPEEDY Administration Tamsulosin HCl 0.8 mg 12/01/24 09:00 12/01/24 10:18 Tamsulosin Hcl 0.4 Mg Capsule PO 0.8 mg DAILY SPEEDY Administration Vitamin D 125 mcg 12/01/24 09:00 12/01/24 10:18 Cholecalciferol (Vitamin D3) 125 Mcg (5,000 Units) Tablet PO 125 mcg DAILY SPEEDY Administration Radiology Results: ITS Impressions Chest CT 11/30/24 14:20 IMPRESSION: 1. Bilateral severe bronchopneumonia superimposed on chronic lung disease with probable reactive mediastinal lymphadenopathy. Follow-up recommended to assess resolution Chest X-Ray 12/01/24 07:31 Impression: 1: Bilateral airspace disease with sparing of the upper lobes, compatible with pneumonia. Labs Labs: Laboratory Results - last 24 hr 11/30/24 11/30/24 11/30/24 09:19 12:40 13:09 WBC RBC Hgb Hct MCV MCH MCHC RDW Plt Count MPV Immature Gran % (Auto) Neut % (Auto) Lymph % (Auto) [place] % (Auto) Eos % (Auto) Baso % (Auto) Lymph # (Auto) [place] # (Auto) Eos # (Auto) Baso # (Auto) Abs Immat Gran (auto) Absolute Neuts (auto) Absolute Nucleated RBC Band Neutrophils % Nucleated RBC % Platelet Estimate Hypochromasia Anisocytosis Target Cells Ovalocytes Schistocytes Puncture Site ABG pH ABG pCO2 ABG pO2 ABG PO2/FiO2 Ratio ABG HCO3 ABG O2 Saturation ABG O2 Content ABG Base Excess A-a Gradient Oxyhemoglobin Total Hemoglobin O2 Delivery Device O2 Liters/Min FiO2 Sodium Potassium Chloride Carbon Dioxide Anion Gap BUN Creatinine Estim Creat Clear Calc Estimated GFR Glucose POC Capillary Glucose Hemoglobin A1c Lactic Acid Calcium Total Bilirubin AST ALT Alkaline Phosphatase Total Creatine Kinase C-Reactive Protein 4.9 H NT-Pro-B Natriuret Pep Total Protein Albumin Procalcitonin Nasal MRSA (PCR) Not detected Not detected Rheumatoid Factor Rheumatoid Factor Scrn Rheumatoid Factor Titer Anti-Cycl Citrul Peptide Anti-Proteinase 3 FEIA c/o 1.9 Anti-Myeloperoxidase 11/30/24 11/30/24 11/30/24 16:54 17:23 21:09 WBC RBC Hgb Hct MCV MCH MCHC RDW Plt Count MPV Immature Gran % (Auto) Neut % (Auto) Lymph % (Auto) [place] % (Auto) Eos % (Auto) Baso % (Auto) Lymph # (Auto) [place] # (Auto) Eos # (Auto) Baso # (Auto) Abs Immat Gran (auto) Absolute Neuts (auto) Absolute Nucleated RBC Band Neutrophils % Nucleated RBC % Platelet Estimate Hypochromasia Anisocytosis Target Cells Ovalocytes Schistocytes Puncture Site ABG pH ABG pCO2 ABG pO2 ABG PO2/FiO2 Ratio ABG HCO3 ABG O2 Saturation ABG O2 Content ABG Base Excess A-a Gradient Oxyhemoglobin Total Hemoglobin O2 Delivery Device O2 Liters/Min FiO2 Sodium Potassium Chloride Carbon Dioxide Anion Gap BUN Creatinine Estim Creat Clear Calc Estimated GFR Glucose POC Capillary Glucose 151 H 167 H 129 H Hemoglobin A1c Lactic Acid Calcium Total Bilirubin AST ALT Alkaline Phosphatase Total Creatine Kinase C-Reactive Protein NT-Pro-B Natriuret Pep Total Protein Albumin Procalcitonin Nasal MRSA (PCR) Rheumatoid Factor Rheumatoid Factor Scrn Rheumatoid Factor Titer Anti-Cycl Citrul Peptide Anti-Proteinase 3 FEIA c/o 1.9 Anti-Myeloperoxidase 12/01/24 12/01/24 12/01/24 05:00 06:03 07:40 WBC 16.3 H RBC 2.85 L Hgb 9.6 L Hct 30.4 L MCV 106.7 H MCH 33.7 MCHC 31.6 L RDW 17.2 H Plt Count 159 MPV 10.9 H Immature Gran % (Auto) 0.9 H Neut % (Auto) 78.3 H Lymph % (Auto) 6.8 L [place] % (Auto) 9.6 H Eos % (Auto) 4.3 Baso % (Auto) 0.1 L Lymph # (Auto) 1.10 [place] # (Auto) 1.6 H Eos # (Auto) 0.7 H Baso # (Auto) 0.0 Abs Immat Gran (auto) 0.14 H Absolute Neuts (auto) 12.8 H Absolute Nucleated RBC 0.000 Band Neutrophils % Not Reportable Nucleated RBC % 0.0 Platelet Estimate Adequate Hypochromasia 1+ Anisocytosis 1+ Target Cells Occasional Ovalocytes Occasional Schistocytes None seen Puncture Site Right radial ABG pH 7.480 H ABG pCO2 40.1 ABG pO2 78.7 L ABG PO2/FiO2 Ratio 1.97 ABG HCO3 29.2 H ABG O2 Saturation 96.4 ABG O2 Content 14.2 L ABG Base Excess 5.3 A-a Gradient 160.4 Oxyhemoglobin 94.6 Total Hemoglobin 10.6 L O2 Delivery Device Other device O2 Liters/Min FiO2 40 Sodium 137 Potassium 4.0 Chloride 102 Carbon Dioxide 32 H Anion Gap 3 L BUN 17 Creatinine 0.77 Estim Creat Clear Calc 80 Estimated GFR > 60 Glucose 121 H POC Capillary Glucose 109 H Hemoglobin A1c 5.5 Lactic Acid 1.2 Calcium 7.9 L Total Bilirubin 0.7 AST 44 ALT 16 Alkaline Phosphatase 62 Total Creatine Kinase 362 H C-Reactive Protein 8.5 H NT-Pro-B Natriuret Pep 1930 H Total Protein 5.7 L Albumin 2.5 L Procalcitonin 0.2 Nasal MRSA (PCR) Rheumatoid Factor < 12.0 Rheumatoid Factor Scrn Cancelled Rheumatoid Factor Titer Cancelled Anti-Cycl Citrul Peptide Cancelled Anti-Proteinase 3 FEIA c/o 1.9 Cancelled Anti-Myeloperoxidase Cancelled 12/01/24 11:17 WBC RBC Hgb Hct MCV MCH MCHC RDW Plt Count MPV Immature Gran % (Auto) Neut % (Auto) Lymph % (Auto) [place] % (Auto) Eos % (Auto) Baso % (Auto) Lymph # (Auto) [place] # (Auto) Eos # (Auto) Baso # (Auto) Abs Immat Gran (auto) Absolute Neuts (auto) Absolute Nucleated RBC Band Neutrophils % Nucleated RBC % Platelet Estimate Hypochromasia Anisocytosis Target Cells Ovalocytes Schistocytes Puncture Site ABG pH ABG pCO2 ABG pO2 ABG PO2/FiO2 Ratio ABG HCO3 ABG O2 Saturation ABG O2 Content ABG Base Excess A-a Gradient Oxyhemoglobin Total Hemoglobin O2 Delivery Device O2 Liters/Min FiO2 Sodium Potassium Chloride Carbon Dioxide Anion Gap BUN Creatinine Estim Creat Clear Calc Estimated GFR Glucose POC Capillary Glucose 159 H Hemoglobin A1c Lactic Acid Calcium Total Bilirubin AST ALT Alkaline Phosphatase Total Creatine Kinase C-Reactive Protein NT-Pro-B Natriuret Pep Total Protein Albumin Procalcitonin Nasal MRSA (PCR) Rheumatoid Factor Rheumatoid Factor Scrn Rheumatoid Factor Titer Anti-Cycl Citrul Peptide Anti-Proteinase 3 FEIA c/o 1.9 Anti-Myeloperoxidase
[2024-12-01] MEDS: FUROSEMIDE INJ 40 MG/4 ML VIAL IV PUSH ×2 (14:35→17:54)
--- NOTE | 2024-12-01 15:15 | ECG_ITS ---
Test Date: 2024-12-01 15:38:19 Measurements Intervals [place] Rate: 122 P: 0 W[place]: 0 QRS: -38 QRSD: 101 T: 166 QT: 406 QTc: 580 Interpretive Statements ATRIAL FIBRILLATION WITH RAPID VENTRICULAR RESPONSE LEFT AXIS DEVIATION LOW QRS VOLTAGE IN PRECORDIAL LEADS BORDERLINE ST-T WAVE ABNORMALITY- ANTEROLAT/HIGH LAT LEADS BASELINE ARTIFACT- I, II, AVR, AVL, AVF, V1-V6 ABNORMAL ECG Compared to ECG 11/30/2024 08:53:38 HEART RATE HAS INCREASED Electronically Signed On 12-01-2024 15:40:38 CDT by Guanaco Up D.O.
[2024-12-01 15:39] LABS: Alveolar/Arterial O2 Gradient 460.0 mmHg; Fractional Inspired Oxygen 80 %; HCO3 ABG 25.7 mEq/l (22.0-26.0); Oxygen Content ABG 15.0 %vol (16.0-22.0); Oxygen Saturation ABG 96.3 % (95.0-100.0); PCO2 ABG 33.3 mmHg (35.0-45.0); PO2 ABG 75.4 mmHg (80.0-100.0); PO2 FiO2 Ratio Arterial Blood 0.94 %
[2024-12-01 15:48] LABS: Modified Allen's Test Pass; Site Drawn RIGHT RADIAL
[2024-12-01 15:49] LABS: Liters per Minute 60.0 LPM
[2024-12-01] MEDS: INSULIN ASPART (*BKC) 100 UNITS/ML SUB-Q (21:16)
[2024-12-01] MEDS: INSULIN GLARGINE (*BKC) 100 UNITS/ML 10 UNITS SUB-Q (21:17)
[2024-12-01] MEDS: DIVALPROEX SODIUM ER 500 MG TAB.24H PO (21:18)
[2024-12-01] MEDS: ATORVASTATIN 10 MG TABLET PO (21:19)
[2024-12-01] MEDS: guaiFENesin 12 HR 600 MG TABCR 1200 MG PO (21:19)
[2024-12-02] VITALS (34 sets, daily range): BP systolic 96–135; BP diastolic 52–74; PULSE 88–118; RESP 18–36; TEMP 36.1–36.8; O2SAT 92–98
[2024-12-02 04:32] LABS: Hematocrit 30.3 % (42.0-52.0); Hemoglobin 9.7 g/dL (14.0-18.0); Immature Granulocyte Percent A 1.0 % (0-0.5); Lymphocytes Absolute Auto 1.49 K/mm3 (0.9-3.2); Mean Corpuscular HGB Conc 32.0 g/dl (32-36); Mean Corpuscular Hemoglobin 33.4 pg (26-34); Mean Corpuscular Volume 104.5 fl (80-100); Nucleated Red Blood Cells Absolute Auto 0.000 K/mm3 (0.0-0.012); Nucleated Red Blood Cells Perc 0.0 % (0.0-0.2); Platelet Count Result 148 k/mm3 (150-375); Red Blood Count 2.90 M/mm3 (4.6-6.20); White Blood Count 15.2 K/mm3 (4.5-10.0)
[2024-12-02 04:54] LABS: Magnesium 1.7 mg/dL (1.6-2.3)
[2024-12-02] MEDS: CEFEPIME 2 GM in SODIUM CHLORIDE 0.9% IV 50 ML 100 ML IVPB ×3 (06:03→21:20)
[2024-12-02] MEDS: IPRATROPIUM 0.5 MG/ALBUTEROL SULFATE 2.5 MG (BASE) AMPUL.NEB 3 ML INHALATION ×3 (07:40→19:53)
[2024-12-02] MEDS: PANTOPRAZOLE 40 MG TABLET PO (08:44)
[2024-12-02] MEDS: RIVAROXABAN 20 MG TABLET PO (08:45)
[2024-12-02] MEDS: DIVALPROEX SODIUM ER 500 MG TAB.24H 1000 MG PO (08:45)
[2024-12-02] MEDS: guaiFENesin 12 HR 600 MG TABCR 1200 MG PO ×2 (08:45→21:20)
[2024-12-02] MEDS: MIDODRINE HCL 10 MG TABLET PO ×3 (08:45→16:59)
[2024-12-02] MEDS: CHOLECALCIFEROL (VITAMIN D3) 125 MCG (5,000 UNITS) TABLET PO (08:45)
[2024-12-02] MEDS: TAMSULOSIN HCL 0.4 MG CAPSULE 0.8 MG PO (08:45)
[2024-12-02] MEDS: MEMANTINE 10 MG TABLET PO ×2 (08:45→16:59)
[2024-12-02] MEDS: FUROSEMIDE INJ 40 MG/4 ML VIAL IV PUSH ×2 (08:46→18:14)
[2024-12-02] MEDS: AZITHROMYCIN IV 500 MG in SODIUM CHLORIDE 0.9% IV 250 ML IVPB (08:46)
[2024-12-02 09:33] LABS: Alanine Aminotransferase 25 U/L (6-50); Albumin Level 2.7 g/dL (3.5-5.1); Alkaline Phosphatase 61 U/L (38-126); Anion Gap 4 mmol/L (4-12); Aspartate Amino Transferase 71 U/L (17-59); Bilirubin,Total 0.9 mg/dL (0.2-1.3); Blood Urea Nitrogen 23 mg/dL (9-20); Calcium 8.1 mg/dL (8.4-10.2); Carbon Dioxide 31 mmol/L (22-30); Chloride 98 mmol/L (98-107); Estimated CRCL calculation 90 ml/min; Estimated Glomerular Filt Rate > 60; Glucose 69 mg/dL (65-110); Potassium 3.7 mmol/L (3.4-5.0); Sodium 133 mmol/L (137-145); Total Protein 5.8 g/dL (6.3-8.2)
[2024-12-02 12:08] LABS: Anti-CCP Ab, IgG/IgA 10 units (0-19)
[2024-12-02] MEDS: INSULIN ASPART (*BKC) 100 UNITS/ML SUB-Q (12:10)
--- NOTE | 2024-12-02 12:34 | P.PNIM_ITS ---
Progress Note: A&P Assessment and Plan (1) Acute hypoxic respiratory failure: Code(s): J96.01 - Acute respiratory failure with hypoxia Status: Acute Assessment and Plan: Patient arrived to the emergency department 96% on room air. Initial concern patient was hypoxic in the 70s prior to arrival. Patient did become hypoxic in the emergency department on 11/30, dropped to 84% on room air. Subsequently placed on BiPAP. Imaging showed bilateral severe bronchopneumonia superimposed on chronic lung disease. Initial ABG showed no significant hypoxia, hypercapnia, acidosis, or alkalosis on BiPAP. - continue BiPAP for work of breathing/respiratory distress p.r.n. - started on hospital-acquired pneumonia treatment as he was recently admitted to [facility], patient additionally met criteria for sepsis and lactic was elevated - pulmonology consulted Gentle diuresis as BNP elevated Respiratory pathogen panel Urine antigens I LD workup as ordered by Pulmonary (2) Sepsis: Qualifiers: Sepsis type: sepsis due to unspecified organism Sepsis acute organ dysfunction status: with acute organ dysfunction Severe sepsis acute organ dysfunction type: acute respiratory failure Acute respiratory failure type: with hypoxia Severe sepsis shock status: without septic shock Qualified Code(s): A41.9 - Sepsis, unspecified organism; R65.20 - Severe sepsis without septic shock; J96.01 - Acute respiratory failure with hypoxia Code(s): A41.9 - Sepsis, unspecified organism Status: Acute Assessment and Plan: Patient met SIRS criteria: HR greater than 100, RR greater than 20, WBC greater than 12. +hypoxia, -hypotension. Initial lactic 3.6 -> 3.4. CRP 4.98 and procalcitonin 0.1. - blood cultures obtained on 11/30, follow. - trend lactic down - 30 mL/kg = 2.5, will give 2L at 200 mL/hr due to elevation in BNP/hx of diastolic dysfunction. monitor toleration. - suspected source: HAP - started on ceftriaxone and azithromycin, exchanged to cefepime and azithromycin on 11/30 - monitor I&Os (3) Pneumonia: Qualifiers: Laterality: bilateral Lung location: unspecified part of lung Pneumoni a type: due to unspecified organism Qualified Code(s): J18.9 - Pneumonia, unspecified organism Code(s): J18.9 - Pneumonia, unspecified organism Status: Acute Assessment and Plan: - CXR: 1. Interval worsening of chronic interstitial lung disease. 2. However bibasilar edema and/or pneumonitis or airspace disease not excluded. - Chest CT: Bilateral severe bronchopneumonia superimposed on chronic lung disease with probable reactive mediastinal lymphadenopathy. Follow-up recommended to assess resolution - risk/complicating factors: acute respiratory failure, interstitial lung disease, recent hospitalization - started on ceftriaxone and azithromycin in the ED, exchanged to cefepime and azithromycin on 11/30. No current indication for vancomycin as the patient's MRSA PCR was negative upon admission. - supportive care: Mucinex, Tylenol, DuoNebs, Tessalon Perles - sputum culture - currently requiring BiPAP for WOB, +hypoxia Still requiring high level of oxygen. Continue diuresis Chest x-ray reviewed (4) ILD (interstitial lung disease): Code(s): J84.9 - Interstitial pulmonary disease, unspecified Status: Chronic Assessment and Plan: - worsening on imaging - pulmonology consulted, see recs above (5) Diastolic congestive heart failure, NYHA class 3: Qualifiers: Congestive heart failure chronicity: unspecified Qualified Code(s): I50.30 - Unspecified diastolic (congestive) heart failure Code(s): I50.30 - Unspecified diastolic (congestive) heart failure Status: Chronic Assessment and Plan: BNP elevated at 3540. No evidence of pulmonary edema on CXR. Reviewed chart, most recent echo in 2022 showed diastolic dysfunction, normal systolic function with an estimated EF of 60 65%, valvular disease, and mild pulmonary hypertension. - update echo - receiving IV fluids due to sepsis at slower rate, monitor toleration which will be stopped and start diuresis as tolerated - monitor I&Os - daily weights Received a dose of Lasix 40 mg x 1 11/30 Will start diuresis 40 mg IV b.i.d.. With good diuresis (6) DM2 (diabetes mellitus, type 2): Code(s): E11.9 - Type 2 diabetes mellitus without complications Status: Chronic Assessment and Plan: - hypoglycemia protocol - POC blood glucose ACHS - home medication: Hold metformin in case of need for contrast. Continue Lantus 10 units HS. - correct regimen ordered - low dose TIDWM and HS, based off BMI - A1C 6.4% in 2022, update (7) Chronic anticoagulation: Code(s): Z79.01 - jail (current) use of anticoagulants Status: Chronic Assessment and Plan: - continue Xarelto (8) Chronic hypotension: Code(s): I95.89 - Other hypotension Status: Acute Assessment and Plan: - continue home medications: Midodrine - monitor Plan Diet: Heart healthy GI Prophylaxis: N/a DVT Prophylaxis: Xarelto Lines/Tubes: Peripheral IV Code Status: Full code discussed with the patient and family Subjective Date/time seen: 12/02/24 12:34 Interval history: No overnight events. Patient was hypoxic on Airvo requiring high oxygen. Needed to be placed on BiPAP for oxygenation. Review of Systems Review of Systems: All systems reviewed & are unremarkable except as noted in HPI and below Exam Narrative: APPEARANCE: Ill-appearing not in acute distress HEAD: normocephalic, atraumatic. EYES: PERRLA/EOMI, conjunctivae clear. NECK: Supple. No adenopathy, no masses. RESPIRATORY: Coarse breath sounds bilaterally, mildly tachypneic CARDIOVASCULAR: Mildly tachycardic S1-S2 ABDOMINAL: Soft, nontender, nondistended, normal bowel sounds MUSCULOSKELETAL: Moves all extremities. Strength/ROM intact, trace edema, No calf tenderness. NEURO: Alert. Cranial nerves II through XII intact. SKIN: Warm, dry. Normal Color Objective Data Vital Signs Vital Signs: Vital Signs - 24 hr 12/01/24 14:00 12/01/24 14:17 12/01/24 14:30 Temperature Pulse Rate 108 H 108 H Respiratory Rate 30 H 20 Blood Pressure Pulse Oximetry 98 Oxygen Delivery BiPAP BiPAP Oxygen Flow Rate 4 Fraction of Inspired Oxygen 12/01/24 14:41 12/01/24 15:05 12/01/24 15:15 Temperature Pulse Rate Respiratory Rate Blood Pressure Pulse Oximetry 89 L 94 Oxygen Delivery BiPAP High Flow Nasal Cannula High Flow Therapy with Na Oxygen Flow Rate 4 15 60 Fraction of Inspired Oxygen 80 12/01/24 16:00 12/01/24 16:00 12/01/24 16:00 Temperature 99 F Pulse Rate 114 H 114 H 107 H Respiratory Rate 20 28 H Blood Pressure 110/52 L Pulse Oximetry 94 98 Oxygen Delivery High Flow Therapy with Na Oxygen Flow Rate 60 Fraction of Inspired Oxygen 80 12/01/24 18:00 12/01/24 20:00 12/01/24 20:01 Temperature 99.0 F Pulse Rate 117 H 98 96 Respiratory Rate 21 H Blood Pressure 118/58 L Pulse Oximetry 100 Oxygen Delivery Oxygen Flow Rate Fraction of Inspired Oxygen 12/01/24 20:08 12/01/24 20:14 12/01/24 22:00 Temperature Pulse Rate 94 94 93 Respiratory Rate 32 H 32 H Blood Pressure Pulse Oximetry 99 Oxygen Delivery High Flow Therapy with Na Oxygen Flow Rate 60 Fraction of Inspired Oxygen 70 12/01/24 23:49 12/02/24 00:00 12/02/24 02:00 Temperature 98.0 F Pulse Rate 94 94 94 Respiratory Rate 20 Blood Pressure 139/77 Pulse Oximetry 100 Oxygen Delivery Oxygen Flow Rate Fraction of Inspired Oxygen 12/02/24 03:16 12/02/24 03:26 12/02/24 03:58 Temperature 97.9 F Pulse Rate 98 100 Respiratory Rate 24 H 20 Blood Pressure 135/73 Pulse Oximetry 96 96 96 Oxygen Delivery High Flow Therapy with Na High Flow Therapy with Na Oxygen Flow Rate 50 40 Fraction of Inspired Oxygen 50 50 12/02/24 04:00 12/02/24 06:00 12/02/24 07:25 Temperature 97.7 F Pulse Rate 92 98 102 H Respiratory Rate 20 Blood Pressure 121/71 Pulse Oximetry 94 Oxygen Delivery Oxygen Flow Rate Fraction of Inspired Oxygen 12/02/24 07:42 12/02/24 07:44 12/02/24 07:47 Temperature Pulse Rate 116 H 116 H 110 H Respiratory Rate 18 20 22 H Blood Pressure Pulse Oximetry 94 Oxygen Delivery High Flow Therapy with Na Oxygen Flow Rate 40 Fraction of Inspired Oxygen 50 12/02/24 09:30 12/02/24 09:42 12/02/24 10:33 Temperature 98.2 F Pulse Rate 111 H 112 H 88 Respiratory Rate 26 H 36 H 28 H Blood Pressure 110/60 Pulse Oximetry 97 95 96 Oxygen Delivery BiPAP BiPAP Oxygen Flow Rate Fraction of Inspired Oxygen 12/02/24 10:35 12/02/24 10:45 12/02/24 11:33 Temperature 98.0 F Pulse Rate 96 96 93 Respiratory Rate 25 H 27 H 21 H Blood Pressure 100/52 L Pulse Oximetry 96 98 98 Oxygen Delivery BiPAP High Flow Therapy with Na Oxygen Flow Rate 60 Fraction of Inspired Oxygen 80 Intake/Output Intake/Output: Intake & Output 11/29/24 11/30/24 12/01/24 12/02/24 23:59 23:59 23:59 23:59 Intake Total 973.3 1670 1252 Output Total 1100 3350 1400 Balance -126.7 -1680 -148 Meds/Results Medications: Active Medications Generic Name Dose Route Start Last Admin Trade Name Freq PRN Reason Stop Dose Admin Acetaminophen 650 mg 11/30/24 15:47 Acetaminophen 325 Mg Tablet PO Q6H PRN Mild Pain (1-3) or Fever Albuterol/Ipratropium 3 ml 11/30/24 20:00 12/02/24 07:40 Ipratropium 0.5 Mg/Albuterol Sulfate 2.5 Mg (Base) Ampul.Neb 3 Ml INHALATION 3 ml Q6HRT SPEEDY Administration Atorvastatin Calcium 10 mg 11/30/24 21:00 12/01/24 21:19 Atorvastatin 10 Mg Tablet PO 10 mg HS SPEEDY Administration Benzonatate 100 mg 11/30/24 15:44 Benzonatate 100 Mg Capsule PO TID PRN Cough Dextrose 12.5 gm 11/30/24 15:49 Dextrose 50% 25 Gm/50 Ml Syringe IV PUSH PRN PRN Hypoglycemia Protocol Divalproex Sodium 1,000 mg 12/01/24 08:00 12/02/24 08:45 Divalproex Sodium Er 500 Mg Tab.24h PO 1,000 mg DAILY@0800 SPEEDY Administration Divalproex Sodium 500 mg 11/30/24 21:00 12/01/24 21:18 Divalproex Sodium Er 500 Mg Tab.24h PO 500 mg HS SPEEDY Administration Furosemide 40 mg 12/01/24 13:45 12/02/24 08:46 Furosemide Inj 40 Mg/4 Ml Vial IV PUSH 40 mg BID SPEEDY Administration Glucagon 1 mg 11/30/24 15:49 Glucagon For Inj 1 Mg Vial IM PRN PRN Hypoglycemia Protocol Glucose 15 gm 11/30/24 15:49 Glucose Oral Gel 15 Gm Of Glucse In 37.5 Gm Tube PO PRN PRN Hypoglycemia Protocol Guaifenesin 1,200 mg 12/01/24 21:00 12/02/24 08:45 Guaifenesin 12 Hr 600 Mg Tabcr PO 1,200 mg Q12HR SPEEDY Administration Azithromycin 500 mg/ Sodium 250 mls @ 250 mls/hr 12/01/24 09:00 12/02/24 08:46 Chloride IVPB 12/04/24 09:59 250 mls/hr Q24H SPEEDY Administration Cefepime HCl 2 gm/ Sodium 50 mls @ 100 mls/hr 11/30/24 22:00 12/02/24 06:03 Chloride IVPB 100 mls/hr Q8HR SPEEDY Administration Dextrose 1,000 mls @ 100 mls/hr 11/30/24 15:49 Dextrose 5% 1,000 Ml IVPB PRN PRN Hypoglycemia Protocol Insulin Aspart 2 - 5 units 11/30/24 17:00 12/02/24 12:10 Insulin Aspart (*Bkc) 100 Units/Ml SUB-Q 3 units TIDWM SPEEDY Administration Protocol Insulin Aspart 1 - 2 units 11/30/24 21:00 12/01/24 21:16 Insulin Aspart (*Bkc) 100 Units/Ml SUB-Q 1 units HS SPEEDY Administration Protocol Insulin Glargine 10 units 11/30/24 21:00 12/01/24 21:17 Insulin Glargine (*Bkc) 100 Units/Ml SUB-Q 10 units HS SPEEDY Administration Memantine 10 mg 11/30/24 17:00 12/02/24 08:45 Memantine 10 Mg Tablet PO 10 mg BID SPEEDY Administration Methocarbamol 750 mg 11/30/24 15:51 Methocarbamol 750 Mg Tablet PO BID PRN unknown Midodrine 10 mg 11/30/24 17:00 12/02/24 12:11 Midodrine Hcl 10 Mg Tablet PO 10 mg TID SPEEDY Administration Miscellaneous Information 0 each 11/30/24 00:01 12/01/24 10:20 Divalproex Clarify Dosing External Med Record Shows Pt Takes 2qam 1qpm XX 12/30/24 00:00 Not Given [facility] Miscellaneous Information 0 each 11/30/24 00:01 Methocarbamol Need Prn Indication XX 12/30/24 00:00 CLARIFY SPEEDY Pantoprazole Sodium 40 mg 12/01/24 09:00 12/02/24 08:44 Pantoprazole 40 Mg Tablet PO 40 mg DAILY SPEEDY Administration Perflutren Lipid Microsphere 0 ml 11/30/24 15:41 Perflutren Lipid Microspheres 1.5 Ml Vial Diluted To 10 Ml Total Volume IV PUSH 12/03/24 15:41 ONCE PRN adequate visualization Protocol Rivaroxaban 20 mg 12/01/24 09:00 12/02/24 08:45 Rivaroxaban 20 Mg Tablet PO 20 mg DAILY SPEEDY Administration Tamsulosin HCl 0.8 mg 12/01/24 09:00 12/02/24 08:45 Tamsulosin Hcl 0.4 Mg Capsule PO 0.8 mg DAILY SPEEDY Administration Vitamin D 125 mcg 12/01/24 09:00 12/02/24 08:45 Cholecalciferol (Vitamin D3) 125 Mcg (5,000 Units) Tablet PO 125 mcg DAILY SPEEDY Administration Radiology Results: ITS Impressions Chest CT 11/30/24 14:20 IMPRESSION: 1. Bilateral severe bronchopneumonia superimposed on chronic lung disease with probable reactive mediastinal lymphadenopathy. Follow-up recommended to assess resolution Chest X-Ray 12/02/24 11:27 IMPRESSION: 1. No significant change from one day prior. 2. Pulmonary edema, pneumonitis, and/or airspace disease. 3. Background interstitial lung disease. Labs Labs: Laboratory Results - last 24 hr 12/01/24 12/01/24 12/01/24 06:03 15:36 17:17 WBC RBC Hgb Hct MCV MCH MCHC RDW Plt Count MPV Immature Gran % (Auto) Neut % (Auto) Lymph % (Auto) [place] % (Auto) Eos % (Auto) Baso % (Auto) Lymph # (Auto) [place] # (Auto) Eos # (Auto) Baso # (Auto) Abs Immat Gran (auto) Absolute Neuts (auto) Absolute Nucleated RBC Nucleated RBC % Puncture Site Right radial ABG pH 7.505 H* ABG pCO2 33.3 L ABG pO2 75.4 L ABG PO2/FiO2 Ratio 0.94 ABG HCO3 25.7 ABG O2 Saturation 96.3 ABG O2 Content 15.0 L ABG Base Excess 2.8 A-a Gradient 460.0 Oxyhemoglobin 94.1 Total Hemoglobin 11.3 L O2 Delivery Device High flow therapy O2 Liters/Min 60.0 FiO2 80 Sodium Potassium Chloride Carbon Dioxide Anion Gap BUN Creatinine Estim Creat Clear Calc Estimated GFR Glucose POC Capillary Glucose 169 H Calcium Magnesium Total Bilirubin AST ALT Alkaline Phosphatase Total Protein Albumin CCP IgG/IgA Ab 10 12/01/24 12/02/24 12/02/24 21:13 00:24 03:56 WBC 15.2 H RBC 2.90 L Hgb 9.7 L Hct 30.3 L MCV 104.5 H MCH 33.4 MCHC 32.0 RDW 16.7 H Plt Count 148 L MPV 11.2 H Immature Gran % (Auto) 1.0 H Neut % (Auto) 71.5 Lymph % (Auto) 9.8 L [place] % (Auto) 9.3 H Eos % (Auto) 8.3 H Baso % (Auto) 0.1 L Lymph # (Auto) 1.49 [place] # (Auto) 1.4 H Eos # (Auto) 1.3 H Baso # (Auto) 0.0 Abs Immat Gran (auto) 0.15 H Absolute Neuts (auto) 10.9 H Absolute Nucleated RBC 0.000 Nucleated RBC % 0.0 Puncture Site ABG pH ABG pCO2 ABG pO2 ABG PO2/FiO2 Ratio ABG HCO3 ABG O2 Saturation ABG O2 Content ABG Base Excess A-a Gradient Oxyhemoglobin Total Hemoglobin O2 Delivery Device O2 Liters/Min FiO2 Sodium 133 L Potassium Chloride Carbon Dioxide Anion Gap BUN Creatinine Estim Creat Clear Calc Estimated GFR Glucose POC Capillary Glucose 223 H 103 Calcium Magnesium Total Bilirubin AST ALT Alkaline Phosphatase Total Protein Albumin CCP IgG/IgA Ab 12/02/24 12/02/24 12/02/24 03:56 03:56 03:56 WBC RBC Hgb Hct MCV MCH MCHC RDW Plt Count MPV Immature Gran % (Auto) Neut % (Auto) Lymph % (Auto) [place] % (Auto) Eos % (Auto) Baso % (Auto) Lymph # (Auto) [place] # (Auto) Eos # (Auto) Baso # (Auto) Abs Immat Gran (auto) Absolute Neuts (auto) Absolute Nucleated RBC Nucleated RBC % Puncture Site ABG pH ABG pCO2 ABG pO2 ABG PO2/FiO2 Ratio ABG HCO3 ABG O2 Saturation ABG O2 Content ABG Base Excess A-a Gradient Oxyhemoglobin Total Hemoglobin O2 Delivery Device O2 Liters/Min FiO2 Sodium Cancelled Potassium 3.7 Cancelled Chloride 98 Cancelled Carbon Dioxide 31 H Anion Gap BUN Creatinine Estim Creat Clear Calc Estimated GFR Glucose POC Capillary Glucose Calcium Magnesium Total Bilirubin AST ALT Alkaline Phosphatase Total Protein Albumin CCP IgG/IgA Ab 12/02/24 12/02/24 12/02/24 03:56 03:56 03:56 WBC RBC Hgb Hct MCV MCH MCHC RDW Plt Count MPV Immature Gran % (Auto) Neut % (Auto) Lymph % (Auto) [place] % (Auto) Eos % (Auto) Baso % (Auto) Lymph # (Auto) [place] # (Auto) Eos # (Auto) Baso # (Auto) Abs Immat Gran (auto) Absolute Neuts (auto) Absolute Nucleated RBC Nucleated RBC % Puncture Site ABG pH ABG pCO2 ABG pO2 ABG PO2/FiO2 Ratio ABG HCO3 ABG O2 Saturation ABG O2 Content ABG Base Excess A-a Gradient Oxyhemoglobin Total Hemoglobin O2 Delivery Device O2 Liters/Min FiO2 Sodium Potassium Chloride Carbon Dioxide Cancelled Anion Gap 4 Cancelled BUN 23 H Cancelled Creatinine 0.68 L Estim Creat Clear Calc Estimated GFR Glucose POC Capillary Glucose Calcium Magnesium Total Bilirubin AST ALT Alkaline Phosphatase Total Protein Albumin CCP IgG/IgA Ab 12/02/24 12/02/24 12/02/24 03:56 03:56 03:56 WBC RBC Hgb Hct MCV MCH MCHC RDW Plt Count MPV Immature Gran % (Auto) Neut % (Auto) Lymph % (Auto) [place] % (Auto) Eos % (Auto) Baso % (Auto) Lymph # (Auto) [place] # (Auto) Eos # (Auto) Baso # (Auto) Abs Immat Gran (auto) Absolute Neuts (auto) Absolute Nucleated RBC Nucleated RBC % Puncture Site ABG pH ABG pCO2 ABG pO2 ABG PO2/FiO2 Ratio ABG HCO3 ABG O2 Saturation ABG O2 Content ABG Base Excess A-a Gradient Oxyhemoglobin Total Hemoglobin O2 Delivery Device O2 Liters/Min FiO2 Sodium Potassium Chloride Carbon Dioxide Anion Gap BUN Creatinine Cancelled Estim Creat Clear Calc 90 Cancelled Estimated GFR > 60 Cancelled Glucose 69 POC Capillary Glucose Calcium Magnesium Total Bilirubin AST ALT Alkaline Phosphatase Total Protein Albumin CCP IgG/IgA Ab 12/02/24 12/02/24 12/02/24 03:56 03:56 03:56 WBC RBC Hgb Hct MCV MCH MCHC RDW Plt Count MPV Immature Gran % (Auto) Neut % (Auto) Lymph % (Auto) [place] % (Auto) Eos % (Auto) Baso % (Auto) Lymph # (Auto) [place] # (Auto) Eos # (Auto) Baso # (Auto) Abs Immat Gran (auto) Absolute Neuts (auto) Absolute Nucleated RBC Nucleated RBC % Puncture Site ABG pH ABG pCO2 ABG pO2 ABG PO2/FiO2 Ratio ABG HCO3 ABG O2 Saturation ABG O2 Content ABG Base Excess A-a Gradient Oxyhemoglobin Total Hemoglobin O2 Delivery Device O2 Liters/Min FiO2 Sodium Potassium Chloride Carbon Dioxide Anion Gap BUN Creatinine Estim Creat Clear Calc Estimated GFR Glucose Cancelled POC Capillary Glucose Calcium 8.1 L Cancelled Magnesium 1.7 Total Bilirubin 0.9 Cancelled AST 71 H ALT Alkaline Phosphatase Total Protein Albumin CCP IgG/IgA Ab 12/02/24 12/02/24 12/02/24 03:56 03:56 03:56 WBC RBC Hgb Hct MCV MCH MCHC RDW Plt Count MPV Immature Gran % (Auto) Neut % (Auto) Lymph % (Auto) [place] % (Auto) Eos % (Auto) Baso % (Auto) Lymph # (Auto) [place] # (Auto) Eos # (Auto) Baso # (Auto) Abs Immat Gran (auto) Absolute Neuts (auto) Absolute Nucleated RBC Nucleated RBC % Puncture Site ABG pH ABG pCO2 ABG pO2 ABG PO2/FiO2 Ratio ABG HCO3 ABG O2 Saturation ABG O2 Content ABG Base Excess A-a Gradient Oxyhemoglobin Total Hemoglobin O2 Delivery Device O2 Liters/Min FiO2 Sodium Potassium Chloride Carbon Dioxide Anion Gap BUN Creatinine Estim Creat Clear Calc Estimated GFR Glucose POC Capillary Glucose Calcium Magnesium Total Bilirubin AST Cancelled ALT 25 Cancelled Alkaline Phosphatase 61 Cancelled Total Protein 5.8 L Albumin CCP IgG/IgA Ab 12/02/24 12/02/24 12/02/24 03:56 03:56 07:22 WBC RBC Hgb Hct MCV MCH MCHC RDW Plt Count MPV Immature Gran % (Auto) Neut % (Auto) Lymph % (Auto) [place] % (Auto) Eos % (Auto) Baso % (Auto) Lymph # (Auto) [place] # (Auto) Eos # (Auto) Baso # (Auto) Abs Immat Gran (auto) Absolute Neuts (auto) Absolute Nucleated RBC Nucleated RBC % Puncture Site ABG pH ABG pCO2 ABG pO2 ABG PO2/FiO2 Ratio ABG HCO3 ABG O2 Saturation ABG O2 Content ABG Base Excess A-a Gradient Oxyhemoglobin Total Hemoglobin O2 Delivery Device O2 Liters/Min FiO2 Sodium Potassium Chloride Carbon Dioxide Anion Gap BUN Creatinine Estim Creat Clear Calc Estimated GFR Glucose POC Capillary Glucose 115 H Calcium Magnesium Total Bilirubin AST ALT Alkaline Phosphatase Total Protein Cancelled Albumin 2.7 L Cancelled CCP IgG/IgA Ab 12/02/24 10:57 WBC RBC Hgb Hct MCV MCH MCHC RDW Plt Count MPV Immature Gran % (Auto) Neut % (Auto) Lymph % (Auto) [place] % (Auto) Eos % (Auto) Baso % (Auto) Lymph # (Auto) [place] # (Auto) Eos # (Auto) Baso # (Auto) Abs Immat Gran (auto) Absolute Neuts (auto) Absolute Nucleated RBC Nucleated RBC % Puncture Site ABG pH ABG pCO2 ABG pO2 ABG PO2/FiO2 Ratio ABG HCO3 ABG O2 Saturation ABG O2 Content ABG Base Excess A-a Gradient Oxyhemoglobin Total Hemoglobin O2 Delivery Device O2 Liters/Min FiO2 Sodium Potassium Chloride Carbon Dioxide Anion Gap BUN Creatinine Estim Creat Clear Calc Estimated GFR Glucose POC Capillary Glucose 257 H Calcium Magnesium Total Bilirubin AST ALT Alkaline Phosphatase Total Protein Albumin CCP IgG/IgA Ab
--- NOTE | 2024-12-02 16:35 | PC.NURSE ---
On 12/02/24, the student, Vicky Fontenot, provided care and completed [facility] documentation on this patient. I have reviewed the student's documentation and agree with the findings. Kuldeep, MSN, RN
[2024-12-02] MEDS: INSULIN GLARGINE (*BKC) 100 UNITS/ML 10 UNITS SUB-Q (21:19)
[2024-12-02] MEDS: DIVALPROEX SODIUM ER 500 MG TAB.24H PO (21:20)
[2024-12-02] MEDS: ATORVASTATIN 10 MG TABLET PO (21:20)
[2024-12-03] VITALS (24 sets, daily range): BP systolic 100–126; BP diastolic 57–79; PULSE 60–123; RESP 15–20; TEMP 36.4–36.8; O2SAT 94–100
[2024-12-03] MEDS: IPRATROPIUM 0.5 MG/ALBUTEROL SULFATE 2.5 MG (BASE) AMPUL.NEB 3 ML INHALATION ×4 (01:28→19:48)
[2024-12-03 04:36] LABS: Hematocrit 30.0 % (42.0-52.0); Hemoglobin 9.5 g/dL (14.0-18.0); Immature Granulocyte Percent A 1.2 % (0-0.5); Lymphocytes Absolute Auto 1.23 K/mm3 (0.9-3.2); Mean Corpuscular HGB Conc 31.7 g/dl (32-36); Mean Corpuscular Hemoglobin 33.3 pg (26-34); Mean Corpuscular Volume 105.3 fl (80-100); Nucleated Red Blood Cells Absolute Auto 0.000 K/mm3 (0.0-0.012); Nucleated Red Blood Cells Perc 0.0 % (0.0-0.2); Platelet Count Result 160 k/mm3 (150-375); Red Blood Count 2.85 M/mm3 (4.6-6.20); White Blood Count 13.8 K/mm3 (4.5-10.0)
[2024-12-03 05:21] LABS: Albumin Level 2.5 g/dL (3.5-5.1); Alkaline Phosphatase 68 U/L (38-126); Anion Gap 6 mmol/L (4-12); Bilirubin,Total 0.7 mg/dL (0.2-1.3); Blood Urea Nitrogen 27 mg/dL (9-20); Calcium 8.3 mg/dL (8.4-10.2); Carbon Dioxide 33 mmol/L (22-30); Chloride 93 mmol/L (98-107); Estimated CRCL calculation 80 ml/min; Estimated Glomerular Filt Rate > 60; Glucose 119 mg/dL (65-110); Potassium 3.7 mmol/L (3.4-5.0); Sodium 132 mmol/L (137-145); Total Protein 5.8 g/dL (6.3-8.2)
[2024-12-03 06:03] LABS: Alanine Aminotransferase 23 U/L (6-50); Aspartate Amino Transferase 51 U/L (17-59)
[2024-12-03] MEDS: CEFEPIME 2 GM in SODIUM CHLORIDE 0.9% IV 50 ML 100 ML IVPB ×3 (06:10→21:27)
[2024-12-03 06:56] LABS: Magnesium 1.7 mg/dL (1.6-2.3)
[2024-12-03] MEDS: FUROSEMIDE INJ 40 MG/4 ML VIAL IV PUSH ×2 (09:19→18:08)
[2024-12-03] MEDS: AZITHROMYCIN IV 500 MG in SODIUM CHLORIDE 0.9% IV 250 ML IVPB (09:19)
[2024-12-03] MEDS: MEMANTINE 10 MG TABLET PO ×2 (09:20→18:09)
[2024-12-03] MEDS: DIVALPROEX SODIUM ER 500 MG TAB.24H 1000 MG PO (09:20)
[2024-12-03] MEDS: TAMSULOSIN HCL 0.4 MG CAPSULE 0.8 MG PO (09:20)
[2024-12-03] MEDS: CHOLECALCIFEROL (VITAMIN D3) 125 MCG (5,000 UNITS) TABLET PO (09:20)
[2024-12-03] MEDS: RIVAROXABAN 20 MG TABLET PO (09:20)
[2024-12-03] MEDS: PANTOPRAZOLE 40 MG TABLET PO (09:20)
[2024-12-03] MEDS: MIDODRINE HCL 10 MG TABLET PO ×3 (09:20→18:09)
[2024-12-03] MEDS: guaiFENesin 12 HR 600 MG TABCR 1200 MG PO ×2 (09:20→21:27)
[2024-12-03] MEDS: INSULIN ASPART (*BKC) 100 UNITS/ML SUB-Q ×2 (12:11→21:28)
--- NOTE | 2024-12-03 13:10 | P.PNIM_ITS ---
Progress Note: A&P Assessment and Plan (1) Acute hypoxic respiratory failure: Code(s): J96.01 - Acute respiratory failure with hypoxia Status: Acute Assessment and Plan: Patient arrived to the emergency department 96% on room air. Initial concern patient was hypoxic in the 70s prior to arrival. Patient did become hypoxic in the emergency department on 11/30, dropped to 84% on room air. Subsequently placed on BiPAP. Imaging showed bilateral severe bronchopneumonia superimposed on chronic lung disease. Initial ABG showed no significant hypoxia, hypercapnia, acidosis, or alkalosis on BiPAP. - continue BiPAP for work of breathing/respiratory distress p.r.n. - started on hospital-acquired pneumonia treatment as he was recently admitted to [facility], patient additionally met criteria for sepsis and lactic was elevated - pulmonology consulted Gentle diuresis as BNP elevated Which he is tolerating. Respiratory pathogen panel Urine antigens I LD workup as ordered by Pulmonary continue Airvo (2) Sepsis: Qualifiers: Sepsis type: sepsis due to unspecified organism Sepsis acute organ dysfunction status: with acute organ dysfunction Severe sepsis acute organ dysfunction type: acute respiratory failure Acute respiratory failure type: with hypoxia Severe sepsis shock status: without septic shock Qualified Code(s): A41.9 - Sepsis, unspecified organism; R65.20 - Severe sepsis without septic shock; J96.01 - Acute respiratory failure with hypoxia Code(s): A41.9 - Sepsis, unspecified organism Status: Acute Assessment and Plan: Patient met SIRS criteria: HR greater than 100, RR greater than 20, WBC greater than 12. +hypoxia, -hypotension. Initial lactic 3.6 -> 3.4. CRP 4.98 and procalcitonin 0.1. - blood cultures obtained on 11/30, follow. - trend lactic down - 30 mL/kg = 2.5, will give 2L at 200 mL/hr due to elevation in BNP/hx of diastolic dysfunction. monitor toleration. - suspected source: HAP - started on ceftriaxone and azithromycin, exchanged to cefepime and azithromycin on 11/30 - monitor I&Os (3) Pneumonia: Qualifiers: Laterality: bilateral Lung location: unspecified part of lung Pneumonia type: due to unspecified organism Qualified Code(s): J18.9 - Pneumonia, unspecified organism Code(s): J18.9 - Pneumonia, unspecified organism Status: Acute Assessment and Plan: - CXR: 1. Interval worsening of chronic interstitial lung disease. 2. However bibasilar edema and/or pneumonitis or airspace disease not excluded. - Chest CT: Bilateral severe bronchopneumonia superimposed on chronic lung disease with probable reactive mediastinal lymphadenopathy. Follow-up recommended to assess resolution - risk/complicating factors: acute respiratory failure, interstitial lung disease, recent hospitalization - started on ceftriaxone and azithromycin in the ED, exchanged to cefepime and azithromycin on 11/30. No current indication for vancomycin as the patient's MRSA PCR was negative upon admission. - supportive care: Mucinex, Tylenol, DuoNebs, Tessalon Perles - sputum culture - currently requiring BiPAP for WOB, +hypoxia Still requiring high level of oxygen. Continue diuresis Chest x-ray reviewed Leukocytosis improving (4) ILD (interstitial lung disease): Code(s): J84.9 - Interstitial pulmonary disease, unspecified Status: Chronic Assessment and Plan: - worsening on imaging - pulmonology consulted, see recs above (5) Diastolic congestive heart failure, NYHA class 3: Qualifiers: Congestive heart failure chronicity: unspecified Qualified Code(s): I50.30 - Unspecified diastolic (congestive) heart failure Code(s): I50.30 - Unspecified diastolic (congestive) heart failure Status: Chronic Assessment and Plan: BNP elevated at 3540. No evidence of pulmonary edema on CXR. Reviewed chart, most recent echo in 2022 showed diastolic dysfunction, normal systolic function with an estimated EF of 60 65%, valvular disease, and mild pulmonary hy pertension. - update echo - receiving IV fluids due to sepsis at slower rate, monitor toleration which will be stopped and start diuresis as tolerated - monitor I&Os - daily weights Received a dose of Lasix 40 mg x 1 11/30 started on diuresis 40 mg IV b.i.d.. With good diuresis (6) DM2 (diabetes mellitus, type 2): Code(s): E11.9 - Type 2 diabetes mellitus without complications Status: Chronic Assessment and Plan: - hypoglycemia protocol - POC blood glucose ACHS - home medication: Hold metformin in case of need for contrast. Continue Lantus 10 units HS. 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 patient remains on Airvo. States diuresing. Denies any chest pain minimal cough. Review of Systems Review of Systems: All systems reviewed & are unremarkable except as noted in HPI and below Exam Narrative: APPEARANCE: Ill-appearing not in acute distress HEAD: normocephalic, atraumatic. EYES: PERRLA/EOMI, conjunctivae clear. NECK: Supple. No adenopathy, no masses. RESPIRATORY: Coarse breath sounds bilaterally, mildly tachypneic CARDIOVASCULAR: Mildly tachycardic S1-S2 ABDOMINAL: Soft, nontender, nondistended, normal bowel sounds MUSCULOSKELETAL: Moves all extremities. Strength/ROM intact, trace edema, No calf tenderness. NEURO: Alert. Cranial nerves II through XII intact. SKIN: Warm, dry. Normal Color Objective Data Vital Signs Vital Signs: Vital Signs - 24 hr 12/02/24 13:18 12/02/24 13:25 12/02/24 14:00 Temperature Pulse Rate 101 H 104 H 94 Respiratory Rate 25 H 22 H Blood Pressure Pulse Oximetry Oxygen Delivery Oxygen Flow Rate Fraction of Inspired Oxygen 12/02/24 16:00 12/02/24 16:25 12/02/24 17:53 Temperature 97.0 F L Pulse Rate 98 105 H 96 Respiratory Rate 20 Blood Pressure 96/53 L Pulse Oximetry 97 Oxygen Delivery Oxygen Flow Rate Fraction of Inspired Oxygen 12/02/24 18:10 12/02/24 19:30 12/02/24 19:53 Temperature 98.0 F Pulse Rate 112 H 104 H 105 H Respiratory Rate 20 18 Blood Pressure 111/74 103/58 L Pulse Oximetry 96 93 Oxygen Delivery Oxygen Flow Rate Fraction of Inspired Oxygen 12/02/24 19:56 12/02/24 20:00 12/02/24 20:02 Temperature Pulse Rate 92 118 H 105 H Respiratory Rate 22 H 18 Blood Pressure Pulse Oximetry 92 Oxygen Delivery High Flow Therapy with Na Oxygen Flow Rate 60 Fraction of Inspired Oxygen 80 12/02/24 22:00 12/03/24 00:00 12/03/24 00:00 Temperature 98.1 F Pulse Rate 101 H 108 H 103 H Respiratory Rate 20 Blood Pressure 110/59 L Pulse Oximetry 96 Oxygen Delivery Oxygen Flow Rate Fraction of Inspired Oxygen 12/03/24 01:29 12/03/24 01:34 12/03/24 02:00 Temperature Pulse Rate 100 99 92 Respiratory Rate 18 18 Blood Pressure Pulse Oximetry Oxygen Delivery Oxygen Flow Rate Fraction of Inspired Oxygen 12/03/24 04:00 12/03/24 04:00 12/03/24 06:00 Temperature 97.5 F L Pulse Rate 90 90 91 Respiratory Rate 20 Blood Pressure 105/61 Pulse Oximetry 100 Oxygen Delivery Oxygen Flow Rate Fraction of Inspired Oxygen 12/03/24 07:24 12/03/24 07:43 12/03/24 07:53 Temperature 97.8 F Pulse Rate 60 102 H 108 H Respiratory Rate 18 20 20 Blood Pressure 123/65 Pulse Oximetry 99 94 Oxygen Delivery High Flow Therapy with Na Oxygen Flow Rate 60 Fraction of Inspired Oxygen 50 12/03/24 08:00 12/03/24 10:00 12/03/24 12:00 Temperature 98.2 F Pulse Rate 107 H 98 93 Respiratory Rate 18 Blood Pressure 121/70 Pulse Oximetry 96 Oxygen Delivery Oxygen Flow Rate Fraction of Inspired Oxygen 12/03/24 12:00 Temperature Pulse Rate 112 H Respiratory Rate Blood Pressure Pulse Oximetry Oxygen Delivery Oxygen Flow Rate Fraction of Inspired Oxygen Intake/Output Intake/Output: Intake & Output 11/30/24 12/01/24 12/02/24 12/03/24 23:59 23:59 23:59 23:59 Intake Total 973.3 1670 2132 680 Output Total 1100 3350 1750 1700 Balance -126.7 -1680 382 -1020 Meds/Results Medications: Active Medications Generic Name Dose Route Start Last Admin Trade Name Freq PRN Reason Stop Dose Admin Acetaminophen 650 mg 11/30/24 15:47 Acetaminophen 325 Mg Tablet PO Q6H PRN Mild Pain (1-3) or Fever Albuterol/Ipratropium 3 ml 11/30/24 20:00 12/03/24 07:42 Ipratropium 0.5 Mg/Albuterol Sulfate 2.5 Mg (Base) Ampul.Neb 3 Ml INHALATION 3 ml Q6HRT SPEEDY Administration Atorvastatin Calcium 10 mg 11/30/24 21:00 12/02/24 21:20 Atorvastatin 10 Mg Tablet PO 10 mg HS SPEEDY Administration Benzonatate 100 mg 11/30/24 15:44 Benzonatate 100 Mg Capsule PO TID PRN Cough Dextrose 12.5 gm 11/30/24 15:49 Dextrose 50% 25 Gm/50 Ml Syringe IV PUSH PRN PRN Hypoglycemia Protocol Divalproex Sodium 1,000 mg 12/01/24 08:00 12/03/24 09:20 Divalproex Sodium Er 500 Mg Tab.24h PO 1,000 mg DAILY@0800 SPEEDY Administration Divalproex Sodium 500 mg 11/30/24 21:00 12/02/24 21:20 Divalproex Sodium Er 500 Mg Tab.24h PO 500 mg HS SPEEDY Administration Furosemide 40 mg 12/01/24 13:45 12/03/24 09:19 Furosemide Inj 40 Mg/4 Ml Vial IV PUSH 40 mg BID SPEEDY Administration Glucagon 1 mg 11/30/24 15:49 Glucagon For Inj 1 Mg Vial IM PRN PRN Hypoglycemia Protocol Glucose 15 gm 11/30/24 15:49 Glucose Oral Gel 15 Gm Of Glucse In 37.5 Gm Tube PO PRN PRN Hypoglycemia Protocol Guaifenesin 1,200 mg 12/01/24 21:00 12/03/24 09:20 Guaifenesin 12 Hr 600 Mg Tabcr PO 1,200 mg Q12HR SPEEDY Administration Azithromycin 500 mg/ Sodium 250 mls @ 250 mls/hr 12/01/24 09:00 12/03/24 09 :19 Chloride IVPB 12/04/24 09:59 250 mls/hr Q24H SPEEDY Administration Cefepime HCl 2 gm/ Sodium 50 mls @ 100 mls/hr 11/30/24 22:00 12/03/24 06:10 Chloride IVPB 100 mls/hr Q8HR SPEEDY Administration Dextrose 1,000 mls @ 100 mls/hr 11/30/24 15:49 Dextrose 5% 1,000 Ml IVPB PRN PRN Hypoglycemia Protocol Insulin Aspart 2 - 5 units 11/30/24 17:00 12/03/24 12:11 Insulin Aspart (*Bkc) 100 Units/Ml SUB-Q 2 units TIDWM SPEEDY Administration Protocol Insulin Aspart 1 - 2 units 11/30/24 21:00 12/02/24 20:59 Insulin Aspart (*Bkc) 100 Units/Ml SUB-Q Not Given HS SPEEDY Protocol Insulin Glargine 10 units 11/30/24 21:00 12/02/24 21:19 Insulin Glargine (*Bkc) 100 Units/Ml SUB-Q 10 units HS SPEEDY Administration Memantine 10 mg 11/30/24 17:00 12/03/24 09:20 Memantine 10 Mg Tablet PO 10 mg BID SPEEDY Administration Methocarbamol 750 mg 11/30/24 15:51 Methocarbamol 750 Mg Tablet PO BID PRN unknown Midodrine 10 mg 11/30/24 17:00 12/03/24 09:20 Midodrine Hcl 10 Mg Tablet PO 10 mg TID SPEEDY Administration Miscellaneous Information 0 each 11/30/24 00:01 12/03/24 09:24 Methocarbamol Need Prn Indication XX 12/30/24 00:00 Not Given CLARIFY SPEEDY Pantoprazole Sodium 40 mg 12/01/24 09:00 12/03/24 09:20 Pantoprazole 40 Mg Tablet PO 40 mg DAILY SPEEDY Administration Perflutren Lipid Microsphere 0 ml 11/30/24 15:41 Perflutren Lipid Microspheres 1.5 Ml Vial Diluted To 10 Ml Total Volume IV PUSH 12/03/24 15:41 ONCE PRN adequate visualization Protocol Rivaroxaban 20 mg 12/01/24 09:00 12/03/24 09:20 Rivaroxaban 20 Mg Tablet PO 20 mg DAILY SPEEDY Administration Tamsulosin HCl 0.8 mg 12/01/24 09:00 12/03/24 09:20 Tamsulosin Hcl 0.4 Mg Capsule PO 0.8 mg DAILY SPEEDY Administration Vitamin D 125 mcg 12/01/24 09:00 12/03/24 09:20 Cholecalciferol (Vitamin D3) 125 Mcg (5,000 Units) Tablet PO 125 mcg DAILY SPEEDY Administration Radiology Results: ITS Impressions Chest CT 11/30/24 14:20 IMPRESSION: 1. Bilateral severe bronchopneumonia superimposed on chronic lung disease with probable reactive mediastinal lymphadenopathy. Follow-up recommended to assess resolution Chest X-Ray 12/03/24 11:37 IMPRESSION: 1. No significant change 2. Probable pulmonary edema, pneumonitis, and/or airspace disease superimposed upon interstitial lung disease. Labs Labs: Laboratory Results - last 24 hr 12/02/24 12/02/24 12/02/24 16:04 19:32 23:55 WBC RBC Hgb Hct MCV MCH MCHC RDW Plt Count MPV Immature Gran % (Auto) Neut % (Auto) Lymph % (Auto) [place] % (Auto) Eos % (Auto) Baso % (Auto) Lymph # (Auto) [place] # (Auto) Eos # (Auto) Baso # (Auto) Abs Immat Gran (auto) Absolute Neuts (auto) Absolute Nucleated RBC Nucleated RBC % Sodium Potassium Chloride Carbon Dioxide Anion Gap BUN Creatinine Estim Creat Clear Calc Estimated GFR Glucose POC Capillary Glucose 85 172 H 164 H Calcium Magnesium Total Bilirubin AST ALT Alkaline Phosphatase Total Protein Albumin 12/03/24 12/03/24 12/03/24 04:01 06:51 11:47 WBC 13.8 H RBC 2.85 L Hgb 9.5 L Hct 30.0 L MCV 105.3 H MCH 33.3 MCHC 31.7 L RDW 16.0 H Plt Count 160 MPV 11.2 H Immature Gran % (Auto) 1.2 H Neut % (Auto) 68.5 Lymph % (Auto) 8.9 L [place] % (Auto) 8.9 H Eos % (Auto) 12.3 H Baso % (Auto) 0.2 Lymph # (Auto) 1.23 [place] # (Auto) 1.2 H Eos # (Auto) 1.7 H Baso # (Auto) 0.0 Abs Immat Gran (auto) 0.17 H Absolute Neuts (auto) 9.4 H Absolute Nucleated RBC 0.000 Nucleated RBC % 0.0 Sodium 132 L Potassium 3.7 Chloride 93 L Carbon Dioxide 33 H Anion Gap 6 BUN 27 H Creatinine 0.77 Estim Creat Clear Calc 80 Estimated GFR > 60 Glucose 119 H POC Capillary Glucose 99 241 H Calcium 8.3 L Magnesium 1.7 Total Bilirubin 0.7 AST 51 ALT 23 Alkaline Phosphatase 68 Total Protein 5.8 L Albumin 2.5 L
[2024-12-03] MEDS: ATORVASTATIN 10 MG TABLET PO (21:25)
[2024-12-03] MEDS: DIVALPROEX SODIUM ER 500 MG TAB.24H PO (21:25)
[2024-12-03] MEDS: INSULIN GLARGINE (*BKC) 100 UNITS/ML 10 UNITS SUB-Q (21:28)
[2024-12-04] VITALS (33 sets, daily range): BP systolic 104–130; BP diastolic 54–87; PULSE 79–107; RESP 15–20; TEMP 36.4–36.6; O2SAT 70–100
[2024-12-04] MEDS: IPRATROPIUM 0.5 MG/ALBUTEROL SULFATE 2.5 MG (BASE) AMPUL.NEB 3 ML INHALATION ×4 (01:06→20:45)
[2024-12-04 04:44] LABS: Hematocrit 29.5 % (42.0-52.0); Hemoglobin 9.6 g/dL (14.0-18.0); Immature Granulocyte Percent A 1.4 % (0-0.5); Lymphocytes Absolute Auto 1.18 K/mm3 (0.9-3.2); Mean Corpuscular HGB Conc 32.5 g/dl (32-36); Mean Corpuscular Hemoglobin 33.3 pg (26-34); Mean Corpuscular Volume 102.4 fl (80-100); Nucleated Red Blood Cells Absolute Auto 0.000 K/mm3 (0.0-0.012); Nucleated Red Blood Cells Perc 0.0 % (0.0-0.2); Platelet Count Result 163 k/mm3 (150-375); Red Blood Count 2.88 M/mm3 (4.6-6.20); White Blood Count 12.4 K/mm3 (4.5-10.0)
[2024-12-04 05:03] LABS: Alanine Aminotransferase 26 U/L (6-50); Albumin Level 2.6 g/dL (3.5-5.1); Alkaline Phosphatase 66 U/L (38-126); Anion Gap 4 mmol/L (4-12); Aspartate Amino Transferase 43 U/L (17-59); Bilirubin,Total 0.6 mg/dL (0.2-1.3); Blood Urea Nitrogen 26 mg/dL (9-20); Calcium 8.3 mg/dL (8.4-10.2); Carbon Dioxide 36 mmol/L (22-30); Chloride 93 mmol/L (98-107); Estimated CRCL calculation 85 ml/min; Estimated Glomerular Filt Rate > 60; Glucose 89 mg/dL (65-110); Magnesium 1.7 mg/dL (1.6-2.3); Potassium 3.4 mmol/L (3.4-5.0); Sodium 133 mmol/L (137-145); Total Protein 5.9 g/dL (6.3-8.2)
[2024-12-04] MEDS: CEFEPIME 2 GM in SODIUM CHLORIDE 0.9% IV 50 ML 100 ML IVPB ×2 (05:17→21:35)
[2024-12-04 07:48] LABS: CRP 4.2 mg/dL (<1.0)
[2024-12-04 07:54] LABS: NT Pro B Type Natriuretic Pept 1080 pg/mL (19.9-100)
[2024-12-04 08:37] LABS: Procalcitonin 0.1 ng/mL
--- NOTE | 2024-12-04 08:46 | PM.PNPUL ---
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 and cooperation. Reproducibility criteria were met. The quality of the pre bronchodilator spirometry maneuver was Grade A and post bronchodilator spirometry maneuver was Grade B. of note the patient had good effort but still had difficulty with testing despite good coaching with multiple attempts. ?Findings: ?Spirometry:? The contour the inspiratory and expiratory flow tracing are normal.? The pre bronchodilator FVC is 3.16 L, 72% predicted.? The pre bronchodilator FEV1 is 2.32 L, 71% predicted.? The pre bronchodilator FEV1: FVC ratio 73%.? The post bronchodilator FVC is 3.23 L, representing a 2% increase.? The post bronchodilator FEV1 is 2.54 L, representing a 10% increase.? The post bronchodilator FEV1: FVC ratio 79%.? ?Plethysmography:? The total lung capacity is 4.83 L, 65% predicted.? The functional residual capacity is 2.08 L, 52% predicted.? The residual volume is 1.67 L, 63% predicted.? ?Diffusing capacity:? The diffusing capacity unadjusted for hemoglobin and carboxyhemoglobin is 11.8, 45% predicted.? The diffusing capacity adjusted for alveolar volume is 3.02, 82% predicted. ?Impression: There is a mild restrictive ventilatory abnormality with a normal FEV1. The spirometry is normal without evidence of an obstructive abnormality. There is no significant improvement after inhaling a single dose of albuterol. The diffusing capacity unadjusted for hemoglobin and carboxyhemoglobin is moderately decreased and normalizes when adjusted for alveolar volume. ?There are no prior studies for comparison ? ?12/04/2022: CT Scan of the Chest without Contrast: ?Clinical Indication: Abnormal finding of lung field, follow-up exam ?COMPARISON: 10/09/2022 ?Findings: ?There is no evidence of any significant mediastinal, hilar or axillary lymphadenopathy. Moderate hiatal hernia is unchanged. No aortic aneurysm. ?There is no evidence of pleural or pericardial effusion. ?Extensive chronic interstitial disease is similar to prior exam, with extensive interstitial thickening, subpleural articulations, and patchy areas of minimal ground glass opacity. The extensive degree of groundglass opacity at the lung bases is improved: Overall as compared to prior exam. Findings are probably worst at the right lung base and lingula. ?Images through the upper abdomen reveal no abnormalities. ?Impression: ?Extensive chronic interstitial disease. There has been improvement in groundglass opacity at the lung bases, which could reflect interval improvement in pulmonary edema or infection, or perhaps better inspiratory effort on the current exam. ?Stable hiatal hernia. 10/15/2022: Serologies negative: Rheumatoid factor less than 12, negative. anti CCP antibody negative, LAURA panel negative, aldolase 3.3, CPK 66, Anca screen negative, hypersensitivity pneumonitis panel negative, myositis panel negative.? ?10/15/2022: Home O2 assessment:? Rest room air saturation 95%.? Exercise room air saturation 92%.? Patient requires no supplemental oxygen at rest or with ambulation. ? 10/14/22? overnight oximetry on room air with recording time of 6 hours and 24 minutes with? an average saturation of 94%.? Low saturation 84%.? Time with saturation less than or equal to 88% was 1 minute, oxygen desaturation index 10.6. ?10/09/22 EXAMINATION: CTA chest ??INDICATION: Aortic mass. ??COMPARISON: CT abdomen and pelvis 10/09/2022, chest 2 views 10/08/16 ??FINDINGS: The lungs demonstrate widespread heterogeneous septal thickening and groundglass opacities. No pleural effusion. Cardiomegaly is noted. No pericardial effusion. Aortic atherosclerosis is noted. There is no pulmonary embolus. There is mild mediastinal and bilateral hilar lymphadenopathy. There is a moderate-sized sliding hiatal hernia. There are changes of anterior fusion procedure in cervical spine. There is severe upper thoracic spondylosis. ??IMPRESSION: ??1. Diffuse lung disease, likely a combination of pneumonia, pulmonary edema, and chronic lung disease. ??2. Mild mediastinal and bilateral hilar lymphadenopathy, likely reactive. ??3. Moderate-sized sliding hiatal hernia. ??4. Mild aortic atherosclerosis. No abnormal aortic mass. ??5. No pulmonary embolus. ?10/09/22: Echo Summary ??? 1. Complete two-dimensional, color flow and Doppler transthoracic ??echocardiogram is performed. ??? 2. Left ventricular chamber dimension is normal. ??? 3. Left ventricular systolic function is normal, estimated at 60-65%. ??? 4. There is mild concentric increased left ventricular wall thickness. ??? 5. The left ventricular diastolic function is abnormal. ??? 6. E/e' 13 is? mildly elevated. ??? 7. Left atrial chamber dimension is moderately enlarged. ??? 8. Right atrial chamber dimension is moderately enlarged. ??? 9. The mitral valve has mildly calcified annulus. ?? 10. There is trace mitral valve regurgitation. ??? 11. There is trace tricuspid valve regurgitation. ??? 12. Mild pulmonary hypertension, estimated pulmonary arterial systolic ??pressure is 44 mmHg. ??? 13. There is trace pulmonic regurgitation. ??? 14. In proximal ascending aorta there appears to be a echogenic mobile mass ??1.8 cm x 1.1 cm but could be artifact. Recommend CTA of aorta for further ??evaluation. ??Right Ventricle ??? Right ventricular systolic function is normal and with normal TAPSE 2.3 cm.. ??? Right ventricular chamber dimension is normal. ??Right Atria ??? Right atrial chamber dimension is moderately enlarged. 10/08/2016: EXAMINATION: CHEST-TWO VIEW INDICATION: Cough and weakness. TECHNIQUE: Frontal and lateral views of the chest were obtained. COMPARISON: None. FINDINGS: There is mild scarring at left lung apex. No pleural effusion or pneumothorax. Cardiomegaly is noted. There is mild thoracic spondylosis. There are changes of anterior fusion procedure in cervical spine. IMPRESSION: 1. Mild scarring at left lung apex. 2. Cardiomegaly. Review of Systems Constitutional: Constitutional: Reports no additional constitutional complaints Eyes: Eyes: Reports no additional eye complaints ENT: Reports system reviewed and no additional complaints, except as documented Cardiovascular: Cardiovascular: Reports no additional cardiovascular complaints Respiratory: Respiratory: Reports no additional respiratory complaints Gastrointestinal: Gastrointestinal: Reports no additional gastrointestinal complaints Musculoskeletal: Musculoskeletal: Reports no additional musculoskeletal complaints Neurologic: Reports system reviewed and no additional complaints, except as documented Psychiatric: Psychiatric: Reports no additional psychiatric complaints Endocrine: Endocrine: Reports no additional endocrine complaints Hematologic/Lymphatic: Hematologic/Lymphatic: Reports no additional hematologic/lymphatic complaints Allergic/Immunologic: Allergic/Immunologic: Reports no additional allergic/immunologic complaints Exam Narrative: on BiPAP and difficult to take a history. Const: General: cooperative, healthy appearing and comfortable Orientation/consciousness: oriented to person, oriented to place and oriented to time HENMT: Head: normal to inspection Ears: hearing grossly normal bilaterally Eyes: General: appearance normal, both eyes and all related structures Neck: Neck: normal visual inspection Chest: Chest palpation & inspection: normal inspection of the chest Resp: Effort & Inspection: normal respiratory effort and able to speak in complete sentences Auscultation: crackles, no rales, no rhonchi, no wheezes and lung sounds not diminished Other: Diffuse inspiratory crackles worse at the bases. No wheezing. Cardio: Jugular venous distension: no JVD Other: AFib. GI: Inspection: normal to inspection Skin: General skin exam: normal color Neuro: General: oriented to person, oriented to place and oriented to time Extrem: General: normal to inspection Other: Bilateral lower extremity edema. Psych: Appearance: grossly normal Objective Data Vital Signs Vital Signs: Vital Signs - 24 hr 12/03/24 10:00 12/03/24 12:00 12/03/24 12:00 Temperature 36.8 C Pulse Rate 98 93 112 H Respiratory Rate 18 Blood Pressure 121/70 Pulse Oximetry 96 Oxygen Delivery Oxygen Flow Rate Fraction of Inspired Oxygen 12/03/24 13:12 12/03/24 13:15 12/03/24 14:00 Temperature Pulse Rate 92 92 123 H Respiratory Rate 20 18 Blood Pressure Pulse Oximetry 96 Oxygen Delivery High Flow Therapy with Na Oxygen Flow Rate 50 Fraction of Inspired Oxygen 46 12/03/24 16:00 12/03/24 16:00 12/03/24 18:00 Temperature 36.6 C Pulse Rate 101 H 99 119 H Respiratory Rate 18 Blood Pressure 126/70 Pulse Oximetry 99 Oxygen Delivery Oxygen Flow Rate Fraction of Inspired Oxygen 12/03/24 19:37 12/03/24 19:48 12/03/24 19:49 Temperature 36.7 C Pulse Rate 102 H 102 H 100 Respiratory Rate 19 20 20 Blood Pressure 100/57 L Pulse Oximetry 95 97 Oxygen Delivery High Flow Therapy with Na Oxygen Flow Rate 50 Fraction of Inspired Oxygen 45 12/03/24 20:00 12/03/24 20:00 12/03/24 20:07 Temperature Pulse Rate 90 90 101 H Respiratory Rate 20 20 Blood Pressure Pulse Oximetry 97 Oxygen Delivery High Flow Therapy with Na Oxygen Flow Rate 50 Fraction of Inspired Oxygen 45 12/03/24 22:00 12/03/24 23:27 12/04/24 00:00 Temperature 36.7 C Pulse Rate 92 96 96 Respiratory Rate 15 15 Blood Pressure 119/79 Pulse Oximetry 95 95 Oxygen Delivery High Flow Therapy with Na Oxygen Flow Rate 50 Fraction of Inspired Oxygen 45 12/04/24 00:00 12/04/24 01:06 12/04/24 01:08 Temperature Pulse Rate 92 96 95 Respiratory Rate 20 20 Blood Pressure Pulse Oximetry 97 Oxygen Delivery High Flow Therapy with Na Oxygen Flow Rate 50 Fraction of Inspired Oxygen 45 12/04/24 01:18 12/04/24 01:21 12/04/24 02:00 Temperature Pulse Rate 95 97 94 Respiratory Rate 20 20 Blood Pressure Pulse Oximetry 98 Oxygen Delivery High Flow Therapy with Na Oxygen Flow Rate 40 Fraction of Inspired Oxygen 40 12/04/24 03:01 12/04/24 03:01 12/04/24 03:34 Temperature 36.6 C Pulse Rate 92 92 90 Respiratory Rate 20 19 Blood Pressure 104/64 Pulse Oximetry 95 96 Oxygen Delivery High Flow Therapy with Na Oxygen Flow Rate 40 Fraction of Inspired Oxygen 40 12/04/24 04:20 12/04/24 05:44 12/04/24 07:47 Temperature 36.5 C Pulse Rate 101 H 96 86 Respiratory Rate 20 18 Blood Pressure 107/60 Pulse Oximetry 96 95 Oxygen Delivery High Flow Therapy with Na Oxygen Flow Rate 35 Fraction of Inspired Oxygen 40 Intake/Output Intake/Output: Intake & Output 12/01/24 12/02/24 12/03/24 12/04/24 23:59 23:59 23:59 23:59 Intake Total 1670 2132 1070 660 Output Total 3350 1750 2300 540 Balance -1680 382 -1230 120 Meds/Results Medications: Active Medications Generic Name Dose Route Start Last Admin Trade Name Freq PRN Reason Stop Dose Admin Acetaminophen 650 mg 11/30/24 15:47 Acetaminophen 325 Mg Tablet PO Q6H PRN Mild Pain (1-3) or Fever Albuterol/Ipratropium 3 ml 11/30/24 20:00 12/04/24 01:06 Ipratropium 0.5 Mg/Albuterol Sulfate 2.5 Mg (Base) Ampul.Neb 3 Ml INHALATION 3 ml Q6HRT SPEEDY Administration Atorvastatin Calcium 10 mg 11/30/24 21:00 12/03/24 21:25 Atorvastatin 10 Mg Tablet PO 10 mg HS SPEEDY Administration Benzonatate 100 mg 11/30/24 15:44 Benzonatate 100 Mg Capsule PO TID PRN Cough Dextrose 12.5 gm 11/30/24 15:49 Dextrose 50% 25 Gm/50 Ml Syringe IV PUSH PRN PRN Hypoglycemia Protocol Divalproex Sodium 1,000 mg 12/01/24 08:00 12/03/24 09:20 Divalproex Sodium Er 500 Mg Tab.24h PO 1,000 mg DAILY@0800 SPEEDY Administration Divalproex Sodium 500 mg 11/30/24 21:00 12/03/24 21:25 Divalproex Sodium Er 500 Mg Tab.24h PO 500 mg HS SPEEDY Administration Furosemide 40 mg 12/01/24 13:45 12/03/24 18:08 Furosemide Inj 40 Mg/4 Ml Vial IV PUSH 40 mg BID SPEEDY Administration Glucagon 1 mg 11/30/24 15:49 Glucagon For Inj 1 Mg Vial IM PRN PRN Hypoglycemia Protocol Glucose 15 gm 11/30/24 15:49 Glucose Oral Gel 15 Gm Of Glucse In 37.5 Gm Tube PO PRN PRN Hypoglycemia Protocol Guaifenesin 1,200 mg 12/01/24 21:00 12/03/24 21:27 Guaifenesin 12 Hr 600 Mg Tabcr PO 1,200 mg Q12HR SPEEDY Administration Azithromycin 500 mg/ Sodium 250 mls @ 250 mls/hr 12/01/24 09:00 12/03/24 09:19 Chloride IVPB 12/04/24 09:59 250 mls/hr Q24H SPEEDY Administration Cefepime HCl 2 gm/ Sodium 50 mls @ 100 mls/hr 11/30/24 22:00 12/04/24 05:45 Chloride IVPB Infused Q8HR SPEEDY Infusion Dextrose 1,000 mls @ 100 mls/hr 11/30/24 15:49 Dextrose 5% 1,000 Ml IVPB PRN PRN Hypoglycemia Protocol Insulin Aspart 2 - 5 units 11/30/24 17:00 12/03/24 18:08 Insulin Aspart (*Bkc) 100 Units/Ml SUB-Q Not Given TIDWM SPEEDY Protocol Insulin Aspart 1 - 2 units 11/30/24 21:00 12/03/24 21:28 Insulin Aspart (*Bkc) 100 Units/Ml SUB-Q 1 units HS SPEEDY Administration Protocol Insulin Glargine 10 units 11/30/24 21:00 12/03/24 21:28 Insulin Glargine (*Bkc) 100 Units/Ml SUB-Q 10 units HS SPEEDY Administration Memantine 10 mg 11/30/24 17:00 12/03/24 18:09 Memantine 10 Mg Tablet PO 10 mg BID SPEEDY Administration Methocarbamol 750 mg 11/30/24 15:51 Methocarbamol 750 Mg Tablet PO BID PRN unknown Midodrine 10 mg 11/30/24 17:00 12/03/24 18:09 Midodrine Hcl 10 Mg Tablet PO 10 mg TID SPEEDY Administration Miscellaneous Information 0 each 11/30/24 00:01 12/03/24 09:24 Methocarbamol Need Prn Indication XX 12/30/24 00:00 Not Given CLARIFY SPEEDY Pantoprazole Sodium 40 mg 12/01/24 09:00 12/03/24 09:20 Pantoprazole 40 Mg Tablet PO 40 mg DAILY SPEEDY Administration Rivaroxaban 20 mg 12/01/24 09:00 12/03/24 09:20 Rivaroxaban 20 Mg Tablet PO 20 mg DAILY SPEEDY Administration Tamsulosin HCl 0.8 mg 12/01/24 09:00 12/03/24 09:20 Tamsulosin Hcl 0.4 Mg Capsule PO 0.8 mg DAILY SPEEDY Administration Vitamin D 125 mcg 12/01/24 09:00 12/03/24 09:20 Cholecalciferol (Vitamin D3) 125 Mcg (5,000 Units) Tablet PO 125 mcg DAILY SPEEDY Administration Radiology Results: ITS Impressions Chest CT 11/30/24 14:20 IMPRESSION: 1. Bilateral severe bronchopneumonia superimposed on chronic lung disease with probable reactive mediastinal lymphadenopathy. Follow-up recommended to assess resolution Labs Labs: Laboratory Results - last 24 hr 12/03/24 12/03/24 12/03/24 11:47 16:49 19:39 WBC RBC Hgb Hct MCV MCH MCHC RDW Plt Count MPV Immature Gran % (Auto) Neut % (Auto) Lymph % (Auto) [place] % (Auto) Eos % (Auto) Baso % (Auto) Lymph # (Auto) [place] # (Auto) Eos # (Auto) Baso # (Auto) Abs Immat Gran (auto) Absolute Neuts (auto) Absolute Nucleated RBC Nucleated RBC % Sodium Potassium Chloride Carbon Dioxide Anion Gap BUN Creatinine Estim Creat Clear Calc Estimated GFR Glucose POC Capillary Glucose 241 H 103 206 H Calcium Magnesium Total Bilirubin AST ALT Alkaline Phosphatase C-Reactive Protein NT-Pro-B Natriuret Pep Total Protein Albumin Procalcitonin 12/04/24 12/04/24 04:08 07:18 WBC 12.4 H RBC 2.88 L Hgb 9.6 L Hct 29.5 L MCV 102.4 H MCH 33.3 MCHC 32.5 RDW 15.7 H Plt Count 163 MPV 11.1 H Immature Gran % (Auto) 1.4 H Neut % (Auto) 65.1 Lymph % (Auto) 9.6 L [place] % (Auto) 11.0 H Eos % (Auto) 12.6 H Baso % (Auto) 0.3 Lymph # (Auto) 1.18 [place] # (Auto) 1.4 H Eos # (Auto) 1.6 H Baso # (Auto) 0.0 Abs Immat Gran (auto) 0.17 H Absolute Neuts (auto) 8.0 H Absolute Nucleated RBC 0.000 Nucleated RBC % 0.0 Sodium 133 L Potassium 3.4 Chloride 93 L Carbon Dioxide 36 H Anion Gap 4 BUN 26 H Creatinine 0.72 Estim Creat Clear Calc 85 Estimated GFR > 60 Glucose 89 POC Capillary Glucose 92 Calcium 8.3 L Magnesium 1.7 Total Bilirubin 0.6 AST 43 ALT 26 Alkaline Phosphatase 66 C-Reactive Protein 4.2 H NT-Pro-B Natriuret Pep 1080 H Total Protein 5.9 L Albumin 2.6 L Procalcitonin 0.1
[2024-12-04] MEDS: FUROSEMIDE INJ 40 MG/4 ML VIAL IV PUSH ×2 (09:51→16:52)
[2024-12-04] MEDS: PANTOPRAZOLE 40 MG TABLET PO (09:52)
[2024-12-04] MEDS: TAMSULOSIN HCL 0.4 MG CAPSULE 0.8 MG PO (09:52)
[2024-12-04] MEDS: DIVALPROEX SODIUM ER 500 MG TAB.24H 1000 MG PO (09:52)
[2024-12-04] MEDS: RIVAROXABAN 20 MG TABLET PO (09:52)
[2024-12-04] MEDS: guaiFENesin 12 HR 600 MG TABCR 1200 MG PO ×2 (09:52→21:33)
[2024-12-04] MEDS: MEMANTINE 10 MG TABLET PO ×2 (09:52→16:51)
[2024-12-04] MEDS: MIDODRINE HCL 10 MG TABLET PO ×3 (09:52→16:51)
[2024-12-04] MEDS: CHOLECALCIFEROL (VITAMIN D3) 125 MCG (5,000 UNITS) TABLET PO (09:52)
[2024-12-04] MEDS: AZITHROMYCIN IV 500 MG in SODIUM CHLORIDE 0.9% IV 250 ML IVPB (09:54)
--- NOTE | 2024-12-04 11:15 | PCOTNOTE ---
Per RN patient is now requiring more 02 and is not appropriate for OT at this time. Will hold therapy today.
[2024-12-04] MEDS: INSULIN ASPART (*BKC) 100 UNITS/ML SUB-Q ×2 (13:23→21:34)
[2024-12-04] MEDS: CEFEPIME 2 GM in SODIUM CHLORIDE 0.9% IV 50 ML IVPB (13:24)
--- NOTE | 2024-12-04 14:29 | P.PNIM_ITS ---
Progress Note: A&P Assessment and Plan (1) Acute hypoxic respiratory failure: Code(s): J96.01 - Acute respiratory failure with hypoxia Status: Acute Assessment and Plan: Patient arrived to the emergency department 96% on room air. Initial concern patient was hypoxic in the 70s prior to arrival. Patient did become hypoxic in the emergency department on 11/30, dropped to 84% on room air. Subsequently placed on BiPAP. Imaging showed bilateral severe bronchopneumonia superimposed on chronic lung disease. Initial ABG showed no significant hypoxia, hypercapnia, acidosis, or alkalosis on BiPAP. - continue BiPAP for work of breathing/respiratory distress p.r.n. - started on hospital-acquired pneumonia treatment as he was recently admitted to [facility], patient additionally met criteria for sepsis and lactic was elevated - pulmonology consulted Gentle diuresis as BNP elevated Which he is tolerating. Respiratory pathogen panel Urine antigens I LD workup as ordered by Pulmonary continue Airvo (2) Sepsis: Qualifiers: Sepsis type: sepsis due to unspecified organism Sepsis acute organ dysfunction status: with acute organ dysfunction Severe sepsis acute organ dysfunction type: acute respiratory failure Acute respiratory failure type: with hypoxia Severe sepsis shock status: without septic shock Qualified Code(s): A41.9 - Sepsis, unspecified organism; R65.20 - Severe sepsis without septic shock; J96.01 - Acute respiratory failure with hypoxia Code(s): A41.9 - Sepsis, unspecified organism Status: Acute Assessment and Plan: Patient met SIRS criteria: HR greater than 100, RR greater than 20, WBC greater than 12. +hypoxia, -hypotension. Initial lactic 3.6 -> 3.4. CRP 4.98 and procalcitonin 0.1. - blood cultures obtained on 11/30, follow. - trend lactic down - 30 mL/kg = 2.5, will give 2L at 200 mL/hr due to elevation in BNP/hx of diastolic dysfunction. monitor toleration. - suspected source: HAP - started on ceftriaxone and azithromycin, exchanged to cefepime and azithromycin on 11/30 - monitor I&Os (3) Pneumonia: Qualifiers: Laterality: bilateral Lung location: unspecified part of lung Pneumonia type: due to unspecified organism Qualified Code(s): J18.9 - Pneumonia, unspecified organism Code(s): J18.9 - Pneumonia, unspecified organism Status: Acute Assessment and Plan: - CXR: 1. Interval worsening of chronic interstitial lung disease. 2. However bibasilar edema and/or pneumonitis or airspace disease not excluded. - Chest CT: Bilateral severe bronchopneumonia superimposed on chronic lung disease with probable reactive mediastinal lymphadenopathy. Follow-up recommended to assess resolution - risk/complicating factors: acute respiratory failure, interstitial lung disease, recent hospitalization - started on ceftriaxone and azithromycin in the ED, exchanged to cefepime and azithromycin on 11/30. No current indication for vancomycin as the patient's MRSA PCR was negative upon admission. - supportive care: Mucinex, Tylenol, DuoNebs, Tessalon Perles - sputum culture - currently requiring BiPAP for WOB, +hypoxia Still requiring high level of oxygen. Continue diuresis Chest x-ray reviewed Leukocytosis improving (4) ILD (interstitial lung disease): Code(s): J84.9 - Interstitial pulmonary disease, unspecified Status: Chronic Assessment and Plan: - worsening on imaging - pulmonology consulted, see recs above (5) Diastolic congestive heart failure, NYHA class 3: Qualifiers: Congestive heart failure chronicity: unspecified Qualified Code(s): I50.30 - Unspecified diastolic (congestive) heart failure Code(s): I50.30 - Unspecified diastolic (congestive) heart failure Status: Chronic Assessment and Plan: BNP elevated at 3540. No evidence of pulmonary edema on CXR. Reviewed chart, most recent echo in 2022 showed diastolic dysfunction, normal systolic function with an estimated EF of 60 65%, valvular disease, and mild pulmonary hy pertension. - update echo - receiving IV fluids due to sepsis at slower rate, monitor toleration which will be stopped and start diuresis as tolerated - monitor I&Os - daily weights Received a dose of Lasix 40 mg x 1 11/30 started on diuresis 40 mg IV b.i.d.. With good diuresis (6) DM2 (diabetes mellitus, type 2): Code(s): E11.9 - Type 2 diabetes mellitus without complications Status: Chronic Assessment and Plan: - hypoglycemia protocol - POC blood glucose ACHS - home medication: Hold metformin in case of need for contrast. Continue Lantus 10 units HS. - correct regimen ordered - low dose TIDWM and HS, based off BMI - A1C 6.4% in 2022, update (7) Chronic anticoagulation: Code(s): Z79.01 - emt intermediate (current) use of anticoagulants Status: Chronic Assessment and Plan: - continue Xarelto (8) Chronic hypotension: Code(s): I95.89 - Other hypotension Status: Acute Assessment and Plan: - continue home medications: Midodrine - monitor Plan Diet: Heart healthy GI Prophylaxis: N/a DVT Prophylaxis: Xarelto Lines/Tubes: Peripheral IV Code Status: Full code discussed with the patient and family and now switched to do not resuscitate Subjective Date/time seen: 12/04/24 14:29 Interval history: No overnight events. Patient oxygen need had improved however with minimal exertion he was severely hypoxic requiring high-flow oxygen. Denies any chest pain. Minimal cough. Discussed with Pulmonary. Review of Systems Review of Systems: All systems reviewed & are unremarkable except as noted in HPI and below Exam Narrative: APPEARANCE: Ill-appearing not in acute distress HEAD: normocephalic, atraumatic. EYES: PERRLA/EOMI, conjunctivae clear. NECK: Supple. No adenopathy, no masses. RESPIRATORY: Coarse breath sounds bilaterally, mildly tachypneic CARDIOVASCULAR: Mildly tachycardic S1-S2 ABDOMINAL: Soft, nontender, nondistended, normal bowel sounds MUSCULOSKELETAL: Moves all extremities. Strength/ROM intact, trace edema, No calf tenderness. NEURO: Alert. Cranial nerves II through XII intact. SKIN: Warm, dry. Normal Color Objective Data Vital Signs Vital Signs: Vital Signs - 24 hr 12/03/24 16:00 12/03/24 16:00 12/03/24 18:00 Temperature 98 F Pulse Rate 101 H 99 119 H Respiratory Rate 18 Blood Pressure 126/70 Pulse Oximetry 99 Oxygen Delivery Oxygen Flow Rate Fraction of Inspired Oxygen 12/03/24 19:37 12/03/24 19:48 12/03/24 19:49 Temperature 98.1 F Pulse Rate 102 H 102 H 100 Respiratory Rate 19 20 20 Blood Pressure 100/57 L Pulse Oximetry 95 97 Oxygen Delivery High Flow Therapy with Na Oxygen Flow Rate 50 Fraction of Inspired Oxygen 45 12/03/24 20:00 12/03/24 20:00 12/03/24 20:07 Temperature Pulse Rate 90 90 101 H Respiratory Rate 20 20 Blood Pressure Pulse Oximetry 97 Oxygen Delivery High Flow Therapy with Na Oxygen Flow Rate 50 Fraction of Inspired Oxygen 45 12/03/24 22:00 12/03/24 23:27 12/04/24 00:00 Temperature 98.1 F Pulse Rate 92 96 96 Respiratory Rate 15 15 Blood Pressure 119/79 Pulse Oximetry 95 95 Oxygen Delivery High Flow Therapy with Na Oxygen Flow Rate 50 Fraction of Inspired Oxygen 45 12/04/24 00:00 12/04/24 01:06 12/04/24 01:08 Temperature Pulse Rate 92 96 95 Respiratory Rate 20 20 Blood Pressure Pulse Oximetry 97 Oxygen Delivery High Flow Therapy with Na Oxygen Flow Rate 50 Fraction of Inspired Oxygen 45 12/04/24 01:18 12/04/24 01:21 12/04/24 02:00 Temperature Pulse Rate 95 97 94 Respiratory Rate 20 20 Blood Pressure Pulse Oximetry 98 Oxygen Delivery High Flow Therapy with Na Oxygen Flow Rate 40 Fraction of Inspired Oxygen 40 12/04/24 03:01 12/04/24 03:01 12/04/24 03:34 Temperature 97.9 F Pulse Rate 92 92 90 Respiratory Rate 20 19 Blood Pressure 104/64 Pulse Oximetry 95 96 Oxygen Delivery High Flow Therapy with Na Oxygen Flow Rate 40 Fraction of Inspired Oxygen 40 12/04/24 04:20 12/04/24 05:44 12/04/24 07:47 Temperature 97.7 F Pulse Rate 101 H 96 86 Respiratory Rate 20 18 Blood Pressure 107/60 Pulse Oximetry 96 95 Oxygen Delivery High Flow Therapy with Na Oxygen Flow Rate 35 Fraction of Inspired Oxygen 40 12/04/24 08:00 12/04/24 08:00 12/04/24 09:28 Temperature Pulse Rate 105 H 104 H Respiratory Rate 20 Blood Pressure Pulse Oximetry 94 Oxygen Delivery High Flow Nasal Cannula Oxygen Flow Rate 3 Fraction of Inspired Oxygen 12/04/24 09:33 12/04/24 10:00 12/04/24 10:00 Temperature Pulse Rate 102 H 95 Respiratory Rate 20 Blood Pressure Pulse Oximetry 70 L Oxygen Delivery High Flow Therapy with Na Oxygen Flow Rate 60 Fraction of Inspired Oxygen 95 12/04/24 11:24 12/04/24 12:00 12/04/24 12:00 Temperature 97.6 F Pulse Rate 96 91 Respiratory Rate 16 Blood Pressure 104/54 L Pulse Oximetry 99 92 Oxygen Delivery High Flow Nasal Cannula Oxygen Flow Rate 5 Fraction of Inspired Oxygen 12/04/24 14:14 12/04/24 14:15 Temperature Pulse Rate 107 H Respiratory Rate 20 Blood Pressure Pulse Oximetry 90 Oxygen Delivery High Flow Nasal Cannula Oxygen Flow Rate 3 Fraction of Inspired Oxygen Intake/Output Intake/Output: Intake & Output 12/01/24 12/02/24 12/03/24 12/04/24 23:59 23:59 23:59 23:59 Intake Total 1670 2132 1320 900 Output Total 3350 1750 2300 1365 Balance -1680 084 -804 -341 Meds/Results Medications: Active Medications Generic Name Dose Route Start Last Admin Trade Name Freq PRN Reason Stop Dose Admin Acetaminophen 650 mg 11/30/24 15:47 Acetaminophen 325 Mg Tablet PO Q6H PRN Mild Pain (1-3) or Fever Albuterol/Ipratropium 3 ml 11/30/24 20:00 12/04/24 14:13 Ipratropium 0.5 Mg/Albuterol Sulfate 2.5 Mg (Base) Ampul.Neb 3 Ml INHALATION 3 ml Q6HRT SPEEDY Administration Atorvastatin Calcium 10 mg 11/30/24 21:00 12/03/24 21:25 Atorvastatin 10 Mg Tablet PO 10 mg HS SPEEDY Administration Benzonatate 100 mg 11/30/24 15:44 Benzonatate 100 Mg Capsule PO TID PRN Cough Dextrose 12.5 gm 11/30/24 15:49 Dextrose 50% 25 Gm/50 Ml Syringe IV PUSH PRN PRN Hypoglycemia Protocol Divalproex Sodium 1,000 mg 12/01/24 08:00 12/04/24 09:52 Divalproex Sodium Er 500 Mg Tab.24h PO 1,000 mg DAILY@0800 SPEEDY Administration Divalproex Sodium 500 mg 11/30/24 21:00 12/03/24 21:25 Divalproex Sodium Er 500 Mg Tab.24h PO 500 mg HS SPEEDY Administration Furosemide 40 mg 12/01/24 13:45 12/04/24 09:51 Furosemide Inj 40 Mg/4 Ml Vial IV PUSH 40 mg BID SPEEDY Administration Glucagon 1 mg 11/30/24 15:49 Glucagon For Inj 1 Mg Vial IM PRN PRN Hypoglycemia Protocol Glucose 15 gm 11/30/24 15:49 Glucose Oral Gel 15 Gm Of Glucse In 37.5 Gm Tube PO PRN PRN Hypoglycemia Protocol Guaifenesin 1,200 mg 12/01/24 21:00 12/04/24 09:52 Guaifenesin 12 Hr 600 Mg Tabcr PO 1,200 mg Q12HR SPEEDY Administration Cefepime HCl 2 gm/ Sodium 50 mls @ 100 mls/hr 11/30/24 22:00 12/04/24 13:24 Chloride IVPB 50 mls/hr Q8HR SPEEDY Administration Dextrose 1,000 mls @ 100 mls/hr 11/30/24 15:49 Dextrose 5% 1,000 Ml IVPB PRN PRN Hypoglycemia Protocol Insulin Aspart 2 - 5 units 11/30/24 17:00 12/04/24 13:23 Insulin Aspart (*Bkc) 100 Units/Ml SUB-Q 2 units TIDWM SPEEDY Administration Protocol Insulin Aspart 1 - 2 units 11/30/24 21:00 12/03/24 21:28 Insulin Aspart (*Bkc) 100 Units/Ml SUB-Q 1 units HS SPEEDY Administration Protocol Insulin Glargine 10 units 11/30/24 21:00 12/03/24 21:28 Insulin Glargine (*Bkc) 100 Units/Ml SUB-Q 10 units HS SPEEDY Administration Memantine 10 mg 11/30/24 17:00 12/04/24 09:52 Memantine 10 Mg Tablet PO 10 mg BID SPEEDY Administration Methocarbamol 750 mg 11/30/24 15:51 Methocarbamol 750 Mg Tablet PO BID PRN unknown Midodrine 10 mg 11/30/24 17:00 12/04/24 13:26 Midodrine Hcl 10 Mg Tablet PO 10 mg TID SPEEDY Administration Miscellaneous Information 0 each 11/30/24 00:01 12/03/24 09:24 Methocarbamol Need Prn Indication XX 12/30/24 00:00 Not Given CLARIFY SPEEDY Pantoprazole Sodium 40 mg 12/01/24 09:00 12/04/24 09:52 Pantoprazole 40 Mg Tablet PO 40 mg DAILY SPEEDY Administration Prednisone 20 mg/ Prednisone 30 mg 12/04/24 09:05 12/04/24 10:11 10 mg PO 12/08/24 08:00 30 mg DAILY@0800 SPEEDY Administration Rivaroxaban 20 mg 12/01/24 09:00 12/04/24 09:52 Rivaroxaban 20 Mg Tablet PO 20 mg DAILY SPEEDY Administration Tamsulosin HCl 0.8 mg 12/01/24 09:00 12/04/24 09:52 Tamsulosin Hcl 0.4 Mg Capsule PO 0.8 mg DAILY SPEEDY Administration Vitamin D 125 mcg 12/01/24 09:00 12/04/24 09:52 Cholecalciferol (Vitamin D3) 125 Mcg (5,000 Units) Tablet PO 125 mcg DAILY SPEEDY Administration Radiology Results: ITS Impressions Chest CT 11/30/24 14:20 IMPRESSION: 1. Bilateral severe bronchopneumonia superimposed on chronic lung disease with probable reactive mediastinal lymphadenopathy. Follow-up recommended to assess resolution Chest X-Ray 12/04/24 09:32 IMPRESSION: 1. Slight interval progression in diffuse bilateral interstitial and airspace opacities which could represent moderate pulmonary edema, pneumonia, chronic interstitial lung disease or some combination thereof. Labs Labs: Laboratory Results - last 24 hr 12/03/24 12/03/24 12/04/24 16:49 19:39 04:08 WBC 12.4 H RBC 2.88 L Hgb 9.6 L Hct 29.5 L MCV 102.4 H MCH 33.3 MCHC 32.5 RDW 15.7 H Plt Count 163 MPV 11.1 H Immature Gran % (Auto) 1.4 H Neut % (Auto) 65.1 Lymph % (Auto) 9.6 L Mcdonald % (Auto) 11.0 H Eos % (Auto) 12.6 H Baso % (Auto) 0.3 Lymph # (Auto) 1.18 Mcdonald # (Auto) 1.4 H Eos # (Auto) 1.6 H Baso # (Auto) 0.0 Abs Immat Gran (auto) 0.17 H Absolute Neuts (auto) 8.0 H Absolute Nucleated RBC 0.000 Nucleated RBC % 0.0 Sodium 133 L Potassium 3.4 Chloride 93 L Carbon Dioxide 36 H Anion Gap 4 BUN 26 H Creatinine 0.72 Estim Creat Clear Calc 85 Estimated GFR > 60 Glucose 89 POC Capillary Glucose 103 206 H Calcium 8.3 L Magnesium 1.7 Total Bilirubin 0.6 AST 43 ALT 26 Alkaline Phosphatase 66 C-Reactive Protein 4.2 H NT-Pro-B Natriuret Pep 1080 H Total Protein 5.9 L Albumin 2.6 L Procalcitonin 0.1 12/04/24 12/04/24 07:18 11:05 WBC RBC Hgb Hct MCV MCH MCHC RDW Plt Count MPV Immature Gran % (Auto) Neut % (Auto) Lymph % (Auto) Mcdonald % (Auto) Eos % (Auto) Baso % (Auto) Lymph # (Auto) Mcdonald # (Auto) Eos # (Auto) Baso # (Auto) Abs Immat Gran (auto) Absolute Neuts (auto) Absolute Nucleated RBC Nucleated RBC % Sodium Potassium Chloride Carbon Dioxide Anion Gap BUN Creatinine Estim Creat Clear Calc Estimated GFR Glucose POC Capillary Glucose 92 215 H Calcium Magnesium Total Bilirubin AST ALT Alkaline Phosphatase C-Reactive Protein NT-Pro-B Natriuret Pep Total Protein Albumin Procalcitonin
[2024-12-04] MEDS: DIVALPROEX SODIUM ER 500 MG TAB.24H PO (21:33)
[2024-12-04] MEDS: ATORVASTATIN 10 MG TABLET PO (21:33)
[2024-12-04] MEDS: INSULIN GLARGINE (*BKC) 100 UNITS/ML 10 UNITS SUB-Q (21:34)
[2024-12-05] VITALS (23 sets, daily range): BP systolic 102–125; BP diastolic 52–69; PULSE 80–105; RESP 16–20; TEMP 36.5–37.1; O2SAT 91–100
[2024-12-05 05:02] LABS: Hematocrit 30.5 % (42.0-52.0); Hemoglobin 9.9 g/dL (14.0-18.0); Immature Granulocyte Percent A 1.4 % (0-0.5); Lymphocytes Absolute Auto 1.42 K/mm3 (0.9-3.2); Mean Corpuscular HGB Conc 32.5 g/dl (32-36); Mean Corpuscular Hemoglobin 33.8 pg (26-34); Mean Corpuscular Volume 104.1 fl (80-100); Nucleated Red Blood Cells Absolute Auto 0.000 K/mm3 (0.0-0.012); Nucleated Red Blood Cells Perc 0.0 % (0.0-0.2); Platelet Count Result 178 k/mm3 (150-375); Red Blood Count 2.93 M/mm3 (4.6-6.20); White Blood Count 12.7 K/mm3 (4.5-10.0)
[2024-12-05 05:24] LABS: Alanine Aminotransferase 27 U/L (6-50); Albumin Level 3.0 g/dL (3.5-5.1); Alkaline Phosphatase 64 U/L (38-126); Anion Gap 5 mmol/L (4-12); Aspartate Amino Transferase 37 U/L (17-59); Bilirubin,Total 0.6 mg/dL (0.2-1.3); Blood Urea Nitrogen 29 mg/dL (9-20); Calcium 8.6 mg/dL (8.4-10.2); Carbon Dioxide 39 mmol/L (22-30); Chloride 91 mmol/L (98-107); Estimated CRCL calculation 77 ml/min; Estimated Glomerular Filt Rate > 60; Glucose 104 mg/dL (65-110); Magnesium 1.7 mg/dL (1.6-2.3); Potassium 4.2 mmol/L (3.4-5.0); Sodium 135 mmol/L (137-145); Total Protein 6.3 g/dL (6.3-8.2)
[2024-12-05] MEDS: CEFEPIME 2 GM in SODIUM CHLORIDE 0.9% IV 50 ML 100 ML IVPB ×3 (05:27→21:37)
[2024-12-05] MEDS: IPRATROPIUM 0.5 MG/ALBUTEROL SULFATE 2.5 MG (BASE) AMPUL.NEB 3 ML INHALATION ×3 (08:00→19:50)
--- NOTE | 2024-12-05 08:24 | PM.PNPUL ---
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 40% FiO2 with saturations 97%. I placed him on high-flow nasal cannula and sequentially decreased him to 2 L nasal cannula with saturations 92-94%. White blood cell count 12.4, creatinine 0.72, BNP has improved from 1930 on 12/01/2024 to 1080 today, CRP has improved from 8.5 on 12/01/2024 to 4.2 today, procalcitonin is essentially unchanged from 0.2 on 12/01/2024 to 0.1 today. yesterday diuresed 1.2 L. Cumulative he is diuresed 2.8 L since admission. His weight today is 82.9 kg. Later in the day patient was performing physical therapy and he had desaturations while dangling his legs off the bed requiring 5 L, getting to a chair required 10 L and then he had desaturations requiring Airvo. Patient was placed back in bed and slowly wean back to his nasal cannula. 12/05/24: Patient tells me he is breathing back at his normal. He says his cough is the same with clear phlegm and no hemoptysis. He tells me he sat in a chair for 3-4 hours yesterday. When I enter the room he was on 5 L nasal cannula saturations 94%. I decreased him to 4 L and his saturations were 91%. His white blood cell count is 12.7, his creatinine is 0.8. Yesterday was -300 mL, cumulative he is -3.1 L since admission. His weight today is 86.7. Patient had an overnight oximetry on 2 L which was increased to 4 L with improvement in his saturations. Recording duration 6 hours and 26 minutes, average saturation 95%, low saturation 84%, time with saturation less than or equal to 88% was 10 minutes, oxygen desaturation index 2.6. Data: 11/30/24: EXAMINATION: CT diagnostic chest w david, 11/30/2024 14:00 CDT HISTORY: sob COMPARISON: No comparisons available. TECHNIQUE: CT scan of the chest was performed with contrast. Isovue 300, 92cc injected IV. One or more of the following dose reduction techniques were used: automated exposure control, adjustment of the mA and/or kV according to patient size, use of iterative reconstruction technique. FINDINGS: No significant coronary calcification is present ([id number]) LUNGS: No tracheomalacia. Basilar bronchiectasis, no mucous plugging. Moderate emphysematous changes. No bullous formation. Moderate pulmonary fibrotic changes with early honeycombing. There are multifocal scattered areas of groundglass attenuation with small simple appearing left pleural effusion. There is a small simple appearing right pleural effusion. There are micronodules which are too small to characterize. HEART AND PERICARDIUM: Mild cardiomegaly. Trace pericardial effusion. AORTA: Normal caliber aorta. ADENOPATHY/MEDIASTINUM: There are enlarged lymph nodes within the mediastinum the largest in the left anterior superior mediastinum 1.8 x 1.6 cm. There are prominent subcarinal and hilar lymph nodes also noted. LIMITED VIEWS OF THE ABDOMEN: Moderate hiatal hernia. OSSEOUS STRUCTURES: No sclerotic or lytic lesions. No acute rib fractures. OVERLYING SOFT TISSUES: Left pacemaker. THYROID: The thyroid is unremarkable. IMPRESSION: 1. Bilateral severe bronchopneumonia superimposed on chronic lung disease with probable reactive mediastinal lymphadenopathy. Follow-up recommended to assess resolution 12/04/2022: PFTs.? ?The test was performed and results interpreted in accordance with the 2019 and 2005 ATS/ERS Task Force guidelines respectively using the Global Lung Function Initiative-2012 reference equations. Patient demonstrated good effort and cooperation. Reproducibility criteria were met. The quality of the pre bronchodilator spirometry maneuver was Grade A and post bronchodilator spirometry maneuver was Grade B. of note the patient had good effort but still had difficulty with testing despite good coaching with multiple attempts. ?Findings: ?Spirometry:? The contour the inspiratory and expiratory flow tracing are normal.? The pre bronchodilator FVC is 3.16 L, 72% predicted.? The pre bronchodilator FEV1 is 2.32 L, 71% predicted.? The pre bronchodilator FEV1: FVC ratio 73%.? The post bronchodilator FVC is 3.23 L, representing a 2% increase.? The post bronchodilator FEV1 is 2.54 L, representing a 10% increase.? The post bronchodilator FEV1: FVC ratio 79%.? ?Plethysmography:? The total lung capacity is 4.83 L, 65% predicted.? The functional residual capacity is 2.08 L, 52% predicted.? The residual volume is 1.67 L, 63% predicted.? ?Diffusing capacity:? The diffusing capacity unadjusted for hemoglobin and carboxyhemoglobin is 11.8, 45% predicted.? The diffusing capacity adjusted for alveolar volume is 3.02, 82% predicted. ?Impression: There is a mild restrictive ventilatory abnormality with a normal FEV1. The spirometry is normal without evidence of an obstructive abnormality. There is no significant improvement after inhaling a single dose of albuterol. The diffusing capacity unadjusted for hemoglobin and carboxyhemoglobin is moderately decreased and normalizes when adjusted for alveolar volume. ?There are no prior studies for comparison ? ?12/04/2022: CT Scan of the Chest without Contrast: ?Clinical Indication: Abnormal finding of lung field, follow-up exam ?COMPARISON: 10/09/2022 ?Findings: ?There is no evidence of any significant mediastinal, hilar or axillary lymphadenopathy. Moderate hiatal hernia is unchanged. No aortic aneurysm. ?There is no evidence of pleural or pericardial effusion. ?Extensive chronic interstitial disease is similar to prior exam, with extensive interstitial thickening, subpleural articulations, and patchy areas of minimal ground glass opacity. The extensive degree of groundglass opacity at the lung bases is improved: Overall as compared to prior exam. Findings are probably worst at the right lung base and lingula. ?Images through the upper abdomen reveal no abnormalities. ?Impression: ?Extensive chronic interstitial disease. There has been improvement in groundglass opacity at the lung bases, which could reflect interval improvement in pulmonary edema or infection, or perhaps better inspiratory effort on the current exam. ?Stable hiatal hernia. 10/15/2022: Serologies negative: Rheumatoid factor less than 12, negative. anti CCP antibody negative, LAURA panel negative, aldolase 3.3, CPK 66, Anca screen negative, hypersensitivity pneumonitis panel negative, myositis panel negative.? ?10/15/2022: Home O2 assessment:? Rest room air saturation 95%.? Exercise room air saturation 92%.? Patient requires no supplemental oxygen at rest or with ambulation. ? 10/14/22? overnight oximetry on room air with recording time of 6 hours and 24 minutes with? an average saturation of 94%.? Low saturation 84%.? Time with saturation less than or equal to 88% was 1 minute, oxygen desaturation index 10.6. ?10/09/22 EXAMINATION: CTA chest ??INDICATION: Aortic mass. ??COMPARISON: CT abdomen and pelvis 10/09/2022, chest 2 views 10/08/16 ??FINDINGS: The lungs demonstrate widespread heterogeneous septal thickening and groundglass opacities. No pleural effusion. Cardiomegaly is noted. No pericardial effusion. Aortic atherosclerosis is noted. There is no pulmonary embolus. There is mild mediastinal and bilateral hilar lymphadenopathy. There is a moderate-sized sliding hiatal hernia. There are changes of anterior fusion procedure in cervical spine. There is severe upper thoracic spondylosis. ??IMPRESSION: ??1. Diffuse lung disease, likely a combination of pneumonia, pulmonary edema, and chronic lung disease. ??2. Mild mediastinal and bilateral hilar lymphadenopathy, likely reactive. ??3. Moderate-sized sliding hiatal hernia. ??4. Mild aortic atherosclerosis. No abnormal aortic mass. ??5. No pulmonary embolus. ?10/09/22: Echo Summary ??? 1. Complete two-dimensional, color flow and Doppler transthoracic ??echocardiogram is performed. ??? 2. Left ventricular chamber dimension is normal. ??? 3. Left ventricular systolic function is normal, estimated at 60-65%. ??? 4. There is mild concentric increased left ventricular wall thickness. ??? 5. The left ventricular diastolic function is abnormal. ??? 6. E/e' 13 is? mildly elevated. ??? 7. Left atrial chamber dimension is moderately enlarged. ??? 8. Right atrial chamber dimension is moderately enlarged. ??? 9. The mitral valve has mildly calcified annulus. ?? 10. There is trace mitral valve regurgitation. ??? 11. There is trace tricuspid valve regurgitation. ??? 12. Mild pulmonary hypertension, estimated pulmonary arterial systolic ??pressure is 44 mmHg. ??? 13. There is trace pulmonic regurgitation. ??? 14. In proximal ascending aorta there appears to be a echogenic mobile mass ??1.8 cm x 1.1 cm but could be artifact. Recommend CTA of aorta for further ??evaluation. ??Right Ventricle ??? Right ventricular systolic function is normal and with normal TAPSE 2.3 cm.. ??? Right ventricular chamber dimension is normal. ??Right Atria ??? Right atrial chamber dimension is moderately enlarged. 10/08/2016: EXAMINATION: CHEST-TWO VIEW INDICATION: Cough and weakness. TECHNIQUE: Frontal and lateral views of the chest were obtained. COMPARISON: None. FINDINGS: There is mild scarring at left lung apex. No pleural effusion or pneumothorax. Cardiomegaly is noted. There is mild thoracic spondylosis. There are changes of anterior fusion procedure in cervical spine. IMPRESSION: 1. Mild scarring at left lung apex. 2. Cardiomegaly. Review of Systems Constitutional: Constitutional: Reports no additional constitutional complaints Eyes: Eyes: Reports no additional eye complaints ENT: Reports system reviewed and no additional complaints, except as documented Cardiovascular: Cardiovascular: Reports no additional cardiovascular complaints Respiratory: Respiratory: Reports no additional respiratory complaints Gastrointestinal: Gastrointestinal: Reports no additional gastrointestinal complaints Musculoskeletal: Musculoskeletal: Reports no additional musculoskeletal complaints Neurologic: Reports system reviewed and no additional complaints, except as documented Psychiatric: Psychiatric: Reports no additional psychiatric complaints Endocrine: Endocrine: Reports no additional endocrine complaints Hematologic/Lymphatic: Hematologic/Lymphatic: Reports no additional hematologic/lymphatic complaints Allergic/Immunologic: Allergic/Immunologic: Reports no additional allergic/immunologic complaints Exam Narrative: on BiPAP and difficult to take a history. Const: General: cooperative, healthy appearing and comfortable Orientation/consciousness: oriented to person, oriented to place and oriented to time HENMT: Head: normal to inspection Ears: hearing grossly normal bilaterally Eyes: General: appearance normal, both eyes and all related structures Neck: Neck: normal visual inspection Chest: Chest palpation & inspection: normal inspection of the chest Resp: Effort & Inspection: normal respiratory effort and able to speak in complete sentences Auscultation: crackles, no rales, no rhonchi, no wheezes and lung sounds not diminished Other: Diffuse inspiratory crackles worse at the bases. No wheezing. Cardio: Jugular venous distension: no JVD Other: AFib. GI: Inspection: normal to inspection Skin: General skin exam: normal color Neuro: General: oriented to person, oriented to place and oriented to time Extrem: General: normal to inspection Other: Bilateral lower extremity edema. Psych: Appearance: grossly normal Objective Data Vital Signs Vital Signs: Vital Signs - 24 hr 12/04/24 09:28 12/04/24 09:33 12/04/24 10:00 Temperature Pulse Rate 104 H 102 H Respiratory Rate 20 20 Blood Pressure Pulse Oximetry 70 L Oxygen Delivery High Flow Therapy with Na Oxygen Flow Rate 60 Fraction of Inspired Oxygen 95 12/04/24 10:00 12/04/24 11:24 12/04/24 12:00 Temperature 36.4 C Pulse Rate 95 96 Respiratory Rate 16 Blood Pressure 104/54 L Pulse Oximetry 99 92 Oxygen Delivery High Flow Nasal Cannula Oxygen Flow Rate 5 Fraction of Inspired Oxygen 12/04/24 12:00 12/04/24 14:00 12/04/24 14:14 Temperature Pulse Rate 91 98 107 H Respiratory Rate 20 Blood Pressure Pulse Oximetry Oxygen Delivery Oxygen Flow Rate Fraction of Inspired Oxygen 12/04/24 14:15 12/04/24 14:40 12/04/24 15:47 Temperature 36.4 C Pulse Rate 99 94 Respiratory Rate 20 20 Blood Pressure 115/74 Pulse Oximetry 90 100 Oxygen Delivery High Flow Nasal Cannula Oxygen Flow Rate 3 Fraction of Inspired Oxygen 12/04/24 16:00 12/04/24 16:00 12/04/24 18:00 Temperature Pulse Rate 96 84 Respiratory Rate Blood Pressure Pulse Oximetry 92 Oxygen Delivery High Flow Nasal Cannula Oxygen Flow Rate 15 Fraction of Inspired Oxygen 12/04/24 19:44 12/04/24 20:00 12/04/24 20:00 Temperature 36.4 C Pulse Rate 97 92 92 Respiratory Rate 20 16 Blood Pressure 128/78 Pulse Oximetry 100 100 Oxygen Delivery High Flow Nasal Cannula Oxygen Flow Rate 6 Fraction of Inspired Oxygen 95 12/04/24 20:46 12/04/24 20:55 12/04/24 21:35 Temperature Pulse Rate 92 92 Respiratory Rate 16 16 Blood Pressure Pulse Oximetry 100 98 Oxygen Delivery High Flow Nasal Cannula High Flow Nasal Cannula Oxygen Flow Rate 8 6 Fraction of Inspired Oxygen 12/04/24 21:45 12/04/24 21:59 12/04/24 22:05 Temperature Pulse Rate 88 Respiratory Rate Blood Pressure Pulse Oximetry 95 92 Oxygen Delivery High Flow Nasal Cannula High Flow Nasal Cannula Oxygen Flow Rate 4 4 Fraction of Inspired Oxygen 12/04/24 23:50 12/05/24 00:00 12/05/24 00:00 Temperature 36.4 C Pulse Rate 79 88 88 Respiratory Rate 16 16 Blood Pressure 130/87 Pulse Oximetry 99 94 Oxygen Delivery High Flow Nasal Cannula Oxygen Flow Rate 2 Fraction of Inspired Oxygen 12/05/24 02:00 12/05/24 02:30 12/05/24 04:00 Temperature Pulse Rate 80 85 92 Respiratory Rate 16 Blood Pressure Pulse Oximetry 95 95 Oxygen Delivery High Flow Nasal Cannula High Flow Nasal Cannula Oxygen Flow Rate 2 2 Fraction of Inspired Oxygen 95 12/05/24 04:00 12/05/24 04:00 12/05/24 04:45 Temperature 36.5 C Pulse Rate 92 85 Respiratory Rate 16 Blood Pressure 102/63 Pulse Oximetry 95 96 Oxygen Delivery High Flow Nasal Cannula Oxygen Flow Rate 4 Fraction of Inspired Oxygen 12/05/24 06:00 12/05/24 08:00 12/05/24 08:00 Temperature 36.9 C Pulse Rate 91 103 H 87 Respiratory Rate 18 20 Blood Pressure 110/62 Pulse Oximetry 95 Oxygen Delivery Oxygen Flow Rate Fraction of Inspired Oxygen 12/05/24 08:01 12/05/24 08:05 Temperature Pulse Rate 93 Respiratory Rate 20 Blood Pressure Pulse Oximetry 91 Oxygen Delivery High Flow Nasal Cannula Oxygen Flow Rate 4 Fraction of Inspired Oxygen Intake/Output Intake/Output: Intake & Output 12/02/24 12/03/24 12/04/24 12/05/24 23:59 23:59 23:59 23:59 Intake Total 2132 1320 1590 50 Output Total 1750 2300 1890 500 Balance 382 -980 -300 -450 Meds/Results Medications: Active Medications Generic Name Dose Route Start Last Admin Trade Name Freq PRN Reason Stop Dose Admin Acetaminophen 650 mg 11/30/24 15:47 Acetaminophen 325 Mg Tablet PO Q6H PRN Mild Pain (1-3) or Fever Albuterol/Ipratropium 3 ml 11/30/24 20:00 12/05/24 08:00 Ipratropium 0.5 Mg/Albuterol Sulfate 2.5 Mg (Base) Ampul.Neb 3 Ml INHALATION 3 ml Q6HRT SPEEDY Administration Atorvastatin Calcium 10 mg 11/30/24 21:00 12/04/24 21:33 Atorvastatin 10 Mg Tablet PO 10 mg HS SPEEDY Administration Benzonatate 100 mg 11/30/24 15:44 Benzonatate 100 Mg Capsule PO TID PRN Cough Dextrose 12.5 gm 11/30/24 15:49 Dextrose 50% 25 Gm/50 Ml Syringe IV PUSH PRN PRN Hypoglycemia Protocol Divalproex Sodium 1,000 mg 12/01/24 08:00 12/04/24 09:52 Divalproex Sodium Er 500 Mg Tab.24h PO 1,000 mg DAILY@0800 SPEEDY Administration Divalproex Sodium 500 mg 11/30/24 21:00 12/04/24 21:33 Divalproex Sodium Er 500 Mg Tab.24h PO 500 mg HS SPEEDY Administration Furosemide 40 mg 12/01/24 13:45 12/04/24 16:52 Furosemide Inj 40 Mg/4 Ml Vial IV PUSH 40 mg BID SPEEDY Administration Glucagon 1 mg 11/30/24 15:49 Glucagon For Inj 1 Mg Vial IM PRN PRN Hypoglycemia Protocol Glucose 15 gm 11/30/24 15:49 Glucose Oral Gel 15 Gm Of Glucse In 37.5 Gm Tube PO PRN PRN Hypoglycemia Protocol Guaifenesin 1,200 mg 12/01/24 21:00 12/04/24 21:33 Guaifenesin 12 Hr 600 Mg Tabcr PO 1,200 mg Q12HR SPEEDY Administration Cefepime HCl 2 gm/ Sodium 50 mls @ 100 mls/hr 11/30/24 22:00 12/05/24 06:00 Chloride IVPB Infused Q8HR SPEEDY Infusion Dextrose 1,000 mls @ 100 mls/hr 11/30/24 15:49 Dextrose 5% 1,000 Ml IVPB PRN PRN Hypoglycemia Protocol Insulin Aspart 2 - 5 units 11/30/24 17:00 12/04/24 16:49 Insulin Aspart (*Bkc) 100 Units/Ml SUB-Q Not Given TIDWM SPEEDY Protocol Insulin Aspart 1 - 2 units 11/30/24 21:00 12/04/24 21:34 Insulin Aspart (*Bkc) 100 Units/Ml SUB-Q 1 units HS SPEEDY Administration Protocol Insulin Glargine 10 units 11/30/24 21:00 12/04/24 21:34 Insulin Glargine (*Bkc) 100 Units/Ml SUB-Q 10 units HS SPEEDY Administration Memantine 10 mg 11/30/24 17:00 12/04/24 16:51 Memantine 10 Mg Tablet PO 10 mg BID SPEEDY Administration Methocarbamol 750 mg 11/30/24 15:51 Methocarbamol 750 Mg Tablet PO BID PRN unknown Midodrine 10 mg 11/30/24 17:00 12/04/24 16:51 Midodrine Hcl 10 Mg Tablet PO 10 mg TID SPEEDY Administration Miscellaneous Information 0 each 11/30/24 00:01 12/04/24 16:52 Methocarbamol Need Prn Indication XX 12/30/24 00:00 Not Given CLARIFY SPEEDY Pantoprazole Sodium 40 mg 12/01/24 09:00 12/04/24 09:52 Pantoprazole 40 Mg Tablet PO 40 mg DAILY SPEEDY Administration Prednisone 20 mg/ Prednisone 30 mg 12/04/24 09:05 12/04/24 10:11 10 mg PO 12/08/24 08:00 30 mg DAILY@0800 SPEEDY Administration Rivaroxaban 20 mg 12/01/24 09:00 12/04/24 09:52 Rivaroxaban 20 Mg Tablet PO 20 mg DAILY SPEEDY Administration Tamsulosin HCl 0.8 mg 12/01/24 09:00 12/04/24 09:52 Tamsulosin Hcl 0.4 Mg Capsule PO 0.8 mg DAILY SPEEDY Administration Vitamin D 125 mcg 12/01/24 09:00 12/04/24 09:52 Cholecalciferol (Vitamin D3) 125 Mcg (5,000 Units) Tablet PO 125 mcg DAILY SPEEDY Administration Radiology Results: ITS Impressions Chest CT 11/30/24 14:20 IMPRESSION: 1. Bilateral severe bronchopneumonia superimposed on chronic lung disease with probable reactive mediastinal lymphadenopathy. Follow-up recommended to assess resolution Chest X-Ray 12/04/24 09:32 IMPRESSION: 1. Slight interval progression in diffuse bilateral interstitial and airspace opacities which could represent moderate pulmonary edema, pneumonia, chronic interstitial lung disease or some combination thereof. Labs Labs: Laboratory Results - last 24 hr 12/01/24 12/01/24 12/04/24 06:03 16:00 04:08 WBC RBC Hgb Hct MCV MCH MCHC RDW Plt Count MPV Immature Gran % (Auto) Neut % (Auto) Lymph % (Auto) Keith % (Auto) Eos % (Auto) Baso % (Auto) Lymph # (Auto) Keith # (Auto) Eos # (Auto) Baso # (Auto) Abs Immat Gran (auto) Absolute Neuts (auto) Absolute Nucleated RBC Nucleated RBC % Sodium Potassium Chloride Carbon Dioxide Anion Gap BUN Creatinine Estim Creat Clear Calc Estimated GFR Glucose POC Capillary Glucose Calcium Magnesium Total Bilirubin AST ALT Alkaline Phosphatase Total Protein Albumin Aldolase 10.7 H Procalcitonin 0.1 c-ANCA Antibody <1:20 Atypical p-ANCA <1:20 p-ANCA Antibody <1:20 Chlamy pneumoniae PCR Not detected Adenovirus (PCR) Not detected B. pertussis DNA (PCR) Not detected B.parapertussis DNA PCR Not detected Coronavirus OC43 (PCR) Not detected Coronavirus HKU1 (PCR) Not detected Coronavirus 229E (PCR) Not detected Coronavirus NL63 (PCR) Not detected Human Metapneumovir PCR Not detected Influenza A (H1) PCR Not detected Influ A (H1/09) PCR Not detected Influenza A (H3) PCR Not detected Influenza Type A (PCR) Not detected Influenza Type B (PCR) Not detected M.pneumoniae IgM Titer <770 M. pneumoniae (PCR) Not detected Parainfluenza 1 (PCR) Not detected Parainfluenza 2 (PCR) Not detected Parainfluenza 3 (PCR) Not detected Parainfluenza 4 (PCR) Not detected RSV (PCR) Not detected Entero/Rhino (PCR) Not detected SARS-CoV-2 (PCR) Not detected 12/04/24 12/04/24 12/04/24 11:05 15:36 20:29 WBC RBC Hgb Hct MCV MCH MCHC RDW Plt Count MPV Immature Gran % (Auto) Neut % (Auto) Lymph % (Auto) Keith % (Auto) Eos % (Auto) Baso % (Auto) Lymph # (Auto) Keith # (Auto) Eos # (Auto) Baso # (Auto) Abs Immat Gran (auto) Absolute Neuts (auto) Absolute Nucleated RBC Nucleated RBC % Sodium Potassium Chloride Carbon Dioxide Anion Gap BUN Creatinine Estim Creat Clear Calc Estimated GFR Glucose POC Capillary Glucose 215 H 125 H 278 H Calcium Magnesium Total Bilirubin AST ALT Alkaline Phosphatase Total Protein Albumin Aldolase Procalcitonin c-ANCA Antibody Atypical p-ANCA p-ANCA Antibody Chlamy pneumoniae PCR Adenovirus (PCR) B. pertussis DNA (PCR) B.parapertussis DNA PCR Coronavirus OC43 (PCR) Coronavirus HKU1 (PCR) Coronavirus 229E (PCR) Coronavirus NL63 (PCR) Human Metapneumovir PCR Influenza A (H1) PCR Influ A (H1/09) PCR Influenza A (H3) PCR Influenza Type A (PCR) Influenza Type B (PCR) M.pneumoniae IgM Titer M. pneumoniae (PCR) Parainfluenza 1 (PCR) Parainfluenza 2 (PCR) Parainfluenza 3 (PCR) Parainfluenza 4 (PCR) RSV (PCR) Entero/Rhino (PCR) SARS-CoV-2 (PCR) 12/05/24 12/05/24 04:51 07:14 WBC 12.7 H RBC 2.93 L Hgb 9.9 L Hct 30.5 L MCV 104.1 H MCH 33.8 MCHC 32.5 RDW 15.7 H Plt Count 178 MPV 10.5 H Immature Gran % (Auto) 1.4 H Neut % (Auto) 73.3 H Lymph % (Auto) 11.2 L Keith % (Auto) 12.7 H Eos % (Auto) 1.2 Baso % (Auto) 0.2 Lymph # (Auto) 1.42 Keith # (Auto) 1.6 H Eos # (Auto) 0.2 Baso # (Auto) 0.0 Abs Immat Gran (auto) 0.18 H Absolute Neuts (auto) 9.3 H Absolute Nucleated RBC 0.000 Nucleated RBC % 0.0 Sodium 135 L Potassium 4.2 Chloride 91 L Carbon Dioxide 39 H Anion Gap 5 BUN 29 H Creatinine 0.80 Estim Creat Clear Calc 77 Estimated GFR > 60 Glucose 104 POC Capillary Glucose 106 H Calcium 8.6 Magnesium 1.7 Total Bilirubin 0.6 AST 37 ALT 27 Alkaline Phosphatase 64 Total Protein 6.3 Albumin 3.0 L Aldolase Procalcitonin c-ANCA Antibody Atypical p-ANCA p-ANCA Antibody Chlamy pneumoniae PCR Adenovirus (PCR) B. pertussis DNA (PCR) B.parapertussis DNA PCR Coronavirus OC43 (PCR) Coronavirus HKU1 (PCR) Coronavirus 229E (PCR) Coronavirus NL63 (PCR) Human Metapneumovir PCR Influenza A (H1) PCR Influ A (H1/09) PCR Influenza A (H3) PCR Influenza Type A (PCR) Influenza Type B (PCR) M.pneumoniae IgM Titer M. pneumoniae (PCR) Parainfluenza 1 (PCR) Parainfluenza 2 (PCR) Parainfluenza 3 (PCR) Parainfluenza 4 (PCR) RSV (PCR) Entero/Rhino (PCR) SARS-CoV-2 (PCR)
[2024-12-05] MEDS: MEMANTINE 10 MG TABLET PO ×2 (08:43→16:25)
[2024-12-05] MEDS: DIVALPROEX SODIUM ER 500 MG TAB.24H 1000 MG PO (08:43)
[2024-12-05] MEDS: guaiFENesin 12 HR 600 MG TABCR 1200 MG PO ×2 (08:43→21:36)
[2024-12-05] MEDS: TAMSULOSIN HCL 0.4 MG CAPSULE 0.8 MG PO (08:43)
[2024-12-05] MEDS: RIVAROXABAN 20 MG TABLET PO (08:43)
[2024-12-05] MEDS: CHOLECALCIFEROL (VITAMIN D3) 125 MCG (5,000 UNITS) TABLET PO (08:43)
[2024-12-05] MEDS: FUROSEMIDE INJ 40 MG/4 ML VIAL IV PUSH ×2 (08:44→16:25)
[2024-12-05] MEDS: PANTOPRAZOLE 40 MG TABLET PO (08:44)
[2024-12-05] MEDS: MIDODRINE HCL 10 MG TABLET PO ×3 (08:44→16:25)
[2024-12-05] MEDS: INSULIN ASPART (*BKC) 100 UNITS/ML SUB-Q ×3 (12:21→21:37)
[2024-12-05 13:09] LABS: ANA by IFA Rfx Titer/Pattern Negative (.)
[2024-12-05] MEDS: ACETAMINOPHEN 325 MG TABLET 650 MG PO (13:42)
--- NOTE | 2024-12-05 14:40 | PM.IMPN ---
Progress Note: A&P Assessment and Plan (1) Acute hypoxic respiratory failure: Code(s): J96.01 - Acute respiratory failure with hypoxia Status: Acute Assessment and Plan: Patient arrived to the emergency department 96% on room air. Initial concern patient was hypoxic in the 70s prior to arrival. Patient did become hypoxic in the emergency department on 11/30, dropped to 84% on room air. Subsequently placed on BiPAP. Imaging showed bilateral severe bronchopneumonia superimposed on chronic lung disease. Initial ABG showed no significant hypoxia, hypercapnia, acidosis, or alkalosis on BiPAP. - continue BiPAP for work of breathing/respiratory distress p.r.n. - started on hospital-acquired pneumonia treatment as he was recently admitted to [facility], patient additionally met criteria for sepsis and lactic was elevated - pulmonology consulted Gentle diuresis as BNP elevated Which he is tolerating. Respiratory pathogen panel Urine antigens I LD workup as ordered by Pulmonary continue Airvo and wean as tolerated (2) Sepsis: Qualifiers: Sepsis type: sepsis due to unspecified organism Sepsis acute organ dysfunction status: with acute organ dysfunction Severe sepsis acute organ dysfunction type: acute respiratory failure Acute respiratory failure type: with hypoxia Severe sepsis shock status: without septic shock Qualified Code(s): A41.9 - Sepsis, unspecified organism; R65.20 - Severe sepsis without septic shock; J96.01 - Acute respiratory failure with hypoxia Code(s): A41.9 - Sepsis, unspecified organism Status: Acute Assessment and Plan: Patient met SIRS criteria: HR greater than 100, RR greater than 20, WBC greater than 12. +hypoxia, -hypotension. Initial lactic 3.6 -> 3.4. CRP 4.98 and procalcitonin 0.1. - blood cultures obtained on 11/30, follow. - trend lactic down - 30 mL/kg = 2.5, will give 2L at 200 mL/hr due to elevation in BNP/hx of diastolic dysfunction. monitor toleration. - suspected source: HAP - started on ceftriaxone and azithromycin, exchanged to cefepime and azithromycin on 11/30 - monitor I&Os (3) Pneumonia: Qualifiers: Laterality: bilateral Lung location: unspecified part of lung Pneumonia type: due to unspecified organism Qualified Code(s): J18.9 - Pneumonia, unspecified organism Code(s): J18.9 - Pneumonia, unspecified organism Status: Acute Assessment and Plan: - CXR: 1. Interval worsening of chronic interstitial lung disease. 2. However bibasilar edema and/or pneumonitis or airspace disease not excluded. - Chest CT: Bilateral severe bronchopneumonia superimposed on chronic lung disease with probable reactive mediastinal lymphadenopathy. Follow-up recommended to assess resolution - risk/complicating factors: acute respiratory failure, interstitial lung disease, recent hospitalization - started on ceftriaxone and azithromycin in the ED, exchanged to cefepime and azithromycin on 11/30. No current indication for vancomycin as the patient's MRSA PCR was negative upon admission. - supportive care: Mucinex, Tylenol, DuoNebs, Tessalon Perles - sputum culture - currently requiring BiPAP for WOB, +hypoxia Still requiring high level of oxygen. Continue diuresis Chest x-ray reviewed Leukocytosis improving (4) ILD (interstitial lung disease): Code(s): J84.9 - Interstitial pulmonary disease, unspecified Status: Chronic Assessment and Plan: - worsening on imaging - pulmonology consulted, see recs above Restarted on prednisone per Pulmonary (5) Diastolic congestive heart failure, NYHA class 3: Qualifiers: Congestive heart failure chronicity: unspecified Qualified Code(s): I50.30 - Unspecified diastolic (congestive) heart failure Code(s): I50.30 - Unspecified diastolic (congestive) heart failure Status: Chronic Assessment and Plan: BNP elevated at 3540. No evidence of pulmonary edema on CXR. Reviewed chart, most recent echo in 2022 showed diastolic dysfunction, normal systolic function with an estimated EF of 60 65%, valvular disease, and mild pulmonary hypertension. - update echo - receiving IV fluids due to sepsis at slower rate, monitor toleration which will be stopped and start diuresis as tolerated - monitor I&Os - daily weights Received a dose of Lasix 40 mg x 1 11/30 started on diuresis 40 mg IV b.i.d.. With good diuresis (6) DM2 (diabetes mellitus, type 2): Code(s): E11.9 - Type 2 diabetes mellitus without complications Status: Chronic Assessment and Plan: - hypoglycemia protocol - POC blood glucose ACHS - home medication: Hold metformin in case of need for contrast. Continue Lantus 10 units HS. - correct regimen ordered - low dose TIDWM and HS, based off BMI - A1C 6.4% in 2022, update (7) Chronic anticoagulation: Code(s): Z79.01 - long-term (current) use of anticoagulants Status: Chronic Assessment and Plan: - continue Xarelto (8) Chronic hypotension: Code(s): I95.89 - Other hypotension Status: Acute Assessment and Plan: - continue home medications: Midodrine - monitor Plan Diet: Heart healthy GI Prophylaxis: N/a DVT Prophylaxis: Xarelto Lines/Tubes: Peripheral IV Code Status: Full code discussed with the patient and family and now switched to do not resuscitate Disposition still required significant amount of oxygen with exertion continue IV diuresis and IV cefepime for total 7 days Subjective Date/time seen: 12/05/24 14:40 Interval history: No overnight events. Patient sat up in the chair for 2-3 hours yesterday. Has not exerted much. Working with therapy. Discussed with nursing staff. Labs reviewed. Review of Systems Review of Systems: All systems reviewed & are unremarkable except as noted in HPI and below Exam Narrative: APPEARANCE: Ill-appearing not in acute distress HEAD: normocephalic, atraumatic. EYES: PERRLA/EOMI, conjunctivae clear. NECK: Supple. No adenopathy, no masses. RESPIRATORY: Coarse breath sounds bilaterally, no respiratory distress CARDIOVASCULAR: Regular rate and S1-S2 ABDOMINAL: Soft, nontender, nondistended, normal bowel sounds MUSCULOSKELETAL: Moves all extremities. Strength/ROM intact, trace edema, No calf tenderness. NEURO: Alert. Cranial nerves II through XII intact. SKIN: Warm, dry. Normal Color Objective Data Vital Signs Vital Signs: Vital Signs - 24 hr 12/04/24 15:47 12/04/24 16:00 12/04/24 16:00 Temperature 97.6 F Pulse Rate 94 96 Respiratory Rate 20 Blood Pressure 115/74 Pulse Oximetry 100 92 Oxygen Delivery High Flow Nasal Cannula Oxygen Flow Rate 15 Fraction of Inspired Oxygen 12/04/24 18:00 12/04/24 19:44 12/04/24 20:00 Temperature 97.6 F Pulse Rate 84 97 92 Respiratory Rate 20 16 Blood Pressure 128/78 Pulse Oximetry 100 100 Oxygen Delivery High Flow Nasal Cannula Oxygen Flow Rate 6 Fraction of Inspired Oxygen 95 12/04/24 20:00 12/04/24 20:46 12/04/24 20:55 Temperature Pulse Rate 92 92 92 Respiratory Rate 16 16 Blood Pressure Pulse Oximetry 100 Oxygen Delivery High Flow Nasal Cannula Oxygen Flow Rate 8 Fraction of Inspired Oxygen 12/04/24 21:35 12/04/24 21:45 12/04/24 21:59 Temperature Pulse Rate 88 Respiratory Rate Blood Pressure Pulse Oximetry 98 95 Oxygen Delivery High Flow Nasal Cannula High Flow Nasal Cannula Oxygen Flow Rate 6 4 Fraction of Inspired Oxygen 12/04/24 22:05 12/04/24 23:50 12/05/24 00:00 Temperature 97.6 F Pulse Rate 79 88 Respiratory Rate 16 16 Blood Pressure 130/87 Pulse Oximetry 92 99 94 Oxygen Delivery High Flow Nasal Cannula High Flow Nasal Cannula Oxygen Flow Rate 4 2 Fraction of Inspired Oxygen 12/05/24 00:00 12/05/24 02:00 12/05/24 02:30 Temperature Pulse Rate 88 80 85 Respiratory Rate Blood Pressure Pulse Oximetry 95 Oxygen Delivery High Flow Nasal Cannula Oxygen Flow Rate 2 Fraction of Inspired Oxygen 12/05/24 04:00 12/05/24 04:00 12/05/24 04:00 Temperature 97.7 F Pulse Rate 92 92 85 Respiratory Rate 16 16 Blood Pressure 102/63 Pulse Oximetry 95 95 Oxygen Delivery High Flow Nasal Cannula Oxygen Flow Rate 2 Fraction of Inspired Oxygen 95 12/05/24 04:45 12/05/24 06:00 12/05/24 08:00 Temperature Pulse Rate 91 103 H Respiratory Rate 18 Blood Pressure Pulse Oximetry 96 Oxygen Delivery High Flow Nasal Cannula Oxygen Flow Rate 4 Fraction of Inspired Oxygen 12/05/24 08:00 12/05/24 08:00 12/05/24 08:00 Temperature 98.5 F Pulse Rate 87 95 Respiratory Rate 20 Blood Pressure 110/62 Pulse Oximetry 95 95 Oxygen Delivery High Flow Nasal Cannula Oxygen Flow Rate 6 Fraction of Inspired Oxygen 12/05/24 08:01 12/05/24 08:05 12/05/24 10:00 Temperature Pulse Rate 93 103 H Respiratory Rate 20 Blood Pressure Pulse Oximetry 91 Oxygen Delivery High Flow Nasal Cannula Oxygen Flow Rate 4 Fraction of Inspired Oxygen 12/05/24 11:44 12/05/24 12:00 12/05/24 12:00 Temperature 98.7 F Pulse Rate 97 105 H Respiratory Rate 16 Blood Pressure 104/67 Pulse Oximetry 98 98 Oxygen Delivery High Flow Nasal Cannula Oxygen Flow Rate 4 Fraction of Inspired Oxygen 12/05/24 14:00 12/05/24 14:30 12/05/24 14:30 Temperature Pulse Rate 99 96 Respiratory Rate 18 Blood Pressure Pulse Oximetry 97 Oxygen Delivery High Flow Nasal Cannula Oxygen Flow Rate 3 Fraction of Inspired Oxygen 12/05/24 14:37 Temperature Pulse Rate 96 Respiratory Rate 18 Blood Pressure Pulse Oximetry Oxygen Delivery Oxygen Flow Rate Fraction of Inspired Oxygen Intake/Output Intake/Output: Intake & Output 12/02/24 12/03/24 12/04/24 12/05/24 23:59 23:59 23:59 23:59 Intake Total 2132 1320 1590 1030 Output Total 1750 2300 1890 1050 Balance 382 -980 -300 -20 Meds/Results Medications: Active Medications Generic Name Dose Route Start Last Admin Trade Name Freq PRN Reason Stop Dose Admin Acetaminophen 650 mg 11/30/24 15:47 12/05/24 13:42 Acetaminophen 325 Mg Tablet PO 650 mg Q6H PRN Administration Mild Pain (1-3) or Fever Albuterol/Ipratropium 3 ml 11/30/24 20:00 12/05/24 14:30 Ipratropium 0.5 Mg/Albuterol Sulfate 2.5 Mg (Base) Ampul.Neb 3 Ml INHALATION 3 ml Q6HRT SPEEDY Administration Atorvastatin Calcium 10 mg 11/30/24 21:00 12/04/24 21:33 Atorvastatin 10 Mg Tablet PO 10 mg HS SPEEDY Administration Benzonatate 100 mg 11/30/24 15:44 Benzonatate 100 Mg Capsule PO TID PRN Cough Dextrose 12.5 gm 11/30/24 15:49 Dextrose 50% 25 Gm/50 Ml Syringe IV PUSH PRN PRN Hypoglycemia Protocol Divalproex Sodium 1,000 mg 12/01/24 08:00 12/05/24 08:43 Divalproex Sodium Er 500 Mg Tab.24h PO 1,000 mg DAILY@0800 SPEEDY Administration Divalproex Sodium 500 mg 11/30/24 21:00 12/04/24 21:33 Divalproex Sodium Er 500 Mg Tab.24h PO 500 mg HS SPEEDY Administration Furosemide 40 mg 12/01/24 13:45 12/05/24 08:44 Furosemide Inj 40 Mg/4 Ml Vial IV PUSH 40 mg BID SPEEDY Administration Glucagon 1 mg 11/30/24 15:49 Glucagon For Inj 1 Mg Vial IM PRN PRN Hypoglycemia Protocol Glucose 15 gm 11/30/24 15:49 Glucose Oral Gel 15 Gm Of Glucse In 37.5 Gm Tube PO PRN PRN Hypoglycemia Protocol Guaifenesin 1,200 mg 12/01/24 21:00 12/05/24 08:43 Guaifenesin 12 Hr 600 Mg Tabcr PO 1,200 mg Q12HR SPEEDY Administration Cefepime HCl 2 gm/ Sodium 50 mls @ 100 mls/hr 11/30/24 22:00 12/05/24 13:43 Chloride IVPB 12/07/24 14:29 100 mls/hr Q8HR SPEEDY Administration Dextrose 1,000 mls @ 100 mls/hr 11/30/24 15:49 Dextrose 5% 1,000 Ml IVPB PRN PRN Hypoglycemia Protocol Insulin Aspart 2 - 5 units 11/30/24 17:00 12/05/24 12:21 Insulin Aspart (*Bkc) 100 Units/Ml SUB-Q 3 units TIDWM SPEEDY Administration Protocol Insulin Aspart 1 - 2 units 11/30/24 21:00 12/04/24 21:34 Insulin Aspart (*Bkc) 100 Units/Ml SUB-Q 1 units HS SPEEDY Administration Protocol Insulin Glargine 10 units 11/30/24 21:00 12/04/24 21:34 Insulin Glargine (*Bkc) 100 Units/Ml SUB-Q 10 units HS SPEEDY Administration Memantine 10 mg 11/30/24 17:00 12/05/24 08:43 Memantine 10 Mg Tablet PO 10 mg BID SPEEDY Administration Methocarbamol 750 mg 11/30/24 15:51 Methocarbamol 750 Mg Tablet PO BID PRN muscle spasm Midodrine 10 mg 11/30/24 17:00 12/05/24 12:21 Midodrine Hcl 10 Mg Tablet PO 10 mg TID SPEEDY Administration Pantoprazole Sodium 40 mg 12/01/24 09:00 12/05/24 08:44 Pantoprazole 40 Mg Tablet PO 40 mg DAILY SPEEDY Administration Polyethylene Glycol 17 gm 12/05/24 09:50 Polyethylene Glycol 3350 17 Gm Powd.Pack PO QAM PRN Constipation Prednisone 20 mg/ Prednisone 30 mg 12/04/24 09:05 12/05/24 08:43 10 mg PO 12/08/24 08:00 30 mg DAILY@0800 SPEEDY Administration Rivaroxaban 20 mg 12/06/24 17:00 Rivaroxaban 20 Mg Tablet PO Q24H [facility] Tamsulosin HCl 0.8 mg 12/01/24 09:00 12/05/24 08:43 Tamsulosin Hcl 0.4 Mg Capsule PO 0.8 mg DAILY SPEEDY Administration Vitamin D 125 mcg 12/01/24 09:00 12/05/24 08:43 Cholecalciferol (Vitamin D3) 125 Mcg (5,000 Units) Tablet PO 125 mcg DAILY SPEEDY Administration Radiology Results: ITS Impressions Chest CT 11/30/24 14:20 IMPRESSION: 1. Bilateral severe bronchopneumonia superimposed on chronic lung disease with probable reactive mediastinal lymphadenopathy. Follow-up recommended to assess resolution Chest X-Ray 12/04/24 09:32 IMPRESSION: 1. Slight interval progression in diffuse bilateral interstitial and airspace opacities which could represent moderate pulmonary edema, pneumonia, chronic interstitial lung disease or some combination thereof. Labs Labs: Laboratory Results - last 24 hr 12/01/24 12/01/24 12/04/24 06:03 16:00 15:36 WBC RBC Hgb Hct MCV MCH MCHC RDW Plt Count MPV Immature Gran % (Auto) Neut % (Auto) Lymph % (Auto) Hitchcock % (Auto) Eos % (Auto) Baso % (Auto) Lymph # (Auto) Hitchcock # (Auto) Eos # (Auto) Baso # (Auto) Abs Immat Gran (auto) Absolute Neuts (auto) Absolute Nucleated RBC Nucleated RBC % Sodium Potassium Chloride Carbon Dioxide Anion Gap BUN Creatinine Estim Creat Clear Calc Estimated GFR Glucose POC Capillary Glucose 125 H Calcium Magnesium Total Bilirubin AST ALT Alkaline Phosphatase Total Protein Albumin Aldolase 10.7 H LAURA Screen Negative c-ANCA Antibody <1:20 Atypical p-ANCA <1:20 p-ANCA Antibody <1:20 Chlamy pneumoniae PCR Not detected Adenovirus (PCR) Not detected B. pertussis DNA (PCR) Not detected B.parapertussis DNA PCR Not detected Coronavirus OC43 (PCR) Not detected Coronavirus HKU1 (PCR) Not detected Coronavirus 229E (PCR) Not detected Coronavirus NL63 (PCR) Not detected Human Metapneumovir PCR Not detected Influenza A (H1) PCR Not detected Influ A (H1/09) PCR Not detected Influenza A (H3) PCR Not detected Influenza Type A (PCR) Not detected Influenza Type B (PCR) Not detected M.pneumoniae IgM Titer <770 M. pneumoniae (PCR) Not detected Parainfluenza 1 (PCR) Not detected Parainfluenza 2 (PCR) Not detected Parainfluenza 3 (PCR) Not detected Parainfluenza 4 (PCR) Not detected RSV (PCR) Not detected Entero/Rhino (PCR) Not detected SARS-CoV-2 (PCR) Not detected 12/04/24 12/05/24 12/05/24 20:29 04:51 07:14 WBC 12.7 H RBC 2.93 L Hgb 9.9 L Hct 30.5 L MCV 104.1 H MCH 33.8 MCHC 32.5 RDW 15.7 H Plt Count 178 MPV 10.5 H Immature Gran % (Auto) 1.4 H Neut % (Auto) 73.3 H Lymph % (Auto) 11.2 L Hitchcock % (Auto) 12.7 H Eos % (Auto) 1.2 Baso % (Auto) 0.2 Lymph # (Auto) 1.42 Hitchcock # (Auto) 1.6 H Eos # (Auto) 0.2 Baso # (Auto) 0.0 Abs Immat Gran (auto) 0.18 H Absolute Neuts (auto) 9.3 H Absolute Nucleated RBC 0.000 Nucleated RBC % 0.0 Sodium 135 L Potassium 4.2 Chloride 91 L Carbon Dioxide 39 H Anion Gap 5 BUN 29 H Creatinine 0.80 Estim Creat Clear Calc 77 Estimated GFR > 60 Glucose 104 POC Capillary Glucose 278 H 106 H Calcium 8.6 Magnesium 1.7 Total Bilirubin 0.6 AST 37 ALT 27 Alkaline Phosphatase 64 Total Protein 6.3 Albumin 3.0 L Aldolase LAURA Screen c-ANCA Antibody Atypical p-ANCA p-ANCA Antibody Chlamy pneumoniae PCR Adenovirus (PCR) B. pertussis DNA (PCR) B.parapertussis DNA PCR Coronavirus OC43 (PCR) Coronavirus HKU1 (PCR) Coronavirus 229E (PCR) Coronavirus NL63 (PCR) Human Metapneumovir PCR Influenza A (H1) PCR Influ A (H1) PCR Influenza A (H3) PCR Influenza Type A (PCR) Influenza Type B (PCR) M.pneumoniae IgM Titer M. pneumoniae (PCR) Parainfluenza 1 (PCR) Parainfluenza 2 (PCR) Parainfluenza 3 (PCR) Parainfluenza 4 (PCR) RSV (PCR) Entero/Rhino (PCR) SARS-CoV-2 (PCR) 12/05/24 11:16 WBC RBC Hgb Hct MCV MCH MCHC RDW Plt Count MPV Immature Gran % (Auto) Neut % (Auto) Lymph % (Auto) Hitchcock % (Auto) Eos % (Auto) Baso % (Auto) Lymph # (Auto) Hitchcock # (Auto) Eos # (Auto) Baso # (Auto) Abs Immat Gran (auto) Absolute Neuts (auto) Absolute Nucleated RBC Nucleated RBC % Sodium Potassium Chloride Carbon Dioxide Anion Gap BUN Creatinine Estim Creat Clear Calc Estimated GFR Glucose POC Capillary Glucose 282 H Calcium Magnesium Total Bilirubin AST ALT Alkaline Phosphatase Total Protein Albumin Aldolase LAURA Screen c-ANCA Antibody Atypical p-ANCA p-ANCA Antibody Chlamy pneumoniae PCR Adenovirus (PCR) B. pertussis DNA (PCR) B.parapertussis DNA PCR Coronavirus OC43 (PCR) Coronavirus HKU1 (PCR) Coronavirus 229E (PCR) Coronavirus NL63 (PCR) Human Metapneumovir PCR Influenza A (H1) PCR Influ A (H1/09) PCR Influenza A (H3) PCR Influenza Type A (PCR) Influenza Type B (PCR) M.pneumoniae IgM Titer M. pneumoniae (PCR) Parainfluenza 1 (PCR) Parainfluenza 2 (PCR) Parainfluenza 3 (PCR) Parainfluenza 4 (PCR) RSV (PCR) Entero/Rhino (PCR) SARS-CoV-2 (PCR)
[2024-12-05] MEDS: ATORVASTATIN 10 MG TABLET PO (21:36)
[2024-12-05] MEDS: DIVALPROEX SODIUM ER 500 MG TAB.24H PO (21:36)
[2024-12-05] MEDS: INSULIN GLARGINE (*BKC) 100 UNITS/ML 10 UNITS SUB-Q (21:37)
[2024-12-06] VITALS (22 sets, daily range): BP systolic 98–119; BP diastolic 50–71; PULSE 75–112; RESP 15–24; TEMP 36.4–36.9; O2SAT 91–100
[2024-12-06] MEDS: CEFEPIME 2 GM in SODIUM CHLORIDE 0.9% IV 50 ML 100 ML IVPB ×3 (05:39→23:30)
[2024-12-06 06:21] LABS: Hematocrit 31.6 % (42.0-52.0); Hemoglobin 10.2 g/dL (14.0-18.0); Immature Granulocyte Percent A 1.8 % (0-0.5); Lymphocytes Absolute Auto 1.90 K/mm3 (0.9-3.2); Mean Corpuscular HGB Conc 32.3 g/dl (32-36); Mean Corpuscular Hemoglobin 33.7 pg (26-34); Mean Corpuscular Volume 104.3 fl (80-100); Nucleated Red Blood Cells Absolute Auto 0.000 K/mm3 (0.0-0.012); Nucleated Red Blood Cells Perc 0.0 % (0.0-0.2); Platelet Count Result 189 k/mm3 (150-375); Red Blood Count 3.03 M/mm3 (4.6-6.20); White Blood Count 12.8 K/mm3 (4.5-10.0)
[2024-12-06 06:45] LABS: Alanine Aminotransferase 23 U/L (6-50); Albumin Level 2.9 g/dL (3.5-5.1); Alkaline Phosphatase 63 U/L (38-126); Anion Gap 1 mmol/L (4-12); Aspartate Amino Transferase 35 U/L (17-59); Bilirubin,Total 0.6 mg/dL (0.2-1.3); Blood Urea Nitrogen 35 mg/dL (9-20); Calcium 8.5 mg/dL (8.4-10.2); Carbon Dioxide 39 mmol/L (22-30); Chloride 94 mmol/L (98-107); Estimated CRCL calculation 89 ml/min; Estimated Glomerular Filt Rate > 60; Glucose 130 mg/dL (65-110); Magnesium 2.0 mg/dL (1.6-2.3); Potassium 4.3 mmol/L (3.4-5.0); Sodium 134 mmol/L (137-145); Total Protein 6.4 g/dL (6.3-8.2)
[2024-12-06 07:20] LABS: CRP 2.2 mg/dL (<1.0); NT Pro B Type Natriuretic Pept 1930 pg/mL (19.9-100)
--- NOTE | 2024-12-06 08:19 | PM.IMPN ---
Progress Note: A&P Assessment and Plan (1) Acute hypoxic respiratory failure: Code(s): J96.01 - Acute respiratory failure with hypoxia Status: Acute Assessment and Plan: Patient arrived to the emergency department 96% on room air. Initial concern patient was hypoxic in the 70s prior to arrival. Patient did become hypoxic in the emergency department on 11/30, dropped to 84% on room air. Subsequently placed on BiPAP. Imaging showed bilateral severe bronchopneumonia superimposed on chronic lung disease. Initial ABG showed no significant hypoxia, hypercapnia, acidosis, or alkalosis on BiPAP. - continue BiPAP for work of breathing/respiratory distress p.r.n. - started on hospital-acquired pneumonia treatment as he was recently admitted to [facility], patient additionally met criteria for sepsis and lactic was elevated - pulmonology consulted Gentle diuresis as BNP elevated Which he is tolerating. Respiratory pathogen panel Urine antigens I LD workup as ordered by Pulmonary continue Airvo and wean as tolerated And currently on 4 L oxygen via nasal cannula (2) Sepsis: Qualifiers: Sepsis type: sepsis due to unspecified organism Sepsis acute organ dysfunction status: with acute organ dysfunction Severe sepsis acute organ dysfunction type: acute respiratory failure Acute respiratory failure type: with hypoxia Severe sepsis shock status: without septic shock Qualified Code(s): A41.9 - Sepsis, unspecified organism; R65.20 - Severe sepsis without septic shock; J96.01 - Acute respiratory failure with hypoxia Code(s): A41.9 - Sepsis, unspecified organism Status: Acute Assessment and Plan: Patient met SIRS criteria: HR greater than 100, RR greater than 20, WBC greater than 12. +hypoxia, -hypotension. Initial lactic 3.6 -> 3.4. CRP 4.98 and procalcitonin 0.1. - blood cultures obtained on 11/30, follow. - trend lactic down - 30 mL/kg = 2.5, will give 2L at 200 mL/hr due to elevation in BNP/hx of diastolic dysfunction. monitor toleration. - suspected source: HAP - started on ceftriaxone and azithromycin, exchanged to cefepime and azithromycin on 11/30 - monitor I&Os concluded azithromycin Continue cefepime for total 7 days (3) Pneumonia: Qualifiers: Laterality: bilateral Lung location: unspecified part of lung Pneumonia type: due to unspecified organism Qualified Code(s): J18.9 - Pneumonia, unspecified organism Code(s): J18.9 - Pneumonia, unspecified organism Status: Acute Assessment and Plan: - CXR: 1. Interval worsening of chronic interstitial lung disease. 2. However bibasilar edema and/or pneumonitis or airspace disease not excluded. - Chest CT: Bilateral severe bronchopneumonia superimposed on chronic lung disease with probable reactive mediastinal lymphadenopathy. Follow-up recommended to assess resolution - risk/complicating factors: acute respiratory failure, interstitial lung disease, recent hospitalization - started on ceftriaxone and azithromycin in the ED, exchanged to cefepime and azithromycin on 11/30. No current indication for vancomycin as the patient's MRSA PCR was negative upon admission. - supportive care: Mucinex, Tylenol, DuoNebs, Tessalon Perles - sputum culture - currently requiring BiPAP for WOB, +hypoxia Still requiring high level of oxygen. Continue diuresis Chest x-ray reviewed Leukocytosis improving (4) ILD (interstitial lung disease): Code(s): J84.9 - Interstitial pulmonary disease, unspecified Status: Chronic Assessment and Plan: - worsening on imaging - pulmonology consulted, see recs above Restarted on prednisone per Pulmonary (5) Diastolic congestive heart failure, NYHA class 3: Qualifiers: Congestive heart failure chronicity: unspecified Qualified Code(s): I50.30 - Unspecified diastolic (congestive) heart failure Code(s): I50.30 - Unspecified diastolic (congestive) heart failure Status: Chronic Assessment and Plan: BNP elevated at 3540. No evidence of pulmonary edema on CXR. Reviewed chart, most recent echo in 2022 showed diastolic dysfunction, normal systolic function with an estimated EF of 60 65%, valvular disease, and mild pulmonary hypertension. - update echo - receiving IV fluids due to sepsis at slower rate, monitor toleration which will be stopped and start diuresis as tolerated - monitor I&Os - daily weights Received a dose of Lasix 40 mg x 1 11/30 started on diuresis 40 mg IV b.i.d.. With good diuresis BNP noted (6) DM2 (diabetes mellitus, type 2): Code(s): E11.9 - Type 2 diabetes mellitus without complications Status: Chronic Assessment and Plan: - hypoglycemia protocol - POC blood glucose ACHS - home medication: Hold metformin in case of need for contrast. Continue Lantus 10 units HS. - correct regimen ordered - low dose TIDWM and HS, based off BMI - A1C 6.4% in 202, update (7) Chronic anticoagulation: Code(s): Z79.01 - long-term (current) use of anticoagulants Status: Chronic Assessment and Plan: - continue Xarelto (8) Chronic hypotension: Code(s): I95.89 - Other hypotension Status: Acute Assessment and Plan: - continue home medications: Midodrine - monitor Plan Diet: Heart healthy GI Prophylaxis: N/a DVT Prophylaxis: Xarelto Lines/Tubes: Peripheral IV Code Status: Full code discussed with the patient and family and now switched to do not resuscitate Disposition still required significant amount of oxygen with exertion continue IV diuresis and IV cefepime for total 7 days Subjective Date/time seen: 12/06/24 08:19 Interval history: No overnight events. no new complaints. Minimal cough. Review of Systems Review of Systems: All systems reviewed & are unremarkable except as noted in HPI and below Exam Narrative: APPEARANCE: Ill-appearing not in acute distress HEAD: normocephalic, atraumatic. EYES: PERRLA/EOMI, conjunctivae clear. NECK: Supple. No adenopathy, no masses. RESPIRATORY: Coarse breath sounds bilaterally, no respiratory distress CARDIOVASCULAR: Regular rate and S1-S2 ABDOMINAL: Soft, nontender, nondistended, normal bowel sounds MUSCULOSKELETAL: Moves all extremities. Strength/ROM intact, trace edema, No calf tenderness. NEURO: Alert. Cranial nerves II through XII intact. SKIN: Warm, dry. Normal Color Objective Data Vital Signs Vital Signs: Vital Signs - 24 hr 12/05/24 10:00 12/05/24 11:44 12/05/24 12:00 Temperature 98.7 F Pulse Rate 103 H 97 105 H Respiratory Rate 16 Blood Pressure 104/67 Pulse Oximetry 98 Oxygen Delivery Oxygen Flow Rate 12/05/24 12:00 12/05/24 14:00 12/05/24 14:30 Temperature Pulse Rate 99 96 Respiratory Rate 18 Blood Pressure Pulse Oximetry 98 Oxygen Delivery High Flow Nasal Cannula Oxygen Flow Rate 4 12/05/24 14:30 12/05/24 14:37 12/05/24 16:00 Temperature 97.9 F Pulse Rate 96 100 Respiratory Rate 18 18 Blood Pressure 125/69 Pulse Oximetry 97 100 Oxygen Delivery High Flow Nasal Cannula Oxygen Flow Rate 3 12/05/24 16:00 12/05/24 16:00 12/05/24 18:00 Temperature Pulse Rate 94 96 Respiratory Rate Blood Pressure Pulse Oximetry 95 Oxygen Delivery High Flow Nasal Cannula Oxygen Flow Rate 4 12/05/24 19:47 12/05/24 19:51 12/05/24 19:51 Temperature 97.9 F Pulse Rate 94 88 Respiratory Rate 18 18 Blood Pressure 102/57 L Pulse Oximetry 93 93 Oxygen Delivery High Flow Therapy with Na Oxygen Flow Rate 3 12/05/24 19:56 12/05/24 20:00 12/05/24 20:00 Temperature Pulse Rate 93 93 93 Respiratory Rate 18 18 Blood Pressure Pulse Oximetry 93 Oxygen Delivery High Flow Therapy with Na Oxygen Flow Rate 4 12/05/24 22:00 12/05/24 23:38 12/06/24 00:00 Temperature 97.8 F Pulse Rate 84 81 75 Respiratory Rate 18 18 Blood Pressure 106/52 L Pulse Oximetry 97 97 Oxygen Delivery High Flow Therapy with Na Oxygen Flow Rate 4 12/06/24 00:00 12/06/24 02:00 12/06/24 04:00 Temperature Pulse Rate 75 80 82 Respiratory Rate 18 Blood Pressure Pulse Oximetry 97 Oxygen Delivery High Flow Therapy with Na Oxygen Flow Rate 4 12/06/24 04:00 12/06/24 04:00 12/06/24 06:00 Temperature 97.8 F Pulse Rate 82 88 90 Respiratory Rate 18 Blood Pressure 114/70 Pulse Oximetry 94 Oxygen Delivery Oxygen Flow Rate 12/06/24 08:00 Temperature 97.6 F Pulse Rate 102 H Respiratory Rate 22 H Blood Pressure 103/53 L Pulse Oximetry 91 Oxygen Delivery Oxygen Flow Rate Intake/Output Intake/Output: Intake & Output 12/03/24 12/04/24 12/05/24 12/06/24 23:59 23:59 23:59 23:59 Intake Total 1320 1590 1370 400 Output Total 2300 1890 2050 600 Balance -980 -300 -680 -200 Meds/Results Medications: Active Medications Generic Name Dose Route Start Last Admin Trade Name Freq PRN Reason Stop Dose Admin Acetaminophen 650 mg 11/30/24 15:47 12/05/24 13:42 Acetaminophen 325 Mg Tablet PO 650 mg Q6H PRN Administration Mild Pain (1-3) or Fever Albuterol/Ipratropium 3 ml 11/30/24 20:00 12/06/24 05:03 Ipratropium 0.5 Mg/Albuterol Sulfate 2.5 Mg (Base) Ampul.Neb 3 Ml INHALATION Not Given Q6HRT SPEEDY Atorvastatin Calcium 10 mg 11/30/24 21:00 12/05/24 21:36 Atorvastatin 10 Mg Tablet PO 10 mg HS SPEEDY Administration Benzonatate 100 mg 11/30/24 15:44 Benzonatate 100 Mg Capsule PO TID PRN Cough Dextrose 12.5 gm 11/30/24 15:49 Dextrose 50% 25 Gm/50 Ml Syringe IV PUSH PRN PRN Hypoglycemia Protocol Divalproex Sodium 1,000 mg 12/01/24 08:00 12/05/24 08:43 Divalproex Sodium Er 500 Mg Tab.24h PO 1,000 mg DAILY@0800 SPEEDY Administration Divalproex Sodium 500 mg 11/30/24 21:00 12/05/24 21:36 Divalproex Sodium Er 500 Mg Tab.24h PO 500 mg HS SPEEDY Administration Furosemide 40 mg 12/01/24 13:45 12/05/24 16:25 Furosemide Inj 40 Mg/4 Ml Vial IV PUSH 40 mg BID SPEEDY Administration Glucagon 1 mg 11/30/24 15:49 Glucagon For Inj 1 Mg Vial IM PRN PRN Hypoglycemia Protocol Glucose 15 gm 11/30/24 15:49 Glucose Oral Gel 15 Gm Of Glucse In 37.5 Gm Tube PO PRN PRN Hypoglycemia Protocol Guaifenesin 1,200 mg 12/01/24 21:00 12/05/24 21:36 Guaifenesin 12 Hr 600 Mg Tabcr PO 1,200 mg Q12HR SPEEDY Administration Cefepime HCl 2 gm/ Sodium 50 mls @ 100 mls/hr 11/30/24 22:00 12/06/24 06:10 Chloride IVPB 12/07/24 14:29 Infused Q8HR SPEEDY Infusion Dextrose 1,000 mls @ 100 mls/hr 11/30/24 15:49 Dextrose 5% 1,000 Ml IVPB PRN PRN Hypoglycemia Protocol Insulin Aspart 2 - 5 units 11/30/24 17:00 12/05/24 16:24 Insulin Aspart (*Bkc) 100 Units/Ml SUB-Q 2 units TIDWM SPEEDY Administration Protocol Insulin Aspart 1 - 2 units 11/30/24 21:00 12/05/24 21:37 Insulin Aspart (*Bkc) 100 Units/Ml SUB-Q 1 units HS SPEEDY Administration Protocol Insulin Glargine 10 units 11/30/24 21:00 12/05/24 21:37 Insulin Glargine (*Bkc) 100 Units/Ml SUB-Q 10 units HS SPEEDY Administration Memantine 10 mg 11/30/24 17:00 12/05/24 16:25 Memantine 10 Mg Tablet PO 10 mg BID SPEEDY Administration Methocarbamol 750 mg 11/30/24 15:51 Methocarbamol 750 Mg Tablet PO BID PRN muscle spasm Midodrine 10 mg 11/30/24 17:00 12/05/24 16:25 Midodrine Hcl 10 Mg Tablet PO 10 mg TID SPEEDY Administration Pantoprazole Sodium 40 mg 12/01/24 09:00 12/05/24 08:44 Pantoprazole 40 Mg Tablet PO 40 mg DAILY SPEEDY Administration Polyethylene Glycol 17 gm 12/05/24 09:50 Polyethylene Glycol 3350 17 Gm Powd.Pack PO QAM PRN Constipation Prednisone 20 mg/ Prednisone 30 mg 12/04/24 09:05 12/05/24 08:43 10 mg PO 12/08/24 08:00 30 mg DAILY@0800 [facility] Administration Rivaroxaban 20 mg 12/06/24 17:00 Rivaroxaban 20 Mg Tablet PO Q24H [facility] Tamsulosin HCl 0.8 mg 12/01/24 09:00 12/05/24 08:43 Tamsulosin Hcl 0.4 Mg Capsule PO 0.8 mg DAILY SPEEDY Administration Vitamin D 125 mcg 12/01/24 09:00 12/05/24 08:43 Cholecalciferol (Vitamin D3) 125 Mcg (5,000 Units) Tablet PO 125 mcg DAILY SPEEDY Administration Radiology Results: ITS Impressions Chest CT 11/30/24 14:20 IMPRESSION: 1. Bilateral severe bronchopneumonia superimposed on chronic lung disease with probable reactive mediastinal lymphadenopathy. Follow-up recommended to assess resolution Chest X-Ray 12/04/24 09:32 IMPRESSION: 1. Slight interval progression in diffuse bilateral interstitial and airspace opacities which could represent moderate pulmonary edema, pneumonia, chronic interstitial lung disease or some combination thereof. Labs Labs: Laboratory Results - last 24 hr 12/01/24 12/05/24 12/05/24 06:03 11:16 15:37 WBC RBC Hgb Hct MCV MCH MCHC RDW Plt Count MPV Immature Gran % (Auto) Neut % (Auto) Lymph % (Auto) [place] % (Auto) Eos % (Auto) Baso % (Auto) Lymph # (Auto) [place] # (Auto) Eos # (Auto) Baso # (Auto) Abs Immat Gran (auto) Absolute Neuts (auto) Absolute Nucleated RBC Nucleated RBC % Sodium Potassium Chloride Carbon Dioxide Anion Gap BUN Creatinine Estim Creat Clear Calc Estimated GFR Glucose POC Capillary Glucose 282 H 231 H Calcium Magnesium Total Bilirubin AST ALT Alkaline Phosphatase C-Reactive Protein NT-Pro-B Natriuret Pep Total Protein Albumin LAURA Screen Negative 12/05/24 12/06/24 19:14 06:14 WBC 12.8 H RBC 3.03 L Hgb 10.2 L Hct 31.6 L MCV 104.3 H MCH 33.7 MCHC 32.3 RDW 15.9 H Plt Count 189 MPV 10.8 H Immature Gran % (Auto) 1.8 H Neut % (Auto) 69.4 Lymph % (Auto) 14.8 L [place] % (Auto) 12.3 H Eos % (Auto) 1.4 Baso % (Auto) 0.3 Lymph # (Auto) 1.90 [place] # (Auto) 1.6 H Eos # (Auto) 0.2 Baso # (Auto) 0.0 Abs Immat Gran (auto) 0.23 H Absolute Neuts (auto) 8.9 H Absolute Nucleated RBC 0.000 Nucleated RBC % 0.0 Sodium 134 L Potassium 4.3 Chloride 94 L Carbon Dioxide 39 H Anion Gap 1 L BUN 35 H Creatinine 0.69 L Estim Creat Clear Calc 89 Estimated GFR > 60 Glucose 130 H POC Capillary Glucose 252 H Calcium 8.5 Magnesium 2.0 Total Bilirubin 0.6 AST 35 ALT 23 Alkaline Phosphatase 63 C-Reactive Protein 2.2 H NT-Pro-B Natriuret Pep 1930 H Total Protein 6.4 Albumin 2.9 L LAURA Screen
[2024-12-06] MEDS: IPRATROPIUM 0.5 MG/ALBUTEROL SULFATE 2.5 MG (BASE) AMPUL.NEB 3 ML INHALATION ×3 (08:24→20:32)
[2024-12-06] MEDS: TAMSULOSIN HCL 0.4 MG CAPSULE 0.8 MG PO (09:05)
--- NOTE | 2024-12-06 09:05 | PM.PNPUL ---
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 right with no significant change from 11/30/2024. Patient wore the hospital noninvasive ventilator with the settings above with an ABG at the end of the night of 7.48/40/79. 12/01/24 15:00: I was called to the patient's room because of tachypnea and not tolerating noninvasive ventilation with the AVAPS mode. I immediately went to the room and the patient was in respiratory distress. The patient had been on nasal cannula oxygen was eating when he had desaturations. He was placed on noninvasive ventilation with the AVAPS mode for about 10 minutes and he did well with correction of his hypoxia. He then became agitated was talking and became more tachypneic. Patient was given 40 of Lasix And was Saint he constantly needs to urinate and he had a purex system on. When I enter the room he was on noninvasive ventilation with the AVAPS mode breathing 50 times a minute. I requested the patient to slow his breathing down but he could not. I then placed him on BiPAP but he was still breathing 45-50 times a minute. He said he was breathing better without the noninvasive ventilator. We took him off the noninvasive ventilator and placed him on 15 L nasal cannula and he relaxed his respiratory rate decreased into the mid 30s and ultimately to 20 although on 15 L his saturations were 85-88%. We suggest patient to Airvo 60 L and 85% FiO2 with saturations 95. His heart rate decreased from 135 AFib to approximately 110. Stat portable chest x-ray demonstrated diffuse bilateral interstitial alveolar infiltrates with no change from this morning. There was no pneumothorax or lobar consolidation. Stat EKG showed atrial fibrillation with no ST or T-wave changes. He said it was breathing better. Patient was given 40 of Lasix. After he settled down On the Airvo we did a blood gas with a pH of 7.51/33/75. I discussed with hospitalist at the bedside, Dr. Jones. Inpatient pulmonary Services will resume on 12/04/2024 12/02/2024 remained on Airvo 40 L and 50%. 12/03/2024 remained on Airvo 50 L 45%. 12/04/2024: Patient tells me his breathing is better. He has no rest shortness of breath. He has not been out of bed. He denies cough, phlegm or hemoptysis. He is afebrile. When I enter the room he was on Airvo 35 L and 40% FiO2 with saturations 97%. I placed him on high-flow nasal cannula and sequentially decreased him to 2 L nasal cannula with saturations 92-94%. White blood cell count 12.4, creatinine 0.72, BNP has improved from 1930 on 12/01/2024 to 1080 today, CRP has improved from 8.5 on 12/01/2024 to 4.2 today, procalcitonin is essentially unchanged from 0.2 on 12/01/2024 to 0.1 today. yesterday diuresed 1.2 L. Cumulative he is diuresed 2.8 L since admission. His weight today is 82.9 kg. Later in the day patient was performing physical therapy and he had desaturations while dangling his legs off the bed requiring 5 L, getting to a chair required 10 L and then he had desaturations requiring Airvo. Patient was placed back in bed and slowly wean back to his nasal cannula. 12/05/24: Patient tells me he is breathing back at his normal. He says his cough is the same with clear phlegm and no hemoptysis. He tells me he sat in a chair for 3-4 hours yesterday. When I enter the room he was on 5 L nasal cannula saturations 94%. I decreased him to 4 L and his saturations were 91%. His white blood cell count is 12.7, his creatinine is 0.8. Yesterday was -300 mL, cumulative he is -3.1 L since admission. His weight today is 86.7. Patient had an overnight oximetry on 2 L which was increased to 4 L with improvement in his saturations. Recording duration 6 hours and 26 minutes, average saturation 95%, low saturation 84%, time with saturation less than or equal to 88% was 10 minutes, oxygen desaturation index 2.6. 12/06/2024: Patient tells me he is breathing at his baseline. Says he is breathing as well as he was when he was discharged from [facility]. He has no rest shortness of breath. Tells me he did get out of bed yesterday and this helped him breathe. states his phlegm is clear and has no hemoptysis. When I enter the room he is on 4 L nasal cannula saturations 96%. I decreased him to 2 L and his saturations were 85% and I increased him back to 3 L and his saturations were 92%. He is afebrile. White blood cell count 12.6, creatinine 0.69. CRP has improved from 4.2 on 12/04/2024 to 2.2 today. BNP has increased from 1080 on 12/04/2024 to 1930 today. he he diuresed 680 mL yesterday, cumulative diuresed since this admission is 3.5 L. His weight today is 83.3. Patient had an overnight oximetry on 4 L nasal cannula with recording duration of 7 hours and 20 minutes. Average saturation 97%. Low saturation 91%. Time with saturation less than or equal to 88% was 0 minutes. Oxygen desaturation index 1.2. Data: 12/06/2024: Patient had an overnight oximetry on 4 L nasal cannula with recording duration of 7 hours and 20 minutes. Average saturation 97%. Low saturation 91%. Time with saturation less than or equal to 88% was 0 minutes. Oxygen desaturation index 1.2. 11/30/24: EXAMINATION: CT diagnostic chest w con, 11/30/2024 14:00 CDT HISTORY: sob COMPARISON: No comparisons available. TECHNIQUE: CT scan of the chest was performed with contrast. Isovue 300, 92cc injected IV. One or more of the following dose reduction techniques were used: automated exposure control, adjustment of the mA and/or kV according to patient size, use of iterative reconstruction technique. FINDINGS: No significant coronary calcification is present ([id number]) LUNGS: No tracheomalacia. Basilar bronchiectasis, no mucous plugging. Moderate emphysematous changes. No bullous formation. Moderate pulmonary fibrotic changes with early honeycombing. There are multifocal scattered areas of groundglass attenuation with small simple appearing left pleural effusion. There is a small simple appearing right pleural effusion. There are micronodules which are too small to characterize. HEART AND PERICARDIUM: Mild cardiomegaly. Trace pericardial effusion. AORTA: Normal caliber aorta. ADENOPATHY/MEDIASTINUM: There are enlarged lymph nodes within the mediastinum the largest in the left anterior superior mediastinum 1.8 x 1.6 cm. There are prominent subcarinal and hilar lymph nodes also noted. LIMITED VIEWS OF THE ABDOMEN: Moderate hiatal hernia. OSSEOUS STRUCTURES: No sclerotic or lytic lesions. No acute rib fractures. OVERLYING SOFT TISSUES: Left pacemaker. THYROID: The thyroid is unremarkable. IMPRESSION: 1. Bilateral severe bronchopneumonia superimposed on chronic lung disease with probable reactive mediastinal lymphadenopathy. Follow-up recommended to assess resolution 12/04/2022: PFTs.? ?The test was performed and results interpreted in accordance with the 2019 and 2005 ATS/ERS Task Force guidelines respectively using the Global Lung Function Initiative-2012 reference equations. Patient demonstrated good effort and cooperation. Reproducibility criteria were met. The quality of the pre bronchodilator spirometry maneuver was Grade A and post bronchodilator spirometry maneuver was Grade B. of note the patient had good effort but still had difficulty with testing despite good coaching with multiple attempts. ?Findings: ?Spirometry:? The contour the inspiratory and expiratory flow tracing are normal.? The pre bronchodilator FVC is 3.16 L, 72% predicted.? The pre bronchodilator FEV1 is 2.32 L, 71% predicted.? The pre bronchodilator FEV1: FVC ratio 73%.? The post bronchodilator FVC is 3.23 L, representing a 2% increase.? The post bronchodilator FEV1 is 2.54 L, representing a 10% increase.? The post bronchodilator FEV1: FVC ratio 79%.? ?Plethysmography:? The total lung capacity is 4.83 L, 65% predicted.? The functional residual capacity is 2.08 L, 52% predicted.? The residual volume is 1.67 L, 63% predicted.? ?Diffusing capacity:? The diffusing capacity unadjusted for hemoglobin and carboxyhemoglobin is 11.8, 45% predicted.? The diffusing capacity adjusted for alveolar volume is 3.02, 82% predicted. ?Impression: There is a mild restrictive ventilatory abnormality with a normal FEV1. The spirometry is normal without evidence of an obstructive abnormality. There is no significant improvement after inhaling a single dose of albuterol. The diffusing capacity unadjusted for hemoglobin and carboxyhemoglobin is moderately decreased and normalizes when adjusted for alveolar volume. ?There are no prior studies for comparison ? ?12/04/2022: CT Scan of the Chest without Contrast: ?Clinical Indication: Abnormal finding of lung field, follow-up exam ?COMPARISON: 10/09/2022 ?Findings: ?There is no evidence of any significant mediastinal, hilar or axillary lymphadenopathy. Moderate hiatal hernia is unchanged. No aortic aneurysm. ?There is no evidence of pleural or pericardial effusion. ?Extensive chronic interstitial disease is similar to prior exam, with extensive interstitial thickening, subpleural articulations, and patchy areas of minimal ground glass opacity. The extensive degree of groundglass opacity at the lung bases is improved: Overall as compared to prior exam. Findings are probably worst at the right lung base and lingula. ?Images through the upper abdomen reveal no abnormalities. ?Impression: ?Extensive chronic interstitial disease. There has been improvement in groundglass opacity at the lung bases, which could reflect interval improvement in pulmonary edema or infection, or perhaps better inspiratory effort on the current exam. ?Stable hiatal hernia. 10/15/2022: Serologies negative: Rheumatoid factor less than 12, negative. anti CCP antibody negative, LAURA panel negative, aldolase 3.3, CPK 66, Anca screen negative, hypersensitivity pneumonitis panel negative, myositis panel negative.? ?10/15/2022: Home O2 assessment:? Rest room air saturation 95%.? Exercise room air saturation 92%.? Patient requires no supplemental oxygen at rest or with ambulation. ? 10/14/22? overnight oximetry on room air with recording time of 6 hours and 24 minutes with? an average saturation of 94%.? Low saturation 84%.? Time with saturation less than or equal to 88% was 1 minute, oxygen desaturation index 10.6. ?10/09/22 EXAMINATION: CTA chest ??INDICATION: Aortic mass. ??COMPARISON: CT abdomen and pelvis 10/09/2022, chest 2 views 10/08/16 ??FINDINGS: The lungs demonstrate widespread heterogeneous septal thickening and groundglass opacities. No pleural effusion. Cardiomegaly is noted. No pericardial effusion. Aortic atherosclerosis is noted. There is no pulmonary embolus. There is mild mediastinal and bilateral hilar lymphadenopathy. There is a moderate-sized sliding hiatal hernia. There are changes of anterior fusion procedure in cervical spine. There is severe upper thoracic spondylosis. ??IMPRESSION: ??1. Diffuse lung disease, likely a combination of pneumonia, pulmonary edema, and chronic lung disease. ??2. Mild mediastinal and bilateral hilar lymphadenopathy, likely reactive. ??3. Moderate-sized sliding hiatal hernia. ??4. Mild aortic atherosclerosis. No abnormal aortic mass. ??5. No pulmonary embolus. ?10/09/22: Echo Summary ??? 1. Complete two-dimensional, color flow and Doppler transthoracic ??echocardiogram is performed. ??? 2. Left ventricular chamber dimension is normal. ??? 3. Left ventricular systolic function is normal, estimated at 60-65%. ??? 4. There is mild concentric increased left ventricular wall thickness. ??? 5. The left ventricular diastolic function is abnormal. ??? 6. E/e' 13 is? mildly elevated. ??? 7. Left atrial chamber dimension is moderately enlarged. ??? 8. Right atrial chamber dimension is moderately enlarged. ??? 9. The mitral valve has mildly calcified annulus. ?? 10. There is trace mitral valve regurgitation. ??? 11. There is trace tricuspid valve regurgitation. ??? 12. Mild pulmonary hypertension, estimated pulmonary arterial systolic ??pressure is 44 mmHg. ??? 13. There is trace pulmonic regurgitation. ??? 14. In proximal ascending aorta there appears to be a echogenic mobile mass ??1.8 cm x 1.1 cm but could be artifact. Recommend CTA of aorta for further ??evaluation. ??Right Ventricle ??? Right ventricular systolic function is normal and with normal TAPSE 2.3 cm.. ??? Right ventricular chamber dimension is normal. ??Right Atria ??? Right atrial chamber dimension is moderately enlarged. 10/08/2016: EXAMINATION: CHEST-TWO VIEW INDICATION: Cough and weakness. TECHNIQUE: Frontal and lateral views of the chest were obtained. COMPARISON: None. FINDINGS: There is mild scarring at left lung apex. No pleural effusion or pneumothorax. Cardiomegaly is noted. There is mild thoracic spondylosis. There are changes of anterior fusion procedure in cervical spine. IMPRESSION: 1. Mild scarring at left lung apex. 2. Cardiomegaly. Review of Systems Constitutional: Constitutional: Reports no additional constitutional complaints Eyes: Eyes: Reports no additional eye complaints ENT: Reports system reviewed and no additional complaints, except as documented Cardiovascular: Cardiovascular: Reports no additional cardiovascular complaints Respiratory: Respiratory: Reports no additional respiratory complaints Gastrointestinal: Gastrointestinal: Reports no additional gastrointestinal complaints Musculoskeletal: Musculoskeletal: Reports no additional musculoskeletal complaints Neurologic: Reports system reviewed and no additional complaints, except as documented Psychiatric: Psychiatric: Reports no additional psychiatric complaints Endocrine: Endocrine: Reports no additional endocrine complaints Hematologic/Lymphatic: Hematologic/Lymphatic: Reports no additional hematologic/lymphatic complaints Allergic/Immunologic: Allergic/Immunologic: Reports no additional allergic/immunologic complaints Exam Narrative: on BiPAP and difficult to take a history. Const: General: cooperative, healthy appearing and comfortable Orientation/consciousness: oriented to person, oriented to place and oriented to time HENMT: Head: normal to inspection Ears: hearing grossly normal bilaterally Eyes: General: appearance normal, both eyes and all related structures Neck: Neck: normal visual inspection Chest: Chest palpation & inspection: normal inspection of the chest Resp: Effort & Inspection: normal respiratory effort and able to speak in complete sentences Auscultation: crackles, no rales, no rhonchi, no wheezes and lung sounds not diminished Other: Diffuse inspiratory crackles worse at the bases. No wheezing. Cardio: Jugular venous distension: no JVD Other: AFib. GI: Inspection: normal to inspection Skin: General skin exam: normal color Neuro: General: oriented to person, oriented to place and oriented to time Extrem: General: normal to inspection Other: Bilateral lower extremity edema. Psych: Appearance: grossly normal Objective Data Vital Signs Vital Signs: Vital Signs - 24 hr 12/05/24 10:00 12/05/24 11:44 12/05/24 12:00 Temperature 37.1 C Pulse Rate 103 H 97 105 H Respiratory Rate 16 Blood Pressure 104/67 Pulse Oximetry 98 Oxygen Delivery Oxygen Flow Rate 12/05/24 12:00 12/05/24 14:00 12/05/24 14:30 Temperature Pulse Rate 99 96 Respiratory Rate 18 Blood Pressure Pulse Oximetry 98 Oxygen Delivery High Flow Nasal Cannula Oxygen Flow Rate 4 12/05/24 14:30 12/05/24 14:37 12/05/24 16:00 Temperature 36.6 C Pulse Rate 96 100 Respiratory Rate 18 18 Blood Pressure 125/69 Pulse Oximetry 97 100 Oxygen Delivery High Flow Nasal Cannula Oxygen Flow Rate 3 12/05/24 16:00 12/05/24 16:00 12/05/24 18:00 Temperature Pulse Rate 94 96 Respiratory Rate Blood Pressure Pulse Oximetry 95 Oxygen Delivery High Flow Nasal Cannula Oxygen Flow Rate 4 12/05/24 19:47 12/05/24 19:51 12/05/24 19:51 Temperature 36.6 C Pulse Rate 94 88 Respiratory Rate 18 18 Blood Pressure 102/57 L Pulse Oximetry 93 93 Oxygen Delivery High Flow Therapy with Na Oxygen Flow Rate 3 12/05/24 19:56 12/05/24 20:00 12/05/24 20:00 Temperature Pulse Rate 93 93 93 Respiratory Rate 18 18 Blood Pressure Pulse Oximetry 93 Oxygen Delivery High Flow Therapy with Na Oxygen Flow Rate 4 12/05/24 22:00 12/05/24 23:38 12/06/24 00:00 Temperature 36.6 C Pulse Rate 84 81 75 Respiratory Rate 18 18 Blood Pressure 106/52 L Pulse Oximetry 97 97 Oxygen Delivery High Flow Therapy with Na Oxygen Flow Rate 4 12/06/24 00:00 12/06/24 02:00 12/06/24 04:00 Temperature Pulse Rate 75 80 82 Respiratory Rate 18 Blood Pressure Pulse Oximetry 97 Oxygen Delivery High Flow Therapy with Na Oxygen Flow Rate 4 12/06/24 04:00 12/06/24 04:00 12/06/24 06:00 Temperature 36.6 C Pulse Rate 82 88 90 Respiratory Rate 18 Blood Pressure 114/70 Pulse Oximetry 94 Oxygen Delivery Oxygen Flow Rate 12/06/24 08:00 12/06/24 08:24 12/06/24 08:24 Temperature 36.4 C Pulse Rate 102 H 96 96 Respiratory Rate 22 H 16 16 Blood Pressure 103/53 L Pulse Oximetry 91 95 Oxygen Delivery High Flow Nasal Cannula Oxygen Flow Rate 3 Intake/Output Intake/Output: Intake & Output 12/03/24 12/04/24 12/05/24 12/06/24 23:59 23:59 23:59 23:59 Intake Total 1320 1590 1370 1000 Output Total 2300 1890 2050 600 Balance -980 -300 -680 400 Meds/Results Medications: Active Medications Generic Name Dose Route Start Last Admin Trade Name Freq PRN Reason Stop Dose Admin Acetaminophen 650 mg 11/30/24 15:47 12/05/24 13:42 Acetaminophen 325 Mg Tablet PO 650 mg Q6H PRN Administration Mild Pain (1-3) or Fever Albuterol/Ipratropium 3 ml 11/30/24 20:00 12/06/24 08:24 Ipratropium 0.5 Mg/Albuterol Sulfate 2.5 Mg (Base) Ampul.Neb 3 Ml INHALATION 3 ml Q6HRT SPEEDY Administration Atorvastatin Calcium 10 mg 11/30/24 21:00 12/05/24 21:36 Atorvastatin 10 Mg Tablet PO 10 mg HS SPEEDY Administration Benzonatate 100 mg 11/30/24 15:44 Benzonatate 100 Mg Capsule PO TID PRN Cough Dextrose 12.5 gm 11/30/24 15:49 Dextrose 50% 25 Gm/50 Ml Syringe IV PUSH PRN PRN Hypoglycemia Protocol Divalproex Sodium 1,000 mg 12/01/24 08:00 12/05/24 08:43 Divalproex Sodium Er 500 Mg Tab.24h PO 1,000 mg DAILY@0800 SPEEDY Administration Divalproex Sodium 500 mg 11/30/24 21:00 12/05/24 21:36 Divalproex Sodium Er 500 Mg Tab.24h PO 500 mg HS SPEEDY Administration Furosemide 40 mg 12/01/24 13:45 12/05/24 16:25 Furosemide Inj 40 Mg/4 Ml Vial IV PUSH 40 mg BID SPEEDY Administration Glucagon 1 mg 11/30/24 15:49 Glucagon For Inj 1 Mg Vial IM PRN PRN Hypoglycemia Protocol Glucose 15 gm 11/30/24 15:49 Glucose Oral Gel 15 Gm Of Glucse In 37.5 Gm Tube PO PRN PRN Hypoglycemia Protocol Guaifenesin 1,200 mg 12/01/24 21:00 12/05/24 21:36 Guaifenesin 12 Hr 600 Mg Tabcr PO 1,200 mg Q12HR SPEEDY Administration Cefepime HCl 2 gm/ Sodium 50 mls @ 100 mls/hr 11/30/24 22:00 12/06/24 06:10 Chloride IVPB 12/07/24 14:29 Infused Q8HR SPEEDY Infusion Dextrose 1,000 mls @ 100 mls/hr 11/30/24 15:49 Dextrose 5% 1,000 Ml IVPB PRN PRN Hypoglycemia Protocol Insulin Aspart 2 - 5 units 11/30/24 17:00 12/05/24 16:24 Insulin Aspart (*Bkc) 100 Units/Ml SUB-Q 2 units TIDWM SPEEDY Administration Protocol Insulin Aspart 1 - 2 units 11/30/24 21:00 12/05/24 21:37 Insulin Aspart (*Bkc) 100 Units/Ml SUB-Q 1 units HS SPEEDY Administration Protocol Insulin Glargine 10 units 11/30/24 21:00 12/05/24 21:37 Insulin Glargine (*Bkc) 100 Units/Ml SUB-Q 10 units HS SPEEDY Administration Memantine 10 mg 11/30/24 17:00 12/05/24 16:25 Memantine 10 Mg Tablet PO 10 mg BID SPEEDY Administration Methocarbamol 750 mg 11/30/24 15:51 Methocarbamol 750 Mg Tablet PO BID PRN muscle spasm Midodrine 10 mg 11/30/24 17:00 12/05/24 16:25 Midodrine Hcl 10 Mg Tablet PO 10 mg TID SPEEDY Administration Pantoprazole Sodium 40 mg 12/01/24 09:00 12/05/24 08:44 Pantoprazole 40 Mg Tablet PO 40 mg DAILY SPEEDY Administration Polyethylene Glycol 17 gm 12/05/24 09:50 Polyethylene Glycol 3350 17 Gm Powd.Pack PO QAM PRN Constipation Prednisone 20 mg/ Prednisone 30 mg 12/04/24 09:05 12/05/24 08:43 10 mg PO 12/08/24 08:00 30 mg DAILY@0800 SPEEDY Administration Rivaroxaban 20 mg 12/06/24 17:00 Rivaroxaban 20 Mg Tablet PO Q24H SPEEDY Tamsulosin HCl 0.8 mg 12/01/24 09:00 12/05/24 08:43 Tamsulosin Hcl 0.4 Mg Capsule PO 0.8 mg DAILY SPEEDY Administration Vitamin D 125 mcg 12/01/24 09:00 12/05/24 08:43 Cholecalciferol (Vitamin D3) 125 Mcg (5,000 Units) Tablet PO 125 mcg DAILY SPEEDY Administration Radiology Results: ITS Impressions Chest CT 11/30/24 14:20 IMPRESSION: 1. Bilateral severe bronchopneumonia superimposed on chronic lung disease with probable reactive mediastinal lymphadenopathy. Follow-up recommended to assess resolution Chest X-Ray 12/04/24 09:32 IMPRESSION: 1. Slight interval progression in diffuse bilateral interstitial and airspace opacities which could represent moderate pulmonary edema, pneumonia, chronic interstitial lung disease or some combination thereof. Labs Labs: Laboratory Results - last 24 hr 12/01/24 12/05/24 12/05/24 06:03 11:16 15:37 WBC RBC Hgb Hct MCV MCH MCHC RDW Plt Count MPV Immature Gran % (Auto) Neut % (Auto) Lymph % (Auto) Douglas % (Auto) Eos % (Auto) Baso % (Auto) Lymph # (Auto) Douglas # (Auto) Eos # (Auto) Baso # (Auto) Abs Immat Gran (auto) Absolute Neuts (auto) Absolute Nucleated RBC Nucleated RBC % Sodium Potassium Chloride Carbon Dioxide Anion Gap BUN Creatinine Estim Creat Clear Calc Estimated GFR Glucose POC Capillary Glucose 282 H 231 H Calcium Magnesium Total Bilirubin AST ALT Alkaline Phosphatase C-Reactive Protein NT-Pro-B Natriuret Pep Total Protein Albumin LAURA Screen Negative 12/05/24 12/06/24 12/06/24 19:14 06:14 07:30 WBC 12.8 H RBC 3.03 L Hgb 10.2 L Hct 31.6 L MCV 104.3 H MCH 33.7 MCHC 32.3 RDW 15.9 H Plt Count 189 MPV 10.8 H Immature Gran % (Auto) 1.8 H Neut % (Auto) 69.4 Lymph % (Auto) 14.8 L Douglas % (Auto) 12.3 H Eos % (Auto) 1.4 Baso % (Auto) 0.3 Lymph # (Auto) 1.90 Douglas # (Auto) 1.6 H Eos # (Auto) 0.2 Baso # (Auto) 0.0 Abs Immat Gran (auto) 0.23 H Absolute Neuts (auto) 8.9 H Absolute Nucleated RBC 0.000 Nucleated RBC % 0.0 Sodium 134 L Potassium 4.3 Chloride 94 L Carbon Dioxide 39 H Anion Gap 1 L BUN 35 H Creatinine 0.69 L Estim Creat Clear Calc 89 Estimated GFR > 60 Glucose 130 H POC Capillary Glucose 252 H 123 H Calcium 8.5 Magnesium 2.0 Total Bilirubin 0.6 AST 35 ALT 23 Alkaline Phosphatase 63 C-Reactive Protein 2.2 H NT-Pro-B Natriuret Pep 1930 H Total Protein 6.4 Albumin 2.9 L LAURA Screen
[2024-12-06] MEDS: MEMANTINE 10 MG TABLET PO ×2 (09:06→16:25)
[2024-12-06] MEDS: PANTOPRAZOLE 40 MG TABLET PO (09:06)
[2024-12-06] MEDS: DIVALPROEX SODIUM ER 500 MG TAB.24H 1000 MG PO (09:06)
[2024-12-06] MEDS: guaiFENesin 12 HR 600 MG TABCR 1200 MG PO ×2 (09:07→22:21)
[2024-12-06] MEDS: MIDODRINE HCL 10 MG TABLET PO ×3 (09:07→16:25)
[2024-12-06] MEDS: CHOLECALCIFEROL (VITAMIN D3) 125 MCG (5,000 UNITS) TABLET PO (09:09)
[2024-12-06] MEDS: FUROSEMIDE INJ 40 MG/4 ML VIAL IV PUSH ×2 (09:13→19:48)
--- NOTE | 2024-12-06 09:26 | PCNFU ---
Nutrition Follow-Up Complete: Increased protein energy needs for wound healing as evidenced by deep tissue pressure injury to sacrum Adequate PO intake at least 75% to support wound healing - Goal is being met. Continue with same goal Goal: Pt current nutrition is Heart healthy diet, Ensure Plus HP BID (350 kcal, 20 g protein) ad Saleem BID for wound support (90 kcal, 2.5 g protein + arginine and glutamine). Nutrition recommendation: No new recommendations. Continue current nutrition care plan and orders. Agree with orders Last recorded weight is 83.3 kg. Bowel Motility: + BM 03/07/24 Labs Reviewed: Hgb 10.2, Hct 31.6, Alb 2.9, Na 134, BUN 35, Cre 0.69, Glu 130 Meds Noted: Protonix, insulin, namenda Skin: Deep tissue pressure injury to sacrum, addressed with Saleem BID Additional Notes: Pt continues on heart healthy diet with good intakes 50-100% and some +intake of Ensure. Continue current orders. Agree with orders Monitoring intakes, weights, labs, skin, supplement tolerance, plan of care Follow up in 5 days
[2024-12-06] MEDS: INSULIN ASPART (*BKC) 100 UNITS/ML SUB-Q ×3 (12:21→22:20)
[2024-12-06] MEDS: RIVAROXABAN 20 MG TABLET PO (16:25)
--- NOTE | 2024-12-06 18:20 | PCRCNOTE ---
Window of time for administration has passed. See next scheduled administration.
[2024-12-06] MEDS: ATORVASTATIN 10 MG TABLET PO (22:21)
[2024-12-06] MEDS: DIVALPROEX SODIUM ER 500 MG TAB.24H PO (22:21)
[2024-12-06] MEDS: INSULIN GLARGINE (*BKC) 100 UNITS/ML 10 UNITS SUB-Q (22:21)
[2024-12-07] VITALS (26 sets, daily range): BP systolic 102–128; BP diastolic 62–74; PULSE 18–106; RESP 15–93; TEMP 36.4–36.9; O2SAT 90–100
[2024-12-07 04:26] LABS: Hematocrit 33.3 % (42.0-52.0); Hemoglobin 10.7 g/dL (14.0-18.0); Immature Granulocyte Percent A 2.7 % (0-0.5); Lymphocytes Absolute Auto 2.00 K/mm3 (0.9-3.2); Mean Corpuscular HGB Conc 32.1 g/dl (32-36); Mean Corpuscular Hemoglobin 33.2 pg (26-34); Mean Corpuscular Volume 103.4 fl (80-100); Nucleated Red Blood Cells Absolute Auto 0.000 K/mm3 (0.0-0.012); Nucleated Red Blood Cells Perc 0.0 % (0.0-0.2); Platelet Count Result 203 k/mm3 (150-375); Red Blood Count 3.22 M/mm3 (4.6-6.20); White Blood Count 16.4 K/mm3 (4.5-10.0)
[2024-12-07 04:44] LABS: Alanine Aminotransferase 28 U/L (6-50); Albumin Level 3.2 g/dL (3.5-5.1); Alkaline Phosphatase 66 U/L (38-126); Anion Gap 4 mmol/L (4-12); Aspartate Amino Transferase 37 U/L (17-59); Bilirubin,Total 0.4 mg/dL (0.2-1.3); Blood Urea Nitrogen 36 mg/dL (9-20); Calcium 8.7 mg/dL (8.4-10.2); Carbon Dioxide 38 mmol/L (22-30); Chloride 92 mmol/L (98-107); Estimated CRCL calculation 82 ml/min; Estimated Glomerular Filt Rate > 60; Glucose 88 mg/dL (65-110); Magnesium 2.1 mg/dL (1.6-2.3); Potassium 4.5 mmol/L (3.4-5.0); Sodium 134 mmol/L (137-145); Total Protein 6.7 g/dL (6.3-8.2)
[2024-12-07] MEDS: CEFEPIME 2 GM in SODIUM CHLORIDE 0.9% IV 50 ML 100 ML IVPB ×2 (05:50→13:33)
[2024-12-07] MEDS: IPRATROPIUM 0.5 MG/ALBUTEROL SULFATE 2.5 MG (BASE) AMPUL.NEB 3 ML INHALATION ×4 (07:23→20:37)
--- NOTE | 2024-12-07 09:17 | PM.PNPUL ---
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 developed worsening dyspnea on exertion as he remembers he had difficulty walking his trash to the trash 2 and had to ask a neighbor for help. One month ago he developed shortness of breath and wheezing and went to urgent care and was given a nebulizer and told to get a CT scan of the chest. He went to his PCP the next day his said his lungs were okay and he did not need a CT scan of the chest. Patient remained short of breath with no fever chills or rigors but dyspnea on exertion worsened and he called urgent care and was told to get a CT scan. His shortness of breath worsened and he had trouble laying flat with no fevers and he tells me he was admitted to [facility] in [address] [place] [address] for 4 weeks. He remembers being treated with antibiotics and was discharged on prednisone taper with follow up with Dr. Toussaint pulmonary at [facility]. He was on oxygen during that hospitalization but no BiPAP. He tells me they did a CT scan of the chest and it looked okay other than having trace pneumonia. He had denies hearing the term interstitial lung disease or scarring. He was given prednisone and he remembers this because his sugars went up into the 400s. He does not know the dose or how long he was taking prednisone. He did see a industrial conveyor belt repairer and a crm architect during this hospitalization and on discharge they told him not to take any more amiodarone. He was discharged to [facility] on oxygen (unknown amount) and he was at that facility for one day until he presented to our hospital. He does not know if he was taking prednisone at [facility] and later we received a medicine list from [facility] and he was supposed to be on prednisone 40 mg from 11/29/2024 through 12/01/2024 with a decreased by 10 mg every 7 days.. Regarding his atrial fibrillation he has been treated at [facility] via Dr. Jacobsen. the patient tells me he had 2 cardiac ablations in 2023 and 3 cardioversions and was told he has an electrical problem. He tells me he had a pacemaker placed on 10/12/2024. 12/01/2024: The patient told me he is a little bit better. He slept last night with the noninvasive ventilator and the AVAPS mode. He says he has a little bit of cough with phlegm production but no hemoptysis. He is afebrile. When I enter the room he was on 5 L nasal cannula saturations 96%. I decreased him to 4 L and his saturations were 90%. White blood cell count 10.3, creatinine 0.77, BNP has improved from 3540 on 11/30/2024 to 1930. Procalcitonin is essentially unchanged from 0.1 on 11/30/2024 to 0.2 today. His CRP has increased from 4.9 on 11/30/2024 to 8.5 today. His chest x-ray shows diffuse interstitial alveolar infiltrates left greater than right with no significant change from 11/30/2024. Patient wore the hospital noninvasive ventilator with the settings above with an ABG at the end of the night of 7.48/40/79. 12/01/24 15:00: I was called to the patient's room because of tachypnea and not tolerating noninvasive ventilation with the AVAPS mode. I immediately went to the room and the patient was in respiratory distress. The patient had been on nasal cannula oxygen was eating when he had desaturations. He was placed on noninvasive ventilation with the AVAPS mode for about 10 minutes and he did well with correction of his hypoxia. He then became agitated was talking and became more tachypneic. Patient was given 40 of Lasix And was [facility] he constantly needs to urinate and he had a purex system on. When I enter the room he was on noninvasive ventilation with the AVAPS mode breathing 50 times a minute. I requested the patient to slow his breathing down but he could not. I then placed him on BiPAP but he was still breathing 45-50 times a minute. He said he was breathing better without the noninvasive ventilator. We took him off the noninvasive ventilator and placed him on 15 L nasal cannula and he relaxed his respiratory rate decreased into the mid 30s and ultimately to 20 although on 15 L his saturations were 85-88%. We suggest patient to Airvo 60 L and 85% FiO2 with saturations 95. His heart rate decreased from 135 AFib to approximately 110. Stat portable chest x-ray demonstrated diffuse bilateral interstitial alveolar infiltrates with no change from this morning. There was no pneumothorax or lobar consolidation. Stat EKG showed atrial fibrillation with no ST or T-wave changes. He said it was breathing better. Patient was given 40 of Lasix. After he settled down On the Airvo we did a blood gas with a pH of 7.51/33/75. I discussed with hospitalist at the bedside, Dr. Jones. Inpatient pulmonary Services will resume on 12/04/2024 12/02/2024 remained on Airvo 40 L and 50%. 12/03/2024 remained on Airvo 50 L 45%. 12/04/2024: Patient tells me his breathing is better. He has no rest shortness of breath. He has not been out of bed. He denies cough, phlegm or hemoptysis. He is afebrile. When I enter the room he was on Airvo 35 L and 40% FiO2 with saturations 97%. I placed him on high-flow nasal cannula and sequentially decreased him to 2 L nasal cannula with saturations 92-94%. White blood cell count 12.4, creatinine 0.72, BNP has improved from 1930 on 12/01/2024 to 1080 today, CRP has improved from 8.5 on 12/01/2024 to 4.2 today, procalcitonin is essentially unchanged from 0.2 on 12/01/2024 to 0.1 today. yesterday diuresed 1.2 L. Cumulative he is diuresed 2.8 L since admission. His weight today is 82.9 kg. Later in the day patient was performing physical therapy and he had desaturations while dangling his legs off the bed requiring 5 L, getting to a chair required 10 L and then he had desaturations requiring Airvo. Patient was placed back in bed and slowly wean back to his nasal cannula. 12/05/24: Patient tells me he is breathing back at his normal. He says his cough is the same with clear phlegm and no hemoptysis. He tells me he sat in a chair for 3-4 hours yesterday. When I enter the room he was on 5 L nasal cannula saturations 94%. I decreased him to 4 L and his saturations were 91%. His white blood cell count is 12.7, his creatinine is 0.8. Yesterday was -300 mL, cumulative he is -3.1 L since admission. His weight today is 86.7. Patient had an overnight oximetry on 2 L which was increased to 4 L with improvement in his saturations. Recording duration 6 hours and 26 minutes, average saturation 95%, low saturation 84%, time with saturation less than or equal to 88% was 10 minutes, oxygen desaturation index 2.6. 12/06/2024: Patient tells me he is breathing at his baseline. Says he is breathing as well as he was when he was discharged from [facility]. He has no rest shortness of breath. Tells me he did get out of bed yesterday and this helped him breathe. states his phlegm is clear and has no hemoptysis. When I enter the room he is on 4 L nasal cannula saturations 96%. I decreased him to 2 L and his saturations were 85% and I increased him back to 3 L and his saturations were 92%. He is afebrile. White blood cell count 12.6, creatinine 0.69. CRP has improved from 4.2 on 12/04/2024 to 2.2 today. BNP has increased from 1080 on 12/04/2024 to 1930 today. he he diuresed 680 mL yesterday, cumulative diuresed since this admission is 3.5 L. His weight today is 83.3. Patient had an overnight oximetry on 4 L nasal cannula with recording duration of 7 hours and 20 minutes. Average saturation 97%. Low saturation 91%. Time with saturation less than or equal to 88% was 0 minutes. Oxygen desaturation index 1.2. 12/07/2024: Patient states he is breathing at his baseline. He has no rest shortness of breath. With physical therapy yesterday he required up to 15 L oxygen with any activity. Today the patient was on 4 L nasal cannula saturations 95%. I decreased him to 3 L and his saturations were 92%. He is afebrile. White blood cell count 16.4, creatinine 0.75. Yesterday he was for 420 mL positive and cumulative he is -4.1 L since admission. His weight today is 84.1 kg. The patient told me that he chokes on his coffee and coughs after he eats. Data: 12/06/2024: Patient had an overnight oximetry on 4 L nasal cannula with recording duration of 7 hours and 20 minutes. Average saturation 97%. Low saturation 91%. Time with saturation less than or equal to 88% was 0 minutes. Oxygen desaturation index 1.2. 11/30/24: EXAMINATION: CT diagnostic chest w con, 11/30/2024 14:00 CDT HISTORY: sob COMPARISON: No comparisons available. TECHNIQUE: CT scan of the chest was performed with contrast. Isovue 300, 92cc injected IV. One or more of the following dose reduction techniques were used: automated exposure control, adjustment of the mA and/or kV according to patient size, use of iterative reconstruction technique. FINDINGS: No significant coronary calcification is present ([id number]) LUNGS: No tracheomalacia. Basilar bronchiectasis, no mucous plugging. Moderate emphysematous changes. No bullous formation. Moderate pulmonary fibrotic changes with early honeycombing. There are multifocal scattered areas of groundglass attenuation with small simple appearing left pleural effusion. There is a small simple appearing right pleural effusion. There are micronodules which are too small to characterize. HEART AND PERICARDIUM: Mild cardiomegaly. Trace pericardial effusion. AORTA: Normal caliber aorta. ADENOPATHY/MEDIASTINUM: There are enlarged lymph nodes within the mediastinum the largest in the left anterior superior mediastinum 1.8 x 1.6 cm. There are prominent subcarinal and hilar lymph nodes also noted. LIMITED VIEWS OF THE ABDOMEN: Moderate hiatal hernia. OSSEOUS STRUCTURES: No sclerotic or lytic lesions. No acute rib fractures. OVERLYING SOFT TISSUES: Left pacemaker. THYROID: The thyroid is unremarkable. IMPRESSION: 1. Bilateral severe bronchopneumonia superimposed on chronic lung disease with probable reactive mediastinal lymphadenopathy. Follow-up recommended to assess resolution 12/04/2022: PFTs.? ?The test was performed and results interpreted in accordance with the 2019 and 2005 ATS/ERS Task Force guidelines respectively using the Global Lung Function Initiative-2012 reference equations. Patient demonstrated good effort and cooperation. Reproducibility criteria were met. The quality of the pre bronchodilator spirometry maneuver was Grade A and post bronchodilator spirometry maneuver was Grade B. of note the patient had good effort but still had difficulty with testing despite good coaching with multiple attempts. ?Findings: ?Spirometry:? The contour the inspiratory and expiratory flow tracing are normal.? The pre bronchodilator FVC is 3.16 L, 72% predicted.? The pre bronchodilator FEV1 is 2.32 L, 71% predicted.? The pre bronchodilator FEV1: FVC ratio 73%.? The post bronchodilator FVC is 3.23 L, representing a 2% increase.? The post bronchodilator FEV1 is 2.54 L, representing a 10% increase.? The post bronchodilator FEV1: FVC ratio 79%.? ?Plethysmography:? The total lung capacity is 4.83 L, 65% predicted.? The functional residual capacity is 2.08 L, 52% predicted.? The residual volume is 1.67 L, 63% predicted.? ?Diffusing capacity:? The diffusing capacity unadjusted for hemoglobin and carboxyhemoglobin is 11.8, 45% predicted.? The diffusing capacity adjusted for alveolar volume is 3.02, 82% predicted. ?Impression: There is a mild restrictive ventilatory abnormality with a normal FEV1. The spirometry is normal without evidence of an obstructive abnormality. There is no significant improvement after inhaling a single dose of albuterol. The diffusing capacity unadjusted for hemoglobin and carboxyhemoglobin is moderately decreased and normalizes when adjusted for alveolar volume. ?There are no prior studies for comparison ? ?12/04/2022: CT Scan of the Chest without Contrast: ?Clinical Indication: Abnormal finding of lung field, follow-up exam ?COMPARISON: 10/09/2022 ?Findings: ?There is no evidence of any significant mediastinal, hilar or axillary lymphadenopathy. Moderate hiatal hernia is unchanged. No aortic aneurysm. ?There is no evidence of pleural or pericardial effusion. ?Extensive chronic interstitial disease is similar to prior exam, with extensive interstitial thickening, subpleural articulations, and patchy areas of minimal ground glass opacity. The extensive degree of groundglass opacity at the lung bases is improved: Overall as compared to prior exam. Findings are probably worst at the right lung base and lingula. ?Images through the upper abdomen reveal no abnormalities. ?Impression: ?Extensive chronic interstitial disease. There has been improvement in groundglass opacity at the lung bases, which could reflect interval improvement in pulmonary edema or infection, or perhaps better inspiratory effort on the current exam. ?Stable hiatal hernia. 10/15/2022: Serologies negative: Rheumatoid factor less than 12, negative. anti CCP antibody negative, LAURA panel negative, aldolase 3.3, CPK 66, Anca screen negative, hypersensitivity pneumonitis panel negative, myositis panel negative.? ?10/15/2022: Home O2 assessment:? Rest room air saturation 95%.? Exercise room air saturation 92%.? Patient requires no supplemental oxygen at rest or with ambulation. ? 10/14/22? overnight oximetry on room air with recording time of 6 hours and 24 minutes with? an average saturation of 94%.? Low saturation 84%.? Time with saturation less than or equal to 88% was 1 minute, oxygen desaturation index 10.6. ?10/09/22 EXAMINATION: CTA chest ??INDICATION: Aortic mass. ??COMPARISON: CT abdomen and pelvis 10/09/2022, chest 2 views 10/08/16 ??FINDINGS: The lungs demonstrate widespread heterogeneous septal thickening and groundglass opacities. No pleural effusion. Cardiomegaly is noted. No pericardial effusion. Aortic atherosclerosis is noted. There is no pulmonary embolus. There is mild mediastinal and bilateral hilar lymphadenopathy. There is a moderate-sized sliding hiatal hernia. There are changes of anterior fusion procedure in cervical spine. There is severe upper thoracic spondylosis. ??IMPRESSION: ??1. Diffuse lung disease, likely a combination of pneumonia, pulmonary edema, and chronic lung disease. ??2. Mild mediastinal and bilateral hilar lymphadenopathy, likely reactive. ??3. Moderate-sized sliding hiatal hernia. ??4. Mild aortic atherosclerosis. No abnormal aortic mass. ??5. No pulmonary embolus. ?10/09/22: Echo Summary ??? 1. Complete two-dimensional, color flow and Doppler transthoracic ??echocardiogram is performed. ??? 2. Left ventricular chamber dimension is normal. ??? 3. Left ventricular systolic function is normal, estimated at 60-65%. ??? 4. There is mild concentric increased left ventricular wall thickness. ??? 5. The left ventricular diastolic function is abnormal. ??? 6. E/e' 13 is? mildly elevated. ??? 7. Left atrial chamber dimension is moderately enlarged. ??? 8. Right atrial chamber dimension is moderately enlarged. ??? 9. The mitral valve has mildly calcified annulus. ?? 10. There is trace mitral valve regurgitation. ??? 11. There is trace tricuspid valve regurgitation. ??? 12. Mild pulmonary hypertension, estimated pulmonary arterial systolic ??pressure is 44 mmHg. ??? 13. There is trace pulmonic regurgitation. ??? 14. In proximal ascending aorta there appears to be a echogenic mobile mass ??1.8 cm x 1.1 cm but could be artifact. Recommend CTA of aorta for further ??evaluation. ??Right Ventricle ??? Right ventricular systolic function is normal and with normal TAPSE 2.3 cm.. ??? Right ventricular chamber dimension is normal. ??Right Atria ??? Right atrial chamber dimension is moderately enlarged. 10/08/2016: EXAMINATION: CHEST-TWO VIEW INDICATION: Cough and weakness. TECHNIQUE: Frontal and lateral views of the chest were obtained. COMPARISON: None. FINDINGS: There is mild scarring at left lung apex. No pleural effusion or pneumothorax. Cardiomegaly is noted. There is mild thoracic spondylosis. There are changes of anterior fusion procedure in cervical spine. IMPRESSION: 1. Mild scarring at left lung apex. 2. Cardiomegaly. Review of Systems Constitutional: Constitutional: Reports no additional constitutional complaints Eyes: Eyes: Reports no additional eye complaints ENT: Reports system reviewed and no additional complaints, except as documented Cardiovascular: Cardiovascular: Reports no additional cardiovascular complaints Respiratory: Respiratory: Reports no additional respiratory complaints Gastrointestinal: Gastrointestinal: Reports no additional gastrointestinal complaints Musculoskeletal: Musculoskeletal: Reports no additional musculoskeletal complaints Neurologic: Reports system reviewed and no additional complaints, except as documented Psychiatric: Psychiatric: Reports no additional psychiatric complaints Endocrine: Endocrine: Reports no additional endocrine complaints Hematologic/Lymphatic: Hematologic/Lymphatic: Reports no additional hematologic/lymphatic complaints Allergic/Immunologic: Allergic/Immunologic: Reports no additional allergic/immunologic complaints Exam Const: General: cooperative, healthy appearing and comfortable Orientation/consciousness: oriented to person, oriented to place and oriented to time HENMT: Head: normal to inspection Ears: hearing grossly normal bilaterally Eyes: General: appearance normal, both eyes and all related structures Neck: Neck: normal visual inspection Chest: Chest palpation & inspection: normal inspection of the chest Resp: Effort & Inspection: normal respiratory effort and able to speak in complete sentences Auscultation: crackles, no rales, no rhonchi, no wheezes and lung sounds not diminished Other: Diffuse inspiratory crackles worse at the bases. No wheezing. Cardio: Jugular venous distension: no JVD Other: AFib. GI: Inspection: normal to inspection Skin: General skin exam: normal color Neuro: General: oriented to person, oriented to place and oriented to time Extrem: General: normal to inspection Other: Bilateral lower extremity edema. Psych: Appearance: grossly normal Objective Data Vital Signs Vital Signs: Vital Signs - 24 hr 12/06/24 10:00 12/06/24 11:52 12/06/24 11:58 Temperature 36.9 C Pulse Rate 90 91 81 Respiratory Rate 24 H 16 Blood Pressure 98/50 L Pulse Oximetry 95 Oxygen Delivery Oxygen Flow Rate Fraction of Inspired Oxygen 12/06/24 12:00 12/06/24 12:06 12/06/24 14:00 Temperature Pulse Rate 95 101 H 102 H Respiratory Rate 16 Blood Pressure Pulse Oximetry Oxygen Delivery Oxygen Flow Rate Fraction of Inspired Oxygen 12/06/24 16:00 12/06/24 16:00 12/06/24 18:00 Temperature 36.5 C Pulse Rate 87 88 95 Respiratory Rate 22 H Blood Pressure 116/61 Pulse Oximetry 100 Oxygen Delivery Oxygen Flow Rate Fraction of Inspired Oxygen 12/06/24 20:00 12/06/24 20:00 12/06/24 20:32 Temperature 36.4 C Pulse Rate 88 85 83 Respiratory Rate 16 18 18 Blood Pressure 119/71 Pulse Oximetry 100 100 Oxygen Delivery Room Air Oxygen Flow Rate Fraction of Inspired Oxygen 95 12/06/24 20:33 12/06/24 20:41 12/06/24 21:00 Temperature Pulse Rate 83 85 112 H Respiratory Rate 18 Blood Pressure Pulse Oximetry 100 Oxygen Delivery High Flow Nasal Cannula Oxygen Flow Rate 8 Fraction of Inspired Oxygen 12/06/24 21:50 12/06/24 22:02 12/06/24 23:55 Temperature 36.4 C L Pulse Rate 95 82 Respiratory Rate 15 Blood Pressure 100/57 L Pulse Oximetry 97 100 Oxygen Delivery High Flow Nasal Cannula Oxygen Flow Rate 4 Fraction of Inspired Oxygen 12/07/24 00:00 12/07/24 00:00 12/07/24 02:00 Temperature Pulse Rate 82 83 83 Respiratory Rate 15 Blood Pressure Pulse Oximetry 100 Oxygen Delivery Nasal Cannula Oxygen Flow Rate 4 Fraction of Inspired Oxygen 95 12/07/24 04:00 12/07/24 04:00 12/07/24 04:00 Temperature 36.5 C Pulse Rate 80 80 80 Respiratory Rate 16 16 Blood Pressure 103/63 Pulse Oximetry 99 99 Oxygen Delivery Nasal Cannula Oxygen Flow Rate 4 Fraction of Inspired Oxygen 95 12/07/24 07:25 12/07/24 07:27 12/07/24 07:30 Temperature Pulse Rate 90 18 L Respiratory Rate 18 93 H Blood Pressure Pulse Oximetry 95 Oxygen Delivery High Flow Nasal Cannula Oxygen Flow Rate 4 Fraction of Inspired Oxygen 12/07/24 07:53 Temperature 36.4 C L Pulse Rate 91 Respiratory Rate 16 Blood Pressure 111/67 Pulse Oximetry 97 Oxygen Delivery Oxygen Flow Rate Fraction of Inspired Oxygen Intake/Output Intake/Output: Intake & Output 12/04/24 12/05/24 12/06/24 12/07/24 23:59 23:59 23:59 23:59 Intake Total 1590 1370 1770 810 Output Total 1890 2050 1350 1600 Balance -300 680 420 -790 Meds/Results Medications: Active Medications Generic Name Dose Route Start Last Admin Trade Name Freq PRN Reason Stop Dose Admin Acetaminophen 650 mg 11/30/24 15:47 12/05/24 13:42 Acetaminophen 325 Mg Tablet PO 650 mg Q6H PRN Administration Mild Pain (1-3) or Fever Albuterol/Ipratropium 3 ml 12/06/24 12:00 12/07/24 07:23 Ipratropium 0.5 Mg/Albuterol Sulfate 2.5 Mg (Base) Ampul.Neb 3 Ml INHALATION 3 ml [id number] SPEEDY Administration Atorvastatin Calcium 10 mg 11/30/24 21:00 12/06/24 22:21 Atorvastatin 10 Mg Tablet PO 10 mg HS SPEEDY Administration Benzonatate 100 mg 11/30/24 15:44 Benzonatate 100 Mg Capsule PO TID PRN Cough Dextrose 12.5 gm 11/30/24 15:49 Dextrose 50% 25 Gm/50 Ml Syringe IV PUSH PRN PRN Hypoglycemia Protocol Divalproex Sodium 1,000 mg 12/01/24 08:00 12/06/24 09:06 Divalproex Sodium Er 500 Mg Tab.24h PO 1,000 mg DAILY@0800 SPEEDY Administration Divalproex Sodium 500 mg 11/30/24 21:00 12/06/24 22:21 Divalproex Sodium Er 500 Mg Tab.24h PO 500 mg HS SPEEDY Administration Furosemide 40 mg 12/01/24 13:45 12/06/24 19:48 Furosemide Inj 40 Mg/4 Ml Vial IV PUSH 40 mg BID SPEEDY Administration Glucagon 1 mg 11/30/24 15:49 Glucagon For Inj 1 Mg Vial IM PRN PRN Hypoglycemia Protocol Glucose 15 gm 11/30/24 15:49 Glucose Oral Gel 15 Gm Of Glucse In 37.5 Gm Tube PO PRN PRN Hypoglycemia Protocol Guaifenesin 1,200 mg 12/01/24 21:00 12/06/24 22:21 Guaifenesin 12 Hr 600 Mg Tabcr PO 1,200 mg Q12HR SPEEDY Administration Cefepime HCl 2 gm/ Sodium 50 mls @ 100 mls/hr 11/30/24 22:00 12/07/24 05:50 Chloride IVPB 12/07/24 14:29 100 mls/hr Q8HR SPEEDY Administration Dextrose 1,000 mls @ 100 mls/hr 11/30/24 15:49 Dextrose 5% 1,000 Ml IVPB PRN PRN Hypoglycemia Protocol Insulin Aspart 2 - 5 units 11/30/24 17:00 12/06/24 16:26 Insulin Aspart (*Bkc) 100 Units/Ml SUB-Q 3 units TIDWM SPEEDY Administration Protocol Insulin Aspart 1 - 2 units 11/30/24 21:00 12/06/24 22:20 Insulin Aspart (*Bkc) 100 Units/Ml SUB-Q 1 units HS SPEEDY Administration Protocol Insulin Glargine 10 units 11/30/24 21:00 12/06/24 22:21 Insulin Glargine (*Bkc) 100 Units/Ml SUB-Q 10 units HS SPEEDY Administration Memantine 10 mg 11/30/24 17:00 12/06/24 16:25 Memantine 10 Mg Tablet PO 10 mg BID SPEEDY Administration Methocarbamol 750 mg 11/30/24 15:51 Methocarbamol 750 Mg Tablet PO BID PRN muscle spasm Midodrine 10 mg 11/30/24 17:00 12/06/24 16:25 Midodrine Hcl 10 Mg Tablet PO 10 mg TID SPEEDY Administration Pantoprazole Sodium 40 mg 12/01/24 09:00 12/06/24 09:06 Pantoprazole 40 Mg Tablet PO 40 mg DAILY SPEEDY Administration Polyethylene Glycol 17 gm 12/05/24 09:50 12/06/24 09:08 Polyethylene Glycol 3350 17 Gm Powd.Pack PO 17 gm QAM PRN Administration Constipation Prednisone 20 mg/ Prednisone 30 mg 12/04/24 09:05 12/06/24 09:05 10 mg PO 12/08/24 08:00 30 mg DAILY@0800 SPEEDY Administration Rivaroxaban 20 mg 10/08/25 17:00 12/06/24 16:25 Rivaroxaban 20 Mg Tablet PO 20 mg Q24H SPEEDY Administration Tamsulosin HCl 0.8 mg 12/01/24 09:00 12/06/24 09:05 Tamsulosin Hcl 0.4 Mg Capsule PO 0.8 mg DAILY SPEEDY Administration Vitamin D 125 mcg 12/01/24 09:00 12/06/24 09:09 Cholecalciferol (Vitamin D3) 125 Mcg (5,000 Units) Tablet PO 125 mcg DAILY SPEEDY Administration Radiology Results: ITS Impressions Chest CT 11/30/24 14:20 IMPRESSION: 1. Bilateral severe bronchopneumonia superimposed on chronic lung disease with probable reactive mediastinal lymphadenopathy. Follow-up recommended to assess resolution Chest X-Ray 12/04/24 09:32 IMPRESSION: 1. Slight interval progression in diffuse bilateral interstitial and airspace opacities which could represent moderate pulmonary edema, pneumonia, chronic interstitial lung disease or some combination thereof. Labs Labs: Laboratory Results - last 24 hr 12/06/24 12/06/24 12/06/24 11:11 16:15 19:40 WBC RBC Hgb Hct MCV MCH MCHC RDW Plt Count MPV Immature Gran % (Auto) Neut % (Auto) Lymph % (Auto) [place] % (Auto) Eos % (Auto) Baso % (Auto) Lymph # (Auto) [place] # (Auto) Eos # (Auto) Baso # (Auto) Abs Immat Gran (auto) Absolute Neuts (auto) Absolute Nucleated RBC Nucleated RBC % Sodium Potassium Chloride Carbon Dioxide Anion Gap BUN Creatinine Estim Creat Clear Calc Estimated GFR Glucose POC Capillary Glucose 274 H 257 H 269 H Calcium Magnesium Total Bilirubin AST ALT Alkaline Phosphatase Total Protein Albumin 12/07/24 12/07/24 03:38 08:10 WBC 16.4 H RBC 3.22 L Hgb 10.7 L Hct 33.3 L MCV 103.4 H MCH 33.2 MCHC 32.1 RDW 15.7 H Plt Count 203 MPV 10.9 H Immature Gran % (Auto) 2.7 H Neut % (Auto) 72.5 Lymph % (Auto) 12.2 L [place] % (Auto) 12.0 H Eos % (Auto) 0.2 Baso % (Auto) 0.4 Lymph # (Auto) 2.00 [place] # (Auto) 2.0 H Eos # (Auto) 0.0 Baso # (Auto) 0.1 Abs Immat Gran (auto) 0.45 H Absolute Neuts (auto) 11.9 H Absolute Nucleated RBC 0.000 Nucleated RBC % 0.0 Sodium 134 L Potassium 4.5 Chloride 92 L Carbon Dioxide 38 H Anion Gap 4 BUN 36 H Creatinine 0.75 Estim Creat Clear Calc 82 Estimated GFR > 60 Glucose 88 POC Capillary Glucose 126 H Calcium 8.7 Magnesium 2.1 Total Bilirubin 0.4 AST 37 ALT 28 Alkaline Phosphatase 66 Total Protein 6.7 Albumin 3.2 L
[2024-12-07] MEDS: DIVALPROEX SODIUM ER 500 MG TAB.24H 1000 MG PO (09:38)
[2024-12-07] MEDS: guaiFENesin 12 HR 600 MG TABCR 1200 MG PO ×2 (09:38→22:20)
[2024-12-07] MEDS: MEMANTINE 10 MG TABLET PO ×2 (09:39→17:32)
[2024-12-07] MEDS: TAMSULOSIN HCL 0.4 MG CAPSULE 0.8 MG PO (09:40)
[2024-12-07] MEDS: MIDODRINE HCL 10 MG TABLET PO ×3 (09:40→17:32)
[2024-12-07] MEDS: CHOLECALCIFEROL (VITAMIN D3) 125 MCG (5,000 UNITS) TABLET PO (09:41)
[2024-12-07] MEDS: FUROSEMIDE INJ 40 MG/4 ML VIAL IV PUSH ×2 (09:44→18:29)
[2024-12-07] MEDS: PANTOPRAZOLE 40 MG TABLET PO (09:45)
[2024-12-07 10:27] LABS: Creatine Kinase < 20 U/L (55-170)
--- NOTE | 2024-12-07 12:02 | PCSTNOTE ---
Please refer to the Modified Barium Swallow Evaluation in the EMR. The patient is a 74 year old male referred for a MBS Study secondary to frequent hospitalization for recurrent severe aspiration problems. MBS ordered to r/o aspiration risk. The patient was positioned in a lateral view and presented the following consistencies: 5cc/tsp thin liquid barium, cup trials thin liquid barium, pudding mixed with barium paste, and cracker coated with barium paste. Oral Stage: Oral preparation and transit was viewed to be timely for all consistencies. Pharyngeal Stage: When presented cup trials thin liquid uncontrolled the patient was viewed to have flash laryngeal penetration due to reduced laryngeal elevation. Penetration risk reduced with small controlled drinks thin liquid. The patient had mild vallecular residual across consistencies but was able to clear a significant portion of the vallecular residual with a repeat swallow. Recommend 1. Regular Diet / Level 7 2. Thin liquid / Level 0 3. Upright with meals 4. Frequent Observation 5. Small bites and drinks 6. No Straw 7. Speech to follow to address reduced lingual pressure and reduced laryngeal elevation (Tongue base retraction exercises, Laryngeal elevation, Judi)
[2024-12-07] MEDS: RIVAROXABAN 20 MG TABLET PO (17:31)
--- NOTE | 2024-12-07 18:30 | PM.IMPN ---
Progress Note: A&P Assessment and Plan (1) Acute hypoxic respiratory failure: Code(s): J96.01 - Acute respiratory failure with hypoxia Status: Acute Assessment and Plan: Patient arrived to the emergency department 96% on room air. Initial concern patient was hypoxic in the 70s prior to arrival. Patient did become hypoxic in the emergency department on 11/30, dropped to 84% on room air. Subsequently placed on BiPAP. Imaging showed bilateral severe bronchopneumonia superimposed on chronic lung disease. Initial ABG showed no significant hypoxia, hypercapnia, acidosis, or alkalosis on BiPAP. - continue BiPAP for work of breathing/respiratory distress p.r.n. - started on hospital-acquired pneumonia treatment as he was recently admitted to [facility], patient additionally met criteria for sepsis and lactic was elevated - pulmonology consulted Gentle diuresis as BNP elevated Which he is tolerating. Respiratory pathogen panel Urine antigens I LD workup as ordered by Pulmonary continue Airvo and wean as tolerated And currently on 4 L oxygen via nasal cannula Seen by Pulmonary, found to have difficulty swallowing, barium swallow was ordered which found some trace penetration. Recommendation was regular diet with thin liquids, no straws and small drinks. Prednisone taper continuing through December 22 as stated in pulmonology consultation. Per Pulmonary, patient will need discharge to LTAC given severity of lung disease. (2) Sepsis: Qualifiers: Acute respiratory failure type: with hypoxia Sepsis acute organ dysfunction status: with acute organ dysfunction Sepsis type: sepsis due to unspecified organism Severe sepsis acute organ dysfunction type: acute respiratory failure Severe sepsis shock status: without septic shock Qualified Code(s): A41.9 - Sepsis, unspecified organism; R65.20 - Severe sepsis without septic shock; J96.01 - Acute respiratory failure with hypoxia Code(s): A41.9 - Sepsis, unspecified organism Status: Acute Assessment and Plan: Patient met SIRS criteria: HR greater than 100, RR greater than 20, WBC greater than 12. +hypoxia, -hypotension. Initial lactic 3.6 -> 3.4. CRP 4.98 and procalcitonin 0.1. - blood cultures obtained on 11/30, follow. - trend lactic down - 30 mL/kg = 2.5, will give 2L at 200 mL/hr due to elevation in BNP/hx of diastolic dysfunction. monitor toleration. - suspected source: HAP - started on ceftriaxone and azithromycin, exchanged to cefepime and azithromycin on 11/30 - monitor I&Os concluded azithromycin Continue cefepime for total 7 days -last day today White blood cell count is trending up, follow morning labs and evaluate need for further intervention (3) Pneumonia: Qualifiers: Laterality: bilateral Lung location: unspecified part of lung Pneumonia type: due to unspecified organism Qualified Code(s): J18.9 - Pneumonia, unspecified organism Code(s): J18.9 - Pneumonia, unspecified organism Status: Acute Assessment and Plan: - CXR: 1. Interval worsening of chronic interstitial lung disease. 2. However bibasilar edema and/or pneumonitis or airspace disease not excluded. - Chest CT: Bilateral severe bronchopneumonia superimposed on chronic lung disease with probable reactive mediastinal lymphadenopathy. Follow-up recommended to assess resolution - risk/complicating factors: acute respiratory failure, interstitial lung disease, recent hospitalization - started on ceftriaxone and azithromycin in the ED, exchanged to cefepime and azithromycin on 11/30. No current indication for vancomycin as the patient's MRSA PCR was negative upon admission. - supportive care: Mucinex, Tylenol, DuoNebs, Tessalon Perles - sputum culture - currently requiring BiPAP for WOB, +hypoxia Still requiring high level of oxygen. Continue diuresis Chest x-ray reviewed Leukocytosis improving (4) ILD (interstitial lung disease): Code(s): J84.9 - Interstitial pulmonary disease, unspecified Status: Chronic Assessment and Plan: - worsening on imaging - pulmonology consulted, see recs above Restarted on prednisone per Pulmonary (5) Diastolic congestive heart failure, NYHA class 3: Qualifiers: Congestive heart failure chronicity: unspecified Qualified Code(s): I50.30 - Unspecified diastolic (congestive) heart failure Code(s): I50.30 - Unspecified diastolic (congestive) heart failure Status: Chronic Assessment and Plan: BNP elevated at 3540. No evidence of pulmonary edema on CXR. Reviewed chart, most recent echo in 2022 showed diastolic dysfunction, normal systolic function with an estimated EF of 60 65%, valvular disease, and mild pulmonary hypertension. - update echo - receiving IV fluids due to sepsis at slower rate, monitor toleration which will be stopped and start diuresis as tolerated - monitor I&Os - daily weights Received a dose of Lasix 40 mg x 1 11/30 started on diuresis 40 mg IV b.i.d.. With good diuresis BNP noted Currently on Lasix 40 mg IV b.i.d. will down titrate to once daily given stable fluid status. (6) DM2 (diabetes mellitus, type 2): Code(s): E11.9 - Type 2 diabetes mellitus without complications Status: Chronic Assessment and Plan: - hypoglycemia protocol - POC blood glucose ACHS - home medication: Hold metformin in case of need for contrast. Continue Lantus 10 units HS. - correct regimen ordered - low dose TIDWM and HS, based off BMI - A1C 6.4% in 2022, update (7) Chronic anticoagulation: Code(s): Z79.01 - special ed assistant (current) use of anticoagulants Status: Chronic Assessment and Plan: - continue Xarelto (8) Chronic hypotension: Code(s): I95.89 - Other hypotension Status: Acute Assessment and Plan: - continue home medications: Midodrine - monitor Plan Diet: Heart healthy GI Prophylaxis: N/a DVT Prophylaxis: Xarelto Lines/Tubes: Peripheral IV Code Status: Full code discussed with the patient and family and now switched to do not resuscitate Disposition still required significant amount of oxygen with exertion continue IV diuresis and IV cefepime for total 7 days. Recommendation for discharge to LTAC. Subjective Date/time seen: 12/07/24 18:30 Review of Systems Review of Systems: All systems reviewed & are unremarkable except as noted in HPI and below Exam Narrative: APPEARANCE: Ill-appearing not in acute distress HEAD: normocephalic, atraumatic. EYES: PERRLA/EOMI, conjunctivae clear. NECK: Supple. No adenopathy, no masses. RESPIRATORY: Coarse breath sounds bilaterally, no respiratory distress CARDIOVASCULAR: Regular rate and S1-S2 ABDOMINAL: Soft, nontender, nondistended, normal bowel sounds MUSCULOSKELETAL: Moves all extremities. Strength/ROM intact, trace edema, No calf tenderness. NEURO: Alert. Cranial nerves II through XII intact. SKIN: Warm, dry. Normal Color Const: General: comfortable Other: , male, elderly, ill-appearing, mild respiratory distress HENMT: Face/Nose/Sinus: Normal nares present Mouth: Yes dry mucous membranes (on BiPAP) Eyes: General: appearance normal, both eyes and all related structures Sclera: sclerae normal Pupils: Equal, round and reactive pupils present EOM: EOMs intact bilaterally Resp: Other: Tachypneic without accessory muscle use, bibasilar crackles, no wheezing. Cardio: Rate: regular rate Rhythm: regular rhythm Other: S1-S2 present without murmur, rub, ectopy GI: Other: Abdomen soft, nondistended, nontender. Normoactive bowel sounds in all quadrants. Skin: General skin exam: normal color and no rashes or lesions noted Wounds: no wounds Neuro: Cranial nerves: Yes Equal, round and reactive pupils present Speech: normal speech Motor exam (neuro): 5/5 motor strength present throughout Sensory Exam: normal sensation Other: A/Ox4 Extrem: Other: Trace pitting edema to bilateral ankles, symmetric Psych: Mental Status: mental status grossly normal Affect: normal affect Other: Good insight and judgment, pleasant Objective Data Vital Signs Vital Signs: Vital Signs - 24 hr 12/06/24 20:00 12/06/24 20:00 12/06/24 20:32 Temperature 97.6 F Pulse Rate 88 85 83 Respiratory Rate 16 18 18 Blood Pressure 119/71 Pulse Oximetry 100 100 Oxygen Delivery Room Air Oxygen Flow Rate Fraction of Inspired Oxygen 95 12/06/24 20:33 12/06/24 20:41 12/06/24 21:00 Temperature Pulse Rate 83 85 112 H Respiratory Rate 18 Blood Pressure Pulse Oximetry 100 Oxygen Delivery High Flow Nasal Cannula Oxygen Flow Rate 8 Fraction of Inspired Oxygen 12/06/24 21:50 12/06/24 22:02 12/06/24 23:55 Temperature 97.5 F L Pulse Rate 95 82 Respiratory Rate 15 Blood Pressure 100/57 L Pulse Oximetry 97 100 Oxygen Delivery High Flow Nasal Cannula Oxygen Flow Rate 4 Fraction of Inspired Oxygen 12/07/24 00:00 12/07/24 00:00 12/07/24 02:00 Temperature Pulse Rate 82 83 83 Respiratory Rate 15 Blood Pressure Pulse Oximetry 100 Oxygen Delivery Nasal Cannula Oxygen Flow Rate 4 Fraction of Inspired Oxygen 95 12/07/24 04:00 12/07/24 04:00 12/07/24 04:00 Temperature 97.7 F Pulse Rate 80 80 80 Respiratory Rate 16 16 Blood Pressure 103/63 Pulse Oximetry 99 99 Oxygen Delivery Nasal Cannula Oxygen Flow Rate 4 Fraction of Inspired Oxygen 95 12/07/24 07:25 12/07/24 07:27 12/07/24 07:30 Temperature Pulse Rate 90 18 L Respiratory Rate 18 93 H Blood Pressure Pulse Oximetry 95 Oxygen Delivery High Flow Nasal Cannula Oxygen Flow Rate 4 Fraction of Inspired Oxygen 12/07/24 07:53 12/07/24 08:00 12/07/24 08:00 Temperature 97.5 F L Pulse Rate 91 105 H Respiratory Rate 16 Blood Pressure 111/67 Pulse Oximetry 97 94 Oxygen Delivery Nasal Cannula Oxygen Flow Rate 4 Fraction of Inspired Oxygen 12/07/24 10:00 12/07/24 11:51 12/07/24 12:00 Temperature 97.7 F Pulse Rate 101 H 97 Respiratory Rate 20 Blood Pressure 111/74 Pulse Oximetry 90 96 Oxygen Delivery Nasal Cannula Oxygen Flow Rate 2 Fraction of Inspired Oxygen 12/07/24 12:00 12/07/24 12:25 12/07/24 12:35 Temperature Pulse Rate 106 H 89 96 Respiratory Rate 17 17 Blood Pressure Pulse Oximetry Oxygen Delivery Oxygen Flow Rate Fraction of Inspired Oxygen 12/07/24 12:38 12/07/24 14:00 12/07/24 15:47 Temperature 97.6 F Pulse Rate 98 92 Respiratory Rate 20 Blood Pressure 102/62 Pulse Oximetry 95 99 Oxygen Delivery High Flow Nasal Cannula Oxygen Flow Rate 3 Fraction of Inspired Oxygen 12/07/24 15:50 12/07/24 15:52 12/07/24 15:58 Temperature Pulse Rate 94 82 Respiratory Rate 18 18 Blood Pressure Pulse Oximetry 93 Oxygen Delivery High Flow Nasal Cannula Oxygen Flow Rate 1 Fraction of Inspired Oxygen 12/07/24 16:00 12/07/24 16:00 12/07/24 18:00 Temperature Pulse Rate 97 96 Respiratory Rate Blood Pressure Pulse Oximetry 92 Oxygen Delivery Nasal Cannula Oxygen Flow Rate 2 Fraction of Inspired Oxygen Intake/Output Intake/Output: Intake & Output 12/04/24 12/05/24 12/06/24 12/07/24 23:59 23:59 23:59 23:59 Intake Total 1590 1370 1770 2130 Output Total 1890 2050 1350 2500 Balance -300 680 420 -370 Meds/Results Medications: Active Medications Generic Name Dose Route Start Last Admin Trade Name Freq PRN Reason Stop Dose Admin Acetaminophen 650 mg 11/30/24 15:47 12/05/24 13:42 Acetaminophen 325 Mg Tablet PO 650 mg Q6H PRN Administration Mild Pain (1-3) or Fever Albuterol/Ipratropium 3 ml 12/06/24 12:00 12/07/24 15:50 Ipratropium 0.5 Mg/Albuterol Sulfate 2.5 Mg (Base) Ampul.Neb 3 Ml INHALATION 3 ml [id number] SPEEDY Administration Atorvastatin Calcium 10 mg 11/30/24 21:00 12/06/24 22:21 Atorvastatin 10 Mg Tablet PO 10 mg HS SPEEDY Administration Benzonatate 100 mg 11/30/24 15:44 Benzonatate 100 Mg Capsule PO TID PRN Cough Dextrose 12.5 gm 11/30/24 15:49 Dextrose 50% 25 Gm/50 Ml Syringe IV PUSH PRN PRN Hypoglycemia Protocol Divalproex Sodium 1,000 mg 12/01/24 08:00 12/07/24 09:38 Divalproex Sodium Er 500 Mg Tab.24h PO 1,000 mg DAILY@0800 SPEEDY Administration Divalproex Sodium 500 mg 11/30/24 21:00 12/06/24 22:21 Divalproex Sodium Er 500 Mg Tab.24h PO 500 mg HS SPEEDY Administration Furosemide 40 mg 12/01/24 13:45 12/07/24 18:29 Furosemide Inj 40 Mg/4 Ml Vial IV PUSH 40 mg BID SPEEDY Administration Glucagon 1 mg 11/30/24 15:49 Glucagon For Inj 1 Mg Vial IM PRN PRN Hypoglycemia Protocol Glucose 15 gm 11/30/24 15:49 Glucose Oral Gel 15 Gm Of Glucse In 37.5 Gm Tube PO PRN PRN Hypoglycemia Protocol Guaifenesin 1,200 mg 12/01/24 21:00 12/07/24 09:38 Guaifenesin 12 Hr 600 Mg Tabcr PO 1,200 mg Q12HR SPEEDY Administration Dextrose 1,000 mls @ 100 mls/hr 11/30/24 15:49 Dextrose 5% 1,000 Ml IVPB PRN PRN Hypoglycemia Protocol Insulin Aspart 2 - 5 units 11/30/24 17:00 12/07/24 18:29 Insulin Aspart (*Bkc) 100 Units/Ml SUB-Q Not Given TIDWM SPEEDY Protocol Insulin Aspart 1 - 2 units 11/30/24 21:00 12/06/24 22:20 Insulin Aspart (*Bkc) 100 Units/Ml SUB-Q 1 units HS SPEEDY Administration Protocol Insulin Glargine 10 units 11/30/24 21:00 12/06/24 22:21 Insulin Glargine (*Bkc) 100 Units/Ml SUB-Q 10 units HS SPEEDY Administration Memantine 10 mg 11/30/24 17:00 12/07/24 17:32 Memantine 10 Mg Tablet PO 10 mg BID SPEEDY Administration Methocarbamol 750 mg 11/30/24 15:51 Methocarbamol 750 Mg Tablet PO BID PRN muscle spasm Midodrine 10 mg 11/30/24 17:00 12/07/24 17:32 Midodrine Hcl 10 Mg Tablet PO 10 mg TID SPEEDY Administration Pantoprazole Sodium 40 mg 12/01/24 09:00 12/07/24 09:45 Pantoprazole 40 Mg Tablet PO 40 mg DAILY SPEEDY Administration Polyethylene Glycol 17 gm 12/05/24 09:50 12/07/24 09:39 Polyethylene Glycol 3350 17 Gm Powd.Pack PO 17 gm QAM PRN Administration Constipation Prednisone 20 mg/ Prednisone 30 mg 12/04/24 09:05 12/07/24 09:39 10 mg PO 12/08/24 08:00 30 mg DAILY@0800 SPEEDY Administration Rivaroxaban 20 mg 12/06/24 17:00 12/07/24 17:31 Rivaroxaban 20 Mg Tablet PO 20 mg Q24H SPEEDY Administration Tamsulosin HCl 0.8 mg 12/01/24 09:00 12/07/24 09:40 Tamsulosin Hcl 0.4 Mg Capsule PO 0.8 mg DAILY SPEEDY Administration Vitamin D 125 mcg 12/01/24 09:00 12/07/24 09:41 Cholecalciferol (Vitamin D3) 125 Mcg (5,000 Units) Tablet PO 125 mcg DAILY SPEEDY Administration Radiology Results: ITS Impressions Chest CT 11/30/24 14:20 IMPRESSION: 1. Bilateral severe bronchopneumonia superimposed on chronic lung disease with probable reactive mediastinal lymphadenopathy. Follow-up recommended to assess resolution Chest X-Ray 12/04/24 09:32 IMPRESSION: 1. Slight interval progression in diffuse bilateral interstitial and airspace opacities which could represent moderate pulmonary edema, pneumonia, chronic interstitial lung disease or some combination thereof. Modified Barium Swallow 12/07/24 11:54 IMPRESSION: Mild pharyngeal dysphagia with flash laryngeal penetration without aspiration. Please correlate with speech pathologist findings and specific feeding recommendations. Labs Labs: Laboratory Results - last 24 hr 12/06/24 12/07/24 12/07/24 19:40 03:38 08:10 WBC 16.4 H RBC 3.22 L Hgb 10.7 L Hct 33.3 L MCV 103.4 H MCH 33.2 MCHC 32.1 RDW 15.7 H Plt Count 203 MPV 10.9 H Immature Gran % (Auto) 2.7 H Neut % (Auto) 72.5 Lymph % (Auto) 12.2 L [place] % (Auto) 12.0 H Eos % (Auto) 0.2 Baso % (Auto) 0.4 Lymph # (Auto) 2.00 [place] # (Auto) 2.0 H Eos # (Auto) 0.0 Baso # (Auto) 0.1 Abs Immat Gran (auto) 0.45 H Absolute Neuts (auto) 11.9 H Absolute Nucleated RBC 0.000 Nucleated RBC % 0.0 Sodium 134 L Potassium 4.5 Chloride 92 L Carbon Dioxide 38 H Anion Gap 4 BUN 36 H Creatinine 0.75 Estim Creat Clear Calc 82 Estimated GFR > 60 Glucose 88 POC Capillary Glucose 269 H 126 H Calcium 8.7 Magnesium 2.1 Total Bilirubin 0.4 AST 37 ALT 28 Alkaline Phosphatase 66 Total Creatine Kinase Cancelled Total Protein 6.7 Albumin 3.2 L 12/07/24 12/07/24 12/07/24 09:47 11:48 15:18 WBC RBC Hgb Hct MCV MCH MCHC RDW Plt Count MPV Immature Gran % (Auto) Neut % (Auto) Lymph % (Auto) [place] % (Auto) Eos % (Auto) Baso % (Auto) Lymph # (Auto) [place] # (Auto) Eos # (Auto) Baso # (Auto) Abs Immat Gran (auto) Absolute Neuts (auto) Absolute Nucleated RBC Nucleated RBC % Sodium Potassium Chloride Carbon Dioxide Anion Gap BUN Creatinine Estim Creat Clear Calc Estimated GFR Glucose POC Capillary Glucose 268 H 314 H Calcium Magnesium Total Bilirubin AST ALT Alkaline Phosphatase Total Creatine Kinase < 20 L Total Protein Albumin Quality VTE Prophylaxis VTE prophylaxis: pharmacologic ordered Hospitalist MIPS Advance Care Plan I have confirmed that the patient's Advanced Care Plan is present, code status is documented, or surrogate decision maker is listed in patient medical record.: Yes Medication Reconciliation I have utilized all available resources to obtain, update and review the patients current medications (includes all prescriptions, OTC, herbals, cannabis, and nutritional supplements).: Yes
[2024-12-07] MEDS: INSULIN ASPART (*BKC) 100 UNITS/ML SUB-Q ×2 (18:37→22:20)
[2024-12-07] MEDS: ATORVASTATIN 10 MG TABLET PO (22:18)
[2024-12-07] MEDS: DIVALPROEX SODIUM ER 500 MG TAB.24H PO (22:19)
[2024-12-07] MEDS: INSULIN GLARGINE (*BKC) 100 UNITS/ML 10 UNITS SUB-Q (22:20)
[2024-12-08] VITALS (22 sets, daily range): BP systolic 107–133; BP diastolic 63–78; PULSE 54–119; RESP 16–20; TEMP 36.4–36.9; O2SAT 90–97
[2024-12-08 04:10] LABS: Hematocrit 32.6 % (42.0-52.0); Hemoglobin 10.5 g/dL (14.0-18.0); Immature Granulocyte Percent A 2.4 % (0-0.5); Lymphocytes Absolute Auto 1.83 K/mm3 (0.9-3.2); Mean Corpuscular HGB Conc 32.2 g/dl (32-36); Mean Corpuscular Hemoglobin 33.4 pg (26-34); Mean Corpuscular Volume 103.8 fl (80-100); Nucleated Red Blood Cells Absolute Auto 0.000 K/mm3 (0.0-0.012); Nucleated Red Blood Cells Perc 0.0 % (0.0-0.2); Platelet Count Result 205 k/mm3 (150-375); Red Blood Count 3.14 M/mm3 (4.6-6.20); White Blood Count 17.4 K/mm3 (4.5-10.0)
[2024-12-08 04:30] LABS: Alanine Aminotransferase 25 U/L (6-50); Albumin Level 3.1 g/dL (3.5-5.1); Alkaline Phosphatase 69 U/L (38-126); Anion Gap 5 mmol/L (4-12); Aspartate Amino Transferase 28 U/L (17-59); Bilirubin,Total 0.4 mg/dL (0.2-1.3); Blood Urea Nitrogen 37 mg/dL (9-20); Calcium 8.8 mg/dL (8.4-10.2); Carbon Dioxide 39 mmol/L (22-30); Chloride 89 mmol/L (98-107); Estimated CRCL calculation 74 ml/min; Estimated Glomerular Filt Rate > 60; Glucose 172 mg/dL (65-110); Potassium 4.3 mmol/L (3.4-5.0); Sodium 133 mmol/L (137-145); Total Protein 6.5 g/dL (6.3-8.2)
[2024-12-08] MEDS: IPRATROPIUM 0.5 MG/ALBUTEROL SULFATE 2.5 MG (BASE) AMPUL.NEB 3 ML INHALATION ×4 (08:05→20:28)
[2024-12-08] MEDS: FUROSEMIDE INJ 40 MG/4 ML VIAL IV PUSH ×2 (09:24→17:13)
[2024-12-08] MEDS: DIVALPROEX SODIUM ER 500 MG TAB.24H 1000 MG PO (09:34)
[2024-12-08] MEDS: TAMSULOSIN HCL 0.4 MG CAPSULE 0.8 MG PO (09:34)
[2024-12-08] MEDS: MEMANTINE 10 MG TABLET PO ×2 (09:34→17:10)
[2024-12-08] MEDS: CHOLECALCIFEROL (VITAMIN D3) 125 MCG (5,000 UNITS) TABLET PO (09:35)
[2024-12-08] MEDS: MIDODRINE HCL 10 MG TABLET PO ×3 (09:35→17:10)
[2024-12-08] MEDS: PANTOPRAZOLE 40 MG TABLET PO (09:35)
[2024-12-08] MEDS: guaiFENesin 12 HR 600 MG TABCR 1200 MG PO ×2 (09:35→20:20)
--- NOTE | 2024-12-08 10:41 | PM.IMPN ---
Progress Note: A&P Assessment and Plan (1) Acute hypoxic respiratory failure: Code(s): J96.01 - Acute respiratory failure with hypoxia Status: Acute Assessment and Plan: Patient arrived to the emergency department 96% on room air. Initial concern patient was hypoxic in the 70s prior to arrival. Patient did become hypoxic in the emergency department on 11/30, dropped to 84% on room air. Subsequently placed on BiPAP. Imaging showed bilateral severe bronchopneumonia superimposed on chronic lung disease. Initial ABG showed no significant hypoxia, hypercapnia, acidosis, or alkalosis on BiPAP. - continue BiPAP for work of breathing/respiratory distress p.r.n. - started on hospital-acquired pneumonia treatment as he was recently admitted to [facility], patient additionally met criteria for sepsis and lactic was elevated - pulmonology consulted Gentle diuresis as BNP elevated Which he is tolerating. Respiratory pathogen panel Urine antigens I LD workup as ordered by Pulmonary continue Airvo and wean as tolerated And currently on 4 L oxygen via nasal cannula Seen by Pulmonary, found to have difficulty swallowing, barium swallow was ordered which found some trace penetration. Recommendation was regular diet with thin liquids, no straws and small drinks. Prednisone taper continuing through December 22 as stated in pulmonology consultation. Per Pulmonary, patient will need discharge to LTAC given severity of lung disease. (2) Sepsis: Qualifiers: Sepsis type: sepsis due to unspecified organism Sepsis acute organ dysfunction status: with acute organ dysfunction Severe sepsis acute organ dysfunction type: acute respiratory failure Acute respiratory failure type: with hypoxia Severe sepsis shock status: without septic shock Qualified Code(s): A41.9 - Sepsis, unspecified organism; R65.20 - Severe sepsis without septic shock; J96.01 - Acute respiratory failure with hypoxia Code(s): A41.9 - Sepsis, unspecified organism Status: Acute Assessment and Plan: Patient met SIRS criteria: HR greater than 100, RR greater than 20, WBC greater than 12. +hypoxia, -hypotension. Initial lactic 3.6 -> 3.4. CRP 4.98 and procalcitonin 0.1. - blood cultures obtained on 11/30, follow. - trend lactic down - 30 mL/kg = 2.5, will give 2L at 200 mL/hr due to elevation in BNP/hx of diastolic dysfunction. monitor toleration. - suspected source: HAP - started on ceftriaxone and azithromycin, exchanged to cefepime and azithromycin on 11/30 - monitor I&Os concluded azithromycin Continue cefepime for total 7 days -last day today White blood cell count is trending up, follow morning labs and evaluate need for further intervention (3) Pneumonia: Qualifiers: Laterality: bilateral Lung location: unspecified part of lung Pneumonia type: due to unspecified organism Qualified Code(s): J18.9 - Pneumonia, unspecified organism Code(s): J18.9 - Pneumonia, unspecified organism Status: Acute Assessment and Plan: - CXR: 1. Interval worsening of chronic interstitial lung disease. 2. However bibasilar edema and/or pneumonitis or airspace disease not excluded. - Chest CT: Bilateral severe bronchopneumonia superimposed on chronic lung disease with probable reactive mediastinal lymphadenopathy. Follow-up recommended to assess resolution - risk/complicating factors: acute respiratory failure, interstitial lung disease, recent hospitalization - started on ceftriaxone and azithromycin in the ED, exchanged to cefepime and azithromycin on 11/30. No current indication for vancomycin as the patient's MRSA PCR was negative upon admission. - supportive care: Mucinex, Tylenol, DuoNebs, Tessalon Perles - sputum culture - currently requiring BiPAP for WOB, +hypoxia Still requiring high level of oxygen. Continue diuresis Chest x-ray reviewed Leukocytosis improving (4) ILD (interstitial lung disease): Code(s): J84.9 - Interstitial pulmonary disease, unspecified Status: Chronic Assessment and Plan: - worsening on imaging - pulmonology consulted, see recs above Restarted on prednisone per Pulmonary (5) Diastolic congestive heart failure, NYHA class 3: Qualifiers: Congestive heart failure chronicity: unspecified Qualified Code(s): I50.30 - Unspecified diastolic (congestive) heart failure Code(s): I50.30 - Unspecified diastolic (congestive) heart failure Status: Chronic Assessment and Plan: BNP elevated at 3540. No evidence of pulmonary edema on CXR. Reviewed chart, most recent echo in 2022 showed diastolic dysfunction, normal systolic function with an estimated EF of 60 65%, valvular disease, and mild pulmonary hypertension. - update echo - receiving IV fluids due to sepsis at slower rate, monitor toleration which will be stopped and start diuresis as tolerated - monitor I&Os - daily weights Received a dose of Lasix 40 mg x 1 11/30 started on diuresis 40 mg IV b.i.d.. With good diuresis BNP noted Currently on Lasix 40 mg IV b.i.d. will down titrate to once daily given stable fluid status. (6) DM2 (diabetes mellitus, type 2): Code(s): E11.9 - Type 2 diabetes mellitus without complications Status: Chronic Assessment and Plan: - hypoglycemia protocol - POC blood glucose ACHS - home medication: Hold metformin in case of need for contrast. Continue Lantus 10 units HS. - correct regimen ordered - low dose TIDWM and HS, based off BMI - A1C 6.4% in 2022, update (7) Chronic anticoagulation: Code(s): Z79.01 - medical terminologist (current) use of anticoagulants Status: Chronic Assessment and Plan: - continue Xarelto (8) Chronic hypotension: Code(s): I95.89 - Other hypotension Status: Acute Assessment and Plan: - continue home medications: Midodrine - monitor Plan Diet: Heart healthy GI Prophylaxis: N/a DVT Prophylaxis: Xarelto Lines/Tubes: Peripheral IV Code Status: Full code discussed with the patient and family and now switched to do not resuscitate Disposition still required significant amount of oxygen with exertion continue IV diuresis and IV cefepime for total 7 days. Recommendation for discharge to LTAC. Subjective Date/time seen: 12/08/24 10:41 Interval history: Patient was seen during the morning rounds today. No new overnight complaints Mild sob or chest pain Review of Systems Review of Systems: All systems reviewed & are unremarkable except as noted in HPI and below Exam Narrative: APPEARANCE: Ill-appearing not in acute distress HEAD: normocephalic, atraumatic. EYES: PERRLA/EOMI, conjunctivae clear. NECK: Supple. No adenopathy, no masses. RESPIRATORY: Coarse breath sounds bilaterally, no respiratory distress CARDIOVASCULAR: Regular rate and S1-S2 ABDOMINAL: Soft, nontender, nondistended, normal bowel sounds MUSCULOSKELETAL: Moves all extremities. Strength/ROM intact, trace edema, No calf tenderness. NEURO: Alert. Cranial nerves II through XII intact. SKIN: Warm, dry. Normal Color Const: General: comfortable Other: , male, elderly, ill-appearing, mild respiratory distress HENMT: Face/Nose/Sinus: Normal nares present Mouth: Yes dry mucous membranes (on BiPAP) Eyes: General: appearance normal, both eyes and all related structures Sclera: sclerae normal Pupils: Equal, round and reactive pupils present EOM: EOMs intact bilaterally Resp: Other: Tachypneic without accessory muscle use, bibasilar crackles, no wheezing. Cardio: Rate: regular rate Rhythm: regular rhythm Other: S1-S2 present without murmur, rub, ectopy GI: Other: Abdomen soft, nondistended, nontender. Normoactive bowel sounds in all quadrants. Skin: General skin exam: normal color and no rashes or lesions noted Wounds: no wounds Neuro: Cranial nerves: Yes Equal, round and reactive pupils present Speech: normal speech Motor exam (neuro): 5/5 motor strength present throughout Sensory Exam: normal sensation Other: A/Ox4 Extrem: Other: Trace pitting edema to bilateral ankles, symmetric Psych: Mental Status: mental status grossly normal Affect: normal affect Other: Good insight and judgment, pleasant Objective Data Vital Signs Vital Signs: Vital Signs - 24 hr 12/07/24 11:51 12/07/24 12:00 12/07/24 12:00 Temperature 36.5 C Pulse Rate 97 106 H Respiratory Rate 20 Blood Pressure 111/74 Pulse Oximetry 90 96 Oxygen Delivery Nasal Cannula Oxygen Flow Rate 2 Fraction of Inspired Oxygen 12/07/24 12:25 12/07/24 12:35 12/07/24 12:38 Temperature Pulse Rate 89 96 Respiratory Rate 17 17 Blood Pressure Pulse Oximetry 95 Oxygen Delivery High Flow Nasal Cannula Oxygen Flow Rate 3 Fraction of Inspired Oxygen 12/07/24 14:00 12/07/24 15:47 12/07/24 15:50 Temperature 36.4 C Pulse Rate 98 92 94 Respiratory Rate 20 18 Blood Pressure 102/62 Pulse Oximetry 99 Oxygen Delivery Oxygen Flow Rate Fraction of Inspired Oxygen 12/07/24 15:52 12/07/24 15:58 12/07/24 16:00 Temperature Pulse Rate 82 97 Respiratory Rate 18 Blood Pressure Pulse Oximetry 93 Oxygen Delivery High Flow Nasal Cannula Oxygen Flow Rate 1 Fraction of Inspired Oxygen 12/07/24 16:00 12/07/24 18:00 12/07/24 19:44 Temperature 36.9 C Pulse Rate 96 102 H Respiratory Rate 28 H Blood Pressure 128/66 Pulse Oximetry 92 96 Oxygen Delivery Nasal Cannula Oxygen Flow Rate 2 Fraction of Inspired Oxygen 12/07/24 20:00 12/07/24 20:00 12/07/24 20:37 Temperature Pulse Rate 101 H 101 H 92 Respiratory Rate 28 H 18 Blood Pressure Pulse Oximetry 96 Oxygen Delivery Nasal Cannula Oxygen Flow Rate 4 Fraction of Inspired Oxygen 95 12/07/24 20:37 12/07/24 20:45 12/07/24 22:00 Temperature Pulse Rate 96 96 Respiratory Rate 18 Blood Pressure Pulse Oximetry 94 Oxygen Delivery High Flow Nasal Cannula Oxygen Flow Rate 3 Fraction of Inspired Oxygen 12/08/24 00:00 12/08/24 00:00 12/08/24 00:00 Temperature 36.9 C Pulse Rate 86 86 86 Respiratory Rate 16 16 Blood Pressure 118/65 Pulse Oximetry 93 93 Oxygen Delivery High Flow Nasal Cannula Oxygen Flow Rate 2 Fraction of Inspired Oxygen 95 12/08/24 03:00 12/08/24 04:00 12/08/24 04:00 Temperature 36.7 C Pulse Rate 99 98 98 Respiratory Rate 16 16 Blood Pressure 108/65 Pulse Oximetry 96 96 Oxygen Delivery Nasal Cannula Oxygen Flow Rate 2 Fraction of Inspired Oxygen 95 12/08/24 04:00 12/08/24 08:00 12/08/24 08:05 Temperature 36.4 C L Pulse Rate 98 92 55 L Respiratory Rate 18 Blood Pressure 110/78 Pulse Oximetry 97 94 Oxygen Delivery High Flow Therapy with Na Oxygen Flow Rate 4 Fraction of Inspired Oxygen 12/08/24 08:05 12/08/24 08:13 Temperature Pulse Rate 55 L 59 L Respiratory Rate 18 18 Blood Pressure Pulse Oximetry Oxygen Delivery Oxygen Flow Rate Fraction of Inspired Oxygen Intake/Output Intake/Output: Intake & Output 12/05/24 12/06/24 12/07/24 12/08/24 23:59 23:59 23:59 23:59 Intake Total 1370 1770 2130 360 Output Total 2050 1350 3100 850 Balance -680 420 -970 -490 Meds/Results Medications: Active Medications Generic Name Dose Route Start Last Admin Trade Name Freq PRN Reason Stop Dose Admin Acetaminophen 650 mg 11/30/24 15:47 12/05/24 13:42 Acetaminophen 325 Mg Tablet PO 650 mg Q6H PRN Administration Mild Pain (1-3) or Fever Albuterol/Ipratropium 3 ml 12/06/24 12:00 12/08/24 08:05 Ipratropium 0.5 Mg/Albuterol Sulfate 2.5 Mg (Base) Ampul.Neb 3 Ml INHALATION 3 ml [id number] SPEEDY Administration Atorvastatin Calcium 10 mg 11/30/24 21:00 12/07/24 22:18 Atorvastatin 10 Mg Tablet PO 10 mg HS SPEEDY Administration Benzonatate 100 mg 11/30/24 15:44 Benzonatate 100 Mg Capsule PO TID PRN Cough Dextrose 12.5 gm 11/30/24 15:49 Dextrose 50% 25 Gm/50 Ml Syringe IV PUSH PRN PRN Hypoglycemia Protocol Divalproex Sodium 1,000 mg 12/01/24 08:00 12/08/24 09:34 Divalproex Sodium Er 500 Mg Tab.24h PO 1,000 mg DAILY@0800 SPEEDY Administration Divalproex Sodium 500 mg 11/30/24 21:00 12/07/24 22:19 Divalproex Sodium Er 500 Mg Tab.24h PO 500 mg HS SPEEDY Administration Furosemide 40 mg 12/01/24 13:45 12/08/24 09:24 Furosemide Inj 40 Mg/4 Ml Vial IV PUSH 40 mg BID SPEEDY Administration Glucagon 1 mg 11/30/24 15:49 Glucagon For Inj 1 Mg Vial IM PRN PRN Hypoglycemia Protocol Glucose 15 gm 11/30/24 15:49 Glucose Oral Gel 15 Gm Of Glucse In 37.5 Gm Tube PO PRN PRN Hypoglycemia Protocol Guaifenesin 1,200 mg 12/01/24 21:00 12/08/24 09:35 Guaifenesin 12 Hr 600 Mg Tabcr PO 1,200 mg Q12HR SPEEDY Administration Dextrose 1,000 mls @ 100 mls/hr 11/30/24 15:49 Dextrose 5% 1,000 Ml IVPB PRN PRN Hypoglycemia Protocol Insulin Aspart 2 - 5 units 11/30/24 17:00 12/08/24 09:43 Insulin Aspart (*Bkc) 100 Units/Ml SUB-Q Not Given TIDWM SPEEDY Protocol Insulin Aspart 1 - 2 units 11/30/24 21:00 12/07/24 22:20 Insulin Aspart (*Bkc) 100 Units/Ml SUB-Q 2 units HS SPEEDY Administration Protocol Insulin Glargine 10 units 11/30/24 21:00 12/07/24 22:20 Insulin Glargine (*Bkc) 100 Units/Ml SUB-Q 10 units HS SPEEDY Administration Memantine 10 mg 10/02/25 17:00 12/08/24 09:34 Memantine 10 Mg Tablet PO 10 mg BID SPEEDY Administration Methocarbamol 750 mg 11/30/24 15:51 Methocarbamol 750 Mg Tablet PO BID PRN muscle spasm Midodrine 10 mg 11/30/24 17:00 12/08/24 09:35 Midodrine Hcl 10 Mg Tablet PO 10 mg TID SPEEDY Administration Pantoprazole Sodium 40 mg 12/01/24 09:00 12/08/24 09:35 Pantoprazole 40 Mg Tablet PO 40 mg DAILY SPEEDY Administration Polyethylene Glycol 17 gm 12/05/24 09:50 12/08/24 09:36 Polyethylene Glycol 3350 17 Gm Powd.Pack PO 17 gm QAM PRN Administration Constipation Prednisone 20 mg 12/08/24 08:00 12/08/24 09:35 Prednisone 20 Mg Tablet PO 12/15/24 10:00 20 mg DAILY@0800 SPEEDY Administration Prednisone 10 mg 12/16/24 08:00 Prednisone 10 Mg Tablet PO 12/22/24 10:00 DAILY@0800 SPEEDY Rivaroxaban 20 mg 12/06/24 17:00 12/07/24 17:31 Rivaroxaban 20 Mg Tablet PO 20 mg Q24H SPEEDY Administration Tamsulosin HCl 0.8 mg 12/01/24 09:00 12/08/24 09:34 Tamsulosin Hcl 0.4 Mg Capsule PO 0.8 mg DAILY SPEEDY Administration Vitamin D 125 mcg 12/01/24 09:00 12/08/24 09:35 Cholecalciferol (Vitamin D3) 125 Mcg (5,000 Units) Tablet PO 125 mcg DAILY SPEEDY Administration Radiology Results: ITS Impressions Chest CT 11/30/24 14:20 IMPRESSION: 1. Bilateral severe bronchopneumonia superimposed on chronic lung disease with probable reactive mediastinal lymphadenopathy. Follow-up recommended to assess resolution Chest X-Ray 12/04/24 09:32 IMPRESSION: 1. Slight interval progression in diffuse bilateral interstitial and airspace opacities which could represent moderate pulmonary edema, pneumonia, chronic interstitial lung disease or some combination thereof. Modified Barium Swallow 12/07/24 11:54 IMPRESSION: Mild pharyngeal dysphagia with flash laryngeal penetration without aspiration. Please correlate with speech pathologist findings and specific feeding recommendations. Labs Labs: Laboratory Results - last 24 hr 12/01/24 12/07/24 12/07/24 06:03 11:48 15:18 WBC RBC Hgb Hct MCV MCH MCHC RDW Plt Count MPV Immature Gran % (Auto) Neut % (Auto) Lymph % (Auto) [place] % (Auto) Eos % (Auto) Baso % (Auto) Lymph # (Auto) [place] # (Auto) Eos # (Auto) Baso # (Auto) Abs Immat Gran (auto) Absolute Neuts (auto) Absolute Nucleated RBC Nucleated RBC % Sodium Potassium Chloride Carbon Dioxide Anion Gap BUN Creatinine Estim Creat Clear Calc Estimated GFR Glucose POC Capillary Glucose 268 H 314 H Calcium Total Bilirubin AST ALT Alkaline Phosphatase Total Protein Albumin [place] Serum IgG Ab Negative T. sacchari IgG Ab Negative T. vulgaris IgG Ab Negative A. fumigatus IgG Ab Negative A. pullulans Aller IgG Negative M. faeni IgG Ab Negative 12/07/24 12/08/24 12/08/24 20:21 03:15 07:19 WBC 17.4 H RBC 3.14 L Hgb 10.5 L Hct 32.6 L MCV 103.8 H MCH 33.4 MCHC 32.2 RDW 16.2 H Plt Count 205 MPV 11.3 H Immature Gran % (Auto) 2.4 H Neut % (Auto) 76.3 H Lymph % (Auto) 10.5 L [place] % (Auto) 10.4 H Eos % (Auto) 0.2 Baso % (Auto) 0.2 Lymph # (Auto) 1.83 [place] # (Auto) 1.8 H Eos # (Auto) 0.0 Baso # (Auto) 0.0 Abs Immat Gran (auto) 0.41 H Absolute Neuts (auto) 13.3 H Absolute Nucleated RBC 0.000 Nucleated RBC % 0.0 Sodium 133 L Potassium 4.3 Chloride 89 L Carbon Dioxide 39 H Anion Gap 5 BUN 37 H Creatinine 0.84 Estim Creat Clear Calc 74 Estimated GFR > 60 Glucose 172 H POC Capillary Glucose 363 H 117 H Calcium 8.8 Total Bilirubin 0.4 AST 28 ALT 25 Alkaline Phosphatase 69 Total Protein 6.5 Albumin 3.1 L [place] Serum IgG Ab T. sacchari IgG Ab T. vulgaris IgG Ab A. fumigatus IgG Ab A. pullulans Aller IgG M. faeni IgG Ab Quality VTE Prophylaxis VTE prophylaxis: pharmacologic ordered
[2024-12-08] MEDS: INSULIN ASPART (*BKC) 100 UNITS/ML SUB-Q ×3 (12:52→20:21)
[2024-12-08] MEDS: RIVAROXABAN 20 MG TABLET PO (17:10)
[2024-12-08] MEDS: ATORVASTATIN 10 MG TABLET PO (20:20)
[2024-12-08] MEDS: DIVALPROEX SODIUM ER 500 MG TAB.24H PO (20:20)
[2024-12-08] MEDS: INSULIN GLARGINE (*BKC) 100 UNITS/ML 10 UNITS SUB-Q (20:21)
[2024-12-09] VITALS (22 sets, daily range): BP systolic 101–120; BP diastolic 60–70; PULSE 83–106; RESP 15–20; TEMP 36.2–36.9; O2SAT 89–100
[2024-12-09 04:23] LABS: Hematocrit 33.1 % (42.0-52.0); Hemoglobin 10.6 g/dL (14.0-18.0); Immature Granulocyte Percent A 2.3 % (0-0.5); Lymphocytes Absolute Auto 2.57 K/mm3 (0.9-3.2); Mean Corpuscular HGB Conc 32.0 g/dl (32-36); Mean Corpuscular Hemoglobin 33.2 pg (26-34); Mean Corpuscular Volume 103.8 fl (80-100); Nucleated Red Blood Cells Absolute Auto 0.030 K/mm3 (0.0-0.012); Nucleated Red Blood Cells Perc 0.2 % (0.0-0.2); Platelet Count Result 212 k/mm3 (150-375); Red Blood Count 3.19 M/mm3 (4.6-6.20); White Blood Count 16.7 K/mm3 (4.5-10.0)
[2024-12-09 04:44] LABS: Alanine Aminotransferase 22 U/L (6-50); Albumin Level 3.0 g/dL (3.5-5.1); Alkaline Phosphatase 67 U/L (38-126); Anion Gap 5 mmol/L (4-12); Aspartate Amino Transferase 28 U/L (17-59); Bilirubin,Total 0.5 mg/dL (0.2-1.3); Blood Urea Nitrogen 42 mg/dL (9-20); Calcium 8.9 mg/dL (8.4-10.2); Carbon Dioxide 38 mmol/L (22-30); Chloride 90 mmol/L (98-107); Estimated CRCL calculation 79 ml/min; Estimated Glomerular Filt Rate > 60; Glucose 136 mg/dL (65-110); Potassium 4.4 mmol/L (3.4-5.0); Sodium 133 mmol/L (137-145); Total Protein 6.3 g/dL (6.3-8.2)
[2024-12-09] MEDS: IPRATROPIUM 0.5 MG/ALBUTEROL SULFATE 2.5 MG (BASE) AMPUL.NEB 3 ML INHALATION ×4 (08:20→20:06)
[2024-12-09] MEDS: CHOLECALCIFEROL (VITAMIN D3) 125 MCG (5,000 UNITS) TABLET PO (09:11)
[2024-12-09] MEDS: TAMSULOSIN HCL 0.4 MG CAPSULE 0.8 MG PO (09:11)
[2024-12-09] MEDS: DIVALPROEX SODIUM ER 500 MG TAB.24H 1000 MG PO (09:11)
[2024-12-09] MEDS: PANTOPRAZOLE 40 MG TABLET PO (09:11)
[2024-12-09] MEDS: MEMANTINE 10 MG TABLET PO ×2 (09:11→15:29)
[2024-12-09] MEDS: FUROSEMIDE INJ 40 MG/4 ML VIAL IV PUSH (09:11)
[2024-12-09] MEDS: guaiFENesin 12 HR 600 MG TABCR 1200 MG PO ×2 (09:12→21:32)
[2024-12-09] MEDS: MIDODRINE HCL 10 MG TABLET PO ×3 (09:12→18:28)
[2024-12-09] MEDS: RIVAROXABAN 20 MG TABLET PO (15:29)
[2024-12-09] MEDS: INSULIN ASPART (*BKC) 100 UNITS/ML SUB-Q ×3 (15:30→21:32)
--- NOTE | 2024-12-09 16:19 | PM.IMPN ---
Progress Note: A&P Assessment and Plan (1) Acute hypoxic respiratory failure: Code(s): J96.01 - Acute respiratory failure with hypoxia Status: Acute Assessment and Plan: Patient arrived to the emergency department 96% on room air. Initial concern patient was hypoxic in the 70s prior to arrival. Patient did become hypoxic in the emergency department on 11/30, dropped to 84% on room air. Subsequently placed on BiPAP. Imaging showed bilateral severe bronchopneumonia superimposed on chronic lung disease. Initial ABG showed no significant hypoxia, hypercapnia, acidosis, or alkalosis on BiPAP. - continue BiPAP for work of breathing/respiratory distress p.r.n. - started on hospital-acquired pneumonia treatment as he was recently admitted to [facility], patient additionally met criteria for sepsis and lactic was elevated - pulmonology consulted Gentle diuresis as BNP elevated Which he is tolerating. Respiratory pathogen panel Urine antigens I LD workup as ordered by Pulmonary continue Airvo and wean as tolerated And currently on 4 L oxygen via nasal cannula Seen by Pulmonary, found to have difficulty swallowing, barium swallow was ordered which found some trace penetration. Recommendation was regular diet with thin liquids, no straws and small drinks. Prednisone taper continuing through December 22 as stated in pulmonology consultation. Per Pulmonary, patient will need discharge to LTAC given severity of lung disease. (2) Sepsis: Qualifiers: Sepsis type: sepsis due to unspecified organism Sepsis acute organ dysfunction status: with acute organ dysfunction Severe sepsis acute organ dysfunction type: acute respiratory failure Acute respiratory failure type: with hypoxia Severe sepsis shock status: without septic shock Qualified Code(s): A41.9 - Sepsis, unspecified organism; R65.20 - Severe sepsis without septic shock; J96.01 - Acute respiratory failure with hypoxia Code(s): A41.9 - Sepsis, unspecified organism Status: Acute Assessment and Plan: Patient met SIRS criteria: HR greater than 100, RR greater than 20, WBC greater than 12. +hypoxia, -hypotension. Initial lactic 3.6 -> 3.4. CRP 4.98 and procalcitonin 0.1. - blood cultures obtained on 11/30, follow. - trend lactic down - 30 mL/kg = 2.5, will give 2L at 200 mL/hr due to elevation in BNP/hx of diastolic dysfunction. monitor toleration. - suspected source: HAP - started on ceftriaxone and azithromycin, exchanged to cefepime and azithromycin on 11/30 - monitor I&Os concluded azithromycin Completed cefepime for total 7 days White blood cell count is starting to trend down, follow morning labs (3) Pneumonia: Qualifiers: Laterality: bilateral Lung location: unspecified part of lung Pneumonia type: due to unspecified organism Qualified Code(s): J18.9 - Pneumonia, unspecified organism Code(s): J18.9 - Pneumonia, unspecified organism Status: Acute Assessment and Plan: - CXR: 1. Interval worsening of chronic interstitial lung disease. 2. However bibasilar edema and/or pneumonitis or airspace disease not excluded. - Chest CT: Bilateral severe bronchopneumonia superimposed on chronic lung disease with probable reactive mediastinal lymphadenopathy. Follow-up recommended to assess resolution - risk/complicating factors: acute respiratory failure, interstitial lung disease, recent hospitalization - started on ceftriaxone and azithromycin in the ED, exchanged to cefepime and azithromycin on 11/30. No current indication for vancomycin as the patient's MRSA PCR was negative upon admission. - supportive care: Mucinex, Tylenol, DuoNebs, Tessalon Perles - sputum culture - currently requiring BiPAP for WOB, +hypoxia Still requiring high level of oxygen. Continue diuresis Chest x-ray reviewed Leukocytosis improving (4) ILD (interstitial lung disease): Code(s): J84.9 - Interstitial pulmonary disease, unspecified Status: Chronic Assessment and Plan: - worsening on imaging - pulmonology consulted, see recs above Restarted on prednisone per Pulmonary (5) Diastolic congestive heart failure, NYHA class 3: Qualifiers: Congestive heart failure chronicity: unspecified Qualified Code(s): I50.30 - Unspecified diastolic (congestive) heart failure Code(s): I50.30 - Unspecified diastolic (congestive) heart failure Status: Chronic Assessment and Plan: BNP elevated at 3540. No evidence of pulmonary edema on CXR. Reviewed chart, most recent echo in 2022 showed diastolic dysfunction, normal systolic function with an estimated EF of 60 65%, valvular disease, and mild pulmonary hypertension. - update echo - receiving IV fluids due to sepsis at slower rate, monitor toleration which will be stopped and start diuresis as tolerated - monitor I&Os - daily weights Received a dose of Lasix 40 mg x 1 11/30 started on diuresis 40 mg IV b.i.d.. With good diuresis BNP noted Currently on Lasix 40 mg IV b.i.d. will down titrate to once daily given stable fluid status. (6) DM2 (diabetes mellitus, type 2): Code(s): E11.9 - Type 2 diabetes mellitus without complications Status: Chronic Assessment and Plan: - hypoglycemia protocol - POC blood glucose ACHS - home medication: Hold metformin in case of need for contrast. Continue Lantus 10 units HS. 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 Recommendation for discharge to LTAC. Subjective Date/time seen: 12/09/24 16:19 Interval history: Patient was seen during the morning rounds today. No new overnight complaints Review of Systems Review of Systems: All systems reviewed & are unremarkable except as noted in HPI and below Exam Narrative: APPEARANCE: Ill-appearing not in acute distress HEAD: normocephalic, atraumatic. EYES: PERRLA/EOMI, conjunctivae clear. NECK: Supple. No adenopathy, no masses. RESPIRATORY: Coarse breath sounds bilaterally, no respiratory distress CARDIOVASCULAR: Regular rate and S1-S2 ABDOMINAL: Soft, nontender, nondistended, normal bowel sounds MUSCULOSKELETAL: Moves all extremities. Strength/ROM intact, trace edema, No calf tenderness. NEURO: Alert. Cranial nerves II through XII intact. SKIN: Warm, dry. Normal Color Const: General: comfortable Other: , male, elderly, ill-appearing, mild respiratory distress HENMT: Face/Nose/Sinus: Normal nares present Mouth: Yes dry mucous membranes (on BiPAP) Eyes: General: appearance normal, both eyes and all related structures Sclera: sclerae normal Pupils: Equal, round and reactive pupils present EOM: EOMs intact bilaterally Resp: Other: Tachypneic without accessory muscle use, bibasilar crackles, no wheezing. Cardio: Rate: regular rate Rhythm: regular rhythm Other: S1-S2 present without murmur, rub, ectopy GI: Other: Abdomen soft, nondistended, nontender. Normoactive bowel sounds in all quadrants. Skin: General skin exam: normal color and no rashes or lesions noted Wounds: no wounds Neuro: Cranial nerves: Yes Equal, round and reactive pupils present Speech: normal speech Motor exam (neuro): 5/5 motor strength present throughout Sensory Exam: normal sensation Other: A/Ox4 Extrem: Other: Trace pitting edema to bilateral ankles, symmetric Psych: Mental Status: mental status grossly normal Affect: normal affect Other: Good insight and judgment, pleasant Objective Data Vital Signs Vital Signs: Vital Signs - 24 hr 12/08/24 17:30 12/08/24 17:41 12/08/24 18:00 Temperature Pulse Rate 56 L 56 L 101 H Respiratory Rate 18 18 Blood Pressure Pulse Oximetry Oxygen Delivery Oxygen Flow Rate 12/08/24 20:00 12/08/24 20:00 12/08/24 20:00 Temperature 98.4 F Pulse Rate 107 H 119 H Respiratory Rate 18 Blood Pressure 133/76 Pulse Oximetry 92 92 Oxygen Delivery Nasal Cannula Oxygen Flow Rate 3 12/08/24 20:32 12/08/24 20:33 12/08/24 20:38 Temperature Pulse Rate 99 100 Respiratory Rate 20 20 Blood Pressure Pulse Oximetry 90 Oxygen Delivery Nasal Cannula Oxygen Flow Rate 4 12/08/24 22:00 12/09/24 00:00 12/09/24 00:00 Temperature Pulse Rate 82 94 Respiratory Rate Blood Pressure Pulse Oximetry 95 Oxygen Delivery Nasal Cannula Oxygen Flow Rate 2 12/09/24 00:00 12/09/24 02:00 12/09/24 04:00 Temperature 98.1 F 98.5 F Pulse Rate 87 83 87 Respiratory Rate 15 16 Blood Pressure 114/70 116/70 Pulse Oximetry 97 98 Oxygen Delivery Oxygen Flow Rate 12/09/24 04:00 12/09/24 04:00 12/09/24 06:00 Temperature Pulse Rate 85 84 Respiratory Rate Blood Pressure Pulse Oximetry 96 Oxygen Delivery Nasal Cannula Oxygen Flow Rate 2 12/09/24 07:57 12/09/24 08:00 12/09/24 08:00 Temperature 97.2 F L Pulse Rate 94 89 Respiratory Rate 18 Blood Pressure 120/60 Pulse Oximetry 95 89 L Oxygen Delivery High Flow Therapy with Na Oxygen Flow Rate 3 12/09/24 08:21 12/09/24 08:21 12/09/24 08:35 Temperature Pulse Rate 87 87 85 Respiratory Rate 20 20 20 Blood Pressure Pulse Oximetry 100 Oxygen Delivery High Flow Nasal Cannula Oxygen Flow Rate 5 12/09/24 10:00 12/09/24 11:47 12/09/24 12:00 Temperature 97.6 F Pulse Rate 100 95 106 H Respiratory Rate 20 Blood Pressure 101/63 Pulse Oximetry 91 Oxygen Delivery Oxygen Flow Rate 12/09/24 12:00 12/09/24 13:24 12/09/24 13:24 Temperature Pulse Rate 93 93 Respiratory Rate 20 20 Blood Pressure Pulse Oximetry 89 L 100 Oxygen Delivery High Flow Therapy with Na High Flow Nasal Cannula Oxygen Flow Rate 3 4 12/09/24 13:33 12/09/24 14:00 Temperature Pulse Rate 97 106 H Respiratory Rate 20 Blood Pressure Pulse Oximetry Oxygen Delivery Oxygen Flow Rate Intake/Output Intake/Output: Intake & Output 12/06/24 12/07/24 12/08/24 12/09/24 23:59 23:59 23:59 23:59 Intake Total 1770 2130 1260 980 Output Total 1350 3100 1750 750 Balance 420 970 -490 230 Meds/Results Medications: Active Medications Generic Name Dose Route Start Last Admin Trade Name Freq PRN Reason Stop Dose Admin Acetaminophen 650 mg 11/30/24 15:47 12/05/24 13:42 Acetaminophen 325 Mg Tablet PO 650 mg Q6H PRN Administration Mild Pain (1-3) or Fever Albuterol/Ipratropium 3 ml 12/06/24 12:00 12/09/24 13:23 Ipratropium 0.5 Mg/Albuterol Sulfate 2.5 Mg (Base) Ampul.Neb 3 Ml INHALATION 3 ml [id number] SPEEDY Administration Atorvastatin Calcium 10 mg 11/30/24 21:00 12/08/24 20:20 Atorvastatin 10 Mg Tablet PO 10 mg HS SPEEDY Administration Benzonatate 100 mg 11/30/24 15:44 Benzonatate 100 Mg Capsule PO TID PRN Cough Dextrose 12.5 gm 11/30/24 15:49 Dextrose 50% 25 Gm/50 Ml Syringe IV PUSH PRN PRN Hypoglycemia Protocol Divalproex Sodium 1,000 mg 12/01/24 08:00 12/09/24 09:11 Divalproex Sodium Er 500 Mg Tab.24h PO 1,000 mg DAILY@0800 SPEEDY Administration Divalproex Sodium 500 mg 11/30/24 21:00 12/08/24 20:20 Divalproex Sodium Er 500 Mg Tab.24h PO 500 mg HS SPEEDY Administration Furosemide 40 mg 12/01/24 13:45 12/09/24 09:11 Furosemide Inj 40 Mg/4 Ml Vial IV PUSH 40 mg BID SPEEDY Administration Glucagon 1 mg 11/30/24 15:49 Glucagon For Inj 1 Mg Vial IM PRN PRN Hypoglycemia Protocol Glucose 15 gm 11/30/24 15:49 Glucose Oral Gel 15 Gm Of Glucse In 37.5 Gm Tube PO PRN PRN Hypoglycemia Protocol Guaifenesin 1,200 mg 12/01/24 21:00 12/09/24 09:12 Guaifenesin 12 Hr 600 Mg Tabcr PO 1,200 mg Q12HR SPEEDY Administration Dextrose 1,000 mls @ 100 mls/hr 11/30/24 15:49 Dextrose 5% 1,000 Ml IVPB PRN PRN Hypoglycemia Protocol Insulin Aspart 2 - 5 units 11/30/24 17:00 12/09/24 15:30 Insulin Aspart (*Bkc) 100 Units/Ml SUB-Q 3 units TIDWM SPEEDY Administration Protocol Insulin Aspart 1 - 2 units 11/30/24 21:00 12/08/24 20:21 Insulin Aspart (*Bkc) 100 Units/Ml SUB-Q 1 units HS SPEEDY Administration Protocol Insulin Glargine 10 units 11/30/24 21:00 12/08/24 20:21 Insulin Glargine (*Bkc) 100 Units/Ml SUB-Q 10 units HS SPEEDY Administration Memantine 10 mg 11/30/24 17:00 12/09/24 15:29 Memantine 10 Mg Tablet PO 10 mg BID SPEEDY Administration Methocarbamol 750 mg 11/30/24 15:51 Methocarbamol 750 Mg Tablet PO BID PRN muscle spasm Midodrine 10 mg 11/30/24 17:00 12/09/24 15:00 Midodrine Hcl 10 Mg Tablet PO 10 mg TID SPEEDY Administration Pantoprazole Sodium 40 mg 12/01/24 09:00 12/09/24 09:11 Pantoprazole 40 Mg Tablet PO 40 mg DAILY SPEEDY Administration Polyethylene Glycol 17 gm 12/05/24 09:50 12/08/24 09:36 Polyethylene Glycol 3350 17 Gm Powd.Pack PO 17 gm QAM PRN Administration Constipation Prednisone 20 mg 12/08/24 08:00 12/09/24 09:12 Prednisone 20 Mg Tablet PO 12/15/24 10:00 20 mg DAILY@0800 SPEEDY Administration Prednisone 10 mg 12/16/24 08:00 Prednisone 10 Mg Tablet PO 12/22/24 10:00 DAILY@0800 [facility] Rivaroxaban 20 mg 12/06/24 17:00 12/09/24 15:29 Rivaroxaban 20 Mg Tablet PO 20 mg Q24H SPEEDY Administration Tamsulosin HCl 0.8 mg 12/01/24 09:00 12/09/24 09:11 Tamsulosin Hcl 0.4 Mg Capsule PO 0.8 mg DAILY SPEEDY Administration Vitamin D 125 mcg 12/01/24 09:00 12/09/24 09:11 Cholecalciferol (Vitamin D3) 125 Mcg (5,000 Units) Tablet PO 125 mcg DAILY SPEEDY Administration Radiology Results: ITS Impressions Chest CT 11/30/24 14:20 IMPRESSION: 1. Bilateral severe bronchopneumonia superimposed on chronic lung disease with probable reactive mediastinal lymphadenopathy. Follow-up recommended to assess resolution Chest X-Ray 12/04/24 09:32 IMPRESSION: 1. Slight interval progression in diffuse bilateral interstitial and airspace opacities which could represent moderate pulmonary edema, pneumonia, chronic interstitial lung disease or some combination thereof. Modified Barium Swallow 12/07/24 11:54 IMPRESSION: Mild pharyngeal dysphagia with flash laryngeal penetration without aspiration. Please correlate with speech pathologist findings and specific feeding recommendations. Labs Labs: Laboratory Results - last 24 hr 12/08/24 12/09/24 12/09/24 19:35 04:10 07:25 WBC 16.7 H RBC 3.19 L Hgb 10.6 L Hct 33.1 L MCV 103.8 H MCH 33.2 MCHC 32.0 RDW 16.0 H Plt Count 212 MPV 10.6 H Immature Gran % (Auto) 2.3 H Neut % (Auto) 71.2 Lymph % (Auto) 15.4 L [place] % (Auto) 9.3 H Eos % (Auto) 1.5 Baso % (Auto) 0.3 Lymph # (Auto) 2.57 [place] # (Auto) 1.6 H Eos # (Auto) 0.3 Baso # (Auto) 0.1 Abs Immat Gran (auto) 0.38 H Absolute Neuts (auto) 11.9 H Absolute Nucleated RBC 0.030 H Nucleated RBC % 0.2 Sodium 133 L Potassium 4.4 Chloride 90 L Carbon Dioxide 38 H Anion Gap 5 BUN 42 H Creatinine 0.78 Estim Creat Clear Calc 79 Estimated GFR > 60 Glucose 136 H POC Capillary Glucose 221 H 111 H Calcium 8.9 Total Bilirubin 0.5 AST 28 ALT 22 Alkaline Phosphatase 67 Total Protein 6.3 Albumin 3.0 L 12/09/24 12/09/24 11:19 15:44 WBC RBC Hgb Hct MCV MCH MCHC RDW Plt Count MPV Immature Gran % (Auto) Neut % (Auto) Lymph % (Auto) [place] % (Auto) Eos % (Auto) Baso % (Auto) Lymph # (Auto) [place] # (Auto) Eos # (Auto) Baso # (Auto) Abs Immat Gran (auto) Absolute Neuts (auto) Absolute Nucleated RBC Nucleated RBC % Sodium Potassium Chloride Carbon Dioxide Anion Gap BUN Creatinine Estim Creat Clear Calc Estimated GFR Glucose POC Capillary Glucose 291 H 308 H Calcium Total Bilirubin AST ALT Alkaline Phosphatase Total Protein Albumin Quality VTE Prophylaxis VTE prophylaxis: pharmacologic ordered
[2024-12-09] MEDS: INSULIN GLARGINE (*BKC) 100 UNITS/ML 10 UNITS SUB-Q (21:32)
[2024-12-09] MEDS: ATORVASTATIN 10 MG TABLET PO (21:32)
[2024-12-09] MEDS: DIVALPROEX SODIUM ER 500 MG TAB.24H PO (21:32)
[2024-12-10] VITALS (25 sets, daily range): BP systolic 98–123; BP diastolic 58–71; PULSE 80–103; RESP 18–22; TEMP 36.4–36.6; O2SAT 93–99
[2024-12-10 04:58] LABS: Hematocrit 33.9 % (42.0-52.0); Hemoglobin 11.1 g/dL (14.0-18.0); Immature Granulocyte Percent A 1.9 % (0-0.5); Lymphocytes Absolute Auto 2.28 K/mm3 (0.9-3.2); Mean Corpuscular HGB Conc 32.7 g/dl (32-36); Mean Corpuscular Hemoglobin 33.7 pg (26-34); Mean Corpuscular Volume 103.0 fl (80-100); Nucleated Red Blood Cells Absolute Auto 0.000 K/mm3 (0.0-0.012); Nucleated Red Blood Cells Perc 0.0 % (0.0-0.2); Platelet Count Result 217 k/mm3 (150-375); Red Blood Count 3.29 M/mm3 (4.6-6.20); White Blood Count 16.9 K/mm3 (4.5-10.0)
[2024-12-10 05:23] LABS: Alanine Aminotransferase 21 U/L (6-50); Albumin Level 3.1 g/dL (3.5-5.1); Alkaline Phosphatase 65 U/L (38-126); Aspartate Amino Transferase 26 U/L (17-59); Bilirubin,Total 0.6 mg/dL (0.2-1.3); Blood Urea Nitrogen 43 mg/dL (9-20); Calcium 9.2 mg/dL (8.4-10.2); Carbon Dioxide > 40 mmol/L (22-30); Chloride 89 mmol/L (98-107); Estimated CRCL calculation 70 ml/min; Estimated Glomerular Filt Rate > 60; Glucose 74 mg/dL (65-110); Potassium 4.6 mmol/L (3.4-5.0); Sodium 134 mmol/L (137-145); Total Protein 6.6 g/dL (6.3-8.2)
[2024-12-10] MEDS: IPRATROPIUM 0.5 MG/ALBUTEROL SULFATE 2.5 MG (BASE) AMPUL.NEB 3 ML INHALATION ×4 (08:26→19:56)
[2024-12-10] MEDS: MIDODRINE HCL 10 MG TABLET PO ×3 (10:12→16:41)
[2024-12-10] MEDS: PANTOPRAZOLE 40 MG TABLET PO (10:12)
[2024-12-10] MEDS: guaiFENesin 12 HR 600 MG TABCR 1200 MG PO ×2 (10:12→20:22)
[2024-12-10] MEDS: TAMSULOSIN HCL 0.4 MG CAPSULE 0.8 MG PO (10:12)
[2024-12-10] MEDS: CHOLECALCIFEROL (VITAMIN D3) 125 MCG (5,000 UNITS) TABLET PO (10:13)
[2024-12-10] MEDS: DIVALPROEX SODIUM ER 500 MG TAB.24H 1000 MG PO (10:13)
[2024-12-10] MEDS: MEMANTINE 10 MG TABLET PO ×2 (10:13→16:41)
[2024-12-10] MEDS: FUROSEMIDE INJ 40 MG/4 ML VIAL IV PUSH (10:13)
[2024-12-10] MEDS: INSULIN ASPART (*BKC) 100 UNITS/ML SUB-Q ×2 (12:34→20:20)
[2024-12-10 13:46] LABS: Add Urine Microscopic? YES; Appearance Urine Cloudy (Clear); Glucose Urine UA Negative (Negative); Leukocyte Esterase Ur Negative LEU/UL (Negative); Nitrate Urine Negative (Negative); Non Pathogenic Casts 0-2; Specific Grav Ur 1.021 (1.001-1.035)
--- NOTE | 2024-12-10 14:09 | P.PNIM_ITS ---
Progress Note: A&P Assessment and Plan (1) Acute hypoxic respiratory failure: Code(s): J96.01 - Acute respiratory failure with hypoxia Status: Acute Assessment and Plan: Patient arrived to the emergency department 96% on room air. Initial concern patient was hypoxic in the 70s prior to arrival. Patient did become hypoxic in the emergency department on 11/30, dropped to 84% on room air. Subsequently placed on BiPAP. Imaging showed bilateral severe bronchopneumonia superimposed on chronic lung disease. Initial ABG showed no significant hypoxia, hypercapnia, acidosis, or alkalosis on BiPAP. - continue BiPAP for work of breathing/respiratory distress p.r.n. - started on hospital-acquired pneumonia treatment as he was recently admitted to [facility], patient additionally met criteria for sepsis and lactic was elevated - pulmonology consulted Gentle diuresis as BNP elevated Which he is tolerating. Respiratory pathogen panel Urine antigens I LD workup as ordered by Pulmonary continue Airvo and wean as tolerated And currently on 4 L oxygen via nasal cannula Seen by Pulmonary, found to have difficulty swallowing, barium swallow was ordered which found some trace penetration. Recommendation was regular diet with thin liquids, no straws and small drinks. Prednisone taper continuing through December 22 as stated in pulmonology consultation. Per Pulmonary, patient will need discharge to LTAC given severity of lung disease. (2) Sepsis: Qualifiers: Sepsis type: sepsis due to unspecified organism Sepsis acute organ dysfunction status: with acute organ dysfunction Severe sepsis acute organ dysfunction type: acute respiratory failure Acute respiratory failure type: with hypoxia Severe sepsis shock status: without septic shock Qualified Code(s): A41.9 - Sepsis, unspecified organism; R65.20 - Severe sepsis without septic shock; J96.01 - Acute respiratory failure with hypoxia Code(s): A41.9 - Sepsis, unspecified organism Status: Acute Assessment and Plan: Patient met SIRS criteria: HR greater than 100, RR greater than 20, WBC greater than 12. +hypoxia, -hypotension. Initial lactic 3.6 -> 3.4. CRP 4.98 and procalcitonin 0.1. - blood cultures obtained on 11/30, follow. - trend lactic down - 30 mL/kg = 2.5, will give 2L at 200 mL/hr due to elevation in BNP/hx of diastolic dysfunction. monitor toleration. - suspected source: HAP - started on ceftriaxone and azithromycin, exchanged to cefepime and azithromycin on 11/30 - monitor I&Os concluded azithromycin Completed cefepime for total 7 days White blood cell count is starting to trend back up very slightly, repeating chest x-ray and obtaining UA. Patient denies significant new complaints at this time. He does have 2 small pressure ulcers that are currently not infected and being cared for by nursing staff. Will follow trend tomorrow and consider restarting empiric antibiotic therapy if white count continues to trend up (3) Pneumonia: Qualifiers: Laterality: bilateral Lung location: unspecified part of lung Pneumonia type: due to unspecified organism Qualified Code(s): J18.9 - Pneumonia, unspecified organism Code(s): J18.9 - Pneumonia, unspecified organism Status: Acute Assessment and Plan: - CXR: 1. Interval worsening of chronic interstitial lung disease. 2. However bibasilar edema and/or pneumonitis or airspace disease not excluded. - Chest CT: Bilateral severe bronchopneumonia superimposed on chronic lung disease with probable reactive mediastinal lymphadenopathy. Follow-up recommended to assess resolution - risk/complicating factors: acute respiratory failure, interstitial lung disease, recent hospitalization - started on ceftriaxone and azithromycin in the ED, exchanged to cefepime and azithromycin on 11/30. No current indication for vancomycin as the patient's MRSA PCR was negative upon admission. - supportive care: Mucinex, Tylenol, DuoNebs, Tessalon Perles - sputum culture - currently requiring BiPAP for WOB, +hypoxia Still requiring high level of oxygen. Continue diuresis Chest x-ray reviewed Leukocytosis improving (4) ILD (interstitial lung disease): Code(s): J84.9 - Interstitial pulmonary disease, unspecified Status: Chronic Assessment and Plan: - worsening on imaging - pulmonology consulted, see recs above Restarted on prednisone per Pulmonary (5) Diastolic congestive heart failure, NYHA class 3: Qualifiers: Congestive heart failure chronicity: unspecified Qualified Code(s): I50.30 - Unspecified diastolic (congestive) heart failure Code(s): I50.30 - Unspecified diastolic (congestive) heart failure Status: Chronic Assessment and Plan: BNP elevated at 3540. No evidence of pulmonary edema on CXR. Reviewed chart, most recent echo in 2022 showed diastolic dysfunction, normal systolic function with an estimated EF of 60 65%, valvular disease, and mild pulmonary hypertension. - update echo - receiving IV fluids due to sepsis at slower rate, monitor toleration which will be stopped and start diuresis as tolerated - monitor I&Os - daily weights Received a dose of Lasix 40 mg x 1 11/30 started on diuresis 40 mg IV b.i.d.. With good diuresis BNP noted Currently on Lasix 40 mg IV b.i.d. will down titrate to once daily given stable fluid status. (6) DM2 (diabetes mellitus, type 2): Code(s): E11.9 - Type 2 diabetes mellitus without complications Status: Chronic Assessment and Plan: - hypoglycemia protocol - POC blood glucose ACHS - home medication: Hold metformin in case of need for contrast. Continue Lantus 10 units HS. - correct regimen ordered - low dose TIDWM and HS, based off BMI - A1C 6.4% in 2022, update (7) Chronic anticoagulation: Code(s): Z79.01 - senior care (current) use of anticoagulants Status: Chronic Assessment and Plan: - continue Xarelto (8) Chronic hypotension: Code(s): I95.89 - Other hypotension Status: Acute Assessment and Plan: - continue home medications: Midodrine - monitor Plan Diet: Heart healthy GI Prophylaxis: N/a DVT Prophylaxis: Xarelto Lines/Tubes: Peripheral IV Code Status: Full code discussed with the patient and family and now switched to do not resuscitate Disposition still required significant amount of oxygen with exertion continue IV diuresis and IV cefepime for total 7 days. Recommendation for discharge to LTAC. Subjective Date/time seen: 12/10/24 14:09 Interval history: Patient was seen during the morning rounds today. No new overnight complaints Review of Systems Review of Systems: All systems reviewed & are unremarkable except as noted in HPI and below Exam Narrative: APPEARANCE: Ill-appearing not in acute distress HEAD: normocephalic, atraumatic. EYES: PERRLA/EOMI, conjunctivae clear. NECK: Supple. No adenopathy, no masses. RESPIRATORY: Coarse breath sounds bilaterally, no respiratory distress CARDIOVASCULAR: Regular rate and S1-S2 ABDOMINAL: Soft, nontender, nondistended, normal bowel sounds MUSCULOSKELETAL: Moves all extremities. Strength/ROM intact, trace edema, No calf tenderness. NEURO: Alert. Cranial nerves II through XII intact. SKIN: Warm, dry. Normal Color Const: General: comfortable Other: , male, elderly, ill-appearing, mild respiratory distress HENMT: Face/Nose/Sinus: Normal nares present Mouth: Yes dry mucous membranes (on BiPAP) Eyes: General: appearance normal, both eyes and all related structures Sclera: sclerae normal Pupils: Equal, round and reactive pupils present EOM: EOMs intact bilaterally Resp: Other: Tachypneic without accessory muscle use, bibasilar crackles, no wheezing. Cardio: Rate: regular rate Rhythm: regular rhythm Other: S1-S2 present without murmur, rub, ectopy GI: Other: Abdomen soft, nondistended, nontender. Normoactive bowel sounds in all qu adrants. Skin: General skin exam: normal color and no rashes or lesions noted Wounds: no wounds Neuro: Cranial nerves: Yes Equal, round and reactive pupils present Speech: normal speech Motor exam (neuro): 5/5 motor strength present throughout Sensory Exam: normal sensation Other: A/Ox4 Extrem: Other: Trace pitting edema to bilateral ankles, symmetric Psych: Mental Status: mental status grossly normal Affect: normal affect Other: Good insight and judgment, pleasant Objective Data Vital Signs Vital Signs: Vital Signs - 24 hr 12/09/24 16:00 12/09/24 16:00 12/09/24 16:00 Temperature 97.3 F L Pulse Rate 95 95 Respiratory Rate 20 Blood Pressure 115/68 Pulse Oximetry 95 89 L Oxygen Delivery High Flow Therapy with Na Oxygen Flow Rate 3 Fraction of Inspired Oxygen 12/09/24 16:38 12/09/24 16:38 12/09/24 16:44 Temperature Pulse Rate 87 87 95 Respiratory Rate 20 20 20 Blood Pressure Pulse Oximetry 98 Oxygen Delivery High Flow Nasal Cannula Oxygen Flow Rate 3 Fraction of Inspired Oxygen 12/09/24 18:00 12/09/24 20:00 12/09/24 20:00 Temperature 97.6 F Pulse Rate 89 104 H Respiratory Rate 20 Blood Pressure 110/67 Pulse Oximetry 93 97 Oxygen Delivery High Flow Therapy with Na Oxygen Flow Rate 3 Fraction of Inspired Oxygen 12/09/24 20:00 12/09/24 20:07 12/09/24 20:11 Temperature Pulse Rate 87 101 H 99 Respiratory Rate 18 18 Blood Pressure Pulse Oximetry Oxygen Delivery Oxygen Flow Rate Fraction of Inspired Oxygen 12/09/24 22:00 12/10/24 00:00 12/10/24 00:00 Temperature 97.6 F Pulse Rate 92 86 84 Respiratory Rate 18 Blood Pressure 114/67 Pulse Oximetry 97 Oxygen Delivery Oxygen Flow Rate Fraction of Inspired Oxygen 12/10/24 00:00 12/10/24 02:00 12/10/24 04:00 Temperature 97.6 F Pulse Rate 80 92 Respiratory Rate 20 Blood Pressure 106/71 Pulse Oximetry 96 97 Oxygen Delivery High Flow Therapy with Na Oxygen Flow Rate 3 Fraction of Inspired Oxygen 12/10/24 04:00 12/10/24 04:00 12/10/24 06:00 Temperature Pulse Rate 83 82 Respiratory Rate Blood Pressure Pulse Oximetry 96 Oxygen Delivery High Flow Therapy with Na Oxygen Flow Rate 3 Fraction of Inspired Oxygen 12/10/24 07:13 12/10/24 08:00 12/10/24 08:00 Temperature 98 F Pulse Rate 88 83 Respiratory Rate 22 H Blood Pressure 117/64 Pulse Oximetry 93 96 Oxygen Delivery High Flow Therapy with Na Oxygen Flow Rate 5 Fraction of Inspired Oxygen 12/10/24 08:20 12/10/24 08:20 12/10/24 08:25 Temperature Pulse Rate 92 85 95 Respiratory Rate 20 20 20 Blood Pressure Pulse Oximetry 96 Oxygen Delivery High Flow Nasal Cannula Oxygen Flow Rate 3 Fraction of Inspired Oxygen 32 12/10/24 10:00 12/10/24 12:00 12/10/24 12:45 Temperature 98 F Pulse Rate 97 97 98 Respiratory Rate 18 20 Blood Pressure 98/58 L Pulse Oximetry 93 Oxygen Delivery Oxygen Flow Rate Fraction of Inspired Oxygen Intake/Output Intake/Output: Intake & Output 12/07/24 12/08/24 12/09/24 12/10/24 23:59 23:59 23:59 23:59 Intake Total 2130 1260 1520 640 Output Total 3100 1750 1050 500 Balance -970 -490 470 140 Meds/Results Medications: Active Medications Generic Name Dose Route Start Last Admin Trade Name Freq PRN Reason Stop Dose Admin Acetaminophen 650 mg 11/30/24 15:47 12/05/24 13:42 Acetaminophen 325 Mg Tablet PO 650 mg Q6H PRN Administration Mild Pain (1-3) or Fever Albuterol/Ipratropium 3 ml 12/06/24 12:00 12/10/24 12:45 Ipratropium 0.5 Mg/Albuterol Sulfate 2.5 Mg (Base) Ampul.Neb 3 Ml INHALATION 3 ml [id number] SPEEDY Administration Atorvastatin Calcium 10 mg 11/30/24 21:00 12/09/24 21:32 Atorvastatin 10 Mg Tablet PO 10 mg HS SPEEDY Administration Benzonatate 100 mg 11/30/24 15:44 Benzonatate 100 Mg Capsule PO TID PRN Cough Dextrose 12.5 gm 11/30/24 15:49 Dextrose 50% 25 Gm/50 Ml Syringe IV PUSH PRN PRN Hypoglycemia Protocol Divalproex Sodium 1,000 mg 12/01/24 08:00 12/10/24 10:13 Divalproex Sodium Er 500 Mg Tab.24h PO 1,000 mg DAILY@0800 SPEEDY Administration Divalproex Sodium 500 mg 11/30/24 21:00 12/09/24 21:32 Divalproex Sodium Er 500 Mg Tab.24h PO 500 mg HS SPEEDY Administration Furosemide 40 mg 12/10/24 09:00 12/10/24 10:13 Furosemide Inj 40 Mg/4 Ml Vial IV PUSH 40 mg DAILY SPEEDY Administration Glucagon 1 mg 11/30/24 15:49 Glucagon For Inj 1 Mg Vial IM PRN PRN Hypoglycemia Protocol Glucose 15 gm 11/30/24 15:49 Glucose Oral Gel 15 Gm Of Glucse In 37.5 Gm Tube PO PRN PRN Hypoglycemia Protocol Guaifenesin 1,200 mg 12/01/24 21:00 12/10/24 10:12 Guaifenesin 12 Hr 600 Mg Tabcr PO 1,200 mg Q12HR SPEEDY Administration Dextrose 1,000 mls @ 100 mls/hr 11/30/24 15:49 Dextrose 5% 1,000 Ml IVPB PRN PRN Hypoglycemia Protocol Insulin Aspart 2 - 5 units 11/30/24 17:00 12/10/24 12:34 Insulin Aspart (*Bkc) 100 Units/Ml SUB-Q 4 units TIDWM SPEEDY Administration Protocol Insulin Aspart 1 - 2 units 11/30/24 21:00 12/09/24 21:32 Insulin Aspart (*Bkc) 100 Units/Ml SUB-Q 1 units HS SPEEDY Administration Protocol Insulin Glargine 10 units 11/30/24 21:00 12/09/24 21:32 Insulin Glargine (*Bkc) 100 Units/Ml SUB-Q 10 units HS SPEEDY Administration Memantine 10 mg 11/30/24 17:00 12/10/24 10:13 Memantine 10 Mg Tablet PO 10 mg BID SPEEDY Administration Methocarbamol 750 mg 11/30/24 15:51 Methocarbamol 750 Mg Tablet PO BID PRN muscle spasm Midodrine 10 mg 11/30/24 17:00 12/10/24 12:34 Midodrine Hcl 10 Mg Tablet PO 10 mg TID SPEEDY Administration Pantoprazole Sodium 40 mg 12/01/24 09:00 12/10/24 10:12 Pantoprazole 40 Mg Tablet PO 40 mg DAILY SPEEDY Administration Polyethylene Glycol 17 gm 12/05/24 09:50 12/08/24 09:36 Polyethylene Glycol 3350 17 Gm Powd.Pack PO 17 gm QAM PRN Administration Constipation Prednisone 20 mg 12/08/24 08:00 12/10/24 10:12 Prednisone 20 Mg Tablet PO 12/15/24 10:00 20 mg DAILY@0800 SPEEDY Administration Prednisone 10 mg 12/16/24 08:00 Prednisone 10 Mg Tablet PO 12/22/24 10:00 DAILY@0800 [facility] Rivaroxaban 20 mg 12/06/24 17:00 12/09/24 15:29 Rivaroxaban 20 Mg Tablet PO 20 mg Q24H SPEEDY Administration Tamsulosin HCl 0.8 mg 12/01/24 09:00 12/10/24 10:12 Tamsulosin Hcl 0.4 Mg Capsule PO 0.8 mg DAILY SPEEDY Administration Vitamin D 125 mcg 12/01/24 09:00 12/10/24 10:13 Cholecalciferol (Vitamin D3) 125 Mcg (5,000 Units) Tablet PO 125 mcg DAILY SPEEDY Administration Radiology Results: ITS Impressions Chest CT 11/30/24 14:20 IMPRESSION: 1. Bilateral severe bronchopneumonia superimposed on chronic lung disease with probable reactive mediastinal lymphadenopathy. Follow-up recommended to assess resolution Modified Barium Swallow 12/07/24 11:54 IMPRESSION: Mild pharyngeal dysphagia with flash laryngeal penetration without aspiration. Please correlate with speech pathologist findings and specific feeding recommendations. Labs Labs: Laboratory Results - last 24 hr 12/09/24 12/09/24 12/10/24 15:44 20:46 03:53 WBC 16.9 H RBC 3.29 L Hgb 11.1 L Hct 33.9 L MCV 103.0 H MCH 33.7 MCHC 32.7 RDW 16.0 H Plt Count 217 MPV 11.1 H Immature Gran % (Auto) 1.9 H Neut % (Auto) 74.8 H Lymph % (Auto) 13.5 L [place] % (Auto) 8.5 Eos % (Auto) 1.0 Baso % (Auto) 0.3 Lymph # (Auto) 2.28 [place] # (Auto) 1.4 H Eos # (Auto) 0.2 Baso # (Auto) 0.1 Abs Immat Gran (auto) 0.32 H Absolute Neuts (auto) 12.7 H Absolute Nucleated RBC 0.000 Nucleated RBC % 0.0 Sodium 134 L Potassium 4.6 Chloride 89 L Carbon Dioxide > 40 H Anion Gap BUN 43 H Creatinine 0.89 Estim Creat Clear Calc 70 Estimated GFR > 60 Glucose 74 POC Capillary Glucose 308 H 268 H Calcium 9.2 Total Bilirubin 0.6 AST 26 ALT 21 Alkaline Phosphatase 65 Total Protein 6.6 Albumin 3.1 L Urine Color Urine Appearance Urine pH Ur Specific [place] Urine Protein Urine Glucose (UA) Urine Ketones Ur Blood (Man) Urine Nitrate Urine Bilirubin Urine Urobilinogen Ur Leukocyte Esterase Urine RBC Urine WBC Ur Squamous Epith Cells Urine Bacteria Urine Casts 12/10/24 12/10/24 12/10/24 07:12 11:42 13:35 WBC RBC Hgb Hct MCV MCH MCHC RDW Plt Count MPV Immature Gran % (Auto) Neut % (Auto) Lymph % (Auto) [place] % (Auto) Eos % (Auto) Baso % (Auto) Lymph # (Auto) [place] # (Auto) Eos # (Auto) Baso # (Auto) Abs Immat Gran (auto) Absolute Neuts (auto) Absolute Nucleated RBC Nucleated RBC % Sodium Potassium Chloride Carbon Dioxide Anion Gap BUN Creatinine Estim Creat Clear Calc Estimated GFR Glucose POC Capillary Glucose 112 H 323 H Calcium Total Bilirubin AST ALT Alkaline Phosphatase Total Protein Albumin Urine Color Yellow Urine Appearance Cloudy H Urine pH 7.0 Ur Specific [place] 1.021 Urine Protein Negative Urine Glucose (UA) Negative Urine Ketones Trace H Ur Blood (Man) Negative Urine Nitrate Negative Urine Bilirubin Negative Urine Urobilinogen 1.0 Ur Leukocyte Esterase Negative Urine RBC 0-2 Urine WBC 0-5 Ur Squamous Epith Cells None seen Urine Bacteria None seen Urine Casts 0-2 Quality VTE Prophylaxis VTE prophylaxis: pharmacologic ordered
[2024-12-10] MEDS: RIVAROXABAN 20 MG TABLET PO (16:41)
[2024-12-10] MEDS: CEFEPIME 2 GM in SODIUM CHLORIDE 0.9% IV 50 ML 100 ML IVPB ×2 (16:41→23:13)
[2024-12-10] MEDS: INSULIN GLARGINE (*BKC) 100 UNITS/ML 10 UNITS SUB-Q (20:21)
[2024-12-10] MEDS: ATORVASTATIN 10 MG TABLET PO (20:22)
[2024-12-10] MEDS: DOXYCYCLINE HYCLATE 100 MG TABLET PO (20:22)
[2024-12-10] MEDS: DIVALPROEX SODIUM ER 500 MG TAB.24H PO (20:22)
[2024-12-11] VITALS (19 sets, daily range): BP systolic 107–123; BP diastolic 56–74; PULSE 72–108; RESP 18–24; TEMP 36.3–36.8; O2SAT 92–100
[2024-12-11] MEDS: ACETAMINOPHEN 325 MG TABLET 650 MG PO (00:20)
[2024-12-11 04:50] LABS: Hematocrit 33.7 % (42.0-52.0); Hemoglobin 10.7 g/dL (14.0-18.0); Immature Granulocyte Percent A 1.4 % (0-0.5); Lymphocytes Absolute Auto 2.03 K/mm3 (0.9-3.2); Mean Corpuscular HGB Conc 31.8 g/dl (32-36); Mean Corpuscular Hemoglobin 33.2 pg (26-34); Mean Corpuscular Volume 104.7 fl (80-100); Nucleated Red Blood Cells Absolute Auto 0.000 K/mm3 (0.0-0.012); Nucleated Red Blood Cells Perc 0.0 % (0.0-0.2); Platelet Count Result 204 k/mm3 (150-375); Red Blood Count 3.22 M/mm3 (4.6-6.20); White Blood Count 16.4 K/mm3 (4.5-10.0)
[2024-12-11 05:14] LABS: Alanine Aminotransferase 18 U/L (6-50); Albumin Level 2.9 g/dL (3.5-5.1); Alkaline Phosphatase 61 U/L (38-126); Anion Gap 5 mmol/L (4-12); Aspartate Amino Transferase 35 U/L (17-59); Bilirubin,Total 0.5 mg/dL (0.2-1.3); Blood Urea Nitrogen 43 mg/dL (9-20); Calcium 8.9 mg/dL (8.4-10.2); Carbon Dioxide 36 mmol/L (22-30); Chloride 91 mmol/L (98-107); Estimated CRCL calculation 78 ml/min; Estimated Glomerular Filt Rate > 60; Glucose 160 mg/dL (65-110); Potassium 4.0 mmol/L (3.4-5.0); Sodium 132 mmol/L (137-145); Total Protein 6.2 g/dL (6.3-8.2)
[2024-12-11] MEDS: IPRATROPIUM 0.5 MG/ALBUTEROL SULFATE 2.5 MG (BASE) AMPUL.NEB 3 ML INHALATION ×2 (08:13→15:35)
[2024-12-11] MEDS: CEFEPIME 2 GM in SODIUM CHLORIDE 0.9% IV 50 ML 100 ML IVPB ×3 (09:01→23:44)
[2024-12-11] MEDS: CHOLECALCIFEROL (VITAMIN D3) 125 MCG (5,000 UNITS) TABLET PO (09:01)
[2024-12-11] MEDS: FUROSEMIDE INJ 40 MG/4 ML VIAL IV PUSH (09:01)
[2024-12-11] MEDS: guaiFENesin 12 HR 600 MG TABCR 1200 MG PO ×2 (09:01→20:24)
[2024-12-11] MEDS: DIVALPROEX SODIUM ER 500 MG TAB.24H 1000 MG PO (09:01)
[2024-12-11] MEDS: PANTOPRAZOLE 40 MG TABLET PO (09:01)
[2024-12-11] MEDS: TAMSULOSIN HCL 0.4 MG CAPSULE 0.8 MG PO (09:01)
[2024-12-11] MEDS: DOXYCYCLINE HYCLATE 100 MG TABLET PO (09:01)
[2024-12-11] MEDS: MIDODRINE HCL 10 MG TABLET PO ×3 (09:01→18:24)
[2024-12-11] MEDS: MEMANTINE 10 MG TABLET PO ×2 (09:01→18:24)
[2024-12-11] MEDS: INSULIN ASPART (*BKC) 100 UNITS/ML SUB-Q ×3 (12:14→20:25)
--- NOTE | 2024-12-11 12:36 | PCNFU ---
Nutrition Follow-Up Complete: Increased protein energy needs for wound healing as evidenced by deep tissue pressure injury to sacrum Adequate PO intake at least 75% to support wound healing - Progressing with goal. Continue same goal Goal: Pt current nutrition is Heart healthy diet Ensure Plus HP BID (350 kcal, 90 g protein), Saleem BID for wounds (90 kcal, 2.5 g protein, arginine+glutamine). Nutrition recommendation: No new recommendations. Continue current nutrition care plan and orders. Agree with orders Last recorded weight is 82.5 kg. Bowel Motility: +1 BM 12/09 Labs Reviewed: Hgb 10.2, Hct 31.6, Alb 2.9, Na 134, BUN 35, Cre 0.69. Glu 130 Meds Noted: Protonix, insulin, namenda, predisone Skin: Seep tissue pressure injury to sacrum, addressed with Saleem Additional Notes: Appetite and intakes have been good, 100% most meals, +240 ml Ensure recorded. Pt had MBS and passed with no diet modifications recommended. Discharge planning to LTACH in progress. Monitoring intakes, weights, labs, skin, supplement tolerance, plan of care Follow up in 5 days
--- NOTE | 2024-12-11 14:40 | PM.IMPN ---
Progress Note: A&P Assessment and Plan (1) Acute hypoxic respiratory failure: Code(s): J96.01 - Acute respiratory failure with hypoxia Status: Acute Assessment and Plan: Patient arrived to the emergency department 96% on room air. Initial concern patient was hypoxic in the 70s prior to arrival. Patient did become hypoxic in the emergency department on 11/30, dropped to 84% on room air. Subsequently placed on BiPAP. Imaging showed bilateral severe bronchopneumonia superimposed on chronic lung disease. Initial ABG showed no significant hypoxia, hypercapnia, acidosis, or alkalosis on BiPAP. - continue BiPAP for work of breathing/respiratory distress p.r.n. - started on hospital-acquired pneumonia treatment as he was recently admitted to [facility], patient additionally met criteria for sepsis and lactic was elevated - pulmonology consulted Gentle diuresis as BNP elevated Which he is tolerating. Respiratory pathogen panel Urine antigens I LD workup as ordered by Pulmonary continue Airvo and wean as tolerated And currently on 4 L oxygen via nasal cannula Seen by Pulmonary, found to have difficulty swallowing, barium swallow was ordered which found some trace penetration. Recommendation was regular diet with thin liquids, no straws and small drinks. Prednisone taper continuing through December 22 as stated in pulmonology consultation. Per Pulmonary, patient will need discharge to LTAC given severity of lung disease. (2) Sepsis: Qualifiers: Sepsis type: sepsis due to unspecified organism Sepsis acute organ dysfunction status: with acute organ dysfunction Severe sepsis acute organ dysfunction type: acute respiratory failure Acute respiratory failure type: with hypoxia Severe sepsis shock status: without septic shock Qualified Code(s): A41.9 - Sepsis, unspecified organism; R65.20 - Severe sepsis without septic shock; J96.01 - Acute respiratory failure with hypoxia Code(s): A41.9 - Sepsis, unspecified organism Status: Acute Assessment and Plan: Patient met SIRS criteria: HR greater than 100, RR greater than 20, WBC greater than 12. +hypoxia, -hypotension. Initial lactic 3.6 -> 3.4. CRP 4.98 and procalcitonin 0.1. - blood cultures obtained on 11/30, follow. - trend lactic down - 30 mL/kg = 2.5, will give 2L at 200 mL/hr due to elevation in BNP/hx of diastolic dysfunction. monitor toleration. - suspected source: HAP - started on ceftriaxone and azithromycin, exchanged to cefepime and azithromycin on 11/30 - monitor I&Os concluded azithromycin Completed cefepime for total 7 days 12/10: White blood cell count is starting to trend back up very slightly, repeating chest x-ray and obtaining UA, as well as restarting cefepime and doxycycline. Patient denies significant new complaints at this time. He does have 2 small pressure ulcers that are currently not infected and being cared for by nursing staff. Chest x-ray did show improving left-sided infiltrate with worsening right-sided infiltrate but after completion show pulmonary did agree that this could all have to do with his chronic lung disease and not necessarily indicate new pneumonia. However, patient's oxygen requirements had been worsening since discontinuation of antibiotics. 12/11: Discussed with Pulmonary, patient is on steroids which will be affecting white blood cell count, and patient has not shown active signs of sepsis such as fever, chills, increased sputum production. Oxygen requirements began to improve today, unclear if restarting antibiotics for suspected pneumonia plays a factor in this at this time. Recommendation from Pulmonary was to continue cefepime at this time but no need for doxycycline is not likely to be atypical organism given hospital setting, agree with this assessment. We will continue cefepime for up to 3 days, recommend reassess need for antibiotic at that time. (3) Pneumonia: Qualifiers: Laterality: bilateral Lung location: unspecified part of lung Pneumonia type: due to unspecified organism Qualified Code(s): J18.9 - Pneumonia, unspecified organism Code(s): J18.9 - Pneumonia, unspecified organism Status: Acute Assessment and Plan: - CXR: 1. Interval worsening of chronic interstitial lung disease. 2. However bibasilar edema and/or pneumonitis or airspace disease not excluded. - Chest CT: Bilateral severe bronchopneumonia superimposed on chronic lung disease with probable reactive mediastinal lymphadenopathy. Follow-up recommended to assess resolution - risk/complicating factors: acute respiratory failure, interstitial lung disease, recent hospitalization - started on ceftriaxone and azithromycin in the ED, exchanged to cefepime and azithromycin on 11/30. No current indication for vancomycin as the patient's MRSA PCR was negative upon admission. - supportive care: Mucinex, Tylenol, DuoNebs, Tessalon Perles - sputum culture - currently requiring BiPAP for WOB, +hypoxia Still requiring high level of oxygen. Continue diuresis Chest x-ray reviewed Leukocytosis improving (4) ILD (interstitial lung disease): Code(s): J84.9 - Interstitial pulmonary disease, unspecified Status: Chronic Assessment and Plan: - worsening on imaging - pulmonology consulted, see recs above Restarted on prednisone per Pulmonary (5) Diastolic congestive heart failure, NYHA class 3: Qualifiers: Congestive heart failure chronicity: unspecified Qualified Code(s): I50.30 - Unspecified diastolic (congestive) heart failure Code(s): I50.30 - Unspecified diastolic (congestive) heart failure Status: Chronic Assessment and Plan: BNP elevated at 3540. No evidence of pulmonary edema on CXR. Reviewed chart, most recent echo in 2022 showed diastolic dysfunction, normal systolic function with an estimated EF of 60 65%, valvular disease, and mild pulmonary hypertension. - update echo - receiving IV fluids due to sepsis at slower rate, monitor toleration which will be stopped and start diuresis as tolerated - monitor I&Os - daily weights Received a dose of Lasix 40 mg x 1 11/30 started on diuresis 40 mg IV b.i.d.. With good diuresis BNP noted Currently on Lasix 40 mg IV q.d. (6) DM2 (diabetes mellitus, type 2): Code(s): E11.9 - Type 2 diabetes mellitus without complications Status: Chronic Assessment and Plan: - hypoglycemia protocol - POC blood glucose ACHS - home medication: Hold metformin in case of need for contrast. Continue Lantus 10 units HS. - correct regimen ordered - low dose TIDWM and HS, based off BMI - A1C 6.4% in 2022, update (7) Chronic anticoagulation: Code(s): Z79.01 - [facility]FP (current) use of anticoagulants Status: Chronic Assessment and Plan: - continue Xarelto (8) Chronic hypotension: Code(s): I95.89 - Other hypotension Status: Acute Assessment and Plan: - continue home medications: Midodrine - monitor Plan Diet: Heart healthy GI Prophylaxis: N/a DVT Prophylaxis: Xarelto Lines/Tubes: Peripheral IV Code Status: Full code discussed with the patient and family and now switched to do not resuscitate Disposition still required significant amount of oxygen with exertion continue IV diuresis and IV cefepime. Recommendation for discharge to LTAC. Subjective Date/time seen: 12/11/24 14:40 Interval history: Oxygen requirements appear to be improving, patient tolerated 10 L when moved Review of Systems Review of Systems: All systems reviewed & are unremarkable except as noted in HPI and below Exam Narrative: APPEARANCE: Ill-appearing not in acute distress HEAD: normocephalic, atraumatic. EYES: PERRLA/EOMI, conjunctivae clear. NECK: Supple. No adenopathy, no masses. RESPIRATORY: Coarse breath sounds bilaterally, no respiratory distress CARDIOVASCULAR: Regular rate and S1-S2 ABDOMINAL: Soft, nontender, nondistended, normal bowel sounds MUSCULOSKELETAL: Moves all extremities. Strength/ROM intact, trace edema, No calf tenderness. NEURO: Alert. Cranial nerves II through XII intact. SKIN: Warm, dry. Normal Color Const: General: comfortable Other: , male, elderly, ill-appearing, mild respiratory distress HENMT: Face/Nose/Sinus: Normal nares present Mouth: Yes dry mucous membranes (on BiPAP) Eyes: General: appearance normal, both eyes and all related structures Sclera: sclerae normal Pupils: Equal, round and reactive pupils present EOM: EOMs intact bilaterally Resp: Other: Tachypneic without accessory muscle use, bibasilar crackles, no wheezing. Cardio: Rate: regular rate Rhythm: regular rhythm Other: S1-S2 present without murmur, rub, ectopy GI: Other: Abdomen soft, nondistended, nontender. Normoactive bowel sounds in all quadrants. Skin: General skin exam: normal color and no rashes or lesions noted Wounds: no wounds Neuro: Cranial nerves: Yes Equal, round and reactive pupils present Speech: normal speech Motor exam (neuro): 5/5 motor strength present throughout Sensory Exam: normal sensation Other: A/Ox4 Extrem: Other: Trace pitting edema to bilateral ankles, symmetric Psych: Mental Status: mental status grossly normal Affect: normal affect Other: Good insight and judgment, pleasant Objective Data Vital Signs Vital Signs: Vital Signs - 24 hr 12/10/24 15:15 12/10/24 16:00 12/10/24 16:00 Temperature 98 F Pulse Rate 96 90 Respiratory Rate 18 Blood Pressure 102/70 Pulse Oximetry 99 96 Oxygen Delivery High Flow Therapy with Na Oxygen Flow Rate 5 12/10/24 16:20 12/10/24 16:25 12/10/24 18:00 Temperature Pulse Rate 99 98 90 Respiratory Rate 20 20 Blood Pressure Pulse Oximetry Oxygen Delivery Oxygen Flow Rate 12/10/24 19:40 12/10/24 19:58 12/10/24 19:59 Temperature Pulse Rate 99 89 89 Respiratory Rate 20 20 20 Blood Pressure 123/65 Pulse Oximetry 93 99 Oxygen Delivery High Flow Nasal Cannula Oxygen Flow Rate 3 12/10/24 20:00 12/10/24 20:00 12/10/24 20:02 Temperature Pulse Rate 95 94 Respiratory Rate 22 H Blood Pressure Pulse Oximetry 95 Oxygen Delivery High Flow Nasal Cannula Oxygen Flow Rate 3 12/10/24 22:00 12/10/24 23:21 12/11/24 00:00 Temperature Pulse Rate 103 H 107 H Respiratory Rate Blood Pressure Pulse Oximetry 97 Oxygen Delivery High Flow Nasal Cannula Oxygen Flow Rate 3 12/11/24 00:00 12/11/24 02:00 12/11/24 04:00 Temperature 97.4 F L 97.4 F L Pulse Rate 83 88 72 Respiratory Rate 21 H 20 Blood Pressure 107/59 L 123/74 Pulse Oximetry 99 98 Oxygen Delivery Oxygen Flow Rate 12/11/24 04:00 12/11/24 04:00 12/11/24 05:55 Temperature Pulse Rate 85 86 Respiratory Rate Blood Pressure Pulse Oximetry 95 Oxygen Delivery High Flow Nasal Cannula Oxygen Flow Rate 3 12/11/24 08:00 12/11/24 08:00 12/11/24 08:00 Temperature 97.5 F L Pulse Rate 96 108 H Respiratory Rate 18 Blood Pressure 122/73 Pulse Oximetry 92 92 Oxygen Delivery High Flow Nasal Cannula Oxygen Flow Rate 3 12/11/24 08:14 12/11/24 10:00 12/11/24 11:46 Temperature 98.3 F Pulse Rate 97 108 H 100 Respiratory Rate 20 24 H Blood Pressure 120/56 L Pulse Oximetry 92 Oxygen Delivery Oxygen Flow Rate 12/11/24 12:00 12/11/24 12:00 Temperature Pulse Rate 88 Respiratory Rate Blood Pressure Pulse Oximetry 92 Oxygen Delivery High Flow Nasal Cannula Oxygen Flow Rate 3 Intake/Output Intake/Output: Intake & Output 12/08/24 12/09/24 12/10/24 12/11/24 23:59 23:59 23:59 23:59 Intake Total 1260 7489 333 9042 Output Total 1750 2253 725 8474 Balance -490 470 180 -8 Meds/Results Medications: Active Medications Generic Name Dose Route Start Last Admin Trade Name Zoila PRN Reason Stop Dose Admin Acetaminophen 650 mg 11/30/24 15:47 12/11/24 00:20 Acetaminophen 325 Mg Tablet PO 650 mg Q6H PRN Administration Mild Pain (1-3) or Fever Albuterol/Ipratropium 3 ml 12/06/24 12:00 12/11/24 12:37 Ipratropium 0.5 Mg/Albuterol Sulfate 2.5 Mg (Base) Ampul.Neb 3 Ml INHALATION Not Given [id number] SPEEDY Atorvastatin Calcium 10 mg 11/30/24 21:00 12/10/24 20:22 Atorvastatin 10 Mg Tablet PO 10 mg HS SPEEDY Administration Benzonatate 100 mg 11/30/24 15:44 Benzonatate 100 Mg Capsule PO TID PRN Cough Dextrose 12.5 gm 11/30/24 15:49 Dextrose 50% 25 Gm/50 Ml Syringe IV PUSH PRN PRN Hypoglycemia Protocol Divalproex Sodium 1,000 mg 12/01/24 08:00 12/11/24 09:01 Divalproex Sodium Er 500 Mg Tab.24h PO 1,000 mg DAILY@0800 SPEEDY Administration Divalproex Sodium 500 mg 11/30/24 21:00 12/10/24 20:22 Divalproex Sodium Er 500 Mg Tab.24h PO 500 mg HS SPEEDY Administration Furosemide 40 mg 12/10/24 09:00 12/11/24 09:01 Furosemide Inj 40 Mg/4 Ml Vial IV PUSH 40 mg DAILY SPEEDY Administration Glucagon 1 mg 11/30/24 15:49 Glucagon For Inj 1 Mg Vial IM PRN PRN Hypoglycemia Protocol Glucose 15 gm 11/30/24 15:49 Glucose Oral Gel 15 Gm Of Glucse In 37.5 Gm Tube PO PRN PRN Hypoglycemia Protocol Guaifenesin 1,200 mg 12/01/24 21:00 12/11/24 09:01 Guaifenesin 12 Hr 600 Mg Tabcr PO 1,200 mg Q12HR SPEEDY Administration Dextrose 1,000 mls @ 100 mls/hr 11/30/24 15:49 Dextrose 5% 1,000 Ml IVPB PRN PRN Hypoglycemia Protocol Cefepime HCl 2 gm/ Sodium 50 mls @ 100 mls/hr 12/10/24 16:00 12/11/24 09:01 Chloride IVPB 100 mls/hr Q8H SPEEDY Administration Insulin Aspart 2 - 5 units 11/30/24 17:00 12/11/24 12:14 Insulin Aspart (*Bkc) 100 Units/Ml SUB-Q 5 units TIDWM SPEEDY Administration Protocol Insulin Aspart 1 - 2 units 11/30/24 21:00 12/10/24 20:20 Insulin Aspart (*Bkc) 100 Units/Ml SUB-Q 2 units HS SPEEDY Administration Protocol Insulin Glargine 10 units 11/30/24 21:00 12/10/24 20:21 Insulin Glargine (*Bkc) 100 Units/Ml SUB-Q 10 units HS SPEEDY Administration Memantine 10 mg 11/30/24 17:00 12/11/24 09:01 Memantine 10 Mg Tablet PO 10 mg BID SPEEDY Administration Methocarbamol 750 mg 11/30/24 15:51 Methocarbamol 750 Mg Tablet PO BID PRN muscle spasm Midodrine 10 mg 11/30/24 17:00 12/11/24 12:14 Midodrine Hcl 10 Mg Tablet PO 10 mg TID SPEEDY Administration Pantoprazole Sodium 40 mg 12/01/24 09:00 12/11/24 09:01 Pantoprazole 40 Mg Tablet PO 40 mg DAILY SPEEDY Administration Polyethylene Glycol 17 gm 12/05/24 09:50 12/08/24 09:36 Polyethylene Glycol 3350 17 Gm Powd.Pack PO 17 gm QAM PRN Administration Constipation Prednisone 20 mg 12/08/24 08:00 12/11/24 09:01 Prednisone 20 Mg Tablet PO 12/15/24 10:00 20 mg DAILY@0800 SPEEDY Administration Prednisone 10 mg 12/16/24 08:00 Prednisone 10 Mg Tablet PO 12/22/24 10:00 DAILY@0800 SPEEDY Rivaroxaban 20 mg 12/06/24 17:00 12/10/24 16:41 Rivaroxaban 20 Mg Tablet PO 20 mg Q24H SPEEDY Administration Tamsulosin HCl 0.8 mg 12/01/24 09:00 12/11/24 09:01 Tamsulosin Hcl 0.4 Mg Capsule PO 0.8 mg DAILY SPEEDY Administration Vitamin D 125 mcg 12/01/24 09:00 12/11/24 09:01 Cholecalciferol (Vitamin D3) 125 Mcg (5,000 Units) Tablet PO 125 mcg DAILY SPEEDY Administration Radiology Results: ITS Impressions Chest CT 11/30/24 14:20 IMPRESSION: 1. Bilateral severe bronchopneumonia superimposed on chronic lung disease with probable reactive mediastinal lymphadenopathy. Follow-up recommended to assess resolution Modified Barium Swallow 12/07/24 11:54 IMPRESSION: Mild pharyngeal dysphagia with flash laryngeal penetration without aspiration. Please correlate with speech pathologist findings and specific feeding recommendations. Chest X-Ray 12/10/24 14:20 Impression: Bilateral pneumonia ADDENDUM: 12/10/24 4107 Comparison made to previous exam 12/04/2024. The findings appear slightly improved compared to the previous study in the right lower lobe but slightly progressed in the right upper lobe. Overall the findings are grossly unchanged Labs Labs: Laboratory Results - last 24 hr 12/10/24 12/10/24 12/11/24 16:09 19:35 03:37 WBC 16.4 H RBC 3.22 L Hgb 10.7 L Hct 33.7 L MCV 104.7 H MCH 33.2 MCHC 31.8 L RDW 16.1 H Plt Count 204 MPV 11.4 H Immature Gran % (Auto) 1.4 H Neut % (Auto) 77.4 H Lymph % (Auto) 12.4 L [place] % (Auto) 7.3 Eos % (Auto) 1.3 Baso % (Auto) 0.2 Lymph # (Auto) 2.03 [place] # (Auto) 1.2 H Eos # (Auto) 0.2 Baso # (Auto) 0.0 Abs Immat Gran (auto) 0.23 H Absolute Neuts (auto) 12.7 H Absolute Nucleated RBC 0.000 Nucleated RBC % 0.0 Sodium 132 L Potassium 4.0 Chloride 91 L Carbon Dioxide 36 H Anion Gap 5 BUN 43 H Creatinine 0.79 Estim Creat Clear Calc 78 Estimated GFR > 60 Glucose 160 H POC Capillary Glucose 142 H 308 H Calcium 8.9 Total Bilirubin 0.5 AST 35 ALT 18 Alkaline Phosphatase 61 Total Protein 6.2 L Albumin 2.9 L 12/11/24 12/11/24 06:35 11:17 WBC RBC Hgb Hct MCV MCH MCHC RDW Plt Count MPV Immature Gran % (Auto) Neut % (Auto) Lymph % (Auto) [place] % (Auto) Eos % (Auto) Baso % (Auto) Lymph # (Auto) [place] # (Auto) Eos # (Auto) Baso # (Auto) Abs Immat Gran (auto) Absolute Neuts (auto) Absolute Nucleated RBC Nucleated RBC % Sodium Potassium Chloride Carbon Dioxide Anion Gap BUN Creatinine Estim Creat Clear Calc Estimated GFR Glucose POC Capillary Glucose 130 H 351 H Calcium Total Bilirubin AST ALT Alkaline Phosphatase Total Protein Albumin Quality VTE Prophylaxis VTE prophylaxis: pharmacologic ordered Hospitalist MIPS Advance Care Plan I have confirmed that the patient's Advanced Care Plan is present, code status is documented, or surrogate decision maker is listed in patient medical record.: Yes Medication Reconciliation I have utilized all available resources to obtain, update and review the patients current medications (includes all prescriptions, OTC, herbals, cannabis, and nutritional supplements).: Yes
[2024-12-11] MEDS: RIVAROXABAN 20 MG TABLET PO (18:24)
[2024-12-11] MEDS: DIVALPROEX SODIUM ER 500 MG TAB.24H PO (20:24)
[2024-12-11] MEDS: ATORVASTATIN 10 MG TABLET PO (20:24)
[2024-12-11] MEDS: INSULIN GLARGINE (*BKC) 100 UNITS/ML 10 UNITS SUB-Q (20:25)
[2024-12-12] VITALS (25 sets, daily range): BP systolic 110–138; BP diastolic 53–72; PULSE 78–779; RESP 18–32; TEMP 36.4–36.7; O2SAT 92–100
[2024-12-12 05:01] LABS: Alanine Aminotransferase 15 U/L (6-50); Albumin Level 2.7 g/dL (3.5-5.1); Alkaline Phosphatase 63 U/L (38-126); Anion Gap 4 mmol/L (4-12); Aspartate Amino Transferase 24 U/L (17-59); Bilirubin,Total 0.5 mg/dL (0.2-1.3); Blood Urea Nitrogen 41 mg/dL (9-20); Calcium 8.6 mg/dL (8.4-10.2); Carbon Dioxide 36 mmol/L (22-30); Chloride 94 mmol/L (98-107); Estimated CRCL calculation 84 ml/min; Estimated Glomerular Filt Rate > 60; Glucose 137 mg/dL (65-110); Potassium 4.1 mmol/L (3.4-5.0); Sodium 134 mmol/L (137-145); Total Protein 5.8 g/dL (6.3-8.2)
[2024-12-12 05:03] LABS: Hematocrit 31.5 % (42.0-52.0); Hemoglobin 10.1 g/dL (14.0-18.0); Immature Granulocyte Percent A 1.4 % (0-0.5); Lymphocytes Absolute Auto 1.78 K/mm3 (0.9-3.2); Mean Corpuscular HGB Conc 32.1 g/dl (32-36); Mean Corpuscular Hemoglobin 33.6 pg (26-34); Mean Corpuscular Volume 104.7 fl (80-100); Nucleated Red Blood Cells Absolute Auto 0.000 K/mm3 (0.0-0.012); Nucleated Red Blood Cells Perc 0.0 % (0.0-0.2); Platelet Count Result 191 k/mm3 (150-375); Red Blood Count 3.01 M/mm3 (4.6-6.20); White Blood Count 14.8 K/mm3 (4.5-10.0)
[2024-12-12] MEDS: IPRATROPIUM 0.5 MG/ALBUTEROL SULFATE 2.5 MG (BASE) AMPUL.NEB 3 ML INHALATION ×4 (07:39→21:20)
[2024-12-12] MEDS: CHOLECALCIFEROL (VITAMIN D3) 125 MCG (5,000 UNITS) TABLET PO (08:26)
[2024-12-12] MEDS: DIVALPROEX SODIUM ER 500 MG TAB.24H 1000 MG PO (08:26)
[2024-12-12] MEDS: CEFEPIME 2 GM in SODIUM CHLORIDE 0.9% IV 50 ML 100 ML IVPB ×3 (08:26→23:34)
[2024-12-12] MEDS: TAMSULOSIN HCL 0.4 MG CAPSULE 0.8 MG PO (08:26)
[2024-12-12] MEDS: MEMANTINE 10 MG TABLET PO ×2 (08:26→16:57)
[2024-12-12] MEDS: PANTOPRAZOLE 40 MG TABLET PO (08:27)
[2024-12-12] MEDS: guaiFENesin 12 HR 600 MG TABCR 1200 MG PO ×2 (08:27→20:59)
[2024-12-12] MEDS: MIDODRINE HCL 10 MG TABLET PO ×3 (08:27→16:57)
[2024-12-12] MEDS: FUROSEMIDE INJ 40 MG/4 ML VIAL IV PUSH (08:27)
--- NOTE | 2024-12-12 13:21 | PCRCNOTE ---
ATTEMPTED TO TITRATE PT TO 8L OXYMIZER WITH ACTIVITY. PT SAO2 DROPPED TO 85% ON 10L OXYMIZER. PLACED PT BACK ON 8L HIGH FLOW, SAO2 93%.
[2024-12-12] MEDS: INSULIN ASPART (*BKC) 100 UNITS/ML SUB-Q ×3 (13:36→21:07)
--- NOTE | 2024-12-12 14:16 | P.PNIM_ITS ---
Progress Note: A&P Assessment and Plan (1) Acute hypoxic respiratory failure: Code(s): J96.01 - Acute respiratory failure with hypoxia Status: Acute Assessment and Plan: Patient arrived to the emergency department 96% on room air. Initial concern patient was hypoxic in the 70s prior to arrival. Patient did become hypoxic in the emergency department on 11/30, dropped to 84% on room air. Subsequently placed on BiPAP. Imaging showed bilateral severe bronchopneumonia superimposed on chronic lung disease. Initial ABG showed no significant hypoxia, hypercapnia, acidosis, or alkalosis on BiPAP. - continue BiPAP for work of breathing/respiratory distress p.r.n. - started on hospital-acquired pneumonia treatment as he was recently admitted to [facility], patient additionally met criteria for sepsis and lactic was elevated - pulmonology consulted Gentle diuresis as BNP elevated Which he is tolerating. Respiratory pathogen panel Urine antigens I LD workup as ordered by Pulmonary continue Airvo and wean as tolerated And currently on 4 L oxygen via nasal cannula Seen by Pulmonary, found to have difficulty swallowing, barium swallow was ordered which found some trace penetration. Recommendation was regular diet with thin liquids, no straws and small drinks. Prednisone taper continuing through December 22 as stated in pulmonology consultation. Per Pulmonary, patient will need discharge to LTAC given severity of lung disease. (2) Sepsis: Qualifiers: Sepsis type: sepsis due to unspecified organism Sepsis acute organ dysfunction status: with acute organ dysfunction Severe sepsis acute organ dysfunction type: acute respiratory failure Acute respiratory failure type: with hypoxia Severe sepsis shock status: without septic shock Qualified Code(s): A41.9 - Sepsis, unspecified organism; R65.20 - Severe sepsis without septic shock; J96.01 - Acute respiratory failure with hypoxia Code(s): A41.9 - Sepsis, unspecified organism Status: Acute Assessment and Plan: Patient met SIRS criteria: HR greater than 100, RR greater than 20, WBC greater than 12. +hypoxia, -hypotension. Initial lactic 3.6 -> 3.4. CRP 4.98 and procalcitonin 0.1. - blood cultures obtained on 11/30, follow. - trend lactic down - 30 mL/kg = 2.5, will give 2L at 200 mL/hr due to elevation in BNP/hx of diastolic dysfunction. monitor toleration. - suspected source: HAP - started on ceftriaxone and azithromycin, exchanged to cefepime and azithromycin on 11/30 - monitor I&Os concluded azithromycin Completed cefepime for total 7 days 12/10: White blood cell count is starting to trend back up very slightly, repeating chest x-ray and obtaining UA, as well as restarting cefepime and doxycycline. Patient denies significant new complaints at this time. He does have 2 small pressure ulcers that are currently not infected and being cared for by nursing staff. Chest x-ray did show improving left-sided infiltrate with worsening right-sided infiltrate but after completion show pulmonary did agree that this could all have to do with his chronic lung disease and not necessarily indicate new pneumonia. However, patient's oxygen requirements had been worsening since discontinuation of antibiotics. 12/11: Discussed with Pulmonary, patient is on steroids which will be affecting white blood cell count, and patient has not shown active signs of sepsis such as fever, chills, increased sputum production. Oxygen requirements began to improve today, unclear if restarting antibiotics for suspected pneumonia plays a factor in this at this time. Recommendation from Pulmonary was to continue cefepime at this time but no need for doxycycline is not likely to be atypical organism given hospital setting, agree with this assessment. We will continue cefepime for up to 3 days, recommend reassess need for antibiotic at that time. (3) Pneumonia: Qualifiers: Laterality: bilateral Lung location: unspecified part of lung Pneumonia type: due to unspecified organism Qualified Code(s): J18.9 - Pneumonia, unspecified organism Code(s): J18.9 - Pneumonia, unspecified organism Status: Acute Assessment and Plan: - CXR: 1. Interval worsening of chronic interstitial lung disease. 2. However bibasilar edema and/or pneumonitis or airspace disease not excluded. - Chest CT: Bilateral severe bronchopneumonia superimposed on chronic lung disease with probable reactive mediastinal lymphadenopathy. Follow-up recommended to assess resolution - risk/complicating factors: acute respiratory failure, interstitial lung disease, recent hospitalization - started on ceftriaxone and azithromycin in the ED, exchanged to cefepime and azithromycin on 11/30. No current indication for vancomycin as the patient's MRSA PCR was negative upon admission. - supportive care: Mucinex, Tylenol, DuoNebs, Tessalon Perles - sputum culture - currently requiring BiPAP for WOB, +hypoxia Still requiring high level of oxygen. Continue diuresis Chest x-ray reviewed Leukocytosis improving (4) ILD (interstitial lung disease): Code(s): J84.9 - Interstitial pulmonary disease, unspecified Status: Chronic Assessment and Plan: - worsening on imaging - pulmonology consulted, see recs above Restarted on prednisone per Pulmonary (5) Diastolic congestive heart failure, NYHA class 3: Qualifiers: Congestive heart failure chronicity: unspecified Qualified Code(s): I50.30 - Unspecified diastolic (congestive) heart failure Code(s): I50.30 - Unspecified diastolic (congestive) heart failure Status: Chronic Assessment and Plan: BNP elevated at 3540. No evidence of pulmonary edema on CXR. Reviewed chart, most recent echo in 2022 showed diastolic dysfunction, normal systolic function with an estimated EF of 60 65%, valvular disease, and mild pulmonary hypertension. - update echo - receiving IV fluids due to sepsis at slower rate, monitor toleration which will be stopped and start diuresis as tolerated - monitor I&Os - daily weights Received a dose of Lasix 40 mg x 1 11/30 started on diuresis 40 mg IV b.i.d.. With good diuresis BNP noted Currently on Lasix 40 mg IV q.d. (6) DM2 (diabetes mellitus, type 2): Code(s): E11.9 - Type 2 diabetes mellitus without complications Status: Chronic Assessment and Plan: - hypoglycemia protocol - POC blood glucose ACHS - home medication: Hold metformin in case of need for contrast. Continue Lantus 10 units HS. - correct regimen ordered - low dose TIDWM and HS, based off BMI - A1C 6.4% in 2022, update (7) Chronic anticoagulation: Code(s): Z79.01 - FDC (current) use of anticoagulants Status: Chronic Assessment and Plan: - continue Xarelto (8) Chronic hypotension: Code(s): I95.89 - Other hypotension Status: Acute Assessment and Plan: - continue home medications: Midodrine - monitor Plan Diet: Heart healthy GI Prophylaxis: N/a DVT Prophylaxis: Xarelto Lines/Tubes: Peripheral IV Code Status: Full code discussed with the patient and family and now switched to do not resuscitate Disposition still required significant amount of oxygen with exertion continue IV diuresis and IV cefepime. Recommendation for discharge to LTAC. awaiting discharge Subjective Date/time seen: 12/12/24 14:16 Interval history: Comfortable at bedside Review of Systems Review of Systems: All systems reviewed & are unremarkable except as noted in HPI and below Exam Narrative: APPEARANCE: Ill-appearing not in acute distress HEAD: normocephalic, atraumatic. EYES: PERRLA/EOMI, conjunctivae clear. NECK: Supple. No adenopathy, no masses. RESPIRATORY: Coarse breath sounds bilaterally, no respiratory distress CARDIOVASCULAR: Regular rate and S1-S2 ABDOMINAL: Soft, nontender, nondistended, normal bowel sounds MUSCULOSKELETAL: Moves all extremities. Strength/ROM intact, trace edema, No calf tenderness. NEURO: Alert. Cranial nerves II through XII intact. SKIN: Warm, dry. Normal Color Const: General: comfortable Other: , male, elderly, ill-appearing, mild respiratory distress HENMT: Face/Nose/Sinus: Normal nares present Mouth: Yes dry mucous membranes (on BiPAP) Eyes: General: appearance normal, both eyes and all related structures Sclera: sclerae normal Pupils: Equal, round and reactive pupils present EOM: EOMs intact bilaterally Resp: Other: Tachypneic without accessory muscle use, bibasilar crackles, no wheezing. Cardio: Rate: regular rate Rhythm: regular rhythm Other: S1-S2 present without murmur, rub, ectopy GI: Other: Abdomen soft, nondistended, nontender. Normoactive bowel sounds in all quad rants. Skin: General skin exam: normal color and no rashes or lesions noted Wounds: no wounds Neuro: Cranial nerves: Yes Equal, round and reactive pupils present Speech: normal speech Motor exam (neuro): 5/5 motor strength present throughout Sensory Exam: normal sensation Other: A/Ox4 Extrem: Other: Trace pitting edema to bilateral ankles, symmetric Psych: Mental Status: mental status grossly normal Affect: normal affect Other: Good insight and judgment, pleasant Objective Data Vital Signs Vital Signs: Vital Signs - 24 hr 12/11/24 15:25 12/11/24 15:36 12/11/24 15:36 Temperature Pulse Rate 78 79 82 Respiratory Rate 20 20 20 Blood Pressure Pulse Oximetry 94 Oxygen Delivery High Flow Nasal Cannula Oxygen Flow Rate 3 Fraction of Inspired Oxygen 12/11/24 15:40 12/11/24 16:00 12/11/24 16:00 Temperature 97.7 F Pulse Rate 90 88 Respiratory Rate 20 Blood Pressure 111/65 Pulse Oximetry 98 98 Oxygen Delivery High Flow Nasal Cannula Oxygen Flow Rate 3 Fraction of Inspired Oxygen 12/11/24 18:00 12/11/24 19:10 12/11/24 20:00 Temperature 97.6 F Pulse Rate 102 H 88 85 Respiratory Rate 22 H 22 H Blood Pressure 111/65 Pulse Oximetry 100 100 Oxygen Delivery High Flow Nasal Cannula Oxygen Flow Rate 3 Fraction of Inspired Oxygen 32 12/11/24 20:00 12/11/24 20:04 12/11/24 22:00 Temperature Pulse Rate 85 84 88 Respiratory Rate Blood Pressure Pulse Oximetry 100 Oxygen Delivery High Flow Nasal Cannula Oxygen Flow Rate 3 Fraction of Inspired Oxygen 12/12/24 00:00 12/12/24 00:00 12/12/24 00:00 Temperature 98.1 F Pulse Rate 82 82 82 Respiratory Rate 22 H 22 H Blood Pressure 138/72 Pulse Oximetry 100 100 Oxygen Delivery High Flow Nasal Cannula Oxygen Flow Rate 3 Fraction of Inspired Oxygen 32 12/12/24 02:00 12/12/24 03:54 12/12/24 04:00 Temperature 98 F Pulse Rate 86 89 85 Respiratory Rate 22 H 22 H Blood Pressure 117/61 Pulse Oximetry 98 98 Oxygen Delivery High Flow Nasal Cannula Oxygen Flow Rate 3 Fraction of Inspired Oxygen 32 12/12/24 04:00 12/12/24 06:00 12/12/24 07:39 Temperature Pulse Rate 85 86 119 H Respiratory Rate 20 Blood Pressure Pulse Oximetry Oxygen Delivery Oxygen Flow Rate Fraction of Inspired Oxygen 12/12/24 07:42 12/12/24 07:47 12/12/24 07:53 Temperature 97.5 F L Pulse Rate 779 H 92 99 Respiratory Rate 20 22 H Blood Pressure 117/60 Pulse Oximetry 95 92 Oxygen Delivery High Flow Therapy with Na Oxygen Flow Rate 8 Fraction of Inspired Oxygen 12/12/24 08:00 12/12/24 08:00 12/12/24 10:00 Temperature Pulse Rate 90 90 95 Respiratory Rate Blood Pressure Pulse Oximetry 100 Oxygen Delivery High Flow Nasal Cannula Oxygen Flow Rate 8 Fraction of Inspired Oxygen 12/12/24 11:36 12/12/24 11:41 12/12/24 11:48 Temperature 97.6 F Pulse Rate 88 87 95 Respiratory Rate 20 20 26 H Blood Pressure 115/53 L Pulse Oximetry 100 Oxygen Delivery Oxygen Flow Rate Fraction of Inspired Oxygen 12/12/24 12:00 Temperature Pulse Rate 102 H Respiratory Rate Blood Pressure Pulse Oximetry 100 Oxygen Delivery High Flow Nasal Cannula Oxygen Flow Rate 8 Fraction of Inspired Oxygen Intake/Output Intake/Output: Intake & Output 12/09/24 12/10/24 12/11/24 12/12/24 23:59 23:59 23:59 23:59 Intake Total 8098 425 7033 530 Output Total 7097 831 6278 1200 Balance 470 180 82 -670 Meds/Results Medications: Active Medications Generic Name Dose Route Start Last Admin Trade Name Freq PRN Reason Stop Dose Admin Acetaminophen 650 mg 11/30/24 15:47 12/11/24 00:20 Acetaminophen 325 Mg Tablet PO 650 mg Q6H PRN Administration Mild Pain (1-3) or Fever Albuterol/Ipratropium 3 ml 12/06/24 12:00 12/12/24 11:35 Ipratropium 0.5 Mg/Albuterol Sulfate 2.5 Mg (Base) Ampul.Neb 3 Ml INHALATION 3 ml [id number] SPEEDY Administration Atorvastatin Calcium 10 mg 11/30/24 21:00 12/11/24 20:24 Atorvastatin 10 Mg Tablet PO 10 mg HS SPEEDY Administration Benzonatate 100 mg 11/30/24 15:44 Benzonatate 100 Mg Capsule PO TID PRN Cough Dextrose 12.5 gm 11/30/24 15:49 Dextrose 50% 25 Gm/50 Ml Syringe IV PUSH PRN PRN Hypoglycemia Protocol Divalproex Sodium 1,000 mg 12/01/24 08:00 12/12/24 08:26 Divalproex Sodium Er 500 Mg Tab.24h PO 1,000 mg DAILY@0800 SPEEDY Administration Divalproex Sodium 500 mg 11/30/24 21:00 12/11/24 20:24 Divalproex Sodium Er 500 Mg Tab.24h PO 500 mg HS SPEEDY Administration Furosemide 40 mg 12/10/24 09:00 12/12/24 08:27 Furosemide Inj 40 Mg/4 Ml Vial IV PUSH 40 mg DAILY SPEEDY Administration Glucagon 1 mg 11/30/24 15:49 Glucagon For Inj 1 Mg Vial IM PRN PRN Hypoglycemia Protocol Glucose 15 gm 11/30/24 15:49 Glucose Oral Gel 15 Gm Of Glucse In 37.5 Gm Tube PO PRN PRN Hypoglycemia Protocol Guaifenesin 1,200 mg 12/01/24 21:00 12/12/24 08:27 Guaifenesin 12 Hr 600 Mg Tabcr PO 1,200 mg Q12HR SPEEDY Administration Dextrose 1,000 mls @ 100 mls/hr 11/30/24 15:49 Dextrose 5% 1,000 Ml IVPB PRN PRN Hypoglycemia Protocol Cefepime HCl 2 gm/ Sodium 50 mls @ 100 mls/hr 12/10/24 16:00 12/12/24 08:26 Chloride IVPB 100 mls/hr Q8H SPEEDY Administration Insulin Aspart 2 - 5 units 11/30/24 17:00 12/12/24 13:36 Insulin Aspart (*Bkc) 100 Units/Ml SUB-Q 3 units TIDWM SPEEDY Administration Protocol Insulin Aspart 1 - 2 units 11/30/24 21:00 12/11/24 20:25 Insulin Aspart (*Bkc) 100 Units/Ml SUB-Q 1 units HS SPEEDY Administration Protocol Insulin Glargine 10 units 11/30/24 21:00 12/11/24 20:25 Insulin Glargine (*Bkc) 100 Units/Ml SUB-Q 10 units HS SPEEDY Administration Memantine 10 mg 11/30/24 17:00 12/12/24 08:26 Memantine 10 Mg Tablet PO 10 mg BID SPEEDY Administration Methocarbamol 750 mg 11/30/24 15:51 Methocarbamol 750 Mg Tablet PO BID PRN muscle spasm Midodrine 10 mg 11/30/24 17:00 12/12/24 13:36 Midodrine Hcl 10 Mg Tablet PO 10 mg TID SPEEDY Administration Pantoprazole Sodium 40 mg 12/01/24 09:00 12/12/24 08:27 Pantoprazole 40 Mg Tablet PO 40 mg DAILY SPEEDY Administration Polyethylene Glycol 17 gm 12/05/24 09:50 12/08/24 09:36 Polyethylene Glycol 3350 17 Gm Powd.Pack PO 17 gm QAM PRN Administration Constipation Prednisone 20 mg 12/08/24 08:00 12/12/24 08:27 Prednisone 20 Mg Tablet PO 12/15/24 10:00 20 mg DAILY@0800 SPEEDY Administration Prednisone 10 mg 12/16/24 08:00 Prednisone 10 Mg Tablet PO 12/22/24 10:00 DAILY@0800 [facility] Rivaroxaban 20 mg 12/06/24 17:00 10/13/25 18:24 Rivaroxaban 20 Mg Tablet PO 20 mg Q24H SPEEDY Administration Tamsulosin HCl 0.8 mg 12/01/24 09:00 12/12/24 08:26 Tamsulosin Hcl 0.4 Mg Capsule PO 0.8 mg DAILY SPEEDY Administration Vitamin D 125 mcg 12/01/24 09:00 12/12/24 08:26 Cholecalciferol (Vitamin D3) 125 Mcg (5,000 Units) Tablet PO 125 mcg DAILY SPEEDY Administration Radiology Results: ITS Impressions Chest CT 11/30/24 14:20 IMPRESSION: 1. Bilateral severe bronchopneumonia superimposed on chronic lung disease with probable reactive mediastinal lymphadenopathy. Follow-up recommended to assess resolution Modified Barium Swallow 12/07/24 11:54 IMPRESSION: Mild pharyngeal dysphagia with flash laryngeal penetration without aspiration. Please correlate with speech pathologist findings and specific feeding recommendations. Chest X-Ray 12/10/24 14:20 Impression: Bilateral pneumonia ADDENDUM: 12/10/24 5691 Comparison made to previous exam 12/04/2024. The findings appear slightly improved compared to the previous study in the right lower lobe but slightly progressed in the right upper lobe. Overall the findings are grossly unchanged Labs Labs: Laboratory Results - last 24 hr 12/11/24 12/11/24 12/12/24 15:56 20:09 03:52 WBC 14.8 H RBC 3.01 L Hgb 10.1 L Hct 31.5 L MCV 104.7 H MCH 33.6 MCHC 32.1 RDW 16.3 H Plt Count 191 MPV 11.2 H Immature Gran % (Auto) 1.4 H Neut % (Auto) 78.6 H Lymph % (Auto) 12.0 L [place] % (Auto) 6.2 Eos % (Auto) 1.5 Baso % (Auto) 0.3 Lymph # (Auto) 1.78 [place] # (Auto) 0.9 H Eos # (Auto) 0.2 Baso # (Auto) 0.0 Abs Immat Gran (auto) 0.21 H Absolute Neuts (auto) 11.7 H Absolute Nucleated RBC 0.000 Nucleated RBC % 0.0 Sodium 134 L Potassium 4.1 Chloride 94 L Carbon Dioxide 36 H Anion Gap 4 BUN 41 H Creatinine 0.73 Estim Creat Clear Calc 84 Estimated GFR > 60 Glucose 137 H POC Capillary Glucose 255 H 266 H Calcium 8.6 Total Bilirubin 0.5 AST 24 ALT 15 Alkaline Phosphatase 63 Total Protein 5.8 L Albumin 2.7 L 12/12/24 12/12/24 07:22 11:27 WBC RBC Hgb Hct MCV MCH MCHC RDW Plt Count MPV Immature Gran % (Auto) Neut % (Auto) Lymph % (Auto) [place] % (Auto) Eos % (Auto) Baso % (Auto) Lymph # (Auto) [place] # (Auto) Eos # (Auto) Baso # (Auto) Abs Immat Gran (auto) Absolute Neuts (auto) Absolute Nucleated RBC Nucleated RBC % Sodium Potassium Chloride Carbon Dioxide Anion Gap BUN Creatinine Estim Creat Clear Calc Estimated GFR Glucose POC Capillary Glucose 122 H 251 H Calcium Total Bilirubin AST ALT Alkaline Phosphatase Total Protein Albumin Quality VTE Prophylaxis VTE prophylaxis: pharmacologic ordered
[2024-12-12] MEDS: RIVAROXABAN 20 MG TABLET PO (16:57)
[2024-12-12 17:45] LABS: Procalcitonin 0.1 ng/mL
[2024-12-12] MEDS: DIVALPROEX SODIUM ER 500 MG TAB.24H PO (20:58)
[2024-12-12] MEDS: ATORVASTATIN 10 MG TABLET PO (20:58)
[2024-12-12] MEDS: INSULIN GLARGINE (*BKC) 100 UNITS/ML 10 UNITS SUB-Q (21:06)
[2024-12-13] VITALS (30 sets, daily range): BP systolic 96–118; BP diastolic 58–81; PULSE 79–122; RESP 16–34; TEMP 36.2–36.7; O2SAT 91–100
[2024-12-13 04:23] LABS: Hematocrit 32.3 % (42.0-52.0); Hemoglobin 10.2 g/dL (14.0-18.0); Immature Granulocyte Percent A 1.0 % (0-0.5); Lymphocytes Absolute Auto 1.84 K/mm3 (0.9-3.2); Mean Corpuscular HGB Conc 31.6 g/dl (32-36); Mean Corpuscular Hemoglobin 33.3 pg (26-34); Mean Corpuscular Volume 105.6 fl (80-100); Nucleated Red Blood Cells Absolute Auto 0.000 K/mm3 (0.0-0.012); Nucleated Red Blood Cells Perc 0.0 % (0.0-0.2); Platelet Count Result 177 k/mm3 (150-375); Red Blood Count 3.06 M/mm3 (4.6-6.20); White Blood Count 13.8 K/mm3 (4.5-10.0)
[2024-12-13 04:45] LABS: Ovalocytes 1+; Schistocytes None Seen
[2024-12-13 04:46] LABS: Alanine Aminotransferase 15 U/L (6-50); Albumin Level 2.8 g/dL (3.5-5.1); Alkaline Phosphatase 66 U/L (38-126); Anion Gap 1 mmol/L (4-12); Aspartate Amino Transferase 25 U/L (17-59); Bilirubin,Total 0.3 mg/dL (0.2-1.3); Blood Urea Nitrogen 46 mg/dL (9-20); Calcium 8.9 mg/dL (8.4-10.2); Carbon Dioxide 37 mmol/L (22-30); Chloride 94 mmol/L (98-107); Estimated CRCL calculation 75 ml/min; Estimated Glomerular Filt Rate > 60; Glucose 253 mg/dL (65-110); Macrocytosis 1+ (NORMAL); Magnesium 2.1 mg/dL (1.6-2.3); Potassium 5.3 mmol/L (3.4-5.0); Sodium 132 mmol/L (137-145); Total Protein 5.9 g/dL (6.3-8.2)
[2024-12-13] MEDS: IPRATROPIUM 0.5 MG/ALBUTEROL SULFATE 2.5 MG (BASE) AMPUL.NEB 3 ML INHALATION ×4 (07:31→20:01)
[2024-12-13] MEDS: CHOLECALCIFEROL (VITAMIN D3) 125 MCG (5,000 UNITS) TABLET PO (07:56)
[2024-12-13] MEDS: MIDODRINE HCL 10 MG TABLET PO ×3 (07:56→16:13)
[2024-12-13] MEDS: MEMANTINE 10 MG TABLET PO ×2 (07:56→16:13)
[2024-12-13] MEDS: TAMSULOSIN HCL 0.4 MG CAPSULE 0.8 MG PO (07:56)
[2024-12-13] MEDS: DIVALPROEX SODIUM ER 500 MG TAB.24H 1000 MG PO (07:56)
[2024-12-13] MEDS: PANTOPRAZOLE 40 MG TABLET PO (07:56)
[2024-12-13] MEDS: guaiFENesin 12 HR 600 MG TABCR 1200 MG PO ×2 (07:57→20:58)
[2024-12-13] MEDS: CEFEPIME 2 GM in SODIUM CHLORIDE 0.9% IV 50 ML 100 ML IVPB ×3 (07:57→23:40)
[2024-12-13] MEDS: FUROSEMIDE INJ 40 MG/4 ML VIAL IV PUSH (07:58)
[2024-12-13 10:16] LABS: Vitamin B12 871.0 pg/mL (239-931)
--- NOTE | 2024-12-13 11:36 | P.PNIM_ITS ---
Progress Note: A&P Assessment and Plan (1) Acute hypoxic respiratory failure: Code(s): J96.01 - Acute respiratory failure with hypoxia Status: Acute Assessment and Plan: Patient arrived to the emergency department 96% on room air. Initial concern patient was hypoxic in the 70s prior to arrival. Patient did become hypoxic in the emergency department on 11/30, dropped to 84% on room air. Subsequently placed on BiPAP. Imaging showed bilateral severe bronchopneumonia superimposed on chronic lung disease. Initial ABG showed no significant hypoxia, hypercapnia, acidosis, or alkalosis on BiPAP. - continue BiPAP for work of breathing/respiratory distress p.r.n. - started on hospital-acquired pneumonia treatment as he was recently admitted to [facility], patient additionally met criteria for sepsis and lactic was elevated - pulmonology consulted Gentle diuresis as BNP elevated Which he is tolerating. Respiratory pathogen panel Urine antigens I LD workup as ordered by Pulmonary continue Airvo and wean as tolerated And currently on 4 L oxygen via nasal cannula Seen by Pulmonary, found to have difficulty swallowing, barium swallow was ordered which found some trace penetration. Recommendation was regular diet with thin liquids, no straws and small drinks. Prednisone taper continuing through December 22 as stated in pulmonology consultation. Per Pulmonary, patient will need discharge to LTAC given severity of lung disease. (2) Sepsis: Qualifiers: Sepsis type: sepsis due to unspecified organism Sepsis acute organ dysfunction status: with acute organ dysfunction Severe sepsis acute organ dysfunction type: acute respiratory failure Acute respiratory failure type: with hypoxia Severe sepsis shock status: without septic shock Qualified Code(s): A41.9 - Sepsis, unspecified organism; R65.20 - Severe sepsis without septic shock; J96.01 - Acute respiratory failure with hypoxia Code(s): A41.9 - Sepsis, unspecified organism Status: Acute Assessment and Plan: Patient met SIRS criteria: HR greater than 100, RR greater than 20, WBC greater than 12. +hypoxia, -hypotension. Initial lactic 3.6 -> 3.4. CRP 4.98 and procalcitonin 0.1. - blood cultures obtained on 11/30, follow. - trend lactic down - 30 mL/kg = 2.5, will give 2L at 200 mL/hr due to elevation in BNP/hx of diastolic dysfunction. monitor toleration. - suspected source: HAP - started on ceftriaxone and azithromycin, exchanged to cefepime and azithromycin on 11/30 - monitor I&Os concluded azithromycin Completed cefepime for total 7 days 12/10: White blood cell count is starting to trend back up very slightly, repeating chest x-ray and obtaining UA, as well as restarting cefepime and doxycycline. Patient denies significant new complaints at this time. He does have 2 small pressure ulcers that are currently not infected and being cared for by nursing staff. Chest x-ray did show improving left-sided infiltrate with worsening right-sided infiltrate but after completion show pulmonary did agree that this could all have to do with his chronic lung disease and not necessarily indicate new pneumonia. However, patient's oxygen requirements had been worsening since discontinuation of antibiotics. 12/11: Discussed with Pulmonary, patient is on steroids which will be affecting white blood cell count, and patient has not shown active signs of sepsis such as fever, chills, increased sputum production. Oxygen requirements began to improve today, unclear if restarting antibiotics for suspected pneumonia plays a factor in this at this time. Recommendation from Pulmonary was to continue cefepime at this time but no need for doxycycline is not likely to be atypical organism given hospital setting, agree with this assessment. We will continue cefepime for up to 3 days, recommend reassess need for antibiotic at that time. (3) Pneumonia: Qualifiers: Laterality: bilateral Lung location: unspecified part of lung Pneumonia type: due to unspecified organism Qualified Code(s): J18.9 - Pneumonia, unspecified organism Code(s): J18.9 - Pneumonia, unspecified organism Status: Acute Assessment and Plan: - CXR: 1. Interval worsening of chronic interstitial lung disease. 2. However bibasilar edema and/or pneumonitis or airspace disease not excluded. - Chest CT: Bilateral severe bronchopneumonia superimposed on chronic lung disease with probable reactive mediastinal lymphadenopathy. Follow-up recommended to assess resolution - risk/complicating factors: acute respiratory failure, interstitial lung disease, recent hospitalization - started on ceftriaxone and azithromycin in the ED, exchanged to cefepime and azithromycin on 11/30. No current indication for vancomycin as the patient's MRSA PCR was negative upon admission. - supportive care: Mucinex, Tylenol, DuoNebs, Tessalon Perles - sputum culture - currently requiring BiPAP for WOB, +hypoxia Still requiring high level of oxygen. Continue diuresis Chest x-ray reviewed Leukocytosis improving (4) ILD (interstitial lung disease): Code(s): J84.9 - Interstitial pulmonary disease, unspecified Status: Chronic Assessment and Plan: - worsening on imaging - pulmonology consulted, see recs above Restarted on prednisone per Pulmonary (5) Diastolic congestive heart failure, NYHA class 3: Qualifiers: Congestive heart failure chronicity: unspecified Qualified Code(s): I50.30 - Unspecified diastolic (congestive) heart failure Code(s): I50.30 - Unspecified diastolic (congestive) heart failure Status: Chronic Assessment and Plan: BNP elevated at 3540. No evidence of pulmonary edema on CXR. Reviewed chart, most recent echo in 2022 showed diastolic dysfunction, normal systolic function with an estimated EF of 60 65%, valvular disease, and mild pulmonary hypertension. - update echo - receiving IV fluids due to sepsis at slower rate, monitor toleration which will be stopped and start diuresis as tolerated - monitor I&Os - daily weights Received a dose of Lasix 40 mg x 1 11/30 started on diuresis 40 mg IV b.i.d.. With good diuresis BNP noted Currently on Lasix 40 mg IV q.d. (6) DM2 (diabetes mellitus, type 2): Code(s): E11.9 - Type 2 diabetes mellitus without complications Status: Chronic Assessment and Plan: - hypoglycemia protocol - POC blood glucose ACHS - home medication: Hold metformin in case of need for contrast. Continue Lantus 10 units HS. - correct regimen ordered - low dose TIDWM and HS, based off BMI - A1C 6.4% in 2022, update (7) Chronic anticoagulation: Code(s): Z79.01 - detention (current) use of anticoagulants Status: Chronic Assessment and Plan: - continue Xarelto (8) Chronic hypotension: Code(s): I95.89 - Other hypotension Status: Acute Assessment and Plan: - continue home medications: Midodrine - monitor Plan Diet: Heart healthy GI Prophylaxis: N/a DVT Prophylaxis: Xarelto Lines/Tubes: Peripheral IV Code Status: Full code discussed with the patient and family and now switched to do not resuscitate Disposition still required significant amount of oxygen with exertion continue IV diuresis and IV cefepime. Recommendation for discharge to LTAC. awaiting discharge Subjective Date/time seen: 12/13/24 11:36 Interval history: Comfortable at bedside Awaiting placement although high oxygen requirement is working against Review of Systems Review of Systems: All systems reviewed & are unremarkable except as noted in HPI and below Exam Narrative: APPEARANCE: Ill-appearing not in acute distress HEAD: normocephalic, atraumatic. EYES: PERRLA/EOMI, conjunctivae clear. NECK: Supple. No adenopathy, no masses. RESPIRATORY: Coarse breath sounds bilaterally, no respiratory distress CARDIOVASCULAR: Regular rate and S1-S2 ABDOMINAL: Soft, nontender, nondistended, normal bowel sounds MUSCULOSKELETAL: Moves all extremities. Strength/ROM intact, trace edema, No calf tenderness. NEURO: Alert. Cranial nerves II through XII intact. SKIN: Warm, dry. Normal Color Const: General: comfortable Other: , male, elderly, ill-appearing, mild respiratory distress HENMT: Face/Nose/Sinus: Normal nares present Mouth: Yes dry mucous membranes (on BiPAP) Eyes: General: appearance normal, both eyes and all related structures Sclera: sclerae normal Pupils: Equal, round and reactive pupils present EOM: EOMs intact bilaterally Resp: Other: Tachypneic without accessory muscle use, bibasilar crackles, no wheezing. Cardio: Rate: regular rate Rhythm: regular rhythm Other: S1-S2 present without murmur, rub, ectopy GI: Other: Abdomen soft, nondistended, nontender. Normoactive bowel sounds in all quadrants. Skin: General skin exam: normal color and no rashes or lesions noted Wounds: no wounds Neuro: Cranial nerves: Yes Equal, round and reactive pupils present Speech: normal speech Motor exam (neuro): 5/5 motor strength present throughout Sensory Exam: normal sensation Other: A/Ox4 Extrem: Other: Trace pitting edema to bilateral ankles, symmetric Psych: Mental Status: mental status grossly normal Affect: normal affect Other: Good insight and judgment, pleasant Objective Data Vital Signs Vital Signs: Vital Signs - 24 hr 12/12/24 11:41 12/12/24 11:48 12/12/24 12:00 Temperature 97.6 F Pulse Rate 87 95 102 H Respiratory Rate 20 26 H Blood Pressure 115/53 L Pulse Oximetry 100 100 Oxygen Delivery High Flow Nasal Cannula Oxygen Flow Rate 8 Fraction of Inspired Oxygen 12/12/24 12:00 12/12/24 14:00 12/12/24 16:00 Temperature 97.5 F L Pulse Rate 84 100 88 Respiratory Rate 27 H Blood Pressure 128/61 Pulse Oximetry 98 Oxygen Delivery Oxygen Flow Rate Fraction of Inspired Oxygen 12/12/24 16:00 12/12/24 16:00 12/12/24 17:07 Temperature Pulse Rate 87 88 88 Respiratory Rate 20 Blood Pressure Pulse Oximetry 100 Oxygen Delivery High Flow Nasal Cannula Oxygen Flow Rate 3 Fraction of Inspired Oxygen 12/12/24 17:12 12/12/24 18:00 12/12/24 18:59 Temperature 97.5 F L Pulse Rate 78 89 86 Respiratory Rate 20 32 H Blood Pressure 110/60 Pulse Oximetry 100 Oxygen Delivery Oxygen Flow Rate Fraction of Inspired Oxygen 12/12/24 20:00 12/12/24 20:00 12/12/24 21:20 Temperature Pulse Rate 78 78 94 Respiratory Rate 32 H 18 Blood Pressure Pulse Oximetry 100 100 Oxygen Delivery High Flow Nasal Cannula High Flow Nasal Cannula Oxygen Flow Rate 7 8 Fraction of Inspired Oxygen 32 12/12/24 21:20 12/12/24 21:52 12/12/24 23:46 Temperature Pulse Rate 94 88 89 Respiratory Rate 18 32 H Blood Pressure Pulse Oximetry 100 Oxygen Delivery High Flow Nasal Cannula Oxygen Flow Rate 3 Fraction of Inspired Oxygen 32 12/12/24 23:46 12/13/24 00:00 12/13/24 00:09 Temperature 97.6 F Pulse Rate 89 92 86 Respiratory Rate 22 H 20 Blood Pressure 113/62 Pulse Oximetry 96 Oxygen Delivery Oxygen Flow Rate Fraction of Inspired Oxygen 12/13/24 02:00 12/13/24 04:00 12/13/24 04:00 Temperature Pulse Rate 84 89 89 Respiratory Rate 20 Blood Pressure Pulse Oximetry 96 Oxygen Delivery High Flow Nasal Cannula Oxygen Flow Rate 3 Fraction of Inspired Oxygen 32 12/13/24 04:00 12/13/24 06:00 12/13/24 07:32 Temperature 97.4 F L Pulse Rate 96 84 Respiratory Rate 17 Blood Pressure 103/62 Pulse Oximetry 94 98 Oxygen Delivery High Flow Nasal Cannula Oxygen Flow Rate 3 Fraction of Inspired Oxygen 12/13/24 07:32 12/13/24 07:40 12/13/24 07:55 Temperature 97.1 F L Pulse Rate 79 90 87 Respiratory Rate 20 18 22 H Blood Pressure 113/63 Pulse Oximetry 100 Oxygen Delivery Oxygen Flow Rate Fraction of Inspired Oxygen 12/13/24 08:00 12/13/24 11:19 12/13/24 11:25 Temperature Pulse Rate 106 H 89 88 Respiratory Rate 20 20 Blood Pressure Pulse Oximetry 96 Oxygen Delivery High Flow Nasal Cannula Oxygen Flow Rate 3 Fraction of Inspired Oxygen Intake/Output Intake/Output: Intake & Output 12/10/24 12/11/24 12/12/24 12/13/24 23:59 23:59 23:59 23:59 Intake Total 980 1482 1660 1092 Output Total 800 1400 1725 1265 Balance 180 82 -65 -173 Meds/Results Medications: Active Medications Generic Name Dose Route Start Last Admin Trade Name Freq PRN Reason Stop Dose Admin Acetaminophen 650 mg 11/30/24 15:47 12/11/24 00:20 Acetaminophen 325 Mg Tablet PO 650 mg Q6H PRN Administration Mild Pain (1-3) or Fever Albuterol/Ipratropium 3 ml 12/06/24 12:00 12/13/24 11:19 Ipratropium 0.5 Mg/Albuterol Sulfate 2.5 Mg (Base) Ampul.Neb 3 Ml INHALATION 3 ml [id number] SPEEDY Administration Atorvastatin Calcium 10 mg 11/30/24 21:00 12/12/24 20:58 Atorvastatin 10 Mg Tablet PO 10 mg HS SPEEDY Administration Benzonatate 100 mg 11/30/24 15:44 Benzonatate 100 Mg Capsule PO TID PRN Cough Dextrose 12.5 gm 11/30/24 15:49 Dextrose 50% 25 Gm/50 Ml Syringe IV PUSH PRN PRN Hypoglycemia Protocol Divalproex Sodium 1,000 mg 12/01/24 08:00 12/13/24 07:56 Divalproex Sodium Er 500 Mg Tab.24h PO 1,000 mg DAILY@0800 SPEEDY Administration Divalproex Sodium 500 mg 11/30/24 21:00 12/12/24 20:58 Divalproex Sodium Er 500 Mg Tab.24h PO 500 mg HS SPEEDY Administration Furosemide 40 mg 12/10/24 09:00 12/13/24 07:58 Furosemide Inj 40 Mg/4 Ml Vial IV PUSH 40 mg DAILY SPEEDY Administration Glucagon 1 mg 11/30/24 15:49 Glucagon For Inj 1 Mg Vial IM PRN PRN Hypoglycemia Protocol Glucose 15 gm 11/30/24 15:49 Glucose Oral Gel 15 Gm Of Glucse In 37.5 Gm Tube PO PRN PRN Hypoglycemia Protocol Guaifenesin 1,200 mg 12/01/24 21:00 12/13/24 07:57 Guaifenesin 12 Hr 600 Mg Tabcr PO 1,200 mg Q12HR SPEEDY Administration Dextrose 1,000 mls @ 100 mls/hr 11/30/24 15:49 Dextrose 5% 1,000 Ml IVPB PRN PRN Hypoglycemia Protocol Cefepime HCl 2 gm/ Sodium 50 mls @ 100 mls/hr 12/10/24 16:00 12/13/24 07:57 Chloride IVPB 12/17/24 08:29 100 mls/hr Q8H SPEEDY Administration Insulin Aspart 2 - 5 units 11/30/24 17:00 12/13/24 07:55 Insulin Aspart (*Bkc) 100 Units/Ml SUB-Q Not Given TIDWM SPEEDY Protocol Insulin Aspart 1 - 2 units 11/30/24 21:00 12/12/24 21:07 Insulin Aspart (*Bkc) 100 Units/Ml SUB-Q 1 units HS SPEEDY Administration Protocol Insulin Glargine 10 units 11/30/24 21:00 12/12/24 21:06 Insulin Glargine (*Bkc) 100 Units/Ml SUB-Q 10 units HS SPEEDY Administration Memantine 10 mg 11/30/24 17:00 12/13/24 07:56 Memantine 10 Mg Tablet PO 10 mg BID SPEEDY Administration Methocarbamol 750 mg 11/30/24 15:51 Methocarbamol 750 Mg Tablet PO BID PRN muscle spasm Midodrine 10 mg 11/30/24 17:00 12/13/24 07:56 Midodrine Hcl 10 Mg Tablet PO 10 mg TID SPEEDY Administration Pantoprazole Sodium 40 mg 12/01/24 09:00 12/13/24 07:56 Pantoprazole 40 Mg Tablet PO 40 mg DAILY SPEEDY Administration Polyethylene Glycol 17 gm 12/05/24 09:50 12/08/24 09:36 Polyethylene Glycol 3350 17 Gm Powd.Pack PO 17 gm QAM PRN Administration Constipation Prednisone 20 mg 12/08/24 08:00 12/13/24 07:56 Prednisone 20 Mg Tablet PO 12/15/24 10:00 20 mg DAILY@0800 SPEEDY Administration Prednisone 10 mg 12/16/24 08:00 Prednisone 10 Mg Tablet PO 12/22/24 10:00 DAILY@0800 [facility] Rivaroxaban 20 mg 12/06/24 17:00 12/12/24 16:57 Rivaroxaban 20 Mg Tablet PO 20 mg Q24H SPEEDY Administration Tamsulosin HCl 0.8 mg 12/01/24 09:00 12/13/24 07:56 Tamsulosin Hcl 0.4 Mg Capsule PO 0.8 mg DAILY SPEEDY Administration Vitamin D 125 mcg 12/01/24 09:00 12/13/24 07:56 Cholecalciferol (Vitamin D3) 125 Mcg (5,000 Units) Tablet PO 125 mcg DAILY SPEEDY Administration Radiology Results: ITS Impressions Chest CT 11/30/24 14:20 IMPRESSION: 1. Bilateral severe bronchopneumonia superimposed on chronic lung disease with probable reactive mediastinal lymphadenopathy. Follow-up recommended to assess resolution Modified Barium Swallow 12/07/24 11:54 IMPRESSION: Mild pharyngeal dysphagia with flash laryngeal penetration without aspiration. Please correlate with speech pathologist findings and specific feeding recommendations. Chest X-Ray 12/10/24 14:20 Impression: Bilateral pneumonia ADDENDUM: 12/10/24 4887 Comparison made to previous exam 12/04/2024. The findings appear slightly improved compared to the previous study in the right lower lobe but slightly progressed in the right upper lobe. Overall the findings are grossly unchanged Labs Labs: Laboratory Results - last 24 hr 12/12/24 12/12/24 12/12/24 11:27 15:32 17:06 WBC RBC Hgb Hct MCV MCH MCHC RDW Plt Count MPV Immature Gran % (Auto) Neut % (Auto) Lymph % (Auto) [place] % (Auto) Eos % (Auto) Baso % (Auto) Lymph # (Auto) [place] # (Auto) Eos # (Auto) Baso # (Auto) Abs Immat Gran (auto) Absolute Neuts (auto) Absolute Nucleated RBC Band Neutrophils % Nucleated RBC % Platelet Estimate Macrocytosis Ovalocytes Schistocytes Sodium Potassium Chloride Carbon Dioxide Anion Gap BUN Creatinine Estim Creat Clear Calc Estimated GFR Glucose POC Capillary Glucose 251 H 283 H Calcium Magnesium Total Bilirubin AST ALT Alkaline Phosphatase Total Protein Albumin Vitamin B12 Folate Procalcitonin 0.1 12/12/24 12/13/24 12/13/24 21:05 03:43 06:56 WBC 13.8 H RBC 3.06 L Hgb 10.2 L Hct 32.3 L MCV 105.6 H MCH 33.3 MCHC 31.6 L RDW 16.2 H Plt Count 177 MPV 11.2 H Immature Gran % (Auto) 1.0 H Neut % (Auto) 76.3 H Lymph % (Auto) 13.4 L [place] % (Auto) 7.3 Eos % (Auto) 1.7 Baso % (Auto) 0.3 Lymph # (Auto) 1.84 [place] # (Auto) 1.0 H Eos # (Auto) 0.2 Baso # (Auto) 0.0 Abs Immat Gran (auto) 0.14 H Absolute Neuts (auto) 10.5 H Absolute Nucleated RBC 0.000 Band Neutrophils % Not Reportable Nucleated RBC % 0.0 Platelet Estimate Adequate Macrocytosis 1+ Ovalocytes 1+ Schistocytes None seen Sodium 132 L Potassium 5.3 H Chloride 94 L Carbon Dioxide 37 H Anion Gap 1 L BUN 46 H Creatinine 0.83 Estim Creat Clear Calc 75 Estimated GFR > 60 Glucose 253 H POC Capillary Glucose 238 H 148 H Calcium 8.9 Magnesium 2.1 Total Bilirubin 0.3 AST 25 ALT 15 Alkaline Phosphatase 66 Total Protein 5.9 L Albumin 2.8 L Vitamin B12 871.0 Folate 5.9 Procalcitonin Quality VTE Prophylaxis VTE prophylaxis: pharmacologic ordered
[2024-12-13] MEDS: INSULIN ASPART (*BKC) 100 UNITS/ML SUB-Q ×3 (12:15→20:58)
[2024-12-13] MEDS: RIVAROXABAN 20 MG TABLET PO (16:13)
[2024-12-13] MEDS: ATORVASTATIN 10 MG TABLET PO (20:57)
[2024-12-13] MEDS: DIVALPROEX SODIUM ER 500 MG TAB.24H PO (20:58)
[2024-12-13] MEDS: INSULIN GLARGINE (*BKC) 100 UNITS/ML 10 UNITS SUB-Q (20:59)
[2024-12-14] VITALS (25 sets, daily range): BP systolic 94–118; BP diastolic 50–72; PULSE 77–112; RESP 14–28; TEMP 36.4–36.8; O2SAT 91–100
[2024-12-14] MEDS: ACETAMINOPHEN 325 MG TABLET 650 MG PO (01:12)
[2024-12-14] MEDS: IPRATROPIUM 0.5 MG/ALBUTEROL SULFATE 2.5 MG (BASE) AMPUL.NEB 3 ML INHALATION ×4 (08:41→20:01)
[2024-12-14] MEDS: PANTOPRAZOLE 40 MG TABLET PO (08:48)
[2024-12-14] MEDS: FUROSEMIDE INJ 40 MG/4 ML VIAL IV PUSH (08:48)
[2024-12-14] MEDS: CEFEPIME 2 GM in SODIUM CHLORIDE 0.9% IV 50 ML 100 ML IVPB ×3 (08:48→23:19)
[2024-12-14] MEDS: DIVALPROEX SODIUM ER 500 MG TAB.24H 1000 MG PO (08:48)
[2024-12-14] MEDS: guaiFENesin 12 HR 600 MG TABCR 1200 MG PO ×2 (08:48→20:54)
[2024-12-14] MEDS: MIDODRINE HCL 10 MG TABLET PO ×3 (08:48→16:05)
[2024-12-14] MEDS: TAMSULOSIN HCL 0.4 MG CAPSULE 0.8 MG PO (08:48)
[2024-12-14] MEDS: CHOLECALCIFEROL (VITAMIN D3) 125 MCG (5,000 UNITS) TABLET PO (08:48)
[2024-12-14] MEDS: MEMANTINE 10 MG TABLET PO ×2 (08:49→16:05)
[2024-12-14] MEDS: INSULIN ASPART (*BKC) 100 UNITS/ML SUB-Q ×2 (12:37→20:45)
--- NOTE | 2024-12-14 13:28 | PM.IMPN ---
Progress Note: A&P Assessment and Plan (1) Acute hypoxic respiratory failure: Code(s): J96.01 - Acute respiratory failure with hypoxia Status: Acute Assessment and Plan: Patient arrived to the emergency department 96% on room air. Initial concern patient was hypoxic in the 70s prior to arrival. Patient did become hypoxic in the emergency department on 11/30, dropped to 84% on room air. Subsequently placed on BiPAP. Imaging showed bilateral severe bronchopneumonia superimposed on chronic lung disease. Initial ABG showed no significant hypoxia, hypercapnia, acidosis, or alkalosis on BiPAP. - continue BiPAP for work of breathing/respiratory distress p.r.n. - started on hospital-acquired pneumonia treatment as he was recently admitted to [facility], patient additionally met criteria for sepsis and lactic was elevated - pulmonology consulted Gentle diuresis as BNP elevated Which he is tolerating. Respiratory pathogen panel Urine antigens I LD workup as ordered by Pulmonary continue Airvo and wean as tolerated And currently on 4 L oxygen via nasal cannula Seen by Pulmonary, found to have difficulty swallowing, barium swallow was ordered which found some trace penetration. Recommendation was regular diet with thin liquids, no straws and small drinks. Prednisone taper continuing through December 22 as stated in pulmonology consultation. Per Pulmonary, patient will need discharge to LTAC given severity of lung disease. Most facilities are declining patient due to high oxygen needs incident response coordinator exploring alternatives with patient's daughter (2) Sepsis: Qualifiers: Sepsis type: sepsis due to unspecified organism Sepsis acute organ dysfunction status: with acute organ dysfunction Severe sepsis acute organ dysfunction type: acute respiratory failure Acute respiratory failure type: with hypoxia Severe sepsis shock status: without septic shock Qualified Code(s): A41.9 - Sepsis, unspecified organism; R65.20 - Severe sepsis without septic shock; J96.01 - Acute respiratory failure with hypoxia Code(s): A41.9 - Sepsis, unspecified organism Status: Acute Assessment and Plan: Patient met SIRS criteria: HR greater than 100, RR greater than 20, WBC greater than 12. +hypoxia, -hypotension. Initial lactic 3.6 -> 3.4. CRP 4.98 and procalcitonin 0.1. - blood cultures obtained on 11/30, follow. - trend lactic down - 30 mL/kg = 2.5, will give 2L at 200 mL/hr due to elevation in BNP/hx of diastolic dysfunction. monitor toleration. - suspected source: HAP - started on ceftriaxone and azithromycin, exchanged to cefepime and azithromycin on 11/30 - monitor I&Os concluded azithromycin Completed cefepime for total 7 days 12/10: White blood cell count is starting to trend back up very slightly, repeating chest x-ray and obtaining UA, as well as restarting cefepime and doxycycline. Patient denies significant new complaints at this time. He does have 2 small pressure ulcers that are currently not infected and being cared for by nursing staff. Chest x-ray did show improving left-sided infiltrate with worsening right-sided infiltrate but after completion show pulmonary did agree that this could all have to do with his chronic lung disease and not necessarily indicate new pneumonia. However, patient's oxygen requirements had been worsening since discontinuation of antibiotics. 12/11: Discussed with Pulmonary, patient is on steroids which will be affecting white blood cell count, and patient has not shown active signs of sepsis such as fever, chills, increased sputum production. Oxygen requirements began to improve today, unclear if restarting antibiotics for suspected pneumonia plays a factor in this at this time. Recommendation from Pulmonary was to continue cefepime at this time but no need for doxycycline is not likely to be atypical organism given hospital setting, agree with this assessment. We will continue cefepime for up to 3 days, recommend reassess need for antibiotic at that time. (3) Pneumonia: Qualifiers: Laterality: bilateral Lung location: unspecified part of lung Pneumonia type: due to unspecified organism Qualified Code(s): J18.9 - Pneumonia, unspecified organism Code(s): J18.9 - Pneumonia, unspecified organism Status: Acute Assessment and Plan: - CXR: 1. Interval worsening of chronic interstitial lung disease. 2. However bibasilar edema and/or pneumonitis or airspace disease not excluded. - Chest CT: Bilateral severe bronchopneumonia superimposed on chronic lung disease with probable reactive mediastinal lymphadenopathy. Follow-up recommended to assess resolution - risk/complicating factors: acute respiratory failure, interstitial lung disease, recent hospitalization - started on ceftriaxone and azithromycin in the ED, exchanged to cefepime and azithromycin on 11/30. No current indication for vancomycin as the patient's MRSA PCR was negative upon admission. - supportive care: Mucinex, Tylenol, DuoNebs, Tessalon Perles - sputum culture - currently requiring BiPAP for WOB, +hypoxia Still requiring high level of oxygen. Continue diuresis Chest x-ray reviewed Leukocytosis improving (4) ILD (interstitial lung disease): Code(s): J84.9 - Interstitial pulmonary disease, unspecified Status: Chronic Assessment and Plan: - worsening on imaging - pulmonology consulted, see recs above Restarted on prednisone per Pulmonary (5) Diastolic congestive heart failure, NYHA class 3: Qualifiers: Congestive heart failure chronicity: unspecified Qualified Code(s): I50.30 - Unspecified diastolic (congestive) heart failure Code(s): I50.30 - Unspecified diastolic (congestive) heart failure Status: Chronic Assessment and Plan: BNP elevated at 3540. No evidence of pulmonary edema on CXR. Reviewed chart, most recent echo in 2022 showed diastolic dysfunction, normal systolic function with an estimated EF of 60 65%, valvular disease, and mild pulmonary hypertension. - update echo - receiving IV fluids due to sepsis at slower rate, monitor toleration which will be stopped and start diuresis as tolerated - monitor I&Os - daily weights Received a dose of Lasix 40 mg x 1 11/30 started on diuresis 40 mg IV b.i.d.. With good diuresis BNP noted Currently on Lasix 40 mg IV q.d. (6) DM2 (diabetes mellitus, type 2): Code(s): E11.9 - Type 2 diabetes mellitus without complications Status: Chronic Assessment and Plan: - hypoglycemia protocol - POC blood glucose ACHS - home medication: Hold metformin in case of need for contrast. Continue Lantus 10 units HS. - correct regimen ordered - low dose TIDWM and HS, based off BMI - A1C 6.4% in 2022, update (7) Chronic anticoagulation: Code(s): Z79.01 - superintendent terminal (current) use of anticoagulants Status: Chronic Assessment and Plan: - continue Xarelto (8) Chronic hypotension: Code(s): I95.89 - Other hypotension Status: Acute Assessment and Plan: - continue home medications: Midodrine - monitor Plan Diet: Heart healthy GI Prophylaxis: N/a DVT Prophylaxis: Xarelto Lines/Tubes: Peripheral IV Code Status: Full code discussed with the patient and family and now switched to do not resuscitate Disposition still required significant amount of oxygen with exertion continue IV diuresis and IV cefepime. Recommendation for discharge to LTAC. awaiting discharge Subjective Date/time seen: 12/14/24 13:28 Interval history: Comfortable at bedside Patient is a difficult placement due to higher oxygen requirement incident response coordinator nwo working with the daughter for alternative Review of Systems Review of Systems: All systems reviewed & are unremarkable except as noted in HPI and below Exam Narrative: APPEARANCE: Ill-appearing not in acute distress HEAD: normocephalic, atraumatic. EYES: PERRLA/EOMI, conjunctivae clear. NECK: Supple. No adenopathy, no masses. RESPIRATORY: Coarse breath sounds bilaterally, no respiratory distress CARDIOVASCULAR: Regular rate and S1-S2 ABDOMINAL: Soft, nontender, nondistended, normal bowel sounds MUSCULOSKELETAL: Moves all extremities. Strength/ROM intact, trace edema, No calf tenderness. NEURO: Alert. Cranial nerves II through XII intact. SKIN: Warm, dry. Normal Color Const: General: comfortable Other: , male, elderly, ill-appearing, mild respiratory distress HENMT: Face/Nose/Sinus: Normal nares present Mouth: Yes dry mucous membranes (on BiPAP) Eyes: General: appearance normal, both eyes and all related structures Sclera: sclerae normal Pupils: Equal, round and reactive pupils present EOM: EOMs intact bilaterally Resp: Other: Tachypneic without accessory muscle use, bibasilar crackles, no wheezing. Cardio: Rate: regular rate Rhythm: regular rhythm Other: S1-S2 present without murmur, rub, ectopy GI: Other: Abdomen soft, nondistended, nontender. Normoactive bowel sounds in all quadrants. Skin: General skin exam: normal color and no rashes or lesions noted Wounds: no wounds Neuro: Cranial nerves: Yes Equal, round and reactive pupils present Speech: normal speech Motor exam (neuro): 5/5 motor strength present throughout Sensory Exam: normal sensation Other: A/Ox4 Extrem: Other: Trace pitting edema to bilateral ankles, symmetric Psych: Mental Status: mental status grossly normal Affect: normal affect Other: Good insight and judgment, pleasant Objective Data Vital Signs Vital Signs: Vital Signs - 24 hr 12/13/24 14:00 12/13/24 15:02 12/13/24 15:10 Temperature Pulse Rate 102 H 95 98 Respiratory Rate 20 20 Blood Pressure Pulse Oximetry Oxygen Delivery Oxygen Flow Rate Fraction of Inspired Oxygen 12/13/24 15:54 12/13/24 16:00 12/13/24 16:00 Temperature 97.9 F Pulse Rate 107 H 109 H 110 H Respiratory Rate 22 H Blood Pressure 111/65 Pulse Oximetry 92 98 Oxygen Delivery High Flow Nasal Cannula Oxygen Flow Rate 3 Fraction of Inspired Oxygen 12/13/24 18:00 12/13/24 20:00 12/13/24 20:00 Temperature 97.7 F Pulse Rate 102 H 90 90 Respiratory Rate 16 20 Blood Pressure 113/66 Pulse Oximetry 100 99 Oxygen Delivery High Flow Nasal Cannula Oxygen Flow Rate 3 Fraction of Inspired Oxygen 36 12/13/24 20:00 12/13/24 20:01 12/13/24 20:03 Temperature Pulse Rate 90 95 95 Respiratory Rate 20 20 Blood Pressure Pulse Oximetry 95 Oxygen Delivery High Flow Nasal Cannula Oxygen Flow Rate 44 Fraction of Inspired Oxygen 6 12/13/24 20:09 12/13/24 20:11 12/13/24 22:00 Temperature Pulse Rate 88 95 86 Respiratory Rate 20 20 Blood Pressure Pulse Oximetry 99 Oxygen Delivery High Flow Nasal Cannula Oxygen Flow Rate 3 Fraction of Inspired Oxygen 36 12/13/24 22:07 12/13/24 22:12 12/13/24 22:13 Temperature Pulse Rate 98 91 106 H Respiratory Rate 34 H 20 Blood Pressure Pulse Oximetry 97 93 94 Oxygen Delivery BiPAP High Flow Nasal Cannula Oxygen Flow Rate 3 Fraction of Inspired Oxygen 36 12/13/24 23:55 12/14/24 00:00 12/14/24 00:00 Temperature 98.0 F Pulse Rate 95 90 90 Respiratory Rate 16 16 Blood Pressure 96/58 L Pulse Oximetry 98 98 Oxygen Delivery High Flow Nasal Cannula Oxygen Flow Rate 2 Fraction of Inspired Oxygen 36 12/14/24 02:00 12/14/24 03:27 12/14/24 03:27 Temperature Pulse Rate 88 86 86 Respiratory Rate 16 Blood Pressure Pulse Oximetry 98 Oxygen Delivery High Flow Nasal Cannula Oxygen Flow Rate 3 Fraction of Inspired Oxygen 36 12/14/24 04:00 12/14/24 05:59 12/14/24 08:00 Temperature 97.9 F 97.6 F Pulse Rate 77 78 80 Respiratory Rate 14 20 Blood Pressure 118/63 109/72 Pulse Oximetry 99 95 Oxygen Delivery Oxygen Flow Rate Fraction of Inspired Oxygen 12/14/24 08:00 12/14/24 08:00 12/14/24 08:41 Temperature Pulse Rate 93 88 Respiratory Rate 20 Blood Pressure Pulse Oximetry 91 Oxygen Delivery High Flow Nasal Cannula Oxygen Flow Rate 5 Fraction of Inspired Oxygen 12/14/24 08:44 12/14/24 08:48 12/14/24 10:00 Temperature Pulse Rate 91 89 Respiratory Rate 20 Blood Pressure Pulse Oximetry 94 Oxygen Delivery High Flow Nasal Cannula Oxygen Flow Rate 3 Fraction of Inspired Oxygen 36 12/14/24 11:57 12/14/24 12:00 12/14/24 12:39 Temperature 97.6 F Pulse Rate 98 95 Respiratory Rate 28 H 20 Blood Pressure 94/58 L Pulse Oximetry 97 93 Oxygen Delivery High Flow Nasal Cannula Oxygen Flow Rate 5 Fraction of Inspired Oxygen Intake/Output Intake/Output: Intake & Output 12/11/24 12/12/24 12/13/24 12/14/24 23:59 23:59 23:59 23:59 Intake Total 1482 1660 1912 630 Output Total 1400 1725 2040 600 Balance 82 -65 -128 30 Meds/Results Medications: Active Medications Generic Name Dose Route Start Last Admin Trade Name Freq PRN Reason Stop Dose Admin Acetaminophen 650 mg 11/30/24 15:47 12/14/24 01:12 Acetaminophen 325 Mg Tablet PO 650 mg Q6H PRN Administration Mild Pain (1-3) or Fever Albuterol/Ipratropium 3 ml 12/06/24 12:00 12/14/24 12:35 Ipratropium 0.5 Mg/Albuterol Sulfate 2.5 Mg (Base) Ampul.Neb 3 Ml INHALATION 3 ml [id number] SPEEDY Administration Atorvastatin Calcium 10 mg 11/30/24 21:00 12/13/24 20:57 Atorvastatin 10 Mg Tablet PO 10 mg HS SPEEDY Administration Benzonatate 100 mg 11/30/24 15:44 Benzonatate 100 Mg Capsule PO TID PRN Cough Dextrose 12.5 gm 11/30/24 15:49 Dextrose 50% 25 Gm/50 Ml Syringe IV PUSH PRN PRN Hypoglycemia Protocol Divalproex Sodium 1,000 mg 12/01/24 08:00 12/14/24 08:48 Divalproex Sodium Er 500 Mg Tab.24h PO 1,000 mg DAILY@0800 SPEEDY Administration Divalproex Sodium 500 mg 11/30/24 21:00 12/13/24 20:58 Divalproex Sodium Er 500 Mg Tab.24h PO 500 mg HS SPEEDY Administration Furosemide 40 mg 12/10/24 09:00 12/14/24 08:48 Furosemide Inj 40 Mg/4 Ml Vial IV PUSH 40 mg DAILY SPEEDY Administration Glucagon 1 mg 11/30/24 15:49 Glucagon For Inj 1 Mg Vial IM PRN PRN Hypoglycemia Protocol Glucose 15 gm 11/30/24 15:49 Glucose Oral Gel 15 Gm Of Glucse In 37.5 Gm Tube PO PRN PRN Hypoglycemia Protocol Guaifenesin 1,200 mg 12/01/24 21:00 12/14/24 08:48 Guaifenesin 12 Hr 600 Mg Tabcr PO 1,200 mg Q12HR SPEEDY Administration Dextrose 1,000 mls @ 100 mls/hr 11/30/24 15:49 Dextrose 5% 1,000 Ml IVPB PRN PRN Hypoglycemia Protocol Cefepime HCl 2 gm/ Sodium 50 mls @ 100 mls/hr 12/10/24 16:00 12/14/24 08:48 Chloride IVPB 12/17/24 08:29 100 mls/hr Q8H SPEEDY Administration Insulin Aspart 2 - 5 units 11/30/24 17:00 12/14/24 12:37 Insulin Aspart (*Bkc) 100 Units/Ml SUB-Q 4 units TIDWM SPEEDY Administration Protocol Insulin Aspart 1 - 2 units 11/30/24 21:00 12/13/24 20:58 Insulin Aspart (*Bkc) 100 Units/Ml SUB-Q 1 units HS SPEEDY Administration Protocol Insulin Glargine 10 units 11/30/24 21:00 12/13/24 20:59 Insulin Glargine (*Bkc) 100 Units/Ml SUB-Q 10 units HS SPEEDY Administration Memantine 10 mg 11/30/24 17:00 12/14/24 08:49 Memantine 10 Mg Tablet PO 10 mg BID SPEEDY Administration Methocarbamol 750 mg 11/30/24 15:51 Methocarbamol 750 Mg Tablet PO BID PRN muscle spasm Midodrine 10 mg 11/30/24 17:00 12/14/24 12:37 Midodrine Hcl 10 Mg Tablet PO 10 mg TID SPEEDY Administration Pantoprazole Sodium 40 mg 12/01/24 09:00 12/14/24 08:48 Pantoprazole 40 Mg Tablet PO 40 mg DAILY SPEEDY Administration Polyethylene Glycol 17 gm 12/05/24 09:50 12/08/24 09:36 Polyethylene Glycol 3350 17 Gm Powd.Pack PO 17 gm QAM PRN Administration Constipation Prednisone 20 mg 12/08/24 08:00 12/14/24 08:48 Prednisone 20 Mg Tablet PO 12/15/24 10:00 20 mg DAILY@0800 SPEEDY Administration Prednisone 10 mg 12/16/24 08:00 Prednisone 10 Mg Tablet PO 12/22/24 10:00 DAILY@0800 SPEEDY Rivaroxaban 20 mg 12/06/24 17:00 12/13/24 16:13 Rivaroxaban 20 Mg Tablet PO 20 mg Q24H SPEEDY Administration Tamsulosin HCl 0.8 mg 12/01/24 09:00 12/14/24 08:48 Tamsulosin Hcl 0.4 Mg Capsule PO 0.8 mg DAILY SPEEDY Administration Vitamin D 125 mcg 12/01/24 09:00 12/14/24 08:48 Cholecalciferol (Vitamin D3) 125 Mcg (5,000 Units) Tablet PO 125 mcg DAILY SPEEDY Administration Radiology Results: ITS Impressions Chest CT 11/30/24 14:20 IMPRESSION: 1. Bilateral severe bronchopneumonia superimposed on chronic lung disease with probable reactive mediastinal lymphadenopathy. Follow-up recommended to assess resolution Modified Barium Swallow 12/07/24 11:54 IMPRESSION: Mild pharyngeal dysphagia with flash laryngeal penetration without aspiration. Please correlate with speech pathologist findings and specific feeding recommendations. Chest X-Ray 12/13/24 13:18 IMPRESSION: 1. No significant change 2. Bilateral airspace disease, left lung worse. Labs Labs: Laboratory Results - last 24 hr 12/13/24 12/13/24 12/14/24 15:29 20: 07:23 POC Capillary Glucose 342 H 222 H 140 H 12/14/24 11:34 POC Capillary Glucose 308 H Quality VTE Prophylaxis VTE prophylaxis: pharmacologic ordered
[2024-12-14] MEDS: RIVAROXABAN 20 MG TABLET PO (16:05)
--- NOTE | 2024-12-14 20:07 | PCRCNOTE ---
This RT entered room to administer updraft treatment and found patient to be on 15L of O2. Decreased to pt's norm of 3L. Pt is satting 96% Not sure why patient was on 15L
[2024-12-14] MEDS: INSULIN GLARGINE (*BKC) 100 UNITS/ML 10 UNITS SUB-Q (20:44)
[2024-12-14] MEDS: ATORVASTATIN 10 MG TABLET PO (20:54)
[2024-12-14] MEDS: DIVALPROEX SODIUM ER 500 MG TAB.24H PO (20:56)
[2024-12-15] VITALS (17 sets, daily range): BP systolic 106–130; BP diastolic 60–76; PULSE 77–102; RESP 16–24; TEMP 36.4–36.7; O2SAT 91–100
[2024-12-15] MEDS: IPRATROPIUM 0.5 MG/ALBUTEROL SULFATE 2.5 MG (BASE) AMPUL.NEB 3 ML INHALATION ×3 (08:14→20:50)
[2024-12-15] MEDS: CEFEPIME 2 GM in SODIUM CHLORIDE 0.9% IV 50 ML 100 ML IVPB ×3 (08:53→23:39)
[2024-12-15] MEDS: DIVALPROEX SODIUM ER 500 MG TAB.24H 1000 MG PO (08:54)
[2024-12-15] MEDS: guaiFENesin 12 HR 600 MG TABCR 1200 MG PO ×2 (08:54→20:38)
[2024-12-15] MEDS: PANTOPRAZOLE 40 MG TABLET PO (08:54)
[2024-12-15] MEDS: MIDODRINE HCL 10 MG TABLET PO ×3 (08:54→17:04)
[2024-12-15] MEDS: TAMSULOSIN HCL 0.4 MG CAPSULE 0.8 MG PO (08:55)
[2024-12-15] MEDS: MEMANTINE 10 MG TABLET PO ×2 (08:55→17:05)
[2024-12-15] MEDS: CHOLECALCIFEROL (VITAMIN D3) 125 MCG (5,000 UNITS) TABLET PO (08:55)
[2024-12-15] MEDS: FUROSEMIDE INJ 40 MG/4 ML VIAL IV PUSH (08:55)
--- NOTE | 2024-12-15 10:59 | PCNFU ---
Nutrition Follow-Up Complete: Increased protein energy needs for wound healing as evidenced by deep tissue pressure injury to sacrum Adequate PO intake at least 75% to support wound healing - Goal is being met. Continue with same goal Goal: Pt current nutrition is Heart healthy diet. Ensure HP BID (350 kcal, 20 g protein) and Saleem BID for wounds (90 kcal, 2.5 g protein, +arginine and glutamine). Nutrition recommendation: No new recommendations. Continue current nutrition care plan and orders. Last recorded weight is 83.3 kg. Bowel Motility: + 1 12/13 Labs Reviewed: No labs Meds Noted: Protonix, insulin, prednisone, Lasix, namenda Skin: Deep tissue pressure injury to sacrum Additional Notes: Appetite and intakes are good. Awaiting placement. Agree with current orders. Monitoring intakes, weights, labs, skin, supplement tolerance, plan of care Follow up in 5 days
[2024-12-15] MEDS: INSULIN ASPART (*BKC) 100 UNITS/ML SUB-Q ×2 (12:34→20:35)
--- NOTE | 2024-12-15 14:17 | P.PNIM_ITS ---
Progress Note: A&P Assessment and Plan (1) Acute hypoxic respiratory failure: Code(s): J96.01 - Acute respiratory failure with hypoxia Status: Acute Assessment and Plan: Patient arrived to the emergency department 96% on room air. Initial concern patient was hypoxic in the 70s prior to arrival. Patient did become hypoxic in the emergency department on 11/30, dropped to 84% on room air. Subsequently placed on BiPAP. Imaging showed bilateral severe bronchopneumonia superimposed on chronic lung disease. Initial ABG showed no significant hypoxia, hypercapnia, acidosis, or alkalosis on BiPAP. - continue BiPAP for work of breathing/respiratory distress p.r.n. - started on hospital-acquired pneumonia treatment as he was recently admitted to [facility], patient additionally met criteria for sepsis and lactic was elevated - pulmonology consulted Gentle diuresis as BNP elevated Which he is tolerating. Respiratory pathogen panel Urine antigens I LD workup as ordered by Pulmonary continue Airvo and wean as tolerated And currently on 4 L oxygen via nasal cannula Seen by Pulmonary, found to have difficulty swallowing, barium swallow was ordered which found some trace penetration. Recommendation was regular diet with thin liquids, no straws and small drinks. Prednisone taper continuing through December 22 as stated in pulmonology consultation. Per Pulmonary, patient will need discharge to LTAC given severity of lung disease. Most facilities are declining patient due to high oxygen needs digital media coordinator exploring alternatives with patient's daughter (2) Sepsis: Qualifiers: Sepsis type: sepsis due to unspecified organism Sepsis acute organ dysfunction status: with acute organ dysfunction Severe sepsis acute organ dysfunction type: acute respiratory failure Acute respiratory failure type: wi th hypoxia Severe sepsis shock status: without septic shock Qualified Code(s): A41.9 - Sepsis, unspecified organism; R65.20 - Severe sepsis without septic shock; J96.01 - Acute respiratory failure with hypoxia Code(s): A41.9 - Sepsis, unspecified organism Status: Acute Assessment and Plan: Patient met SIRS criteria: HR greater than 100, RR greater than 20, WBC greater than 12. +hypoxia, -hypotension. Initial lactic 3.6 -> 3.4. CRP 4.98 and procalcitonin 0.1. - blood cultures obtained on 11/30, follow. - trend lactic down - 30 mL/kg = 2.5, will give 2L at 200 mL/hr due to elevation in BNP/hx of d iastolic dysfunction. monitor toleration. - suspected source: HAP - started on ceftriaxone and azithromycin, exchanged to cefepime and azithromycin on 11/30 - monitor I&Os concluded azithromycin Completed cefepime for total 7 days 12/10: White blood cell count is starting to trend back up very slightly, repeating chest x-ray and obtaining UA, as well as restarting cefepime and doxycycline. Patient denies significant new complaints at this time. He does have 2 small pressure ulcers that are currently not infected and being cared for by nursing staff. Chest x-ray did show improving left-sided infiltrate with worsening right-sided infiltrate but after completion show pulmonary did agree that this could all have to do with his chronic lung disease and not necessarily indicate new pneumonia. However, patient's oxygen requirements had been worsening since discontinuation of antibiotics. 12/11: Discussed with Pulmonary, patient is on steroids which will be affecting white blood cell count, and patient has not shown active signs of sepsis such as fever, chills, increased sputum production. Oxygen requirements began to improve today, unclear if restarting antibiotics for suspected pneumonia plays a factor in this at this time. Recommendation from Pulmonary was to continue cefepime at this time but no need for doxycycline is not likely to be atypical organism given hospital setting, agree with this assessment. We will continue cefepime for up to 3 days, recommend reassess need for antibiotic at that time. (3) Pneumonia: Qualifiers: Laterality: bilateral Lung location: unspecified part of lung Pneumonia type: due to unspecified organism Qualified Code(s): J18.9 - Pneumonia, unspecified organism Code(s): J18.9 - Pneumonia, unspecified organism Status: Acute Assessment and Plan: - CXR: 1. Interval worsening of chronic interstitial lung disease. 2. However bibasilar edema and/or pneumonitis or airspace disease not excluded. - Chest CT: Bilateral severe bronchopneumonia superimposed on chronic lung disease with probable reactive mediastinal lymphadenopathy. Follow-up recommended to assess resolution - risk/complicating factors: acute respiratory failure, interstitial lung disease, recent hospitalization - started on ceftriaxone and azithromycin in the ED, exchanged to cefepime and azithromycin on 11/30. No current indication for vancomycin as the patient's MRSA PCR was negative upon admission. - supportive care: Mucinex, Tylenol, DuoNebs, Tessalon Perles - sputum culture - currently requiring BiPAP for WOB, +hypoxia Still requiring high level of oxygen. Continue diuresis Chest x-ray reviewed Leukocytosis improving (4) ILD (interstitial lung disease): Code(s): J84.9 - Interstitial pulmonary disease, unspecified Status: Chronic Assessment and Plan: - worsening on imaging - pulmonology consulted, see recs above Restarted on prednisone per Pulmonary (5) Diastolic congestive heart failure, NYHA class 3: Qualifiers: Congestive heart failure chronicity: unspecified Qualified Code(s): I50.30 - Unspecified diastolic (congestive) heart failure Code(s): I50.30 - Unspecified diastolic (congestive) heart failure Status: Chronic Assessment and Plan: BNP elevated at 3540. No evidence of pulmonary edema on CXR. Reviewed chart, most recent echo in 2022 showed diastolic dysfunction, normal systolic function with an estimated EF of 60 65%, valvular disease, and mild pulmonary hypertension. - update echo - receiving IV fluids due to sepsis at slower rate, monitor toleration which will be stopped and start diuresis as tolerated - monitor I&Os - daily weights Received a dose of Lasix 40 mg x 1 11/30 started on diuresis 40 mg IV b.i.d.. With good diuresis BNP noted Currently on Lasix 40 mg IV q.d. (6) DM2 (diabetes mellitus, type 2): Code(s): E11.9 - Type 2 diabetes mellitus without complications Status: Chronic Assessment and Plan: - hypoglycemia protocol - POC blood glucose ACHS - home medication: Hold metformin in case of need for contrast. Continue Lantus 10 units HS. 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 Recommendation for discharge to LTAC. awaiting discharge Subjective Date/time seen: 12/15/24 14:17 Interval history: Comfortable at bedside Patient is a difficult placement due to higher oxygen requirement awaiting placement Review of Systems Review of Systems: All systems reviewed & are unremarkable except as noted in HPI and below Exam Narrative: APPEARANCE: Ill-appearing not in acute distress HEAD: normocephalic, atraumatic. EYES: PERRLA/EOMI, conjunctivae clear. NECK: Supple. No adenopathy, no masses. RESPIRATORY: Coarse breath sounds bilaterally, no respiratory distress CARDIOVASCULAR: Regular rate and S1-S2 ABDOMINAL: Soft, nontender, nondistended, normal bowel sounds MUSCULOSKELETAL: Moves all extremities. Strength/ROM intact, trace edema, No calf tenderness. NEURO: Alert. Cranial nerves II through XII intact. SKIN: Warm, dry. Normal Color Const: General: comfortable Other: , male, elderly, ill-appearing, mild respiratory distress HENMT: Face/Nose/Sinus: Normal nares present Mouth: Yes dry mucous membranes (on BiPAP) Eyes: General: appearance normal, both eyes and all related structures Sclera: sclerae normal Pupils: Equal, round and reactive pupils present EOM: EOMs intact bilaterally Resp: Other: Tachypneic without accessory muscle use, bibasilar crackles, no wheezing. Cardio: Rate: regular rate Rhythm: regular rhythm Other: S1-S2 present without murmur, rub, ectopy GI: Other: Abdomen soft, nondistended, nontender. Normoactive bowel sounds in all quadrants. Skin: General skin exam: normal color and no rashes or lesions noted Wounds: no wounds Neuro: Cranial nerves: Yes Equal, round and reactive pupils present Speech: normal speech Motor exam (neuro): 5/5 motor strength present throughout Sensory Exam: normal sensation Other: A/Ox4 Extrem: Other: Trace pitting edema to bilateral ankles, symmetric Psych: Mental Status: mental status grossly normal Affect: normal affect Other: Good insight and judgment, pleasant Objective Data Vital Signs Vital Signs: Vital Signs - 24 hr 12/14/24 16:00 12/14/24 16:00 12/14/24 16:00 Temperature 97.6 F Pulse Rate 87 91 Respiratory Rate 28 H Blood Pressure 100/59 L Pulse Oximetry 99 100 Oxygen Delivery High Flow Nasal Cannula Oxygen Flow Rate 3 Fraction of Inspired Oxygen 12/14/24 16:40 12/14/24 16:44 12/14/24 18:00 Temperature Pulse Rate 90 91 112 H Respiratory Rate 20 20 Blood Pressure Pulse Oximetry Oxygen Delivery Oxygen Flow Rate Fraction of Inspired Oxygen 12/14/24 20:00 12/14/24 20:00 12/14/24 20:00 Temperature 98.2 F Pulse Rate 95 100 Respiratory Rate 16 Blood Pressure 115/50 L Pulse Oximetry 94 100 Oxygen Delivery High Flow Therapy with Na Oxygen Flow Rate 3 Fraction of Inspired Oxygen 12/14/24 20:02 12/14/24 20:06 12/14/24 20:09 Temperature Pulse Rate 93 91 Respiratory Rate 20 20 Blood Pressure Pulse Oximetry 100 Oxygen Delivery High Flow Nasal Cannula Oxygen Flow Rate 15 Fraction of Inspired Oxygen 12/14/24 22:00 12/14/24 23:25 12/15/24 00:00 Temperature 97.7 F Pulse Rate 86 84 Respiratory Rate 18 Blood Pressure 104/72 Pulse Oximetry 98 98 Oxygen Delivery High Flow Therapy with Na Oxygen Flow Rate 3 Fraction of Inspired Oxygen 12/15/24 00:00 12/15/24 02:00 12/15/24 04:00 Temperature Pulse Rate 85 83 Respiratory Rate Blood Pressure Pulse Oximetry 99 Oxygen Delivery High Flow Therapy with Na Oxygen Flow Rate 3 Fraction of Inspired Oxygen 12/15/24 04:00 12/15/24 04:00 12/15/24 06:00 Temperature 98.0 F Pulse Rate 85 86 77 Respiratory Rate 16 Blood Pressure 111/71 Pulse Oximetry 99 Oxygen Delivery Oxygen Flow Rate Fraction of Inspired Oxygen 12/15/24 08:00 12/15/24 08:00 12/15/24 08:00 Temperature 97.7 F Pulse Rate 86 89 92 Respiratory Rate 20 16 Blood Pressure 130/76 Pulse Oximetry 97 91 Oxygen Delivery High Flow Nasal Cannula Oxygen Flow Rate 3 Fraction of Inspired Oxygen 36 12/15/24 08:14 12/15/24 08:14 12/15/24 08:20 Temperature Pulse Rate 98 89 Respiratory Rate 16 16 Blood Pressure Pulse Oximetry 91 Oxygen Delivery High Flow Nasal Cannula Oxygen Flow Rate 3 Fraction of Inspired Oxygen 12/15/24 10:00 12/15/24 11:02 12/15/24 11:09 Temperature Pulse Rate 98 101 H 87 Respiratory Rate 20 20 Blood Pressure Pulse Oximetry Oxygen Delivery Oxygen Flow Rate Fraction of Inspired Oxygen 12/15/24 12:00 12/15/24 12:00 12/15/24 12:00 Temperature 98 F Pulse Rate 102 H 94 102 H Respiratory Rate 20 20 Blood Pressure 121/62 Pulse Oximetry 98 98 Oxygen Delivery High Flow Nasal Cannula Oxygen Flow Rate 3 Fraction of Inspired Oxygen 36 Intake/Output Intake/Output: Intake & Output 12/12/24 12/13/24 12/14/24 12/15/24 23:59 23:59 23:59 23:59 Intake Total 1660 1912 1730 360 Output Total 1725 2040 2350 700 [facility] -65 -128 -620 -340 Meds/Results Medications: Active Medications Generic Name Dose Route Start Last Admin Trade Name Freq PRN Reason Stop Dose Admin Acetaminophen 650 mg 11/30/24 15:47 12/14/24 01:12 Acetaminophen 325 Mg Tablet PO 650 mg Q6H PRN Administration Mild Pain (1-3) or Fever Albuterol/Ipratropium 3 ml 12/06/24 12:00 12/15/24 11:02 Ipratropium 0.5 Mg/Albuterol Sulfate 2.5 Mg (Base) Ampul.Neb 3 Ml INHALATION 3 ml [id number] SPEEDY Administration Atorvastatin Calcium 10 mg 11/30/24 21:00 12/14/24 20:54 Atorvastatin 10 Mg Tablet PO 10 mg HS SPEEDY Administration Benzonatate 100 mg 11/30/24 15:44 Benzonatate 100 Mg Capsule PO TID PRN Cough Dextrose 12.5 gm 11/30/24 15:49 Dextrose 50% 25 Gm/50 Ml Syringe IV PUSH PRN PRN Hypoglycemia Protocol Divalproex Sodium 1,000 mg 12/01/24 08:00 12/15/24 08:54 Divalproex Sodium Er 500 Mg Tab.24h PO 1,000 mg DAILY@0800 SPEEDY Administration Divalproex Sodium 500 mg 11/30/24 21:00 12/14/24 20:56 Divalproex Sodium Er 500 Mg Tab.24h PO 500 mg HS SPEEDY Administration Furosemide 40 mg 12/10/24 09:00 12/15/24 08:55 Furosemide Inj 40 Mg/4 Ml Vial IV PUSH 40 mg DAILY SPEEDY Administration Glucagon 1 mg 11/30/24 15:49 Glucagon For Inj 1 Mg Vial IM PRN PRN Hypoglycemia Protocol Glucose 15 gm 11/30/24 15:49 Glucose Oral Gel 15 Gm Of Glucse In 37.5 Gm Tube PO PRN PRN Hypoglycemia Protocol Guaifenesin 1,200 mg 12/01/24 21:00 12/15/24 08:54 Guaifenesin 12 Hr 600 Mg Tabcr PO 1,200 mg Q12HR SPEEDY Administration Dextrose 1,000 mls @ 100 mls/hr 11/30/24 15:49 Dextrose 5% 1,000 Ml IVPB PRN PRN Hypoglycemia Protocol Cefepime HCl 2 gm/ Sodium 50 mls @ 100 mls/hr 12/10/24 16:00 12/15/24 08:53 Chloride IVPB 12/17/24 08:29 100 mls/hr Q8H SPEEDY Administration Insulin Aspart 2 - 5 units 11/30/24 17:00 12/15/24 12:34 Insulin Aspart (*Bkc) 100 Units/Ml SUB-Q 3 units TIDWM SPEEDY Administration Protocol Insulin Aspart 1 - 2 units 11/30/24 21:00 12/14/24 20:45 Insulin Aspart (*Bkc) 100 Units/Ml SUB-Q 1 units HS SPEEDY Administration Protocol Insulin Glargine 10 units 11/30/24 21:00 12/14/24 20:44 Insulin Glargine (*Bkc) 100 Units/Ml SUB-Q 10 units HS SPEEDY Administration Memantine 10 mg 11/30/24 17:00 12/15/24 08:55 Memantine 10 Mg Tablet PO 10 mg BID SPEEDY Administration Methocarbamol 750 mg 11/30/24 15:51 Methocarbamol 750 Mg Tablet PO BID PRN muscle spasm Midodrine 10 mg 11/30/24 17:00 12/15/24 12:36 Midodrine Hcl 10 Mg Tablet PO 10 mg TID SPEEDY Administration Pantoprazole Sodium 40 mg 12/01/24 09:00 12/15/24 08:54 Pantoprazole 40 Mg Tablet PO 40 mg DAILY SPEEDY Administration Polyethylene Glycol 17 gm 12/05/24 09:50 12/08/24 09:36 Polyethylene Glycol 3350 17 Gm Powd.Pack PO 17 gm QAM PRN Administration Constipation Prednisone 10 mg 12/16/24 08:00 Prednisone 10 Mg Tablet PO 12/22/24 10:00 DAILY@0800 SPEEDY Rivaroxaban 20 mg 12/06/24 17:00 12/14/24 16:05 Rivaroxaban 20 Mg Tablet PO 20 mg Q24H SPEEDY Administration Tamsulosin HCl 0.8 mg 12/01/24 09:00 12/15/24 08:55 Tamsulosin Hcl 0.4 Mg Capsule PO 0.8 mg DAILY SPEEDY Administration Vitamin D 125 mcg 12/01/24 09:00 12/15/24 08:55 Cholecalciferol (Vitamin D3) 125 Mcg (5,000 Units) Tablet PO 125 mcg DAILY SPEEDY Administration Radiology Results: ITS Impressions Chest CT 11/30/24 14:20 IMPRESSION: 1. Bilateral severe bronchopneumonia superimposed on chronic lung disease with probable reactive mediastinal lymphadenopathy. Follow-up recommended to assess resolution Modified Barium Swallow 12/07/24 11:54 IMPRESSION: Mild pharyngeal dysphagia with flash laryngeal penetration without aspiration. Please correlate with speech pathologist findings and specific feeding recommendations. Chest X-Ray 12/13/24 13:18 IMPRESSION: 1. No significant change 2. Bilateral airspace disease, left lung worse. Labs Labs: Laboratory Results - last 24 hr 12/14/24 12/14/24 12/15/24 15:59 20:21 07:36 POC Capillary Glucose 192 H 295 H 101 Quality VTE Prophylaxis VTE prophylaxis: pharmacologic ordered
[2024-12-15] MEDS: RIVAROXABAN 20 MG TABLET PO (17:04)
[2024-12-15] MEDS: INSULIN GLARGINE (*BKC) 100 UNITS/ML 10 UNITS SUB-Q (20:36)
[2024-12-15] MEDS: DIVALPROEX SODIUM ER 500 MG TAB.24H PO (20:38)
[2024-12-15] MEDS: ATORVASTATIN 10 MG TABLET PO (20:38)
[2024-12-16] VITALS (23 sets, daily range): BP systolic 106–114; BP diastolic 60–70; PULSE 82–110; RESP 16–24; TEMP 36.4–36.6; O2SAT 93–100
[2024-12-16] MEDS: IPRATROPIUM 0.5 MG/ALBUTEROL SULFATE 2.5 MG (BASE) AMPUL.NEB 3 ML INHALATION ×4 (08:09→21:07)
[2024-12-16] MEDS: TAMSULOSIN HCL 0.4 MG CAPSULE 0.8 MG PO (10:11)
[2024-12-16] MEDS: MIDODRINE HCL 10 MG TABLET PO ×3 (10:11→17:21)
[2024-12-16] MEDS: guaiFENesin 12 HR 600 MG TABCR 1200 MG PO ×2 (10:13→20:23)
[2024-12-16] MEDS: MEMANTINE 10 MG TABLET PO ×2 (10:13→17:21)
[2024-12-16] MEDS: PANTOPRAZOLE 40 MG TABLET PO (10:13)
[2024-12-16] MEDS: CHOLECALCIFEROL (VITAMIN D3) 125 MCG (5,000 UNITS) TABLET PO (10:13)
[2024-12-16] MEDS: DIVALPROEX SODIUM ER 500 MG TAB.24H 1000 MG PO (10:13)
[2024-12-16] MEDS: CEFEPIME 2 GM in SODIUM CHLORIDE 0.9% IV 50 ML 100 ML IVPB ×3 (10:14→23:39)
[2024-12-16] MEDS: FUROSEMIDE INJ 40 MG/4 ML VIAL IV PUSH (10:14)
[2024-12-16] MEDS: INSULIN ASPART (*BKC) 100 UNITS/ML SUB-Q ×2 (12:27→20:29)
[2024-12-16] MEDS: RIVAROXABAN 20 MG TABLET PO (17:21)
--- NOTE | 2024-12-16 17:24 | P.PNIM_ITS ---
Progress Note: A&P Assessment and Plan (1) Acute hypoxic respiratory failure: Code(s): J96.01 - Acute respiratory failure with hypoxia Status: Acute Assessment and Plan: Patient arrived to the emergency department 96% on room air. Initial concern patient was hypoxic in the 70s prior to arrival. Patient did become hypoxic in the emergency department on 11/30, dropped to 84% on room air. Subsequently placed on BiPAP. Imaging showed bilateral severe bronchopneumonia superimposed on chronic lung disease. Initial ABG showed no significant hypoxia, hypercapnia, acidosis, or alkalosis on BiPAP. - continue BiPAP for work of breathing/respiratory distress p.r.n. - started on hospital-acquired pneumonia treatment as he was recently admitted to [facility], patient additionally met criteria for sepsis and lactic was elevated - pulmonology consulted Gentle diuresis as BNP elevated Which he is tolerating. Respiratory pathogen panel Urine antigens I LD workup as ordered by Pulmonary continue Airvo and wean as tolerated And currently on 4 L oxygen via nasal cannula Seen by Pulmonary, found to have difficulty swallowing, barium swallow was ordered which found some trace penetration. Recommendation was regular diet with thin liquids, no straws and small drinks. Prednisone taper continuing through December 22 as stated in pulmonology consultation. Per Pulmonary, patient will need discharge to LTAC given severity of lung disease. Most facilities are declining patient due to high oxygen needs destination imagination coordinator exploring alternatives with patient's daughter (2) Sepsis: Qualifiers: Sepsis type: sepsis due to unspecified organism Sepsis acute organ dysfunction status: with acute organ dysfunction Severe sepsis acute organ dysfunction type: acute respiratory failure Acute respiratory failure type: wi th hypoxia Severe sepsis shock status: without septic shock Qualified Code(s): A41.9 - Sepsis, unspecified organism; R65.20 - Severe sepsis without septic shock; J96.01 - Acute respiratory failure with hypoxia Code(s): A41.9 - Sepsis, unspecified organism Status: Acute Assessment and Plan: Patient met SIRS criteria: HR greater than 100, RR greater than 20, WBC greater than 12. +hypoxia, -hypotension. Initial lactic 3.6 -> 3.4. CRP 4.98 and procalcitonin 0.1. - blood cultures obtained on 11/30, follow. - trend lactic down - 30 mL/kg = 2.5, will give 2L at 200 mL/hr due to elevation in BNP/hx of d iastolic dysfunction. monitor toleration. - suspected source: HAP - started on ceftriaxone and azithromycin, exchanged to cefepime and azithromycin on 11/30 - monitor I&Os concluded azithromycin Completed cefepime for total 7 days 12/10: White blood cell count is starting to trend back up very slightly, repeating chest x-ray and obtaining UA, as well as restarting cefepime and doxycycline. Patient denies significant new complaints at this time. He does have 2 small pressure ulcers that are currently not infected and being cared for by nursing staff. Chest x-ray did show improving left-sided infiltrate with worsening right-sided infiltrate but after completion show pulmonary did agree that this could all have to do with his chronic lung disease and not necessarily indicate new pneumonia. However, patient's oxygen requirements had been worsening since discontinuation of antibiotics. 12/11: Discussed with Pulmonary, patient is on steroids which will be affecting white blood cell count, and patient has not shown active signs of sepsis such as fever, chills, increased sputum production. Oxygen requirements began to improve today, unclear if restarting antibiotics for suspected pneumonia plays a factor in this at this time. Recommendation from Pulmonary was to continue cefepime at this time but no need for doxycycline is not likely to be atypical organism given hospital setting, agree with this assessment. We will continue cefepime for up to 3 days, recommend reassess need for antibiotic at that time. (3) Pneumonia: Qualifiers: Laterality: bilateral Lung location: unspecified part of lung Pneumonia type: due to unspecified organism Qualified Code(s): J18.9 - Pneumonia, unspecified organism Code(s): J18.9 - Pneumonia, unspecified organism Status: Acute Assessment and Plan: - CXR: 1. Interval worsening of chronic interstitial lung disease. 2. However bibasilar edema and/or pneumonitis or airspace disease not excluded. - Chest CT: Bilateral severe bronchopneumonia superimposed on chronic lung disease with probable reactive mediastinal lymphadenopathy. Follow-up recommended to assess resolution - risk/complicating factors: acute respiratory failure, interstitial lung disease, recent hospitalization - started on ceftriaxone and azithromycin in the ED, exchanged to cefepime and azithromycin on 11/30. No current indication for vancomycin as the patient's MRSA PCR was negative upon admission. - supportive care: Mucinex, Tylenol, DuoNebs, Tessalon Perles - sputum culture - currently requiring BiPAP for WOB, +hypoxia Still requiring high level of oxygen. Continue diuresis Chest x-ray reviewed Leukocytosis improving (4) ILD (interstitial lung disease): Code(s): J84.9 - Interstitial pulmonary disease, unspecified Status: Chronic Assessment and Plan: - worsening on imaging - pulmonology consulted, see recs above Restarted on prednisone per Pulmonary (5) Diastolic congestive heart failure, NYHA class 3: Qualifiers: Congestive heart failure chronicity: unspecified Qualified Code(s): I50.30 - Unspecified diastolic (congestive) heart failure Code(s): I50.30 - Unspecified diastolic (congestive) heart failure Status: Chronic Assessment and Plan: BNP elevated at 3540. No evidence of pulmonary edema on CXR. Reviewed chart, most recent echo in 2022 showed diastolic dysfunction, normal systolic function with an estimated EF of 60 65%, valvular disease, and mild pulmonary hypertension. - update echo - receiving IV fluids due to sepsis at slower rate, monitor toleration which will be stopped and start diuresis as tolerated - monitor I&Os - daily weights Received a dose of Lasix 40 mg x 1 11/30 started on diuresis 40 mg IV b.i.d.. With good diuresis BNP noted Currently on Lasix 40 mg IV q.d. (6) DM2 (diabetes mellitus, type 2): Code(s): E11.9 - Type 2 diabetes mellitus without complications Status: Chronic Assessment and Plan: - hypoglycemia protocol - POC blood glucose ACHS - home medication: Hold metformin in case of need for contrast. Continue Lantus 10 units HS. - correct regimen ordered - low dose TIDWM and HS, based off BMI - A1C 6.4% in 2022, update (7) Chronic anticoagulation: Code(s): Z79.01 - equipment [employer] (current) use of anticoagulants Status: Chronic Assessment and Plan: - continue Xarelto (8) Chronic hypotension: Code(s): I95.89 - Other hypotension Status: Acute Assessment and Plan: - continue home medications: Midodrine - monitor Plan Diet: Heart healthy GI Prophylaxis: N/a DVT Prophylaxis: Xarelto Lines/Tubes: Peripheral IV Code Status: Full code discussed with the patient and family and now switched to do not resuscitate Disposition still required significant amount of oxygen with exertion continue IV diuresis and IV cefepime. Recommendation for discharge to LTAC. awaiting discharge Subjective Date/time seen: 12/16/24 17:24 Interval history: Comfortable at bedside Patient is a difficult placement due to higher oxygen requirement awaiting placement Review of Systems Review of Systems: All systems reviewed & are unremarkable except as noted in HPI and below Exam Narrative: APPEARANCE: Ill-appearing not in acute distress HEAD: normocephalic, atraumatic. EYES: PERRLA/EOMI, conjunctivae clear. NECK: Supple. No adenopathy, no masses. RESPIRATORY: Coarse breath sounds bilaterally, no respiratory distress CARDIOVASCULAR: Regular rate and S1-S2 ABDOMINAL: Soft, nontender, nondistended, normal bowel sounds MUSCULOSKELETAL: Moves all extremities. Strength/ROM intact, trace edema, No calf tenderness. NEURO: Alert. Cranial nerves II through XII intact. SKIN: Warm, dry. Normal Color Const: General: comfortable Other: , male, elderly, ill-appearing, mild respiratory distress HENMT: Face/Nose/Sinus: Normal nares present Mouth: Yes dry mucous membranes (on BiPAP) Eyes: General: appearance normal, both eyes and all related structures Sclera: sclerae normal Pupils: Equal, round and reactive pupils present EOM: EOMs intact bilaterally Resp: Other: Tachypneic without accessory muscle use, bibasilar crackles, no wheezing. Cardio: Rate: regular rate Rhythm: regular rhythm Other: S1-S2 present without murmur, rub, ectopy GI: Other: Abdomen soft, nondistended, nontender. Normoactive bowel sounds in all quadrants. Skin: General skin exam: normal color and no rashes or lesions noted Wounds: no wounds Neuro: Cranial nerves: Yes Equal, round and reactive pupils present Speech: normal speech Motor exam (neuro): 5/5 motor strength present throughout Sensory Exam: normal sensation Other: A/Ox4 Extrem: Other: Trace pitting edema to bilateral ankles, symmetric Psych: Mental Status: mental status grossly normal Affect: normal affect Other: Good insight and judgment, pleasant Objective Data Vital Signs Vital Signs: Vital Signs - 24 hr 12/15/24 19:47 12/15/24 20:00 12/15/24 20:00 Temperature 97.6 F Pulse Rate 92 90 Respiratory Rate 17 Blood Pressure 116/72 Pulse Oximetry 100 98 Oxygen Delivery High Flow Therapy with Na Oxygen Flow Rate 3 10/17/25 20:50 12/15/24 21:00 12/15/24 22:00 Temperature Pulse Rate 93 92 93 Respiratory Rate 18 18 Blood Pressure Pulse Oximetry Oxygen Delivery Oxygen Flow Rate 12/16/24 00:00 12/16/24 00:00 12/16/24 00:00 Temperature 97.8 F Pulse Rate 86 84 Respiratory Rate 17 Blood Pressure 106/60 Pulse Oximetry 98 98 Oxygen Delivery High Flow Therapy with Na Oxygen Flow Rate 3 12/16/24 02:00 12/16/24 04:00 12/16/24 04:00 Temperature Pulse Rate 86 84 Respiratory Rate Blood Pressure Pulse Oximetry 95 Oxygen Delivery High Flow Therapy with Na Oxygen Flow Rate 3 12/16/24 04:00 12/16/24 06:00 12/16/24 08:00 Temperature 97.5 F L Pulse Rate 89 82 Respiratory Rate 18 Blood Pressure 114/70 Pulse Oximetry 95 95 Oxygen Delivery Nasal Cannula Oxygen Flow Rate 3 12/16/24 08:00 12/16/24 08:01 12/16/24 08:10 Temperature 97.5 F L Pulse Rate 104 H 110 H 102 H Respiratory Rate 16 20 Blood Pressure 107/66 Pulse Oximetry 93 Oxygen Delivery Oxygen Flow Rate 12/16/24 08:16 12/16/24 10:00 12/16/24 12:00 Temperature Pulse Rate 100 97 Respiratory Rate 20 Blood Pressure Pulse Oximetry 96 Oxygen Delivery Nasal Cannula Oxygen Flow Rate 3 12/16/24 12:00 12/16/24 12:07 12/16/24 12:12 Temperature Pulse Rate 91 94 97 Respiratory Rate 20 20 Blood Pressure Pulse Oximetry Oxygen Delivery Oxygen Flow Rate 12/16/24 12:32 12/16/24 14:00 12/16/24 16:46 Temperature 97.7 F 97.6 F Pulse Rate 98 94 89 Respiratory Rate 20 20 Blood Pressure 113/67 107/65 Pulse Oximetry 99 100 Oxygen Delivery Oxygen Flow Rate Intake/Output Intake/Output: Intake & Output 12/13/24 12/14/24 12/15/24 12/16/24 23:59 23:59 23:59 23:59 Intake Total 1912 1304 289 7783 Output Total 0 2350 1700 2200 Balance -128 -620 -800 -570 Meds/Results Medications: Active Medications Generic Name Dose Route Start Last Admin Trade Name Zoila PRN Reason Stop Dose Admin Acetaminophen 650 mg 11/30/24 15:47 12/14/24 01:12 Acetaminophen 325 Mg Tablet PO 650 mg Q6H PRN Administration Mild Pain (1-3) or Fever Albuterol/Ipratropium 3 ml 12/06/24 12:00 12/16/24 16:42 Ipratropium 0.5 Mg/Albuterol Sulfate 2.5 Mg (Base) Ampul.Neb 3 Ml INHALATION 3 ml [id number] SPEEDY Administration Atorvastatin Calcium 10 mg 11/30/24 21:00 12/15/24 20:38 Atorvastatin 10 Mg Tablet PO 10 mg HS SPEEDY Administration Benzonatate 100 mg 11/30/24 15:44 Benzonatate 100 Mg Capsule PO TID PRN Cough Dextrose 12.5 gm 11/30/24 15:49 Dextrose 50% 25 Gm/50 Ml Syringe IV PUSH PRN PRN Hypoglycemia Protocol Divalproex Sodium 1,000 mg 12/01/24 08:00 12/16/24 10:13 Divalproex Sodium Er 500 Mg Tab.24h PO 1,000 mg DAILY@0800 SPEEDY Administration Divalproex Sodium 500 mg 11/30/24 21:00 12/15/24 20:38 Divalproex Sodium Er 500 Mg Tab.24h PO 500 mg HS SPEEDY Administration Furosemide 40 mg 12/10/24 09:00 12/16/24 10:14 Furosemide Inj 40 Mg/4 Ml Vial IV PUSH 40 mg DAILY SPEEDY Administration Glucagon 1 mg 11/30/24 15:49 Glucagon For Inj 1 Mg Vial IM PRN PRN Hypoglycemia Protocol Glucose 15 gm 11/30/24 15:49 Glucose Oral Gel 15 Gm Of Glucse In 37.5 Gm Tube PO PRN PRN Hypoglycemia Protocol Guaifenesin 1,200 mg 12/01/24 21:00 12/16/24 10:13 Guaifenesin 12 Hr 600 Mg Tabcr PO 1,200 mg Q12HR SPEEDY Administration Dextrose 1,000 mls @ 100 mls/hr 11/30/24 15:49 Dextrose 5% 1,000 Ml IVPB PRN PRN Hypoglycemia Protocol Cefepime HCl 2 gm/ Sodium 50 mls @ 100 mls/hr 12/10/24 16:00 12/16/24 12:25 Chloride IVPB 12/17/24 08:29 Infused Q8H SPEEDY Infusion Insulin Aspart 2 - 5 units 11/30/24 17:00 12/16/24 12:27 Insulin Aspart (*Bkc) 100 Units/Ml SUB-Q 3 units TIDWM SPEEDY Administration Protocol Insulin Aspart 1 - 2 units 11/30/24 21:00 12/15/24 20:35 Insulin Aspart (*Bkc) 100 Units/Ml SUB-Q 1 units HS SPEEDY Administration Protocol Insulin Glargine 10 units 11/30/24 21:00 12/15/24 20:36 Insulin Glargine (*Bkc) 100 Units/Ml SUB-Q 10 units HS SPEEDY Administration Memantine 10 mg 11/30/24 17:00 12/16/24 10:13 Memantine 10 Mg Tablet PO 10 mg BID SPEEDY Administration Methocarbamol 750 mg 11/30/24 15:51 12/16/24 10:12 Methocarbamol 750 Mg Tablet PO 750 mg BID PRN Administration muscle spasm Midodrine 10 mg 11/30/24 17:00 12/16/24 12:27 Midodrine Hcl 10 Mg Tablet PO 10 mg TID SPEEDY Administration Pantoprazole Sodium 40 mg 12/01/24 09:00 12/16/24 10:13 Pantoprazole 40 Mg Tablet PO 40 mg DAILY SPEEDY Administration Polyethylene Glycol 17 gm 12/05/24 09:50 12/08/24 09:36 Polyethylene Glycol 3350 17 Gm Powd.Pack PO 17 gm QAM PRN Administration Constipation Prednisone 10 mg 12/16/24 08:00 12/16/24 10:12 Prednisone 10 Mg Tablet PO 12/22/24 10:00 10 mg DAILY@0800 SPEEDY Administration Rivaroxaban 20 mg 12/06/24 17:00 12/15/24 17:04 Rivaroxaban 20 Mg Tablet PO 20 mg Q24H SPEEDY Administration Tamsulosin HCl 0.8 mg 12/01/24 09:00 12/16/24 10:11 Tamsulosin Hcl 0.4 Mg Capsule PO 0.8 mg DAILY SPEEDY Administration Vitamin D 125 mcg 12/01/24 09:00 12/16/24 10:13 Cholecalciferol (Vitamin D3) 125 Mcg (5,000 Units) Tablet PO 125 mcg DAILY SPEEDY Administration Radiology Results: ITS Impressions Chest CT 11/30/24 14:20 IMPRESSION: 1. Bilateral severe bronchopneumonia superimposed on chronic lung disease with probable reactive mediastinal lymphadenopathy. Follow-up recommended to assess resolution Modified Barium Swallow 12/07/24 11:54 IMPRESSION: Mild pharyngeal dysphagia with flash laryngeal penetration without aspiration. Please correlate with speech pathologist findings and specific feeding recommendations. Chest X-Ray 12/13/24 13:18 IMPRESSION: 1. No significant change 2. Bilateral airspace disease, left lung worse. Labs Labs: Laboratory Results - last 24 hr 12/15/24 12/16/24 12/16/24 19:54 06:53 12:09 POC Capillary Glucose 286 H 100 300 H 12/16/24 16:53 POC Capillary Glucose 161 H Quality VTE Prophylaxis VTE prophylaxis: pharmacologic ordered
--- NOTE | 2024-12-16 17:24 | PC.NURSE ---
On 12/16/24, the student, [Pricilla Sauceda ], provided care and completed [facility] documentation on this patient. I have reviewed the student's documentation and agree with the findings.
[2024-12-16] MEDS: ATORVASTATIN 10 MG TABLET PO (20:23)
[2024-12-16] MEDS: DIVALPROEX SODIUM ER 500 MG TAB.24H PO (20:23)
[2024-12-16] MEDS: INSULIN GLARGINE (*BKC) 100 UNITS/ML 10 UNITS SUB-Q (20:28)
[2024-12-17] VITALS (24 sets, daily range): BP systolic 104–126; BP diastolic 57–78; PULSE 86–115; RESP 16–24; TEMP 36.4–36.7; O2SAT 93–100
[2024-12-17] MEDS: IPRATROPIUM 0.5 MG/ALBUTEROL SULFATE 2.5 MG (BASE) AMPUL.NEB 3 ML INHALATION ×4 (07:19→20:30)
[2024-12-17 08:41] LABS: Hematocrit 37.1 % (42.0-52.0); Hemoglobin 11.7 g/dL (14.0-18.0); Mean Corpuscular HGB Conc 31.5 g/dl (32-36); Mean Corpuscular Hemoglobin 33.6 pg (26-34); Mean Corpuscular Volume 106.6 fl (80-100); Platelet Count Result 146 k/mm3 (150-375); Red Blood Count 3.48 M/mm3 (4.6-6.20); White Blood Count 14.3 K/mm3 (4.5-10.0)
[2024-12-17] MEDS: TAMSULOSIN HCL 0.4 MG CAPSULE 0.8 MG PO (08:48)
[2024-12-17] MEDS: CHOLECALCIFEROL (VITAMIN D3) 125 MCG (5,000 UNITS) TABLET PO (08:48)
[2024-12-17] MEDS: PANTOPRAZOLE 40 MG TABLET PO (08:48)
[2024-12-17] MEDS: MEMANTINE 10 MG TABLET PO ×2 (08:48→17:29)
[2024-12-17] MEDS: DIVALPROEX SODIUM ER 500 MG TAB.24H 1000 MG PO (08:48)
[2024-12-17] MEDS: MIDODRINE HCL 10 MG TABLET PO ×3 (08:48→17:29)
[2024-12-17] MEDS: FUROSEMIDE INJ 40 MG/4 ML VIAL IV PUSH (08:49)
[2024-12-17 09:01] LABS: Alanine Aminotransferase 17 U/L (6-50); Albumin Level 3.1 g/dL (3.5-5.1); Alkaline Phosphatase 56 U/L (38-126); Anion Gap 4 mmol/L (4-12); Aspartate Amino Transferase 31 U/L (17-59); Bilirubin,Total 0.7 mg/dL (0.2-1.3); Blood Urea Nitrogen 38 mg/dL (9-20); Calcium 8.6 mg/dL (8.4-10.2); Carbon Dioxide 32 mmol/L (22-30); Chloride 97 mmol/L (98-107); Estimated CRCL calculation 94 ml/min; Estimated Glomerular Filt Rate > 60; Glucose 92 mg/dL (65-110); Magnesium 2.2 mg/dL (1.6-2.3); Potassium 4.3 mmol/L (3.4-5.0); Sodium 133 mmol/L (137-145); Total Protein 6.4 g/dL (6.3-8.2)
[2024-12-17] MEDS: CEFEPIME 2 GM in SODIUM CHLORIDE 0.9% IV 50 ML 100 ML IVPB (09:12)
[2024-12-17] MEDS: INSULIN ASPART (*BKC) 100 UNITS/ML SUB-Q ×3 (12:34→21:39)
--- NOTE | 2024-12-17 12:43 | PM.IMPN ---
Progress Note: A&P Assessment and Plan (1) Acute hypoxic respiratory failure: Code(s): J96.01 - Acute respiratory failure with hypoxia Status: Acute Assessment and Plan: Patient arrived to the emergency department 96% on room air. Initial concern patient was hypoxic in the 70s prior to arrival. Patient did become hypoxic in the emergency department on 11/30, dropped to 84% on room air. Subsequently placed on BiPAP. Imaging showed bilateral severe bronchopneumonia superimposed on chronic lung disease. Initial ABG showed no significant hypoxia, hypercapnia, acidosis, or alkalosis on BiPAP. - continue BiPAP for work of breathing/respiratory distress p.r.n. - started on hospital-acquired pneumonia treatment as he was recently admitted to [facility], patient additionally met criteria for sepsis and lactic was elevated - pulmonology consulted Gentle diuresis as BNP elevated Which he is tolerating. Respiratory pathogen panel Urine antigens I LD workup as ordered by Pulmonary continue Airvo and wean as tolerated And currently on 4 L oxygen via nasal cannula Seen by Pulmonary, found to have difficulty swallowing, barium swallow was ordered which found some trace penetration. Recommendation was regular diet with thin liquids, no straws and small drinks. Prednisone taper continuing through December 22 as stated in pulmonology consultation. Per Pulmonary, patient will need discharge to LTAC given severity of lung disease. 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 (2) Sepsis: Qualifiers: Sepsis type: sepsis due to unspecified organism Sepsis acute organ dysfunction status: with acute organ dysfunction Severe sepsis acute organ dysfunction type: acute respiratory failure Acute respiratory failure type: with hypoxia Severe sepsis shock status: without septic shock Qualified Code(s): A41.9 - Sepsis, unspecified organism; R65.20 - Severe sepsis without septic shock; J96.01 - Acute respiratory failure with hypoxia Code(s): A41.9 - Sepsis, unspecified organism Status: Acute Assessment and Plan: Patient met SIRS criteria: HR greater than 100, RR greater than 20, WBC greater than 12. +hypoxia, -hypotension. Initial lactic 3.6 -> 3.4. CRP 4.98 and procalcitonin 0.1. - blood cultures obtained on 11/30, follow. - trend lactic down - 30 mL/kg = 2.5, will give 2L at 200 mL/hr due to elevation in BNP/hx of diastolic dysfunction. monitor toleration. - suspected source: HAP - started on ceftriaxone and azithromycin, exchanged to cefepime and azithromycin on 11/30 - monitor I&Os concluded azithromycin Completed cefepime for total 7 days 12/10: White blood cell count is starting to trend back up very slightly, repeating chest x-ray and obtaining UA, as well as restarting cefepime and doxycycline. Patient denies significant new complaints at this time. He does have 2 small pressure ulcers that are currently not infected and being cared for by nursing staff. Chest x-ray did show improving left-sided infiltrate with worsening right-sided infiltrate but after completion show pulmonary did agree that this could all have to do with his chronic lung disease and not necessarily indicate new pneumonia. However, patient's oxygen requirements had been worsening since discontinuation of antibiotics. 12/11: Discussed with Pulmonary, patient is on steroids which will be affecting white blood cell count, and patient has not shown active signs of sepsis such as fever, chills, increased sputum production. Oxygen requirements began to improve today, unclear if restarting antibiotics for suspected pneumonia plays a factor in this at this time. Recommendation from Pulmonary was to continue cefepime at this time but no need for doxycycline is not likely to be atypical organism given hospital setting, agree with this assessment. We will continue cefepime for up to 3 days, recommend reassess need for antibiotic at that time. (3) Pneumonia: Qualifiers: Laterality: bilateral Lung location: unspecified part of lung Pneumonia type: due to unspecified organism Qualified Code(s): J18.9 - Pneumonia, unspecified organism Code(s): J18.9 - Pneumonia, unspecified organism Status: Acute Assessment and Plan: - CXR: 1. Interval worsening of chronic interstitial lung disease. 2. However bibasilar edema and/or pneumonitis or airspace disease not excluded. - Chest CT: Bilateral severe bronchopneumonia superimposed on chronic lung disease with probable reactive mediastinal lymphadenopathy. Follow-up recommended to assess resolution - risk/complicating factors: acute respiratory failure, interstitial lung disease, recent hospitalization - started on ceftriaxone and azithromycin in the ED, exchanged to cefepime and azithromycin on 11/30. No current indication for vancomycin as the patient's MRSA PCR was negative upon admission. - supportive care: Mucinex, Tylenol, DuoNebs, Tessalon Perles - sputum culture - currently requiring BiPAP for WOB, +hypoxia Still requiring high level of oxygen. Continue diuresis Chest x-ray reviewed Leukocytosis improving (4) ILD (interstitial lung disease): Code(s): J84.9 - Interstitial pulmonary disease, unspecified Status: Chronic Assessment and Plan: - worsening on imaging - pulmonology consulted, see recs above Restarted on prednisone per Pulmonary (5) Diastolic congestive heart failure, NYHA class 3: Qualifiers: Congestive heart failure chronicity: unspecified Qualified Code(s): I50.30 - Unspecified diastolic (congestive) heart failure Code(s): I50.30 - Unspecified diastolic (congestive) heart failure Status: Chronic Assessment and Plan: BNP elevated at 3540. No evidence of pulmonary edema on CXR. Reviewed chart, most recent echo in 2022 showed diastolic dysfunction, normal systolic function with an estimated EF of 60 65%, valvular disease, and mild pulmonary hypertension. - update echo - receiving IV fluids due to sepsis at slower rate, monitor toleration which will be stopped and start diuresis as tolerated - monitor I&Os - daily weights Received a dose of Lasix 40 mg x 1 11/30 started on diuresis 40 mg IV b.i.d.. With good diuresis BNP noted Currently on Lasix 40 mg IV q.d. (6) DM2 (diabetes mellitus, type 2): Code(s): E11.9 - Type 2 diabetes mellitus without complications Status: Chronic Assessment and Plan: - hypoglycemia protocol - POC blood glucose ACHS - home medication: Hold metformin in case of need for contrast. Continue Lantus 10 units HS. - correct regimen ordered - low dose TIDWM and HS, based off BMI - A1C 6.4% in 2022, update (7) Chronic anticoagulation: Code(s): Z79.01 - intermediate manager (current) use of anticoagulants Status: Chronic Assessment and Plan: - continue Xarelto (8) Chronic hypotension: Code(s): I95.89 - Other hypotension Status: Acute Assessment and Plan: - continue home medications: Midodrine - monitor Plan Diet: Heart healthy GI Prophylaxis: N/a DVT Prophylaxis: Xarelto Lines/Tubes: Peripheral IV Code Status: Full code discussed with the patient and family and now switched to do not resuscitate Disposition still required significant amount of oxygen with exertion continue IV diuresis and IV cefepime. Recommendation for discharge to LTAC. awaiting discharge Subjective Date/time seen: 12/17/24 12:43 Interval history: Comfortable at bedside Patient is a difficult placement due to higher oxygen requirement awaiting placement Review of Systems Review of Systems: All systems reviewed & are unremarkable except as noted in HPI and below Exam Narrative: APPEARANCE: Ill-appearing not in acute distress HEAD: normocephalic, atraumatic. EYES: PERRLA/EOMI, conjunctivae clear. NECK: Supple. No adenopathy, no masses. RESPIRATORY: Coarse breath sounds bilaterally, no respiratory distress CARDIOVASCULAR: Regular rate and S1-S2 ABDOMINAL: Soft, nontender, nondistended, normal bowel sounds MUSCULOSKELETAL: Moves all extremities. Strength/ROM intact, trace edema, No calf tenderness. NEURO: Alert. Cranial nerves II through XII intact. SKIN: Warm, dry. Normal Color Const: General: comfortable Other: , male, elderly, ill-appearing, mild respiratory distress HENMT: Face/Nose/Sinus: Normal nares present Mouth: Yes dry mucous membranes (on BiPAP) Eyes: General: appearance normal, both eyes and all related structures Sclera: sclerae normal Pupils: Equal, round and reactive pupils present EOM: EOMs intact bilaterally Resp: Other: Tachypneic without accessory muscle use, bibasilar crackles, no wheezing. Cardio: Rate: regular rate Rhythm: regular rhythm Other: S1-S2 present without murmur, rub, ectopy GI: Other: Abdomen soft, nondistended, nontender. Normoactive bowel sounds in all quadrants. Skin: General skin exam: normal color and no rashes or lesions noted Wounds: no wounds Neuro: Cranial nerves: Yes Equal, round and reactive pupils present Speech: normal speech Motor exam (neuro): 5/5 motor strength present throughout Sensory Exam: normal sensation Other: A/Ox4 Extrem: Other: Trace pitting edema to bilateral ankles, symmetric Psych: Mental Status: mental status grossly normal Affect: normal affect Other: Good insight and judgment, pleasant Objective Data Vital Signs Vital Signs: Vital Signs - 24 hr 12/16/24 14:00 12/16/24 16:00 12/16/24 16:00 Temperature Pulse Rate 94 91 Respiratory Rate Blood Pressure Pulse Oximetry 95 Oxygen Delivery Nasal Cannula Oxygen Flow Rate 2 12/16/24 16:46 12/16/24 18:00 12/16/24 20:00 Temperature 97.6 F 97.8 F Pulse Rate 89 100 86 Respiratory Rate 20 21 H Blood Pressure 107/65 109/66 Pulse Oximetry 100 94 Oxygen Delivery Oxygen Flow Rate 12/16/24 20:00 12/16/24 20:00 12/16/24 21:08 Temperature Pulse Rate 90 98 Respiratory Rate 18 Blood Pressure Pulse Oximetry 94 Oxygen Delivery High Flow Therapy with Na Oxygen Flow Rate 2 12/16/24 21:10 12/16/24 21:13 12/16/24 22:00 Temperature Pulse Rate 97 88 Respiratory Rate 18 Blood Pressure Pulse Oximetry 94 Oxygen Delivery High Flow Nasal Cannula Oxygen Flow Rate 2 12/16/24 23:51 12/17/24 00:00 12/17/24 00:00 Temperature 97.6 F Pulse Rate 96 88 Respiratory Rate 24 H Blood Pressure 110/70 Pulse Oximetry 93 93 Oxygen Delivery High Flow Therapy with Na Oxygen Flow Rate 2 12/17/24 02:00 12/17/24 04:00 12/17/24 04:00 Temperature 97.6 F Pulse Rate 88 93 Respiratory Rate 24 H Blood Pressure 104/70 Pulse Oximetry 96 96 Oxygen Delivery High Flow Therapy with Na Oxygen Flow Rate 2 12/17/24 04:00 12/17/24 06:00 12/17/24 07:19 Temperature Pulse Rate 99 94 87 Respiratory Rate 19 Blood Pressure Pulse Oximetry Oxygen Delivery Oxygen Flow Rate 12/17/24 07:21 12/17/24 07:24 12/17/24 08:00 Temperature 97.7 F Pulse Rate 88 92 Respiratory Rate 19 22 H Blood Pressure 111/72 Pulse Oximetry 100 95 Oxygen Delivery Nasal Cannula Oxygen Flow Rate 2 12/17/24 08:00 12/17/24 11:03 12/17/24 11:09 Temperature Pulse Rate 95 96 Respiratory Rate 18 18 Blood Pressure Pulse Oximetry 93 Oxygen Delivery Nasal Cannula Oxygen Flow Rate 4 12/17/24 11:54 12/17/24 12:00 Temperature 98.1 F Pulse Rate 100 Respiratory Rate 22 H Blood Pressure 111/78 Pulse Oximetry 100 98 Oxygen Delivery Nasal Cannula Oxygen Flow Rate 3 Intake/Output Intake/Output: Intake & Output 12/14/24 12/15/24 12/16/24 12/17/24 23:59 23:59 23:59 23:59 Intake Total 6486 482 8415 950 Output Total 2350 1700 2200 1400 Balance -620 -800 -280 -450 Meds/Results Medications: Active Medications Generic Name Dose Route Start Last Admin Trade Name Freq PRN Reason Stop Dose Admin Acetaminophen 650 mg 11/30/24 15:47 12/14/24 01:12 Acetaminophen 325 Mg Tablet PO 650 mg Q6H PRN Administration Mild Pain (1-3) or Fever Albuterol/Ipratropium 3 ml 12/06/24 12:00 12/17/24 11:02 Ipratropium 0.5 Mg/Albuterol Sulfate 2.5 Mg (Base) Ampul.Neb 3 Ml INHALATION 3 ml [id number] SPEEDY Administration Atorvastatin Calcium 10 mg 11/30/24 21:00 12/16/24 20:23 Atorvastatin 10 Mg Tablet PO 10 mg HS SPEEDY Administration Benzonatate 100 mg 11/30/24 15:44 Benzonatate 100 Mg Capsule PO TID PRN Cough Dextrose 12.5 gm 11/30/24 15:49 Dextrose 50% 25 Gm/50 Ml Syringe IV PUSH PRN PRN Hypoglycemia Protocol Divalproex Sodium 1,000 mg 12/01/24 08:00 12/17/24 08:48 Divalproex Sodium Er 500 Mg Tab.24h PO 1,000 mg DAILY@0800 SPEEDY Administration Divalproex Sodium 500 mg 11/30/24 21:00 12/16/24 20:23 Divalproex Sodium Er 500 Mg Tab.24h PO 500 mg HS SPEEDY Administration Furosemide 40 mg 12/10/24 09:00 12/17/24 08:49 Furosemide Inj 40 Mg/4 Ml Vial IV PUSH 40 mg DAILY SPEEDY Administration Glucagon 1 mg 11/30/24 15:49 Glucagon For Inj 1 Mg Vial IM PRN PRN Hypoglycemia Protocol Glucose 15 gm 11/30/24 15:49 Glucose Oral Gel 15 Gm Of Glucse In 37.5 Gm Tube PO PRN PRN Hypoglycemia Protocol Guaifenesin 1,200 mg 12/17/24 09:00 12/17/24 08:48 Guaifenesin 200 Mg/10 Ml Udc PO 1,200 mg Q12HR SPEEDY Administration Dextrose 1,000 mls @ 100 mls/hr 11/30/24 15:49 Dextrose 5% 1,000 Ml IVPB PRN PRN Hypoglycemia Protocol Insulin Aspart 2 - 5 units 11/30/24 17:00 12/17/24 12:34 Insulin Aspart (*Bkc) 100 Units/Ml SUB-Q 2 units TIDWM SPEEDY Administration Protocol Insulin Aspart 1 - 2 units 11/30/24 21:00 12/16/24 20:29 Insulin Aspart (*Bkc) 100 Units/Ml SUB-Q 1 units HS SPEEDY Administration Protocol Insulin Glargine 10 units 11/30/24 21:00 12/16/24 20:28 Insulin Glargine (*Bkc) 100 Units/Ml SUB-Q 10 units HS SPEEDY Administration Memantine 10 mg 11/30/24 17:00 12/17/24 08:48 Memantine 10 Mg Tablet PO 10 mg BID SPEEDY Administration Methocarbamol 750 mg 11/30/24 15:51 12/17/24 11:03 Methocarbamol 750 Mg Tablet PO 750 mg BID PRN Administration muscle spasm Midodrine 10 mg 11/30/24 17:00 12/17/24 12:32 Midodrine Hcl 10 Mg Tablet PO 10 mg TID SPEEDY Administration Pantoprazole Sodium 40 mg 12/01/24 09:00 12/17/24 08:48 Pantoprazole 40 Mg Tablet PO 40 mg DAILY SPEEDY Administration Polyethylene Glycol 17 gm 12/05/24 09:50 12/17/24 08:51 Polyethylene Glycol 3350 17 Gm Powd.Pack PO 17 gm QAM PRN Administration Constipation Prednisone 10 mg 12/16/24 08:00 12/17/24 08:48 Prednisone 10 Mg Tablet PO 12/22/24 10:00 10 mg DAILY@0800 SPEEDY Administration Rivaroxaban 20 mg 12/06/24 17:00 12/16/24 17:21 Rivaroxaban 20 Mg Tablet PO 20 mg Q24H SPEEDY Administration Tamsulosin HCl 0.8 mg 12/01/24 09:00 12/17/24 08:48 Tamsulosin Hcl 0.4 Mg Capsule PO 0.8 mg DAILY SPEEDY Administration Vitamin D 125 mcg 12/01/24 09:00 12/17/24 08:48 Cholecalciferol (Vitamin D3) 125 Mcg (5,000 Units) Tablet PO 125 mcg DAILY SPEEDY Administration Radiology Results: ITS Impressions Chest CT 11/30/24 14:20 IMPRESSION: 1. Bilateral severe bronchopneumonia superimposed on chronic lung disease with probable reactive mediastinal lymphadenopathy. Follow-up recommended to assess resolution Modified Barium Swallow 12/07/24 11:54 IMPRESSION: Mild pharyngeal dysphagia with flash laryngeal penetration without aspiration. Please correlate with speech pathologist findings and specific feeding recommendations. Chest X-Ray 12/13/24 13:18 IMPRESSION: 1. No significant change 2. Bilateral airspace disease, left lung worse. Labs Labs: Laboratory Results - last 24 hr 12/16/24 12/16/24 12/17/24 16:53 20:13 06:50 WBC RBC Hgb Hct MCV MCH MCHC RDW Plt Count MPV Sodium Potassium Chloride Carbon Dioxide Anion Gap BUN Creatinine Estim Creat Clear Calc Estimated GFR Glucose POC Capillary Glucose 161 H 296 H 99 Calcium Magnesium Total Bilirubin AST ALT Alkaline Phosphatase Total Protein Albumin 12/17/24 12/17/24 08:36 11:06 WBC 14.3 H RBC 3.48 L Hgb 11.7 L Hct 37.1 L MCV 106.6 H MCH 33.6 MCHC 31.5 L RDW 16.3 H Plt Count 146 L MPV 11.5 H Sodium 133 L Potassium 4.3 Chloride 97 L Carbon Dioxide 32 H Anion Gap 4 BUN 38 H Creatinine 0.65 L Estim Creat Clear Calc 94 Estimated GFR > 60 Glucose 92 POC Capillary Glucose 215 H Calcium 8.6 Magnesium 2.2 Total Bilirubin 0.7 AST 31 ALT 17 Alkaline Phosphatase 56 Total Protein 6.4 Albumin 3.1 L Quality VTE Prophylaxis VTE prophylaxis: pharmacologic ordered
[2024-12-17] MEDS: RIVAROXABAN 20 MG TABLET PO (17:29)
[2024-12-17] MEDS: ATORVASTATIN 10 MG TABLET PO (21:36)
[2024-12-17] MEDS: DIVALPROEX SODIUM ER 500 MG TAB.24H PO (21:37)
[2024-12-17] MEDS: INSULIN GLARGINE (*BKC) 100 UNITS/ML 10 UNITS SUB-Q (21:40)
[2024-12-18] VITALS (21 sets, daily range): BP systolic 110–126; BP diastolic 57–72; PULSE 85–140; RESP 14–34; TEMP 36–36.9; O2SAT 70–97; BMI 10.0
[2024-12-18] MEDS: IPRATROPIUM 0.5 MG/ALBUTEROL SULFATE 2.5 MG (BASE) AMPUL.NEB 3 ML INHALATION ×3 (07:57→20:34)
[2024-12-18] MEDS: ACETAMINOPHEN 325 MG TABLET 650 MG PO (09:23)
[2024-12-18] MEDS: PANTOPRAZOLE 40 MG TABLET PO (09:24)
[2024-12-18] MEDS: MIDODRINE HCL 10 MG TABLET PO ×3 (09:24→17:40)
[2024-12-18] MEDS: DIVALPROEX SODIUM ER 500 MG TAB.24H 1000 MG PO (09:24)
[2024-12-18] MEDS: CHOLECALCIFEROL (VITAMIN D3) 125 MCG (5,000 UNITS) TABLET PO (09:25)
[2024-12-18] MEDS: MEMANTINE 10 MG TABLET PO ×2 (09:25→17:41)
[2024-12-18] MEDS: TAMSULOSIN HCL 0.4 MG CAPSULE 0.8 MG PO (09:25)
[2024-12-18] MEDS: FUROSEMIDE INJ 40 MG/4 ML VIAL IV PUSH (09:25)
[2024-12-18] MEDS: guaiFENesin 12 HR 600 MG TABCR 1200 MG PO ×2 (12:36→20:57)
[2024-12-18] MEDS: INSULIN ASPART (*BKC) 100 UNITS/ML SUB-Q ×2 (12:36→20:57)
--- NOTE | 2024-12-18 16:40 | PM.IMPN ---
Progress Note: A&P Assessment and Plan (1) Acute hypoxic respiratory failure: Code(s): J96.01 - Acute respiratory failure with hypoxia Status: Acute Assessment and Plan: Patient arrived to the emergency department 96% on room air. Initial concern patient was hypoxic in the 70s prior to arrival. Patient did become hypoxic in the emergency department on 11/30, dropped to 84% on room air. Subsequently placed on BiPAP. Imaging showed bilateral severe bronchopneumonia superimposed on chronic lung disease. Initial ABG showed no significant hypoxia, hypercapnia, acidosis, or alkalosis on BiPAP. - continue BiPAP for work of breathing/respiratory distress p.r.n. - started on hospital-acquired pneumonia treatment as he was recently admitted to [facility], patient additionally met criteria for sepsis and lactic was elevated - pulmonology consulted Gentle diuresis as BNP elevated Which he is tolerating. Respiratory pathogen panel Urine antigens I LD workup as ordered by Pulmonary continue Airvo and wean as tolerated And currently on 4 L oxygen via nasal cannula Seen by Pulmonary, found to have difficulty swallowing, barium swallow was ordered which found some trace penetration. Recommendation was regular diet with thin liquids, no straws and small drinks. Prednisone taper continuing through December 22 as stated in pulmonology consultation. Per Pulmonary, patient will need discharge to LTAC given severity of lung disease. 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 (2) Sepsis: Qualifiers: Sepsis type: sepsis due to unspecified organism Sepsis acute organ dysfunction status: with acute organ dysfunction Severe sepsis acute organ dysfunction type: acute respiratory failure Acute respiratory failure type: with hypoxia Severe sepsis shock status: without septic shock Qualified Code(s): A41.9 - Sepsis, unspecified organism; R65.20 - Severe sepsis without septic shock; J96.01 - Acute respiratory failure with hypoxia Code(s): A41.9 - Sepsis, unspecified organism Status: Acute Assessment and Plan: Patient met SIRS criteria: HR greater than 100, RR greater than 20, WBC greater than 12. +hypoxia, -hypotension. Initial lactic 3.6 -> 3.4. CRP 4.98 and procalcitonin 0.1. - blood cultures obtained on 11/30, follow. - trend lactic down - 30 mL/kg = 2.5, will give 2L at 200 mL/hr due to elevation in BNP/hx of diastolic dysfunction. monitor toleration. - suspected source: HAP - started on ceftriaxone and azithromycin, exchanged to cefepime and azithromycin on 11/30 - monitor I&Os concluded azithromycin Completed cefepime for total 7 days 12/10: White blood cell count is starting to trend back up very slightly, repeating chest x-ray and obtaining UA, as well as restarting cefepime and doxycycline. Patient denies significant new complaints at this time. He does have 2 small pressure ulcers that are currently not infected and being cared for by nursing staff. Chest x-ray did show improving left-sided infiltrate with worsening right-sided infiltrate but after completion show pulmonary did agree that this could all have to do with his chronic lung disease and not necessarily indicate new pneumonia. However, patient's oxygen requirements had been worsening since discontinuation of antibiotics. 12/11: Discussed with Pulmonary, patient is on steroids which will be affecting white blood cell count, and patient has not shown active signs of sepsis such as fever, chills, increased sputum production. Oxygen requirements began to improve today, unclear if restarting antibiotics for suspected pneumonia plays a factor in this at this time. Recommendation from Pulmonary was to continue cefepime at this time but no need for doxycycline is not likely to be atypical organism given hospital setting, agree with this assessment. We will continue cefepime for up to 3 days, recommend reassess need for antibiotic at that time. (3) Pneumonia: Qualifiers: Laterality: bilateral Lung location: unspecified part of lung Pneumonia type: due to unspecified organism Qualified Code(s): J18.9 - Pneumonia, unspecified organism Code(s): J18.9 - Pneumonia, unspecified organism Status: Acute Assessment and Plan: - CXR: 1. Interval worsening of chronic interstitial lung disease. 2. However bibasilar edema and/or pneumonitis or airspace disease not excluded. - Chest CT: Bilateral severe bronchopneumonia superimposed on chronic lung disease with probable reactive mediastinal lymphadenopathy. Follow-up recommended to assess resolution - risk/complicating factors: acute respiratory failure, interstitial lung disease, recent hospitalization - started on ceftriaxone and azithromycin in the ED, exchanged to cefepime and azithromycin on 11/30. No current indication for vancomycin as the patient's MRSA PCR was negative upon admission. - supportive care: Mucinex, Tylenol, DuoNebs, Tessalon Perles - sputum culture - currently requiring BiPAP for WOB, +hypoxia Still requiring high level of oxygen. Continue diuresis Chest x-ray reviewed Leukocytosis improving Now awaiting discharge to hospice (4) ILD (interstitial lung disease): Code(s): J84.9 - Interstitial pulmonary disease, unspecified Status: Chronic Assessment and Plan: - worsening on imaging - pulmonology consulted, see recs above Restarted on prednisone per Pulmonary (5) Diastolic congestive heart failure, NYHA class 3: Qualifiers: Congestive heart failure chronicity: unspecified Qualified Code(s): I50.30 - Unspecified diastolic (congestive) heart failure Code(s): I50.30 - Unspecified diastolic (congestive) heart failure Status: Chronic Assessment and Plan: BNP elevated at 3540. No evidence of pulmonary edema on CXR. Reviewed chart, most recent echo in 2022 showed diastolic dysfunction, normal systolic function with an estimated EF of 60 65%, valvular disease, and mild pulmonary hypertension. - update echo - receiving IV fluids due to sepsis at slower rate, monitor toleration which will be stopped and start diuresis as tolerated - monitor I&Os - daily weights Received a dose of Lasix 40 mg x 1 11/30 Currently on Lasix 40 mg IV q.d. (6) DM2 (diabetes mellitus, type 2): Code(s): E11.9 - Type 2 diabetes mellitus without complications Status: Chronic Assessment and Plan: - hypoglycemia protocol - POC blood glucose ACHS - home medication: Hold metformin in case of need for contrast. Continue Lantus 10 units HS. - correct regimen ordered - low dose TIDWM and HS, based off BMI - A1C 6.4% in 2022, update (7) Chronic anticoagulation: Code(s): Z79.01 - technician terminal and repeater (current) use of anticoagulants Status: Chronic Assessment and Plan: - continue Xarelto (8) Chronic hypotension: Code(s): I95.89 - Other hypotension Status: Acute Assessment and Plan: - continue home medications: Midodrine - monitor Plan Diet: Heart healthy GI Prophylaxis: N/a DVT Prophylaxis: Xarelto Lines/Tubes: Peripheral IV Code Status: Full code discussed with the patient and family and now switched to do not resuscitate Disposition still required significant amount of oxygen with exertion continue IV diuresis and IV cefepime. Awiating discharge to hospice Subjective Date/time seen: 12/18/24 16:40 Interval history: Comfortable at bedside Patient is a difficult placement due to higher oxygen requirement awaiting placement Review of Systems Review of Systems: All systems reviewed & are unremarkable except as noted in HPI and below Exam Narrative: APPEARANCE: Ill-appearing not in acute distress HEAD: normocephalic, atraumatic. EYES: PERRLA/EOMI, conjunctivae clear. NECK: Supple. No adenopathy, no masses. RESPIRATORY: Coarse breath sounds bilaterally, no respiratory distress CARDIOVASCULAR: Regular rate and S1-S2 ABDOMINAL: Soft, nontender, nondistended, normal bowel sounds MUSCULOSKELETAL: Moves all extremities. Strength/ROM intact, trace edema, No calf tenderness. NEURO: Alert. Cranial nerves II through XII intact. SKIN: Warm, dry. Normal Color Const: General: comfortable Other: , male, elderly, ill-appearing, mild respiratory distress HENMT: Face/Nose/Sinus: Normal nares present Mouth: Yes dry mucous membranes (on BiPAP) Eyes: General: appearance normal, both eyes and all related structures Sclera: sclerae normal Pupils: Equal, round and reactive pupils present EOM: EOMs intact bilaterally Resp: Other: Tachypneic without accessory muscle use, bibasilar crackles, no wheezing. Cardio: Rate: regular rate Rhythm: regular rhythm Other: S1-S2 present without murmur, rub, ectopy GI: Other: Abdomen soft, nondistended, nontender. Normoactive bowel sounds in all quadrants. Skin: General skin exam: normal color and no rashes or lesions noted Wounds: no wounds Neuro: Cranial nerves: Yes Equal, round and reactive pupils present Speech: normal speech Motor exam (neuro): 5/5 motor strength present throughout Sensory Exam: normal sensation Other: A/Ox4 Extrem: Other: Trace pitting edema to bilateral ankles, symmetric Psych: Mental Status: mental status grossly normal Affect: normal affect Other: Good insight and judgment, pleasant Objective Data Vital Signs Vital Signs: Vital Signs - 24 hr 12/17/24 16:47 12/17/24 16:53 12/17/24 18:00 Temperature Pulse Rate 89 91 115 H Pulse Rate [With Activity During Therapy Session] Respiratory Rate 18 18 Blood Pressure Pulse Oximetry Pulse Oximetry [With Activity During Therapy Session] Oxygen Delivery Oxygen Flow Rate 12/17/24 20:00 12/17/24 20:00 12/17/24 20:31 Temperature 97.6 F Pulse Rate 89 96 93 Pulse Rate [With Activity During Therapy Session] Respiratory Rate 18 18 Blood Pressure 126/61 Pulse Oximetry 100 Pulse Oximetry [With Activity During Therapy Session] Oxygen Delivery Oxygen Flow Rate 12/17/24 20:34 12/17/24 20:36 12/17/24 22:00 Temperature Pulse Rate 93 91 100 Pulse Rate [With Activity During Therapy Session] Respiratory Rate 18 Blood Pressure Pulse Oximetry 93 Pulse Oximetry [With Activity During Therapy Session] Oxygen Delivery Nasal Cannula Oxygen Flow Rate 2 12/17/24 23:59 12/18/24 00:00 12/18/24 02:00 Temperature 98.1 F Pulse Rate 92 101 H 93 Pulse Rate [With Activity During Therapy Session] Respiratory Rate 16 Blood Pressure 117/69 Pulse Oximetry 96 Pulse Oximetry [With Activity During Therapy Session] Oxygen Delivery Oxygen Flow Rate 12/18/24 04:00 12/18/24 04:00 12/18/24 06:00 Temperature 98.4 F Pulse Rate 100 90 90 Pulse Rate [With Activity During Therapy Session] Respiratory Rate 14 Blood Pressure 126/70 Pulse Oximetry 95 Pulse Oximetry [With Activity During Therapy Session] Oxygen Delivery Oxygen Flow Rate 12/18/24 07:57 12/18/24 07:57 12/18/24 08:00 Temperature 97.5 F L Pulse Rate 99 99 106 H Pulse Rate [With Activity During Therapy Session] Respiratory Rate 18 18 18 Blood Pressure 121/64 Pulse Oximetry 92 92 Pulse Oximetry [With Activity During Therapy Session] Oxygen Delivery Nasal Cannula Oxygen Flow Rate 2 12/18/24 08:00 12/18/24 08:00 12/18/24 08:05 Temperature Pulse Rate 90 98 Pulse Rate [With Activity During Therapy Session] Respiratory Rate 18 Blood Pressure Pulse Oximetry 92 Pulse Oximetry [With Activity During Therapy Session] Oxygen Delivery Nasal Cannula Oxygen Flow Rate 3 12/18/24 08:15 12/18/24 08:36 12/18/24 10:00 Temperature Pulse Rate 90 Pulse Rate [With Activity During Therapy Session] 140 H Respiratory Rate Blood Pressure Pulse Oximetry Pulse Oximetry [With Activity During Therapy Session] 70 L Oxygen Delivery Nasal Cannula High Flow Therapy with Na Oxygen Flow Rate 3 10 12/18/24 12:00 12/18/24 12:00 12/18/24 12:00 Temperature 96.8 F L Pulse Rate 96 89 Pulse Rate [With Activity During Therapy Session] Respiratory Rate 34 H Blood Pressure 123/72 Pulse Oximetry 97 97 Pulse Oximetry [With Activity During Therapy Session] Oxygen Delivery Nasal Cannula Oxygen Flow Rate 3 12/18/24 15:34 12/18/24 16:20 12/18/24 16:26 Temperature 97.5 F L Pulse Rate 86 97 98 Pulse Rate [With Activity During Therapy Session] Respiratory Rate 20 18 18 Blood Pressure 110/65 Pulse Oximetry 95 Pulse Oximetry [With Activity During Therapy Session] Oxygen Delivery Oxygen Flow Rate Intake/Output Intake/Output: Intake & Output 12/15/24 12/16/24 12/17/24 12/18/24 23:59 23:59 23:59 23:59 Intake Total 900 1920 1980 600 Output Total 1700 2200 2000 1750 Balance -800 - Meds/Results Medications: Active Medications Generic Name Dose Route Start Last Admin Trade Name Freq PRN Reason Stop Dose Admin Acetaminophen 650 mg 11/30/24 15:47 12/18/24 09:23 Acetaminophen 325 Mg Tablet PO 650 mg Q6H PRN Administration Mild Pain (1-3) or Fever Albuterol/Ipratropium 3 ml 12/06/24 12:00 12/18/24 16:25 Ipratropium 0.5 Mg/Albuterol Sulfate 2.5 Mg (Base) Ampul.Neb 3 Ml INHALATION 3 ml [id number] SPEEDY Administration Atorvastatin Calcium 10 mg 11/30/24 21:00 12/17/24 21:36 Atorvastatin 10 Mg Tablet PO 10 mg HS SPEEDY Administration Benzonatate 100 mg 11/30/24 15:44 Benzonatate 100 Mg Capsule PO TID PRN Cough Dextrose 12.5 gm 11/30/24 15:49 Dextrose 50% 25 Gm/50 Ml Syringe IV PUSH PRN PRN Hypoglycemia Protocol Divalproex Sodium 1,000 mg 12/01/24 08:00 12/18/24 09:24 Divalproex Sodium Er 500 Mg Tab.24h PO 1,000 mg DAILY@0800 SPEEDY Administration Divalproex Sodium 500 mg 11/30/24 21:00 12/17/24 21:37 Divalproex Sodium Er 500 Mg Tab.24h PO 500 mg HS SPEEDY Administration Furosemide 40 mg 12/10/24 09:00 12/18/24 09:25 Furosemide Inj 40 Mg/4 Ml Vial IV PUSH 40 mg DAILY SPEEDY Administration Glucagon 1 mg 11/30/24 15:49 Glucagon For Inj 1 Mg Vial IM PRN PRN Hypoglycemia Protocol Glucose 15 gm 11/30/24 15:49 Glucose Oral Gel 15 Gm Of Glucse In 37.5 Gm Tube PO PRN PRN Hypoglycemia Protocol Guaifenesin 1,200 mg 12/18/24 11:20 12/18/24 12:36 Guaifenesin 12 Hr 600 Mg Tabcr PO 1,200 mg Q12HR SPEEDY Administration Dextrose 1,000 mls @ 100 mls/hr 11/30/24 15:49 Dextrose 5% 1,000 Ml IVPB PRN PRN Hypoglycemia Protocol Insulin Aspart 2 - 5 units 11/30/24 17:00 12/18/24 12:36 Insulin Aspart (*Bkc) 100 Units/Ml SUB-Q 3 units TIDWM SPEEDY Administration Protocol Insulin Aspart 1 - 2 units 11/30/24 21:00 12/17/24 21:39 Insulin Aspart (*Bkc) 100 Units/Ml SUB-Q 1 units HS SPEEDY Administration Protocol Insulin Glargine 10 units 11/30/24 21:00 12/17/24 21:40 Insulin Glargine (*Bkc) 100 Units/Ml SUB-Q 10 units HS SPEEDY Administration Memantine 10 mg 11/30/24 17:00 12/18/24 09:25 Memantine 10 Mg Tablet PO 10 mg BID SPEEDY Administration Methocarbamol 750 mg 11/30/24 15:51 12/17/24 11:03 Methocarbamol 750 Mg Tablet PO 750 mg BID PRN Administration muscle spasm Midodrine 10 mg 11/30/24 17:00 12/18/24 12:38 Midodrine Hcl 10 Mg Tablet PO 10 mg TID SPEEDY Administration Pantoprazole Sodium 40 mg 12/01/24 09:00 12/18/24 09:24 Pantoprazole 40 Mg Tablet PO 40 mg DAILY SPEEDY Administration Polyethylene Glycol 17 gm 12/05/24 09:50 12/17/24 08:51 Polyethylene Glycol 3350 17 Gm Powd.Pack PO 17 gm QAM PRN Administration Constipation Prednisone 10 mg 12/16/24 08:00 12/18/24 09:24 Prednisone 10 Mg Tablet PO 12/22/24 10:00 10 mg DAILY@0800 SPEEDY Administration Rivaroxaban 20 mg 12/06/24 17:00 12/17/24 17:29 Rivaroxaban 20 Mg Tablet PO 20 mg Q24H SPEEDY Administration Tamsulosin HCl 0.8 mg 12/01/24 09:00 12/18/24 09:25 Tamsulosin Hcl 0.4 Mg Capsule PO 0.8 mg DAILY SPEEDY Administration Vitamin D 125 mcg 12/01/24 09:00 12/18/24 09:25 Cholecalciferol (Vitamin D3) 125 Mcg (5,000 Units) Tablet PO 125 mcg DAILY SPEEDY Administration Radiology Results: ITS Impressions Chest CT 11/30/24 14:20 IMPRESSION: 1. Bilateral severe bronchopneumonia superimposed on chronic lung disease with probable reactive mediastinal lymphadenopathy. Follow-up recommended to assess resolution Modified Barium Swallow 12/07/24 11:54 IMPRESSION: Mild pharyngeal dysphagia with flash laryngeal penetration without aspiration. Please correlate with speech pathologist findings and specific feeding recommendations. Chest X-Ray 12/13/24 13:18 IMPRESSION: 1. No significant change 2. Bilateral airspace disease, left lung worse. Labs Labs: Laboratory Results - last 24 hr 12/17/24 12/18/24 12/18/24 20:00 07:52 10:58 POC Capillary Glucose 276 H 133 H 288 H 12/18/24 14:57 POC Capillary Glucose 193 H Quality VTE Prophylaxis VTE prophylaxis: pharmacologic ordered
[2024-12-18] MEDS: RIVAROXABAN 20 MG TABLET PO (17:40)
[2024-12-18] MEDS: DIVALPROEX SODIUM ER 500 MG TAB.24H PO (20:57)
[2024-12-18] MEDS: ATORVASTATIN 10 MG TABLET PO (20:57)
[2024-12-18] MEDS: INSULIN GLARGINE (*BKC) 100 UNITS/ML 10 UNITS SUB-Q (20:58)
[2024-12-19] VITALS (8 sets, daily range): BP systolic 111–120; BP diastolic 55–71; PULSE 85–102; RESP 16–22; TEMP 36.4–36.8; O2SAT 90–98
[2024-12-19] MEDS: ACETAMINOPHEN 325 MG TABLET 650 MG PO (04:44)
--- NOTE | 2024-12-19 07:12 | P.PNIM_ITS ---
Progress Note: A&P Assessment and Plan (1) Acute hypoxic respiratory failure: Code(s): J96.01 - Acute respiratory failure with hypoxia Status: Acute Assessment and Plan: Patient arrived to the emergency department 96% on room air. Initial concern patient was hypoxic in the 70s prior to arrival. Patient did become hypoxic in the emergency department on 11/30, dropped to 84% on room air. Subsequently placed on BiPAP. Imaging showed bilateral severe bronchopneumonia superimposed on chronic lung disease. Initial ABG showed no significant hypoxia, hypercapnia, acidosis, or alkalosis on BiPAP. - continue BiPAP for work of breathing/respiratory distress p.r.n. - started on hospital-acquired pneumonia treatment as he was recently admitted to [facility], patient additionally met criteria for sepsis and lactic was elevated - pulmonology consulted Gentle diuresis as BNP elevated Which he is tolerating. Respiratory pathogen panel Urine antigens I LD workup as ordered by Pulmonary continue Airvo and wean as tolerated And currently on 4 L oxygen via nasal cannula Seen by Pulmonary, found to have difficulty swallowing, barium swallow was ordered which found some trace penetration. Recommendation was regular diet with thin liquids, no straws and small drinks. Prednisone taper continuing through December 22 as stated in pulmonology consultation. Per Pulmonary, patient will need discharge to LTAC given severity of lung disease. Most facilities are declining patient due to high oxygen needs physician support coordinator exploring alternatives with patient's daughter (2) Sepsis: Qualifiers: Sepsis type: sepsis due to unspecified organism Sepsis acute organ dysfunction status: with acute organ dysfunction Severe sepsis acute organ dysfunction type: acute respiratory failure Acute respiratory failure type: wi th hypoxia Severe sepsis shock status: without septic shock Qualified Code(s): A41.9 - Sepsis, unspecified organism; R65.20 - Severe sepsis without septic shock; J96.01 - Acute respiratory failure with hypoxia Code(s): A41.9 - Sepsis, unspecified organism Status: Acute Assessment and Plan: Patient met SIRS criteria: HR greater than 100, RR greater than 20, WBC greater than 12. +hypoxia, -hypotension. Initial lactic 3.6 -> 3.4. CRP 4.98 and procalcitonin 0.1. - blood cultures obtained on 11/30, follow. - trend lactic down - 30 mL/kg = 2.5, will give 2L at 200 mL/hr due to elevation in BNP/hx of d iastolic dysfunction. monitor toleration. - suspected source: HAP - started on ceftriaxone and azithromycin, exchanged to cefepime and azithromycin on 11/30 - monitor I&Os concluded azithromycin Completed cefepime for total 7 days 12/10: White blood cell count is starting to trend back up very slightly, repeating chest x-ray and obtaining UA, as well as restarting cefepime and doxycycline. Patient denies significant new complaints at this time. He does have 2 small pressure ulcers that are currently not infected and being cared for by nursing staff. Chest x-ray did show improving left-sided infiltrate with worsening right-sided infiltrate but after completion show pulmonary did agree that this could all have to do with his chronic lung disease and not necessarily indicate new pneumonia. However, patient's oxygen requirements had been worsening since discontinuation of antibiotics. 12/11: Discussed with Pulmonary, patient is on steroids which will be affecting white blood cell count, and patient has not shown active signs of sepsis such as fever, chills, increased sputum production. Oxygen requirements began to improve today, unclear if restarting antibiotics for suspected pneumonia plays a factor in this at this time. Recommendation from Pulmonary was to continue cefepime at this time but no need for doxycycline is not likely to be atypical organism given hospital setting, agree with this assessment. We will continue cefepime for up to 3 days, recommend reassess need for antibiotic at that time. (3) Pneumonia: Qualifiers: Laterality: bilateral Lung location: unspecified part of lung Pneumonia type: due to unspecified organism Qualified Code(s): J18.9 - Pneumonia, unspecified organism Code(s): J18.9 - Pneumonia, unspecified organism Status: Acute Assessment and Plan: - CXR: 1. Interval worsening of chronic interstitial lung disease. 2. However bibasilar edema and/or pneumonitis or airspace disease not excluded. - Chest CT: Bilateral severe bronchopneumonia superimposed on chronic lung disease with probable reactive mediastinal lymphadenopathy. Follow-up recommended to assess resolution - risk/complicating factors: acute respiratory failure, interstitial lung disease, recent hospitalization - started on ceftriaxone and azithromycin in the ED, exchanged to cefepime and azithromycin on 11/30. No current indication for vancomycin as the patient's MRSA PCR was negative upon admission. - supportive care: Mucinex, Tylenol, DuoNebs, Tessalon Perles - sputum culture - currently requiring BiPAP for WOB, +hypoxia Still requiring high level of oxygen. Continue diuresis Chest x-ray reviewed Leukocytosis improving Now awaiting discharge to hospice (4) ILD (interstitial lung disease): Code(s): J84.9 - Interstitial pulmonary disease, unspecified Status: Chronic Assessment and Plan: - worsening on imaging - pulmonology consulted, see recs above Restarted on prednisone per Pulmonary (5) Diastolic congestive heart failure, NYHA class 3: Qualifiers: Congestive heart failure chronicity: unspecified Qualified Code(s): I50.30 - Unspecified diastolic (congestive) heart failure Code(s): I50.30 - Unspecified diastolic (congestive) heart failure Status: Chronic Assessment and Plan: BNP elevated at 3540. No evidence of pulmonary edema on CXR. Reviewed chart, most recent echo in 2022 showed diastolic dysfunction, normal systolic function with an estimated EF of 60 65%, valvular disease, and mild pulmonary hypertension. - update echo - receiving IV fluids due to sepsis at slower rate, monitor toleration which will be stopped and start diuresis as tolerated - monitor I&Os - daily weights Received a dose of Lasix 40 mg x 1 11/30 Currently on Lasix 40 mg IV q.d. (6) DM2 (diabetes mellitus, type 2): Code(s): E11.9 - Type 2 diabetes mellitus without complications Status: Chronic Assessment and Plan: - hypoglycemia protocol - POC blood glucose ACHS - home medication: Hold metformin in case of need for contrast. Continue Lantus 10 units HS. 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 Awiating discharge to hospice Subjective Date/time seen: 12/19/24 07:12 Review of Systems Review of Systems: All systems reviewed & are unremarkable except as noted in HPI and below Exam Narrative: APPEARANCE: Ill-appearing not in acute distress HEAD: normocephalic, atraumatic. EYES: PERRLA/EOMI, conjunctivae clear. NECK: Supple. No adenopathy, no masses. RESPIRATORY: Coarse breath sounds bilaterally, no respiratory distress CARDIOVASCULAR: Regular rate and S1-S2 ABDOMINAL: Soft, nontender, nondistended, normal bowel sounds MUSCULOSKELETAL: Moves all extremities. Strength/ROM intact, trace edema, No calf tenderness. NEURO: Alert. Cranial nerves II through XII intact. SKIN: Warm, dry. Normal Color Const: General: comfortable Other: , male, elderly, ill-appearing, mild respiratory distress HENMT: Face/Nose/Sinus: Normal nares present Mouth: Yes dry mucous membranes (on BiPAP) Eyes: General: appearance normal, both eyes and all related structures Sclera: sclerae normal Pupils: Equal, round and reactive pupils present EOM: EOMs intact bilaterally Resp: Other: Tachypneic without accessory muscle use, bibasilar crackles, no wheezing. Cardio: Rate: regular rate Rhythm: regular rhythm Other: S1-S2 present without murmur, rub, ectopy GI: Other: Abdomen soft, nondistended, nontender. Normoactive bowel sounds in all quadrants. Skin: General skin exam: normal color and no rashes or lesions noted Wounds: no wounds Neuro: Cranial nerves: Yes Equal, round and reactive pupils present Speech: normal speech Motor exam (neuro): 5/5 motor strength present throughout Sensory Exam: normal sensation Other: A/Ox4 Extrem: Other: Trace pitting edema to bilateral ankles, symmetric Psych: Mental Status: mental status grossly normal Affect: normal affect Other: Good insight and judgment, pleasant Objective Data Vital Signs Vital Signs: Vital Signs - 24 hr 12/18/24 07:57 12/18/24 07:57 12/18/24 08:00 Temperature 97.5 F L Pulse Rate 99 99 106 H Pulse Rate [With Activity During Therapy Session] Respiratory Rate 18 18 18 Blood Pressure 121/64 Pulse Oximetry 92 92 Pulse Oximetry [With Activity During Therapy Session] Oxygen Delivery Nasal Cannula Oxygen Flow Rate 2 Fraction of Inspired Oxygen 12/18/24 08:00 12/18/24 08:00 12/18/24 08:05 Temperature Pulse Rate 90 98 Pulse Rate [With Activity During Therapy Session] Respiratory Rate 18 Blood Pressure Pulse Oximetry 92 Pulse Oximetry [With Activity During Therapy Session] Oxygen Delivery Nasal Cannula Oxygen Flow Rate 3 Fraction of Inspired Oxygen 12/18/24 08:15 12/18/24 08:36 12/18/24 10:00 Temperature Pulse Rate 90 Pulse Rate [With Activity During Therapy Session] 140 H Respiratory Rate Blood Pressure Pulse Oximetry Pulse Oximetry [With Activity During Therapy Session] 70 L Oxygen Delivery Nasal Cannula High Flow Therapy with Na Oxygen Flow Rate 3 10 Fraction of Inspired Oxygen 12/18/24 12:00 12/18/24 12:00 12/18/24 12:00 Temperature 96.8 F L Pulse Rate 96 89 Pulse Rate [With Activity During Therapy Session] Respiratory Rate 34 H Blood Pressure 123/72 Pulse Oximetry 97 97 Pulse Oximetry [With Activity During Therapy Session] Oxygen Delivery Nasal Cannula Oxygen Flow Rate 3 Fraction of Inspired Oxygen 12/18/24 14:00 12/18/24 15:34 12/18/24 16:00 Temperature 97.5 F L Pulse Rate 101 H 86 Pulse Rate [With Activity During Therapy Session] Respiratory Rate 20 Blood Pressure 110/65 Pulse Oximetry 95 92 Pulse Oximetry [With Activity During Therapy Session] Oxygen Delivery Nasal Cannula Oxygen Flow Rate 2 Fraction of Inspired Oxygen 12/18/24 16:00 12/18/24 16:20 12/18/24 16:26 Temperature Pulse Rate 92 97 98 Pulse Rate [With Activity During Therapy Session] Respiratory Rate 18 18 Blood Pressure Pulse Oximetry Pulse Oximetry [With Activity During Therapy Session] Oxygen Delivery Oxygen Flow Rate Fraction of Inspired Oxygen 12/18/24 18:00 12/18/24 20:00 12/18/24 20:00 Temperature 98.2 F Pulse Rate 103 H 90 90 Pulse Rate [With Activity During Therapy Session] Respiratory Rate 14 Blood Pressure 112/57 L Pulse Oximetry 92 Pulse Oximetry [With Activity During Therapy Session] Oxygen Delivery Oxygen Flow Rate Fraction of Inspired Oxygen 12/18/24 20:34 12/18/24 20:40 12/18/24 20:43 Temperature Pulse Rate 86 85 90 Pulse Rate [With Activity During Therapy Session] Respiratory Rate 20 20 20 Blood Pressure Pulse Oximetry 91 Pulse Oximetry [With Activity During Therapy Session] Oxygen Delivery High Flow Nasal Cannula Oxygen Flow Rate 2 Fraction of Inspired Oxygen 28 12/18/24 22:00 12/19/24 00:00 12/19/24 00:00 Temperature 98.3 F Pulse Rate 92 96 94 Pulse Rate [With Activity During Therapy Session] Respiratory Rate 16 Blood Pressure 111/55 L Pulse Oximetry 90 Pulse Oximetry [With Activity During Therapy Session] Oxygen Delivery Oxygen Flow Rate Fraction of Inspired Oxygen 12/19/24 01:58 12/19/24 04:00 12/19/24 04:00 Temperature 98.3 F Pulse Rate 97 85 89 Pulse Rate [With Activity During Therapy Session] Respiratory Rate 16 Blood Pressure 115/71 Pulse Oximetry 98 Pulse Oximetry [With Activity During Therapy Session] Oxygen Delivery Oxygen Flow Rate Fraction of Inspired Oxygen 12/19/24 05:58 Temperature Pulse Rate 85 Pulse Rate [With Activity During Therapy Session] Respiratory Rate Blood Pressure Pulse Oximetry Pulse Oximetry [With Activity During Therapy Session] Oxygen Delivery Oxygen Flow Rate Fraction of Inspired Oxygen Intake/Output Intake/Output: Intake & Output 12/16/24 12/17/24 12/18/24 12/19/24 23:59 23:59 23:59 23:59 Intake Total 1920 1979 1330 100 Output Total 2200 1999 2450 750 Balance - -650 Meds/Results Medications: Active Medications Generic Name Dose Route Start Last Admin Trade Name Freq PRN Reason Stop Dose Admin Acetaminophen 650 mg 11/30/24 15:47 12/19/24 04:44 Acetaminophen 325 Mg Tablet PO 650 mg Q6H PRN Administration Mild Pain (1-3) or Fever Albuterol/Ipratropium 3 ml 12/06/24 12:00 12/18/24 20:34 Ipratropium 0.5 Mg/Albuterol Sulfate 2.5 Mg (Base) Ampul.Neb 3 Ml INHALATION 3 ml [id number] SPEEDY Administration Atorvastatin Calcium 10 mg 11/30/24 21:00 12/18/24 20:57 Atorvastatin 10 Mg Tablet PO 10 mg HS SPEEDY Administration Benzonatate 100 mg 11/30/24 15:44 Benzonatate 100 Mg Capsule PO TID PRN Cough Dextrose 12.5 gm 11/30/24 15:49 Dextrose 50% 25 Gm/50 Ml Syringe IV PUSH PRN PRN Hypoglycemia Protocol Divalproex Sodium 1,000 mg 12/01/24 08:00 12/18/24 09:24 Divalproex Sodium Er 500 Mg Tab.24h PO 1,000 mg DAILY@0800 SPEEDY Administration Divalproex Sodium 500 mg 11/30/24 21:00 12/18/24 20:57 Divalproex Sodium Er 500 Mg Tab.24h PO 500 mg HS SPEEDY Administration Furosemide 40 mg 12/10/24 09:00 12/18/24 09:25 Furosemide Inj 40 Mg/4 Ml Vial IV PUSH 40 mg DAILY SPEEDY Administration Glucagon 1 mg 11/30/24 15:49 Glucagon For Inj 1 Mg Vial IM PRN PRN Hypoglycemia Protocol Glucose 15 gm 11/30/24 15:49 Glucose Oral Gel 15 Gm Of Glucse In 37.5 Gm Tube PO PRN PRN Hypoglycemia Protocol Guaifenesin 1,200 mg 12/18/24 11:20 12/18/24 20:57 Guaifenesin 12 Hr 600 Mg Tabcr PO 1,200 mg Q12HR SPEEDY Administration Dextrose 1,000 mls @ 100 mls/hr 11/30/24 15:49 Dextrose 5% 1,000 Ml IVPB PRN PRN Hypoglycemia Protocol Insulin Aspart 2 - 5 units 11/30/24 17:00 12/18/24 17:39 Insulin Aspart (*Bkc) 100 Units/Ml SUB-Q Not Given TIDWM SPEEDY Protocol Insulin Aspart 1 - 2 units 11/30/24 21:00 12/18/24 20:57 Insulin Aspart (*Bkc) 100 Units/Ml SUB-Q 2 units HS SPEEDY Administration Protocol Insulin Glargine 10 units 11/30/24 21:00 12/18/24 20:58 Insulin Glargine (*Bkc) 100 Units/Ml SUB-Q 10 units HS SPEEDY Administration Memantine 10 mg 11/30/24 17:00 12/18/24 17:41 Memantine 10 Mg Tablet PO 10 mg BID SPEEDY Administration Methocarbamol 750 mg 11/30/24 15:51 12/17/24 11:03 Methocarbamol 750 Mg Tablet PO 750 mg BID PRN Administration muscle spasm Midodrine 10 mg 11/30/24 17:00 12/18/24 17:40 Midodrine Hcl 10 Mg Tablet PO 10 mg TID SPEEDY Administration Pantoprazole Sodium 40 mg 12/01/24 09:00 12/18/24 09:24 Pantoprazole 40 Mg Tablet PO 40 mg DAILY SPEEDY Administration Polyethylene Glycol 17 gm 12/05/24 09:50 12/17/24 08:51 Polyethylene Glycol 3350 17 Gm Powd.Pack PO 17 gm QAM PRN Administration Constipation Prednisone 10 mg 12/16/24 08:00 12/18/24 09:24 Prednisone 10 Mg Tablet PO 12/22/24 10:00 10 mg DAILY@0800 SPEEDY Administration Rivaroxaban 20 mg 12/06/24 17:00 12/18/24 17:40 Rivaroxaban 20 Mg Tablet PO 20 mg Q24H SPEEDY Administration Tamsulosin HCl 0.8 mg 12/01/24 09:00 12/18/24 09:25 Tamsulosin Hcl 0.4 Mg Capsule PO 0.8 mg DAILY SPEEDY Administration Vitamin D 125 mcg 12/01/24 09:00 12/18/24 09:25 Cholecalciferol (Vitamin D3) 125 Mcg (5,000 Units) Tablet PO 125 mcg DAILY SPEEDY Administration Radiology Results: ITS Impressions Chest CT 11/30/24 14:20 IMPRESSION: 1. Bilateral severe bronchopneumonia superimposed on chronic lung disease with probable reactive mediastinal lymphadenopathy. Follow-up recommended to assess resolution Modified Barium Swallow 12/07/24 11:54 IMPRESSION: Mild pharyngeal dysphagia with flash laryngeal penetration without aspiration. Please correlate with speech pathologist findings and specific feeding recommendations. Chest X-Ray 12/13/24 13:18 IMPRESSION: 1. No significant change 2. Bilateral airspace disease, left lung worse. Labs Labs: Laboratory Results - last 24 hr 12/18/24 12/18/24 12/18/24 07:52 10:58 14:57 POC Capillary Glucose 133 H 288 H 193 H 12/18/24 20:03 POC Capillary Glucose 321 H Quality VTE Prophylaxis VTE prophylaxis: pharmacologic ordered
[2024-12-19] MEDS: MIDODRINE HCL 10 MG TABLET PO ×2 (08:29→12:01)
[2024-12-19] MEDS: DIVALPROEX SODIUM ER 500 MG TAB.24H 1000 MG PO (08:29)
[2024-12-19] MEDS: guaiFENesin 12 HR 600 MG TABCR 1200 MG PO (08:30)
[2024-12-19] MEDS: PANTOPRAZOLE 40 MG TABLET PO (08:30)
[2024-12-19] MEDS: TAMSULOSIN HCL 0.4 MG CAPSULE 0.8 MG PO (08:30)
[2024-12-19] MEDS: CHOLECALCIFEROL (VITAMIN D3) 125 MCG (5,000 UNITS) TABLET PO (08:30)
[2024-12-19] MEDS: MEMANTINE 10 MG TABLET PO (08:30)
[2024-12-19] MEDS: IPRATROPIUM 0.5 MG/ALBUTEROL SULFATE 2.5 MG (BASE) AMPUL.NEB 3 ML INHALATION (08:43)
[2024-12-19] MEDS: FUROSEMIDE 40 MG TABLET PO (09:58)
--- NOTE | 2024-12-19 10:59 | P.DS_ITS ---
DS: Admitting Diagnosis Discharge Date 12/19/2024 Admitting Diagnosis Weakness and hypoxia DS: Discharge Diagnosis Discharge Diagnosis (1) Acute hypoxic respiratory failure: Code(s): J96.01 - Acute respiratory failure with hypoxia Status: Acute Assessment and Plan: Patient is currently on hospice Patient arrived to the emergency department 96% on room air. Initial concern patient was hypoxic in the 70s prior to arrival. Patient did become hypoxic in the emergency department on 11/30, dropped to 84% on room air. Subsequently placed on BiPAP. Imaging showed bilateral severe bronchopneumonia superimposed on chronic lung disease. Initial ABG showed no significant hypoxia, hypercapnia, acidosis, or alkalosis on BiPAP. - continue BiPAP for work of breathing/respiratory distress p.r.n. - started on hospital-acquired pneumonia treatment as he was recently admitted to [facility], patient additionally met criteria for sepsis and lactic was elevated - pulmonology consulted Gentle diuresis as BNP elevated Which he is tolerating. Respiratory pathogen panel Urine antigens I LD workup as ordered by Pulmonary continue Airvo and wean as tolerated And currently on 4 L oxygen via nasal cannula Seen by Pulmonary, found to have difficulty swallowing, barium swallow was ordered which found some trace penetration. Recommendation was regular diet with thin liquids, no straws and small drinks. Prednisone taper continuing through December 22 as stated in pulmonology consultation. Per Pulmonary, patient will need discharge to LTAC given severity of lung disease. Most facilities are declining patient due to high oxygen needs health and wellness coordinator exploring alternatives with patient's daughter (2) Sepsis: Qualifiers: Sepsis type: sepsis due to unspecified organism Sepsis acute organ dysfunction status: with acute organ dysfunction Severe sepsis acute organ dysfunction type: acute respiratory failure Acute respiratory failure type: with hypoxia Severe sepsis shock status: without septic shock Qualified Code(s): A41.9 - Sepsis, unspecified organism; R65.20 - Severe sepsis without septic shock; J96.01 - Acute respiratory failure with hypoxia Code(s): A41.9 - Sepsis, unspecified organism Status: Acute Assessment and Plan: Patient met SIRS criteria: HR greater than 100, RR greater than 20, WBC greater than 12. +hypoxia, -hypotension. Initial lactic 3.6 -> 3.4. CRP 4.98 and procalcitonin 0.1. - blood cultures obtained on 11/30, follow. - trend lactic down - 30 mL/kg = 2.5, will give 2L at 200 mL/hr due to elevation in BNP/hx of diastolic dysfunction. monitor toleration. - suspected source: HAP - started on ceftriaxone and azithromycin, exchanged to cefepime and azithromycin on 11/30 - monitor I&Os concluded azithromycin Completed cefepime for total 7 days 12/10: White blood cell count is starting to trend back up very slightly, repeating chest x-ray and obtaining UA, as well as restarting cefepime and doxycycline. Patient denies significant new complaints at this time. He does have 2 small pressure ulcers that are currently not infected and being cared for by nursing staff. Chest x-ray did show improving left-sided infiltrate with worsening right-sided infiltrate but after completion show pulmonary did agree that this could all have to do with his chronic lung disease and not necessarily indicate new pneumonia. However, patient's oxygen requirements had been worsening since discontinuation of antibiotics. 12/11: Discussed with Pulmonary, patient is on steroids which will be affecting white blood cell count, and patient has not shown active signs of sepsis such as fever, chills, increased sputum production. Oxygen requirements began to improve today, unclear if restarting antibiotics for suspected pneumonia plays a factor in this at this time. Recommendation from Pulmonary was to continue cefepime at this time but no need for doxycycline is not likely to be atypical organism given hospital setting, agree with this assessment. We will continue cefepime for up to 3 days, recommend reassess need for antibiotic at that time. (3) Pneumonia: Qualifiers: Laterality: bilateral Lung location: unspecified part of lung Pneumonia type: due to unspecified organism Qualified Code(s): J18.9 - Pneumonia, unspecified organism Code(s): J18.9 - Pneumonia, unspecified organism Status: Acute Assessment and Plan: - CXR: 1. Interval worsening of chronic interstitial lung disease. 2. However bibasilar edema and/or pneumonitis or airspace disease not excluded. - Chest CT: Bilateral severe bronchopneumonia superimposed on chronic lung disease with probable reactive mediastinal lymphadenopathy. Follow-up recommended to assess resolution - risk/complicating factors: acute respiratory failure, interstitial lung disease, recent hospitalization - started on ceftriaxone and azithromycin in the ED, exchanged to cefepime and azithromycin on 11/30. No current indication for vancomycin as the patient's MRS A PCR was negative upon admission. - supportive care: Mucinex, Tylenol, DuoNebs, Tessalon Perles - sputum culture - currently requiring BiPAP for WOB, +hypoxia Still requiring high level of oxygen. Continue diuresis Chest x-ray reviewed Leukocytosis improving Now awaiting discharge to hospice (4) ILD (interstitial lung disease): Code(s): J84.9 - Interstitial pulmonary disease, unspecified Status: Chronic Assessment and Plan: - worsening on imaging - pulmonology consulted, see recs above Restarted on prednisone per Pulmonary (5) Diastolic congestive heart failure, NYHA class 3: Qualifiers: Congestive heart failure chronicity: unspecified Qualified Code(s): I50.30 - Unspecified diastolic (congestive) heart failure Code(s): I50.30 - Unspecified diastolic (congestive) heart failure Status: Chronic Assessment and Plan: BNP elevated at 3540. No evidence of pulmonary edema on CXR. Reviewed chart, most recent echo in 2022 showed diastolic dysfunction, normal systolic function with an estimated EF of 60 65%, valvular disease, and mild pulmonary hypertension. - update echo - receiving IV fluids due to sepsis at slower rate, monitor toleration which will be stopped and start diuresis as tolerated - monitor I&Os - daily weights Received a dose of Lasix 40 mg x 1 11/30 Currently on Lasix 40 mg IV q.d. (6) DM2 (diabetes mellitus, type 2): Code(s): E11.9 - Type 2 diabetes mellitus without complications Status: Chronic Assessment and Plan: - hypoglycemia protocol - POC blood glucose ACHS - home medication: Hold metformin in case of need for contrast. Continue Lantus 10 units HS. 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 Awiating discharge to hospice DS: Summary Hospital Course Hospital Course: 74 y/o M with PMH of Afib s/p cardioversion and ablation, BPH, interstitial lung disease, HTN, HLD, DM, skin cancer s/p excision presents here with weakness and hypoxia. The patient presents here from [facility] on 11/30 via EMS for further evaluation of generalized weakness and hypoxia. Per EMS report, the patient was found to be hypoxic in the 70s on room air. He does not normally have a supplemental O2 requirement. He reports this morning he woke up and felt generally weak, was unable to get out of bed. He reports dry cough, nausea without vomiting (brief this morning), shortness of breath. Denies fever, chills, body aches, diarrhea, chest pain, abdominal pain. He additionally reports a recent admission at [facility] for pneumonia and underwent a heart work-up at that time. He was discharged back to [facility] yesterday, 11/29, with antibiotics (unsure what). Was placed on BiPAP in the ED, currently reporting mild improvement. Initial VS at presentation: 97.6%, HR 107, R 30, 128/73, and 96% on RA. Dropped to 84% on room air. Now on BiPAP. ED workup showed: WBC 18.3, hemoglobin 11.3, INR 2.2, initial ABG showed an O2 sat of 94.3% on BiPAP, lactic 3.6, glucose 189, CRP 4.9, BNP 3540, procalcitonin 0.1. UA showed trace glucose, trace ketones, 1+ blood, trace leuk esterase, 6- 10 RBC. MRSA negative and viral PCR negative. CXR showed interval worsening of chronic interstitial lung disease and bibasilar edema and/or pneumonitis or airspace disease not excluded. Chest CT showed bilateral severe bronchop neumonia superimposed on chronic lung disease with probable reactive mediastinal lymphadenopathy. I assumed care on 12/19. Patient was already placed in hospice when I assumed care due to his respiratory condition and other comorbid conditions. Time Spent with Patient Time attestation: Total time spent providing and/or coordinating discharge services: Exam Narrative: APPEARANCE: Ill-appearing not in acute distress HEAD: normocephalic, atraumatic. EYES: PERRLA/EOMI, conjunctivae clear. NECK: Supple. No adenopathy, no masses. RESPIRATORY: Coarse breath sounds bilaterally, no respiratory distress CARDIOVASCULAR: Regular rate and S1-S2 ABDOMINAL: Soft, nontender, nondistended, normal bowel sounds MUSCULOSKELETAL: Moves all extremities. Strength/ROM intact, trace edema, No calf tenderness. NEURO: Alert. Cranial nerves II through XII intact. SKIN: Warm, dry. Normal Color Const: General: comfortable Other: , male, elderly, ill-appearing, mild respiratory distress HENMT: Face/Nose/Sinus: Normal nares present Mouth: Yes dry mucous membranes (on BiPAP) Eyes: General: appearance normal, both eyes and all related structures Sclera: sclerae normal Pupils: Equal, round and reactive pupils present EOM: EOMs intact bilaterally Resp: Other: Tachypneic without accessory muscle use, bibasilar crackles, no wheezing. Cardio: Rate: regular rate Rhythm: regular rhythm Other: S1-S2 present without murmur, rub, ectopy GI: Other: Abdomen soft, nondistended, nontender. Normoactive bowel sounds in all quadrants. Skin: General skin exam: normal color and no rashes or lesions noted Wounds: no wounds Neuro: Cranial nerves: Yes Equal, round and reactive pupils present Speech: normal speech Motor exam (neuro): 5/5 motor strength present throughout Sensory Exam: normal sensation Other: A/Ox4 Extrem: Other: Trace pitting edema to bilateral ankles, symmetric Psych: Mental Status: mental status grossly normal Affect: normal affect Other: Good insight and judgment, pleasant DS: Data Data Completed and Pending Labs on day of discharge: Labs from last 24 hours 12/19/24 12/18/24 12/18/24 07:19 20:03 14:57 POC Capillary Glucose 118 H 321 H 193 H 12/18/24 10:58 POC Capillary Glucose 288 H Imaging Radiologist's impression: ITS Impressions Chest X-Ray 11/30/24 11:05 IMPRESSION: 1. Interval worsening of chronic interstitial lung disease. 2. However bibasilar edema and/or pneumonitis or airspace disease not excluded. Chest CT 11/30/24 14:20 IMPRESSION: 1. Bilateral severe bronchopneumonia superimposed on chronic lung disease with probable reactive mediastinal lymphadenopathy. Follow-up recommended to assess resolution Chest X-Ray 12/01/24 07:31 Impression: 1: Bilateral airspace disease with sparing of the upper lobes, compatible with pneumonia. Chest X-Ray 12/01/24 15:16 Impression: Bilateral pneumonia Chest X-Ray 12/02/24 11:27 IMPRESSION: 1. No significant change from one day prior. 2. Pulmonary edema, pneumonitis, and/or airspace disease. 3. Background interstitial lung disease. Chest X-Ray 12/03/24 11:37 IMPRESSION: 1. No significant change 2. Probable pulmonary edema, pneumonitis, and/or airspace disease superimposed upon interstitial lung disease. Chest X-Ray 12/04/24 09:32 IMPRESSION: 1. Slight interval progression in diffuse bilateral interstitial and airspace opacities which could represent moderate pulmonary edema, pneumonia, chronic interstitial lung disease or some combination thereof. Modified Barium Swallow 12/07/24 11:54 IMPRESSION: Mild pharyngeal dysphagia with flash laryngeal penetration without aspiration. Please correlate with speech pathologist findings and specific feeding recommendations. Chest X-Ray 12/10/24 14:20 Impression: Bilateral pneumonia ADDENDUM: 12/10/24 1757 Comparison made to previous exam 12/04/2024. The findings appear slightly improved compared to the previous study in the right lower lobe but slightly progressed in the right upper lobe. Overall the findings are grossly unchanged Chest X-Ray 12/13/24 13:18 IMPRESSION: 1. No significant change 2. Bilateral airspace disease, left lung worse. Discharge Plan Discharge Attending physician on discharge: Wil Garcia Consulting providers: Christophe Virk Discharging Clinician: Wil Garcia Anticipated Discharge Date/Time: 12/19/24 10:54 Patient Disposition: Hospice - Medical Facility Activity: as tolerated Diet: as tolerated Discharge Instructions: Medication reconciliation as per hospice Patient Language: [place] Stand Alone Forms: General Discharge Information, Shelter Discharge Discharge Medications: New furosemide 40 mg Tablet 40 mg PO DAILY Qty: 30 0RF benzonatate 100 mg Capsule 100 mg PO TID PRN (Reason: Cough) Qty: 30 0RF Continued albuterol sulfate 90 mcg/actuation HFA aerosol inhaler 2 puff INHALATION Q6H PRN (Reason: shortness of breath or wheezing) ipratropium-albuterol 0.5 mg-3 mg(2.5 mg base)/3 mL solution for nebulization 3 ml inhalation QID PRN (Reason: shortness of breath or wheezing) insulin glargine [Lantus Solostar U-100 Insulin] 100 unit/mL (3 mL) insulin pen 10 unit subcut QPM methocarbamol 750 mg tablet 750 mg PO BID PRN (Reason: unknown) midodrine 10 mg tablet 10 mg PO TID Rx Instructions: do not give last dose of day after 6PM or within 4 hrs of bedtime prednisone 10 mg tablet 10 mg PO DAILY Rx Instructions: 12/02-12/08 prednisone 30 mg, 12/09-12/15 20 mg, 12/16-12/22 10 mg tamsulosin 0.4 mg capsule 0.8 mg PO DAILY cholecalciferol (vitamin D3) 125 mcg (5,000 unit) capsule 125 mcg PO DAILY metformin 500 mg tablet 500 mg PO DAILY atorvastatin 10 mg tablet 10 mg PO HS divalproex 500 mg tablet extended release 24 hr 1,000 mg PO BID memantine 10 mg tablet 10 mg PO BID Xarelto 20 mg tablet 20 mg PO DAILY pantoprazole 40 mg tablet,delayed release (DR/EC) 40 mg PO DAILY Discontinued fludrocortisone 0.1 mg tablet 0.1 mg PO ONCE Date of admission: 12/01/24 09:34 Primary Care Provider: Juan,Alejandro Edge Admitting Provider: Maria Luisa Gonzalez Attending physician on admission: Maria Luisa Gonzalez Condition: Guarded Prognosis
[2024-12-19] MEDS: INSULIN ASPART (*BKC) 100 UNITS/ML SUB-Q (11:46)
[2024-12-21 00:07] LABS: Anti-Jo-1 Ab <20 Units (<20); Anti-Ku Ab Negative (Negative); Anti-MDA-5 Ab (CADM-140) <20 Units (<20); Anti-NXP-2 (P140) Ab <20 Units (<20); Anti-PM/Scl-100 Ab <20 Units (<20); Anti-SAE1 Ab IgG <20 Units (<20); Anti-SS-A 52kD Ab IgG <20 Units (<20); Anti-TIF-1gamma Ab <20 Units (<20); Anti-U2 RNP Ab Negative (Negative); Anti-U3 RNP (Fibrillarin) Negative (Negative); U1 RNP Ab <20 Units (<20)
== END 2024-12-19 14:49 | disposition hospice, inpatient (51) | DRG 871 ==
LOC: ANHED 12:06 → ANHIMU 13:03
PROVIDERS: Internal Medicine; Internal Medicine Pulmonary Disease; Student in an Organized Health Care Education/Training Program; Admitting Provider General Practice; Emergency Provider Emergency Medicine; PCP Family Medicine; Visit Provider General Practice
DX: A41.9 Sepsis, unspecified organism (principal); J18.9 Pneumonia, unspecified organism; J96.01 Acute respiratory failure with hypoxia; I48.20 Chronic atrial fibrillation, unspecified; I50.32 Chronic diastolic (congestive) heart failure; J44.0 Chronic obstructive pulmonary disease with (acute) lower respiratory infection; J84.111 Idiopathic interstitial pneumonia, not otherwise specified; R65.20 Severe sepsis without septic shock; I95.89 Other hypotension; K21.9 Gastro-esophageal reflux disease without esophagitis; E11.9 Type 2 diabetes mellitus without complications; R13.10 Dysphagia, unspecified; N40.0 Benign prostatic hyperplasia without lower urinary tract symptoms; Y95 Nosocomial condition; F03.90 Unspecified dementia, unspecified severity, without behavioral disturbance, psychotic disturbance, mood disturbance, and anxiety; Z20.822 Contact with and (suspected) exposure to COVID-19; Z86.73 Personal history of transient ischemic attack (TIA), and cerebral infarction without residual deficits; Z79.01 Long term (current) use of anticoagulants; Z79.4 Long term (current) use of insulin; Z51.5 Encounter for palliative care
CPT/HCPCS: 36415; 36600; 71045; 71260; 74230; 80053; 81001; 82085; 82375; 82550; 82607; 82746; 82805; 82948; 83036; 83050; 83605; 83735; 83880; 84145; 85018; 85025; 85027; 85610; 85730; 86037; 86038; 86140; 86200; 86235; 86331; 86364; 86430; 86606; 86609; 86671; 86738; 87040; 87070; 87205; 87449; 87637; 87641; 87899; 92526; 92611; 93005; 93306; 94002; 94003; 94640; 94660; 94762; 96361; 96365; 96367; 96375; 97110; 97163; 97164; 97165; 97166; 97530; 97535; 99212; 99285; A9270; G0378; G0463; J0456; J0692; J0696; J1815; J1938; J7050; J7120; J7512; Q9967